=== PATIENT | male | born 1955 | race Caucasian/White ===

== ENCOUNTER 2016-05-16 22:47 | Inpatient (IN) | payer OTHER ==
[~2016-05-16] VITALS: Ht 185.4 cm; Wt 121.0 kg
[~2016-05-16 22:47] MED LIST: ACET1SUP84 PO; ALLO300T2 PO; ASPI-435 PO; B-COCAP2 PO; BISA10SU38 PR; CHOL20007 PO; CLC100X PO; CYAN100048 PO; DIVA500T5 PO; DIVA500T59 PO; DLN100 PO; FRS/40 PO; LEVO100T PO; MAGNSUS5 PO; METO2.5T PO; OXCA150T2 PO; POLY335019 PO; POTA1POW PO; PRLSR20 PO; RISP1TAB3 PO; RIVA1TAB4 PO; SODIENE PR; TAMS0.4C38 PO
[2016-05-16] MEDS ORDERED: ATOR-24 PO (23:19)
[2016-05-16] MEDS ORDERED: SENN-61 PO (23:27)
[2016-05-16] MEDS ORDERED: DLN100 PO (23:30)
[2016-05-16] MEDS ORDERED: CARB25TA12 PO (23:31)
[2016-05-16] MEDS ORDERED: VALP250S16 PO ×2 (23:34)
[2016-05-16] MEDS ORDERED: ACET-1311 PO (23:38)
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
[2016-05-17 00:41] LABS: BASO % 0.2 %; BASO ABS # 0.01 K/uL (0-0.2); COMPLETE YES; EOS % 1.2 %; HEMATOCRIT 35.6 % (42-52); IG% 0.2 %; LYMPH % 25.5 %; LYMPH ABS # 1.05 K/uL (1.2-3.4); MEAN CELL VOLUME 95.4 fL (80-100); MEAN CORPUSCULAR HEMOGLOBIN 32.2 pg (25-34); MEAN CORPUSCULAR HGB CONC 33.7 g/dl (32-36); MEAN PLATELET VOLUME 9.7 fL (7.4-10.4); MONO % 7.8 %; NEUT % 65.1 %; PLATELET COUNT 112 K/uL (130-400); RED BLOOD COUNT 3.73 M/uL (4.7-6.1); WHITE BLOOD COUNT 4.12 K/uL (4.8-10.8)
[2016-05-17 00:59] LABS: ALT/SGPT 12 U/L (12-78); AST/SGOT 25 U/L (15-37); BLOOD UREA NITROGEN 18 mg/dl (7-18); BUN/CREATININE RATIO 17.9 (10-20); CALCIUM 8.6 mg/dl (8.5-10.1); CARBON DIOXIDE 30 mmol/L (21-32); CHLORIDE 103 mmol/L (98-107); GLUCOSE 103 mg/dl (70-99); POTASSIUM 3.6 mmol/L (3.5-5.1); SODIUM 142 mmol/L (136-145)
[2016-05-17 01:10] LABS: ALKALINE PHOSPHATASE 100 U/L (45-117)
[2016-05-17 01:18] LABS: ACETAMINOPHEN < 2 ug/ml (10-30)
[2016-05-17 01:18] LABS: BENZODIAZEPINE, URINE NEG (NEG); COCAINE,URINE NEG (NEG); PHENCYCLIDINE, URINE NEG (NEG)
--- NOTE | 2016-05-17 07:28 | DIAGNOSTIC IMAGING REPORT ---
CHEST ONE VIEW PORTABLE CLINICAL HISTORY: mental health clearance CELLULITIS, EDEMA. COMPARISON STUDY: 10/04/2015 FINDINGS: The heart is mildly enlarged. There is slight elevation of the interstitium. This could indicate mild pulmonary vascular congestion, or represent chronic interstitial opacities. There are no pleural effusions. There is no lobar consolidation. IMPRESSION: Mild elevation of the interstitium. Please correlate clinically in regards to mild pulmonary vascular congestion Electronically signed by: Beltran Ohara M.D. 05/17/2016 7:26 AM
[2016-05-17] MEDS ORDERED: PHENYTOIN SODIUM ER 100 MG CAP PO STA (09:37)
[2016-05-17] MEDS ORDERED: FUROSEMIDE 40 MG TAB PO ONE (09:45)
[2016-05-17] MEDS ORDERED: VALPROIC ACID 500 MG/10 ML UDP PO ONE (09:45)
[2016-05-17] MEDS ORDERED: METOLAZONE 2.5 MG TAB PO ONE (09:45)
[2016-05-17] MEDS ORDERED: OXCARBAZEPINE 150 MG TAB PO ONE (09:45)
[2016-05-17] MEDS: LEVOTHYROXINE 100 MCG TAB PO SCH (10:24)
[2016-05-17] MEDS: CARBIDOPA/LEVODOPA 25/100MG TAB PO SCH ×2 (10:25→21:54)
[2016-05-17] MEDS: RIVAROXABAN 20 MG TAB PO SCH (10:26)
--- NOTE | 2016-05-17 17:32 | EMERGENCY ROOM VISIT NOTE ---
ED Visit Note Received patient in signout from Dr. Avila. History and physical verified by me. The patient has been in the emergency department for almost 19 hours at this point. His been unable to get a bed and can help is going to suspend there search for the evening. I did discuss the patient with Dr. Louis. As the patient is here under a 302 warrant he cannot be sent back to [facility] without a 24-48 hour period of observation. Can help will restart the bed search in the morning. At that time Psych also likely see the patient rounding in the morning.
[2016-05-17] MEDS ORDERED: ATORVASTATIN 40 MG TAB PO STA (17:35)
[2016-05-17] MEDS ORDERED: VALPROIC ACID 500 MG/10 ML UDP PO SCH (21:00)
[2016-05-17] MEDS ORDERED: CARBIDOPA/LEVODOPA 25/100MG TAB PO SCH (21:00)
[2016-05-17] MEDS ORDERED: VALPROIC ACID SYRUP 250 MG/5 ML PO STA (21:26)
[2016-05-17] MEDS: OXCARBAZEPINE 150 MG TAB PO SCH (21:53)
[2016-05-17] MEDS: POTASSIUM CHLORIDE PWD 20 MEQ PACK PO SCH (21:54)
[2016-05-17] MEDS: PHENYTOIN 50 MG CHEW PO SCH (21:56)
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
--- NOTE | 2016-05-18 05:07 | EMERGENCY ROOM VISIT NOTE ---
ED Visit Note First contact with patient: 23:19 This patient was signed out to me at change of shift awaiting psychiatric evaluation. I am familiar with this patient as I evaluated him yesterday on a 302 warrant. The patient is resting comfortably at this time. He received his daily meds earlier today. 0507: The patient is sleeping at this time. He will be evaluated by psychiatry this morning. They will determine disposition. The case was signed out to Dr. Avila at change of shift.
[2016-05-18] MEDS: LEVOTHYROXINE 100 MCG TAB PO SCH (08:42)
[2016-05-18] MEDS: PHENYTOIN 50 MG CHEW PO SCH (08:58)
[2016-05-18] MEDS: POTASSIUM CHLORIDE PWD 20 MEQ PACK PO SCH ×4 (08:59→20:36)
[2016-05-18] MEDS: OXCARBAZEPINE 150 MG TAB PO SCH ×3 (08:59→20:37)
[2016-05-18] MEDS ORDERED: METOLAZONE 2.5 MG TAB PO ONE (09:00)
[2016-05-18] MEDS ORDERED: RIVAROXABAN TAB 15 MG TAB PO SCH (09:00)
[2016-05-18] MEDS ORDERED: RIVAROXABAN 10 MG TAB PO ONE (09:00)
[2016-05-18] MEDS ORDERED: FUROSEMIDE 40 MG TAB PO ONE (09:00)
[2016-05-18] MEDS ORDERED: DIVALPROEX 500 MG EXTENDED RELEASE TAB PO ONE (09:00)
[2016-05-18] MEDS: CARBIDOPA/LEVODOPA 25/100MG TAB PO SCH ×3 (09:51→20:37)
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
--- NOTE | 2016-05-18 14:34 | EMERGENCY ROOM VISIT NOTE ---
ED Visit Note This patient has been signed out to me twice in the past 40 hours for continued evaluation of the patient. The patient has been prescribed his daily medications. He has not had any problems or easy stay. After 40 hours here and a mental health evaluation by the psychiatrist who feels the patient is able to go back to the [facility], the patient will be admitted to the medicine service for observation. The [facility] long-term refused to take the patient back because of lack of staffing. I spoke with Dr. Hugo who will see the patient for admission/observation.
[2016-05-18] MEDS ORDERED: ACETAMINOPHEN 325 MG TAB PO PRN (15:45)
[2016-05-18 16:59] VITALS: BP 117/75; PULSE 73; TEMP 36.3; Ht 185.4 cm; Wt 121.0 kg
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
[2016-05-18 20:00] VITALS: BP 118/71; PULSE 97; TEMP 36.9; O2SAT 95
[2016-05-18] MEDS: DOCUSATE SODIUM 100 MG CAP PO SCH (20:36)
[2016-05-18] MEDS: PHENYTOIN SODIUM ER 100 MG CAP PO SCH (20:36)
[2016-05-18] MEDS ORDERED: VALPROIC ACID SYRUP 250 MG/5 ML PO SCH (21:00)
[2016-05-18] MEDS ORDERED: VALPROIC ACID 250 MG/5 ML UDP PO SCH (21:00)
[2016-05-18] MEDS ORDERED: ATORVASTATIN 40 MG TAB PO SCH (21:00)
[2016-05-18 22:49] VITALS: BP 117/73; PULSE 65; TEMP 36.6; O2SAT 100
[2016-05-19] MEDS ORDERED: LEVOTHYROXINE 100 MCG TAB PO SCH (06:30)
[2016-05-19 07:21] VITALS: BP 116/71; PULSE 64; TEMP 36.4; O2SAT 99
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
[2016-05-19 08:00] VITALS: O2SAT 99
[2016-05-19] MEDS ORDERED: METOLAZONE 2.5 MG TAB PO SCH ×2 (08:30→09:00)
[2016-05-19] MEDS ORDERED: NEPHROCAPS PO SCH (09:00)
[2016-05-19] MEDS ORDERED: VALPROIC ACID 250 MG/5 ML UDP PO SCH (09:00)
[2016-05-19] MEDS ORDERED: FUROSEMIDE 40 MG TAB PO SCH (09:00)
[2016-05-19] MEDS ORDERED: RIVAROXABAN 10 MG TAB PO SCH (09:00)
[2016-05-19] MEDS ORDERED: SENNA 8.6 MG TAB PO SCH (09:00)
[2016-05-19] MEDS ORDERED: TAMSULOSIN HCL 0.4 MG CAP PO SCH (09:00)
[2016-05-19] MEDS ORDERED: PHENYTOIN SODIUM ER 100 MG CAP PO SCH (09:00)
[2016-05-19] MEDS ORDERED: ALLOPURINOL 300 MG TAB PO SCH (09:00)
[2016-05-19] MEDS ORDERED: ASPIRIN 81 MG ECTAB PO SCH (09:00)
[2016-05-19] MEDS ORDERED: VALPROIC ACID SYRUP 250 MG/5 ML PO SCH (09:00)
[2016-05-19] MEDS ORDERED: PANTOprazole SOD 40 MG TAB PO SCH (09:00)
[2016-05-19] MEDS: DOCUSATE SODIUM 100 MG CAP PO SCH (09:11)
[2016-05-19] MEDS: POTASSIUM CHLORIDE PWD 20 MEQ PACK PO SCH ×2 (09:12→13:47)
[2016-05-19] MEDS: OXCARBAZEPINE 150 MG TAB PO SCH ×2 (09:12→13:47)
[2016-05-19] MEDS: CARBIDOPA/LEVODOPA 25/100MG TAB PO SCH ×2 (09:12→13:47)
[2016-05-19] MEDS: PHENYTOIN SODIUM ER 100 MG CAP PO SCH (09:12)
[2016-05-19] MEDS: RIVAROXABAN 20 MG TAB PO SCH (10:04)
[2016-05-19 11:17] VITALS: BP 114/75; PULSE 64; TEMP 36.3; O2SAT 100
--- NOTE | 2016-05-19 12:29 | Hospitalist Progress Note ---
Hospitalist Progress Note Date of Service May 19, 2016. Subjective Pt evaluation today including: conversation w/ patient, physical exam, chart review, lab review, review of studies, review of inpatient medication list Patient is pleasant and cooperative. He has no new issues to bring to my attention today. I did discuss the disposition situation with our nurse navigator. Additional Comments: A 10 system review was performed and all were negative. Objective Vital Signs Date Time Temp Pulse Resp B/P Pulse Ox O2 Delivery O2 Flow Rate FiO2 05/19/16 11:17 36.3 64 16 114/75 100 Room Air 05/19/16 08:00 99 Room Air 05/19/16 07:21 36.4 64 16 116/71 99 Room Air 05/19/16 00:00 Room Air 05/18/16 22:49 36.6 65 16 117/73 100 Room Air 05/18/16 20:00 36.9 97 18 118/71 95 Nasal Cannula 4.0 05/18/16 16:59 36.3 73 18 117/75 Room Air 05/18/16 15:59 73 18 106/61 99 Room Air Physical Exam Notes: GEN: Awake, alert. Not in acute distress HEENT: Tm's intact, no inflammation, EOMI, PERRLA, MMM Neck: Soft, supple Lungs: CTA b/l, no r/r/w Heart: REG, nrl S1S2 without murmurs, rubs or gallops Abdomen: Soft, NT, ND, + BS EXT: No C/C. + lower extremity edema b/l with blisters and excoriated areas anteriorly. NEURO: CN's II-XII grossly intact, non-focal Skin: warm, dry, no rashes. PSYCH: pleasant, cooperative currently, Has one on one nursing with no reports of agitation. Assessment and Plan 1) Transient combative behavior - resolved has been calm and cooperative > 48 hours at this facility 2)Intermittent explosive disorder 3) Cognitive disability 4) Atrial Fibrillation - taking Xarelto 5) HTN - stable 6) Dementia 7) Depression 8) Lower extremity edema 9) Lower extremity venous insufficiency 10) Hypothyroidism - continue Synthroid. 11) Seizure disorder - stable on home meds. DVT prophylaxis covered by Xarelto, I purposely held the TEDs and SCDs due to the blisters on the lower legs b/l. Awaiting placement options.
--- NOTE | 2016-05-19 15:20 | Discharge Instructions ---
Discharge Instructions Admission Reason for Admission: Combative Behavior,Demetia W/ Behavioral [facility] Discharge Discharge Diagnosis / Problem: Combative behavior, Dementia with behavioral disturbance. Discharge Goals Goal(s): Improve disease control Activity Recommendations Activity Limitations: resume your previous activity . Instructions / Follow-Up Instructions / Follow-Up Patient has been calm and cooperative for > 48 hours. We did not need to make any changes in his medication. Current Hospital Diet Patient's current hospital diet: Regular Diet Discharge Diet Recommended Diet: Regular Diet Pending Studies Studies pending at discharge: no Laboratory Results Lipid Panel Test 03/04/16 04:35 Range/Units Triglycerides Level 137 0-150 mg/dl Cholesterol Level 110 0-200 mg/dl HDL Cholesterol 29 mg/dl Cholesterol/HDL Ratio 3.8 LDL Cholesterol, Calculated 54 mg/dl Medical Emergencies . Who to Call and When: Medical Emergencies: If at any time you feel your situation is an emergency, please call 911 immediately. . Non-Emergent Contact Non-Emergency issues call your: Primary Care Provider . . "Provider Documentation" section prepared by Edgar Matamoros. VTE Core Measure Inpt VTE Proph given/why not?: Other Anticoagulation, Contraindicated
[2016-05-19 15:30] VITALS: BP 107/71; PULSE 68; TEMP 36.4; O2SAT 100
[2016-05-19 15:31] VITALS: BP 114/75; PULSE 64; TEMP 36.3; O2SAT 100
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
[2016-05-19] MEDS ORDERED: NURSING VERBAL MED ORDER ONE (15:45)
[2016-05-19] MEDS ORDERED: EUCERIN CR 120 GM JAR EXT PRN (16:00)
[2016-05-19] MEDS ORDERED: EUCERIN CR 120 GM JAR EXT SCH (21:00)
[2017-02-06] MEDS ORDERED: DXY100 PO (19:31)
[2017-02-08] MEDS ORDERED: FURO40TA3 PO (18:20)
== END 2016-05-19 17:30 | DRG 884 ==
LOC: ENRESERVTM → ENRESERVDT → EDBD 22:47 → C.EDB 22:48 → C.MS2W 05-18 14:39
PROVIDERS: ADMIT Hospitalist; ATTEND Hospitalist
DX: F03.91 Unspecified dementia, unspecified severity, with behavioral disturbance (principal); I13.0 Hypertensive heart and chronic kidney disease with heart failure and stage 1 through stage 4 chronic kidney disease, or unspecified chronic kidney disease; R45.6 Violent behavior; R60.0 Localized edema; F63.81 Intermittent explosive disorder; F25.9 Schizoaffective disorder, unspecified; F32.9 Major depressive disorder, single episode, unspecified; F71 Moderate intellectual disabilities; F39 Unspecified mood [affective] disorder; G40.909 Epilepsy, unspecified, not intractable, without status epilepticus; I50.9 Heart failure, unspecified; I48.2 Chronic atrial fibrillation; N18.3 Chronic kidney disease, stage 3 (moderate); I87.2 Venous insufficiency (chronic) (peripheral); E78.5 Hyperlipidemia, unspecified; E03.9 Hypothyroidism, unspecified; M19.90 Unspecified osteoarthritis, unspecified site; E66.9 Obesity, unspecified; Z68.36 Body mass index [BMI] 36.0-36.9, adult; Z22.322 Carrier or suspected carrier of Methicillin resistant Staphylococcus aureus; Z86.718 Personal history of other venous thrombosis and embolism; Z79.82 Long term (current) use of aspirin; Z79.01 Long term (current) use of anticoagulants; Z79.899 Other long term (current) drug therapy

== ENCOUNTER → 2016-05-27 | Outpatient (CLI) | payer OTHER ==
[~2016-05-27] MED LIST changes: +ACET-1311 PO; -ACET1SUP84 PO; +AMOX500C3 PO; +ATOR-24 PO; -BISA10SU38 PR; +CARB25TA12 PO; -DIVA500T5 PO; -DIVA500T59 PO; +DXY100 PO; +FURO40TA3 PO; -MAGNSUS5 PO; -RISP1TAB3 PO; +SENN-61 PO; -SODIENE PR; +VALP250S16 PO
[2016-05-27 09:15] LABS: BLOOD UREA NITROGEN 20 mg/dl (7-18); CALCIUM 9.4 mg/dl (8.5-10.1); CARBON DIOXIDE 32 mmol/L (21-32); CHLORIDE 99 mmol/L (98-107); CREATININE 0.96 mg/dl (0.60-1.40); GLUCOSE 90 mg/dl (70-99); MAGNESIUM 1.8 mg/dl (1.8-2.4); POTASSIUM 3.3 mmol/L (3.5-5.1); SODIUM 143 mmol/L (136-145)
== END ==
LOC: C.LABUPHEI 08:50
PROVIDERS: ATTEND Family Medicine
DX: R60.9 Edema, unspecified (principal); M62.81 Muscle weakness (generalized)

== ENCOUNTER → 2016-08-04 | Outpatient (CLI) | payer OTHER ==
[2016-08-04 09:11] LABS: BLOOD UREA NITROGEN 25 mg/dl (7-18); BUN/CREATININE RATIO 25.1 (10-20); CALCIUM 9.3 mg/dl (8.5-10.1); CARBON DIOXIDE 34 mmol/L (21-32); CHLORIDE 99 mmol/L (98-107); GLUCOSE 93 mg/dl (70-99); POTASSIUM 3.5 mmol/L (3.5-5.1); SODIUM 142 mmol/L (136-145)
== END | disposition home or self-care (01) ==
LOC: C.LABUPHEI 08:06
PROVIDERS: ATTEND Family Medicine
DX: R60.9 Edema, unspecified (principal)

== ENCOUNTER → 2016-08-05 | Outpatient (CLI) | payer OTHER | LOC: C.LABUPHEI 09:12 | PROVIDERS: ATTEND Family Medicine | DX: M10.9 Gout, unspecified (principal) ==

== ENCOUNTER → 2016-09-12 | Outpatient (CLI) | payer OTHER ==
[2016-09-12 08:57] LABS: BLOOD UREA NITROGEN 20 mg/dl (7-18); BUN/CREATININE RATIO 20.1 (10-20); CARBON DIOXIDE 34 mmol/L (21-32); CHLORIDE 101 mmol/L (98-107); GLUCOSE 96 mg/dl (70-99); POTASSIUM 3.7 mmol/L (3.5-5.1); SODIUM 143 mmol/L (136-145)
[2016-09-12 09:01] LABS: CALCIUM 9.1 mg/dl (8.5-10.1)
== END ==
LOC: C.LABUPHEI 08:29
PROVIDERS: ATTEND Family Medicine
DX: G40.909 Epilepsy, unspecified, not intractable, without status epilepticus (principal); R60.9 Edema, unspecified

== ENCOUNTER → 2016-11-05 | Outpatient (CLI) | payer OTHER ==
[2016-11-05 09:21] LABS: BLOOD UREA NITROGEN 17 mg/dl (7-18); BUN/CREATININE RATIO 15.3 (10-20); CARBON DIOXIDE 33 mmol/L (21-32); CHLORIDE 101 mmol/L (98-107); GLUCOSE 89 mg/dl (70-99); MAGNESIUM 2.1 mg/dl (1.8-2.4); POTASSIUM 3.5 mmol/L (3.5-5.1); SODIUM 142 mmol/L (136-145)
== END ==
LOC: C.LABUPHEI 08:16
PROVIDERS: ATTEND Family Medicine
DX: E03.9 Hypothyroidism, unspecified (principal); N18.3 Chronic kidney disease, stage 3 (moderate); R00.9 Unspecified abnormalities of heart beat

== ENCOUNTER → 2016-11-10 | Outpatient (CLI) | payer OTHER ==
[2016-11-10 11:05] LABS: BLOOD UREA NITROGEN 22 mg/dl (7-18); BUN/CREATININE RATIO 18.7 (10-20); CARBON DIOXIDE 34 mmol/L (21-32); CHLORIDE 98 mmol/L (98-107); GLUCOSE 108 mg/dl (70-99); SODIUM 139 mmol/L (136-145)
== END | disposition home or self-care (01) ==
LOC: C.LABUPHEI 08:01
PROVIDERS: ATTEND Family Medicine
DX: R60.9 Edema, unspecified (principal)

== ENCOUNTER → 2016-11-11 | Outpatient (CLI) | payer OTHER | LOC: C.LABUPHEI 08:52 | PROVIDERS: ATTEND Family Medicine | DX: E87.6 Hypokalemia (principal) ==

== ENCOUNTER → 2016-11-12 | Outpatient (CLI) | payer OTHER ==
[2016-11-12 18:05] LABS: BASO % 0.2 %; BASO ABS # 0.01 K/uL (0-0.2); COMPLETE YES; HEMATOCRIT 40.5 % (42-52); IG% 0.2 %; LYMPH % 3.4 %; MEAN CELL VOLUME 96.4 fL (80-100); MEAN CORPUSCULAR HEMOGLOBIN 32.6 pg (25-34); MEAN CORPUSCULAR HGB CONC 33.8 g/dl (32-36); MONO % 4.4 %; NEUT % 91.8 %; PLATELET COUNT 146 K/uL (130-400); WHITE BLOOD COUNT 5.88 K/uL (4.8-10.8)
[2016-11-12 18:18] LABS: URINE APPEARANCE CLEAR (CLEAR); URINE COLOR DK YELLOW; URINE NITRITE NEG (NEG); URINE PH 7.5 (4.5-7.5); UROBILINOGEN NEG (NEG); ZZUR CULT IF INDIC CLEAN CATCH NO
[2016-11-12 18:21] LABS: URINE BILIRUBIN 1+ (NEG)
[2016-11-12 18:23] LABS: MANUAL MICROSCOPIC REQUIRED? NO; REVIEW REQ? NO
[2016-11-12 18:30] LABS: BLOOD UREA NITROGEN 23 mg/dl (7-18); BUN/CREATININE RATIO 15.6 (10-20); CARBON DIOXIDE 35 mmol/L (21-32); CHLORIDE 93 mmol/L (98-107); GLUCOSE 138 mg/dl (70-99); POTASSIUM 3.1 mmol/L (3.5-5.1); SODIUM 138 mmol/L (136-145)
[2016-11-12 18:44] LABS: ALB/GLOB RATIO 0.8 (0.9-2); ALKALINE PHOSPHATASE 297 U/L (45-117); ALT/SGPT 86 U/L (12-78); AST/SGOT 506 U/L (15-37)
--- NOTE | 2017-01-02 09:27 | CODING QUERY NO DIAGNOSIS ---
TREATMENT RENDERED WITHOUT A DIAGNOSIS To promote full compliance with coding requirements relating to patient care, physician participation is requested in all cases of decay control operator uncertainty. Please assist us with providing a diagnosis/symptom for the test(s) below: A diagnosis/symptom was not documented on your Order. A valid diagnosis/symptom is required to bill all insurances. Please remember that we are unable to code a diagnosis of rule out, probable, possible, questionable, or suspected. Tests that require a diagnosis: * CMP DIAGNOSIS: * CBC W/ AUTO DIFF DIAGNOSIS: * UA CLEAN CATCH CULT DIAGNOSIS: * BLOOD CULTURE DIAGNOSIS: Provider Signature: Date: Thank you Karol Buitrago [employer] Once completed, please kindly fax back to [phone] For questions please call [phone]
== END ==
LOC: C.LABUPHEI 17:47
PROVIDERS: ATTEND Nurse Practitioner Family
DX: Z01.89 Encounter for other specified special examinations (principal)

== ENCOUNTER → 2016-11-14 | Outpatient (CLI) | payer OTHER | LOC: C.LABUPHEI 08:42 | PROVIDERS: ATTEND Family Medicine | DX: R53.83 Other fatigue (principal) ==

== ENCOUNTER → 2016-11-21 | Outpatient (CLI) | payer OTHER ==
[2016-11-21 09:31] LABS: BLOOD UREA NITROGEN 22 mg/dl (7-18); BUN/CREATININE RATIO 16.9 (10-20); CALCIUM 9.6 mg/dl (8.5-10.1); CARBON DIOXIDE 34 mmol/L (21-32); CHLORIDE 97 mmol/L (98-107); GLUCOSE 115 mg/dl (70-99); POTASSIUM 3.3 mmol/L (3.5-5.1); SODIUM 138 mmol/L (136-145)
== END | disposition home or self-care (01) ==
LOC: C.LABUPHEI 09:06
PROVIDERS: ATTEND Nurse Practitioner Family
DX: R60.9 Edema, unspecified (principal)

== ENCOUNTER → 2016-11-25 | Outpatient (CLI) | payer OTHER ==
[2016-11-25 10:17] LABS: ALT/SGPT 36 U/L (12-78); AST/SGOT 29 U/L (15-37); BLOOD UREA NITROGEN 22 mg/dl (7-18); BUN/CREATININE RATIO 21.6 (10-20); CALCIUM 9.1 mg/dl (8.5-10.1); CARBON DIOXIDE 32 mmol/L (21-32); CHLORIDE 100 mmol/L (98-107); GLUCOSE 107 mg/dl (70-99); POTASSIUM 3.5 mmol/L (3.5-5.1); SODIUM 138 mmol/L (136-145)
[2016-11-25 10:19] LABS: ALKALINE PHOSPHATASE 172 U/L (45-117)
== END ==
LOC: C.LABUPHEI 09:11
PROVIDERS: ATTEND Nurse Practitioner Family
DX: R60.9 Edema, unspecified (principal); I10 Essential (primary) hypertension

== ENCOUNTER → 2016-11-28 | Outpatient (CLI) | payer OTHER ==
[2016-11-28 08:42] LABS: BLOOD UREA NITROGEN 20 mg/dl (7-18); BUN/CREATININE RATIO 18.4 (10-20); CALCIUM 9.2 mg/dl (8.5-10.1); CARBON DIOXIDE 33 mmol/L (21-32); CHLORIDE 102 mmol/L (98-107); GLUCOSE 102 mg/dl (70-99); POTASSIUM 3.7 mmol/L (3.5-5.1); SODIUM 141 mmol/L (136-145)
== END ==
LOC: C.LABUPBEA 07:54
PROVIDERS: ATTEND Nurse Practitioner Family
DX: R60.9 Edema, unspecified (principal)

== ENCOUNTER → 2016-12-05 | Outpatient (CLI) | payer OTHER ==
[2016-12-05 09:09] LABS: BLOOD UREA NITROGEN 18 mg/dl (7-18); BUN/CREATININE RATIO 16.2 (10-20); CALCIUM 9.5 mg/dl (8.5-10.1); CARBON DIOXIDE 31 mmol/L (21-32); CHLORIDE 104 mmol/L (98-107); GLUCOSE 86 mg/dl (70-99); POTASSIUM 3.9 mmol/L (3.5-5.1); SODIUM 142 mmol/L (136-145)
== END ==
LOC: C.LABUPHEI 08:52
PROVIDERS: ATTEND Family Medicine
DX: G40.909 Epilepsy, unspecified, not intractable, without status epilepticus (principal); R60.9 Edema, unspecified

== ENCOUNTER → 2016-12-11 | Outpatient (CLI) | payer OTHER ==
--- NOTE | 2016-12-11 11:12 | DIAGNOSTIC IMAGING REPORT ---
ABDOMEN NO IV/ORAL CONT (CT) CT DOSE: 550.93 mGy.cm HISTORY: Gallstones Gallstones, abnormal US. TECHNIQUE: Multiaxial CT images of the abdomen was performed without contrast. A dose lowering technique was utilized adhering to the principles of ALARA. COMPARISON STUDY: None. No images or report is submitted compromising the accuracy of the current study CT 10/05/2014 FINDINGS: Severe the limited exam diagnostically due to the absence of the stated outside imaging study as well as the lack of intravenous and oral contrast. Lung bases are clear. Liver spleen and pancreas appear uniform within the limitations of an unenhanced scan. Mild gallbladder distention. Possible small gallstones. The right kidney is negative for hydronephrosis. Left kidney is absent. Bowel pattern is nonobstructive. There is enlarged significant ventral hernia containing components of small bowel as well as colon. This has increased considerably in diameter compared to the prior exam. Maximum transaxial dimension currently is 9.6 cm. IMPRESSION: 1. Limited exam due to the absence of the patient's stated ultrasound, as well as lack of intravenous and oral contrast. 2. Interval development of or progression of a larger ventral hernia now containing loops of colon as well as small bowel. 3. No evidence for bowel obstructive change. 4. Absent left kidney. 5. Mild gallbladder distention with the possibility of several small gallstones. The above report was generated using voice recognition software. It may contain grammatical, syntax or spelling errors. Electronically signed by: Hudson Lock M.D. 12/11/2016 11:10 AM Dictated Date/Time: 12/11/2016 11:00 AM
== END ==
LOC: C.CTS 10:35
PROVIDERS: ATTEND Family Medicine
DX: K43.9 Ventral hernia without obstruction or gangrene (principal); K82.8 Other specified diseases of gallbladder

== ENCOUNTER → 2016-12-12 | Outpatient (CLI) | payer OTHER ==
[2016-12-12 10:14] LABS: BLOOD UREA NITROGEN 22 mg/dl (7-18); BUN/CREATININE RATIO 21.8 (10-20); CALCIUM 8.7 mg/dl (8.5-10.1); CARBON DIOXIDE 33 mmol/L (21-32); CHLORIDE 101 mmol/L (98-107); GLUCOSE 102 mg/dl (70-99); POTASSIUM 3.4 mmol/L (3.5-5.1); SODIUM 140 mmol/L (136-145)
== END | disposition home or self-care (01) ==
LOC: C.LABUPHEI 09:38
PROVIDERS: ATTEND Family Medicine
DX: R06.9 Unspecified abnormalities of breathing (principal)

== ENCOUNTER → 2016-12-15 | Outpatient (CLI) | payer OTHER ==
[2016-12-15 10:34] LABS: BLOOD UREA NITROGEN 21 mg/dl (7-18); BUN/CREATININE RATIO 20.7 (10-20); CARBON DIOXIDE 32 mmol/L (21-32); CHLORIDE 107 mmol/L (98-107); CREATININE 0.99 mg/dl (0.60-1.40); GLUCOSE 109 mg/dl (70-99); POTASSIUM 3.8 mmol/L (3.5-5.1); SODIUM 145 mmol/L (136-145)
== END ==
LOC: C.LABUPHEI 09:41
PROVIDERS: ATTEND Family Medicine
DX: R60.9 Edema, unspecified (principal)

== ENCOUNTER → 2016-12-22 | Outpatient (CLI) | payer OTHER ==
[2016-12-22 10:39] LABS: BLOOD UREA NITROGEN 18 mg/dl (7-18); BUN/CREATININE RATIO 15.3 (10-20); CALCIUM 9.4 mg/dl (8.5-10.1); CARBON DIOXIDE 33 mmol/L (21-32); CHLORIDE 100 mmol/L (98-107); GLUCOSE 101 mg/dl (70-99); POTASSIUM 3.5 mmol/L (3.5-5.1); SODIUM 141 mmol/L (136-145)
== END ==
LOC: C.LABUPHEI 09:44
PROVIDERS: ATTEND Nurse Practitioner Family
DX: R60.9 Edema, unspecified (principal)

== ENCOUNTER → 2016-12-29 | Outpatient (CLI) | payer OTHER ==
[2016-12-29 10:16] LABS: BLOOD UREA NITROGEN 19 mg/dl (7-18); BUN/CREATININE RATIO 17.2 (10-20); CARBON DIOXIDE 35 mmol/L (21-32); CHLORIDE 101 mmol/L (98-107); GLUCOSE 92 mg/dl (70-99); POTASSIUM 3.8 mmol/L (3.5-5.1); SODIUM 141 mmol/L (136-145)
== END | disposition home or self-care (01) ==
LOC: C.LABUPHEI 09:01
PROVIDERS: ATTEND Nurse Practitioner Family
DX: Q63.8 Other specified congenital malformations of kidney (principal)

== ENCOUNTER → 2017-01-05 | Outpatient (CLI) | payer OTHER ==
[2017-01-05 09:28] LABS: BLOOD UREA NITROGEN 20 mg/dl (7-18); BUN/CREATININE RATIO 18.5 (10-20); CALCIUM 9.1 mg/dl (8.5-10.1); CARBON DIOXIDE 35 mmol/L (21-32); CHLORIDE 102 mmol/L (98-107); GLUCOSE 102 mg/dl (70-99); POTASSIUM 3.7 mmol/L (3.5-5.1); SODIUM 144 mmol/L (136-145)
== END ==
LOC: C.LABUPHEI 09:04
PROVIDERS: ATTEND Nurse Practitioner Family
DX: R60.9 Edema, unspecified (principal)

== ENCOUNTER → 2017-01-08 | Outpatient (CLI) | payer OTHER ==
[2017-01-08 08:17] LABS: BLOOD UREA NITROGEN 17 mg/dl (7-18); BUN/CREATININE RATIO 15.6 (10-20); CALCIUM 9.5 mg/dl (8.5-10.1); CARBON DIOXIDE 36 mmol/L (21-32); CHLORIDE 99 mmol/L (98-107); GLUCOSE 107 mg/dl (70-99); POTASSIUM 3.5 mmol/L (3.5-5.1); SODIUM 141 mmol/L (136-145)
== END ==
LOC: C.LABUPHEI 07:48
PROVIDERS: ATTEND Nurse Practitioner Family
DX: R60.9 Edema, unspecified (principal)

== ENCOUNTER 2017-02-04 12:27 | Inpatient (IN) | payer OTHER ==
[~2017-02-04] VITALS: Ht 185.4 cm; Wt 124.5 kg
[~2017-02-04 12:27] MED LIST changes: -AMOX500C3 PO; -DXY100 PO; -FURO40TA3 PO
[2017-02-04 15:15] VITALS: BP 118/66; PULSE 59; TEMP 36.9; O2SAT 99
[2017-02-04 16:12] LABS: HEMATOCRIT 34.9 % (42-52); MEAN CELL VOLUME 97.5 fL (80-100); MEAN CORPUSCULAR HEMOGLOBIN 32.7 pg (25-34); MEAN CORPUSCULAR HGB CONC 33.5 g/dl (32-36); MEAN PLATELET VOLUME 10.1 fL (7.4-10.4); PLATELET COUNT 116 K/uL (130-400); RED BLOOD COUNT 3.58 M/uL (4.7-6.1); WHITE BLOOD COUNT 4.78 K/uL (4.8-10.8)
[2017-02-04] MEDS ORDERED: ONDANSETRON INJ 2 MG/ML 2 ML VIAL IV PRN (16:15)
[2017-02-04 16:21] LABS: INR 1.1 (0.9-1.1); PROTHROMBIN TIME (PATIENT) 12.3 SECONDS (9.0-12.0)
[2017-02-04] MEDS ORDERED: AMOX500C3 PO (16:40)
[2017-02-04 16:44] LABS: ALKALINE PHOSPHATASE 128 U/L (45-117); ALT/SGPT 16 U/L (12-78); BLOOD UREA NITROGEN 18 mg/dl (7-18); BUN/CREATININE RATIO 17.9 (10-20); CALCIUM 9.4 mg/dl (8.5-10.1); CARBON DIOXIDE 35 mmol/L (21-32); CHLORIDE 100 mmol/L (98-107); GLUCOSE 98 mg/dl (70-99); PHOSPHORUS 3.3 mg/dl (2.5-4.9); SODIUM 142 mmol/L (136-145)
[2017-02-04 16:49] VITALS: Ht 185.4 cm; Wt 124.5 kg
--- NOTE | 2017-02-04 17:01 | DIAGNOSTIC IMAGING REPORT ---
CHEST ONE VIEW PORTABLE CLINICAL HISTORY: Direct admit--baseline CXR. COMPARISON STUDY: Chest radiograph May 17, 2016. FINDINGS: Lung volumes are normal. No pneumothorax or pleural effusion is present. Pulmonary vascularity is normal. There is no consolidation to suggest pneumonia. Cardiomediastinal silhouette is unremarkable. IMPRESSION: No acute cardiopulmonary findings. Electronically signed by: Otf Qureshi M.D. 02/04/2017 4:59 PM Dictated Date/Time: 02/04/2017 4:58 PM
--- NOTE | 2017-02-04 17:21 | History and Physical ---
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 Patient was seeing Dr. Lemons today for a routine follow-up appt and was noted to have worsening LE edema bilaterally with associated warmth, erythema and superficial skin breakdown. History was limited due to patient's intellectual disabilities and dementia. States that his legs are swollen and sore but does not know when symptoms worsened. 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 Has a private room with alarms due to behavioral issues of violent threats. Has chronic LE edema but the nurse I spoke with noticed worsening edema with redness and skin breakdown a few days ago. Is on a salt restricted diet due to chronic renal failure but is not always compliant. Has been taking all medications regularly, including metolazone and Lasix. Has a history of seizures but per discussion with facility and chart review, has not had a seizure in over a year. Endorses dull pain around ankles and shins bilaterally 2/2 swelling as well as chronic tingling/numbness in both feet. Denies any fever, chills, CP, SOB, orthopnea, PND, nausea, vomiting, abd pain, LE weakness. Past Medical/Surgical History Medical Problems: (1) Benign hypertension Status: Chronic (2) Chronic congestive heart failure Permanent Comment: echo 2009 moderate LVH, normal LVEF diastolic dysfunction Status: Chronic (3) Chronic kidney disease stage 3 Status: Chronic (4) Combative behavior Status: Chronic (5) Dementia with behavioral disturbance Status: Chronic (6) Depression Status: Chronic (7) History of pancytopenia Status: Chronic (8) HLD (hyperlipidemia) Status: Chronic (9) Hyperlipidemia Status: Chronic (10) Hypertension Nos Status: Chronic (11) Hypothyroidism Status: Chronic (12) Lymphedema Status: Chronic (13) Parkinson disease Status: Chronic (14) Schizoaffective Disorder, Unspecified Status: Chronic (15) Seizure disorder Status: Chronic Family History FH: cancer Malignancy Social History Smoking Status: Never Smoker Drug Use: none Marital Status: single Housing status: penitent[facility] Occupational Status: unemployed Immunizations History of Influenza Vaccine: Yes History of Tetanus Vaccine?: UTD History of Pneumococcal: Yes Pneumococcal Date: Jun 01, 2010 History of Hepatitis B Vaccine: Unknown Allergies Coded Allergies: No Known Allergies (Verified , 05/16/16) Home Medications Scheduled Amoxicillin (Amoxil), 1 CAP PO BID Aspirin (Aspirin 81), 81 MG PO DAILY Atorvastatin (Lipitor), 40 MG PO HS Carbidopa/Levodopa (Sinemet 25MG/100MG), 1 TAB PO TID Cholecalciferol (Vitamin D3), 2,000 UNIT PO DAILY Cyanocobalamin (Vitamin B-12), 1,000 MCG PO DAILY Docusate Sodium (Colace), 200 MG PO BID Furosemide (Lasix), 40 MG PO DAILY Levothyroxine Sodium (Synthroid), 100 MCG PO DAILY Metolazone (Zaroxolyn), 2.5 MG PO DAILY Omeprazole (Prilosec), 20 MG PO DAILY Oxcarbazepine (Trileptal), 150 MG PO TID Phenytoin Sodium (Dilantin), 200 MG PO TID Polyethylene Glycol 3350 (Miralax), 17 GM PO DAILY Potassium Chloride Pwd (Klor-Con Pwd), 40 MEQ PO QID Rivaroxaban (Xarelto), 20 MG PO DAILY Senna (Senokot), 17.2 MG PO QAM Tamsulosin Hcl (Flomax), 0.4 MG PO DAILY Valproic Acid Syrup (Depakene), 1,500 MG PO QAM Valproic Acid Syrup (Depakene), 1,750 MG PO HS Vitamin B Cmplx/Vitc/Folic Ac (Nephrocaps), 1 CAP PO DAILY Scheduled PRN Acetaminophen (Tylenol), 650 MG PO Q6 PRN for Pain Review of Systems Ten systems reviewed and negative except as noted in the HPI. Physical Exam General Appearance: WD/WN, no apparent distress (Patient with involuntary movement of mouth and tongue. ) Head: normocephalic, atraumatic Eyes: normal inspection, sclerae normal ENT: hearing grossly normal, + pertinent finding (Poor dentition ) Neck: supple, no adenopathy, trachea midline Respiratory/Chest: chest non-tender, lungs clear, normal breath sounds, no respiratory distress, no accessory muscle use Cardiovascular: regular rate, rhythm, no murmur Abdomen/GI: normal bowel sounds (Presence of a large ventral hernia. Soft, reducible ), non tender, soft Back: normal inspection (Presence of a raised, cystic lesion on upper R back. ) Extremities/Musculoskelatal: no calf tenderness, + swelling (Significant 4+ bilateral edema to knees with overlying erythema and superficial skin breakdown) Neurologic/Psych: no motor/sensory deficits (Motor and cognitive impairments at baseline. ), alert, oriented x 3 Skin: normal color Diagnostics Laboratory Results Results Past 24 Hours Test 02/04/17 15:34 02/04/17 15:42 Range/Units Creatine Kinase MB Ratio 0-3.0 White Blood Count 4.78 4.8-10.8 K/uL Red Blood Count 3.58 4.7-6.1 M/uL Hemoglobin 11.7 14.0-18.0 g/dL Hematocrit 34.9 42-52 % Mean Corpuscular Volume 97.5 80-100 fL Mean Corpuscular Hemoglobin 32.7 25-34 pg Mean Corpuscular Hemoglobin Concent 33.5 32-36 g/dl RDW Standard Deviation 51.7 36.4-46.3 fL RDW Coefficient of Variation 14.7 11.5-14.5 % Platelet Count 116 130-400 K/uL Mean Platelet Volume 10.1 7.4-10.4 fL Prothrombin Time 12.3 9.0-12.0 SECONDS Prothromb Time International Ratio 1.1 0.9-1.1 Impression Assessment and Plan This is a 61yo man who resides at [facility] with a PMH of HTN, CKD III (L kidney absent), hereditary lymphedema, Parkinson's disease, 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 Bilateral LE cellulitis: -Erythema and warmth 2/2 worsening lymphedema -[facility], discoloration and warmth have been present for 3 days -CBC pending -Blood cultures ordered -See attending addendum for antibiotic Worsening bilateral LE edema: -In the setting of hereditary lymphedema, CKD -Per Dr. Lemons, -Started on 40mg IV Lasix BID with albumin -Continue home dose metolazone -Continue potassium chloride supplement -Monitor K closely -Na restricted diet Chronic diastolic heart failure: -Echo in 2008 showing normal EF, LVH -Compensated; denies CP, SOB, lungs are clear -CXR, EKG, repeat echo pending Chronic kidney disease Stage III: -Solitary kidney -Continue K supplement, renal vitamin -Baseline Cr of 1.1 -Awaiting CMP to assess current renal function H/o dental infections: -Poor dentition -On amoxicillin at [facility] for preventative tooth pain Ventral abdominal hernia: -Presence of large, reducible ventral hernia -Per recent general surgery note, recommended against surgical repair due to comorbidities Seizure disorder: stable -Followed by -Has not had a seizure in over a year -Continue home dose dilantin, trileptal, valproic acid Parkinson's Disease: stable -Followed by Dr. Flores -Continue Carbidopa-Levodopa Impulse disorder: -History of making violent threats when agitated -Continue Dilantin -Room alarms in place H/o DVTs: -Continue Xarelto Hypothyroidism: -Cont synthroid HLD: -Cont statin DVT Ppx: On Xarelto Code status: FULL PCP: Quang ([facility]) Dispo: SW consulted to help with discharge placement back to [facility] ADDENDUM: I have seen and examined the patient. He is not in respiratory distress and denies any issues with chest pain or trouble breathing. He ambulates at baseline with a walker and sometimes a wheelchair. He has chronic lymphedema with superficial breakdown of the skin with evidence of cellulitis. He has been on 10 days of amoxicillin for a tooth infection, so will start clindamycin empirically. As he is institutionalized, there is a MRSA risk, however, there is no purulent drainage and this appears to be more consistent with strep or MSSA infection. Although he is on Xarelto, will order LE ultrasounds with level of swelling and warmth that is present. Blood cultures pending although no signs of systemic toxicity at this time. Lungs clear on exam, appears to be mentating at baseline, heart sounds are normal, extremities well perfused, no JVD, 3+ pitting edema on LE to knees with significant circumferential lower leg erythema and warmth. Superficial wound on posterior R leg draining serous fluid. +Pedal edema. Cont with Lasix/Albumin per Nephro. Wound care consulted. Giving additional potassium supplementation now for K 3.2. Otherwise agree with assessment and plan as above. I called brother, Bubba, to update him and LM with my cell to call me back. DO Nolan Level of Care Telemetry Resuscitation Status FULL RESUSCITATION VTE Prophylaxis Given or contraindicated: Other Anticoagulation Social Service Consult Lives in [place]
[2017-02-04] MEDS ORDERED: ACETAMINOPHEN 325 MG TAB PO PRN (17:45)
[2017-02-04 17:52] LABS: MAGNESIUM 1.8 mg/dl (1.8-2.4); POTASSIUM 3.2 mmol/L (3.5-5.1)
[2017-02-04] MEDS ORDERED: INFLUENZA VIRUS QUAD VACCINE 0.5 ML SYR IM. ONE (19:00)
[2017-02-04] MEDS ORDERED: INFLUENZA ADMINISTRATION CHARGE ONE (19:00)
[2017-02-04] MEDS ORDERED: POTASSIUM CHLORIDE 20 MEQ TABCR PO SCH (19:15)
--- NOTE | 2017-02-04 19:44 | DIAGNOSTIC IMAGING REPORT ---
ULTRASOUND VENOUS DOPPLER LWR EXT BILA CLINICAL HISTORY: Leg swelling COMPARISON STUDY: 03/04/2013 FINDINGS: Real-time and color flow Doppler imaging were performed. Flow was seen within the femoral, popliteal and calf veins with no intraluminal thrombus demonstrated. The saphenous vein is patent. There are prominent fatty lymph nodes within the right groin, the largest of which measures 41 x 11 x 23 mm. IMPRESSION: No evidence of lower extremity DVT. Electronically signed by: Beltran Ohara M.D. 02/04/2017 7:43 PM Dictated Date/Time: 02/04/2017 7:42 PM
[2017-02-04] MEDS: CLINDAMYCIN IV 900 MG in DEXTROSE 5% 100ML 100 ML IV SCH (20:07)
[2017-02-04 20:26] VITALS: BP 132/70; PULSE 58; TEMP 37.1; O2SAT 96
[2017-02-04] MEDS ORDERED: AMOXICILLIN 500 MG CAP PO SCH (21:00)
[2017-02-04] MEDS: ALBUMIN 25% 50 ML with FUROSEMIDE INJ 40 MG IV SCH ×2 (21:52)
[2017-02-04] MEDS: VALPROIC ACID SYRUP 250 MG/5 ML PO SCH (21:53)
[2017-02-04] MEDS: CARBIDOPA/LEVODOPA 25/100MG TAB PO SCH (21:54)
[2017-02-04] MEDS: DOCUSATE SODIUM 100 MG CAP PO SCH (21:54)
[2017-02-04] MEDS: OXCARBAZEPINE 150 MG TAB PO SCH (21:55)
[2017-02-04] MEDS: POTASSIUM CHLORIDE PWD 20 MEQ PACK PO SCH (21:55)
[2017-02-04] MEDS: PHENYTOIN SODIUM ER 100 MG CAP PO SCH (21:55)
[2017-02-04] MEDS: ATORVASTATIN 40 MG TAB PO SCH (21:56)
[2017-02-04 22:15] VITALS: BP 110/67; PULSE 99; TEMP 37.1; O2SAT 99
[2017-02-04 23:26] VITALS: BP 116/78; PULSE 68; TEMP 37; O2SAT 98
[2017-02-05] VITALS (7 sets, daily range): BP systolic 101–116; BP diastolic 60–74; PULSE 63–118; TEMP 36.5–36.9; O2SAT 95–100
[2017-02-05] MEDS: CLINDAMYCIN IV 900 MG in DEXTROSE 5% 100ML 100 ML IV SCH ×3 (02:27→18:51)
[2017-02-05] MEDS: LEVOTHYROXINE 100 MCG TAB PO SCH (06:27)
--- NOTE | 2017-02-05 08:04 | NEPHROLOGY CONSULTATION ---
DATE OF CONSULTATION: 02/05/2017 ATTENDING OF RECORD: Dr. Francisco. REASON FOR CONSULTATION: Significant lymphedema with possible cellulitis. HISTORY OF PRESENT ILLNESS: This is a 61-year-old male who follows with me for chronic lower extremity edema secondary to dietary indiscretion with significant salt loads. The patient was seen in my office yesterday and had significantly worsening lower extremity edema with warmth, erythema and skin breakdown. The patient is noncompliant with his salt restriction and has been on chronic diuretics as well as potassium supplementation for years. The patient is comfortable, no complaints. Pt tentatively scheduled for outpt elective ventral hernia repair in february in [place]. PAST MEDICAL HISTORY: Hypertension, CHF, lower extremity edema, depression, hyperlipidemia, hypertension, Parkinson's, seizure disorder. PAST SURGICAL HISTORY: Previous hernia repairs FAMILY HISTORY: Significant for cancer. SOCIAL HISTORY: No smoking, no alcohol, no drugs. Lives [place] [facility] CURRENT MEDICATIONS: Aspirin 81 mg a day, Xarelto 20 mg daily, senna 17.2 mg daily, Flomax 0.4 mg daily, valproic acid 1500 mg daily, Nephrocaps daily, vitamin D 2000 units daily, vitamin B12 1000 mcg daily, Protonix 40 mg daily, MiraLax 17 grams daily, levothyroxine 100 mcg daily, albumin with Lasix 40 mg IV b.i.d., Lipitor 40 mg at night, Sinemet 1 tab p.o. t.i.d., Colace 200 mg p.o. b.i.d., Trileptal 150 mg p.o. t.i.d.,., potassium 40 mEq 4 times a day, valproic acid 1750 mg at night, clindamycin 900 mg IV q.8 REVIEW OF SYSTEMS: No fatigue. No weight loss. No headaches, no blurry vision, no dysphagia, no shortness of breath, no chest pain, no nausea or vomiting. Positive ventral hernia, does have a seizure history with last seizure about a year ago and complains of knee pain. All other review of systems otherwise negative. PHYSICAL EXAMINATION: VITAL SIGNS: Temperature 36.5, pulse 65, respirations 18, blood pressure 101/60, satting 96% on room air. GENERAL: Awake, alert, oriented x3. EYES: No scleral icterus. ENT: Moist mucous membranes. NECK: Supple. PULMONARY: Clear to auscultation. CARDIAC: Regular rate and rhythm. ABDOMEN: Bowel sounds positive, soft, nontender.+ventral hernia EXTREMITIES: +4 to 5 pitting edema with warmth, erythema and skin breakdown. NEUROLOGICALLY: Nonfocal. DERMATOLOGIC: We have some erythema and skin breakdown on the bilateral lower extremities. LABORATORIES: White count is 4.7, H&H 11 and 34, platelet count is 116. His sodium was 142, potassium 3.2, chloride is 100, bicarb is 35, BUN 18, creatinine is 1. Albumin is 3.5. INR is 1.1. Blood cultures are pending. Venous Doppler is negative for DVT. IMAGING DATA: Chest x-ray shows no acute findings. ASSESSMENT AND PLAN: 1. Significant lower extremity edema. Workup has been done in the past which was unrevealing. I did check a na to renin ratio yesterday in clinic given the propensity for potassium loss in the setting of diuretics. Creatinine in the past has worsened when we have required more diuretics and technically does not have chronic kidney disease, just diuretic needs to help control the lymphedema. The patient is scheduled for an abdominal ventral hernia repair February 27 and in order to optimize him prior to that surgery, would like to control his edema. Pt with a possible cellulitis. I had taken care of this patient for over 5 years and his edema has been quite impressive during this admission compared to previous times. I have spoken to the patient multiple times about avoidance of salts. The patient though lacks the capacity for understanding. For now, would recommend leg elevation, sodium restriction and IV Lasix. The patient though has propensity to become significantly hypokalemic with the IV diuretics, so would recommend checking the potassiums more frequently and repleting p.r.n. I appreciate consultation. VIJAYA
[2017-02-05] MEDS: ALBUMIN 25% 50 ML with FUROSEMIDE INJ 40 MG IV SCH ×4 (08:13→20:46)
[2017-02-05] MEDS: POLYETHYLENE (MIRALAX) 17 GM PACK PO SCH (08:14)
[2017-02-05] MEDS: VALPROIC ACID SYRUP 250 MG/5 ML PO SCH ×2 (08:14→20:47)
[2017-02-05] MEDS: POTASSIUM CHLORIDE PWD 20 MEQ PACK PO SCH ×4 (08:14→20:49)
[2017-02-05] MEDS: RIVAROXABAN 20 MG TAB PO SCH (08:15)
[2017-02-05] MEDS: CARBIDOPA/LEVODOPA 25/100MG TAB PO SCH ×3 (08:15→20:50)
[2017-02-05] MEDS: OXCARBAZEPINE 150 MG TAB PO SCH ×3 (08:15→20:50)
[2017-02-05] MEDS: PANTOprazole SOD 40 MG TAB PO SCH (08:16)
[2017-02-05] MEDS: NEPHROCAPS PO SCH (08:16)
[2017-02-05] MEDS: SENNA 8.6 MG TAB PO SCH (08:16)
[2017-02-05] MEDS: ASPIRIN 81 MG ECTAB PO SCH (08:16)
[2017-02-05] MEDS: TAMSULOSIN HCL 0.4 MG CAP PO SCH (08:17)
[2017-02-05] MEDS: DOCUSATE SODIUM 100 MG CAP PO SCH ×2 (08:17→20:47)
[2017-02-05] MEDS: PHENYTOIN SODIUM ER 100 MG CAP PO SCH ×3 (08:17→20:49)
[2017-02-05] MEDS ORDERED: METOLAZONE 2.5 MG TAB PO SCH (09:00)
[2017-02-05] MEDS ORDERED: CYANOCOBALAMIN 500 MCG TAB (VIT B-12) PO SCH (09:00)
[2017-02-05] MEDS ORDERED: CHOLECALCIFEROL 1000 INTER.UNIT TAB PO SCH (09:00)
[2017-02-05] MEDS ORDERED: POTASSIUM CHLORIDE 10 MEQ TABCR PO ONE (11:00)
--- NOTE | 2017-02-05 13:38 | Progress Note ---
Medicine Progress Note Date & Time of Visit: Feb 05, 2017 at 13:36. (Madison Butler, P.A.-C.) Subjective Patient seen and examined. Sitting up in wheelchair eating breakfast and reading the paper. Says that his legs are less painful than yesterday but still hurt. Had a normal bowel movement this morning. Denies any fever, chills, headache, CP, SOB, abd pain, dysuria, LE weakness. (Madison Butler, P.A.-C.) Objective Last 8 Hrs Date Time Temp Pulse Resp B/P (MAP) Pulse Ox O2 Delivery O2 Flow Rate FiO2 02/05/17 12:15 Room Air 02/05/17 08:30 Room Air 02/05/17 07:19 36.6 63 20 102/64 (77) 98 Physical Exam: General Appearance: WD/WN, no apparent distress (Patient with involuntary movement of mouth and tongue. ) Head: normocephalic, atraumatic Eyes: normal inspection, sclerae normal ENT: hearing grossly normal, poor dentition Neck: supple, no adenopathy, trachea midline Respiratory/Chest: chest non-tender, lungs clear, normal breath sounds, no respiratory distress, no accessory muscle use Cardiovascular: regular rate, rhythm, no murmur Abdomen/GI: normal bowel sounds (Presence of a large ventral hernia. Soft, reducible ), non tender, soft Extremities/Musculoskelatal: no calf tenderness, + swelling (Significant 4+ bilateral edema to knees with overlying erythema and superficial skin breakdown) Neurologic/Psych: no motor/sensory deficits (Motor and cognitive impairments at baseline. ), alert, oriented x 3 Skin: normal color Laboratory Results: Last 24 Hours Test 02/04/17 15:34 02/04/17 15:42 02/04/17 17:14 Creatine Kinase MB Ratio White Blood Count 4.78 K/uL Red Blood Count 3.58 M/uL Hemoglobin 11.7 g/dL Hematocrit 34.9 % Mean Corpuscular Volume 97.5 fL Mean Corpuscular Hemoglobin 32.7 pg Mean Corpuscular Hemoglobin Concent 33.5 g/dl RDW Standard Deviation 51.7 fL RDW Coefficient of Variation 14.7 % Platelet Count 116 K/uL Mean Platelet Volume 10.1 fL Prothrombin Time 12.3 SECONDS Prothromb Time International Ratio 1.1 Sodium Level 142 mmol/L Potassium Level mmol/L 3.2 mmol/L Chloride Level 100 mmol/L Carbon Dioxide Level 35 mmol/L Anion Gap 7.0 mmol/L Blood Urea Nitrogen 18 mg/dl Creatinine 1.00 mg/dl Estimated GFR () 92.4 Estimated GFR (Non- 79.7 BUN/Creatinine Ratio 17.9 Random Glucose 98 mg/dl Calcium Level 9.4 mg/dl Phosphorus Level 3.3 mg/dl Magnesium Level mg/dl 1.8 mg/dl Total Bilirubin 0.4 mg/dl Aspartate Amino Transf (AST/SGOT) U/L 25 U/L Alanine Aminotransferase (ALT/SGPT) 16 U/L Alkaline Phosphatase 128 U/L Total Creatine Kinase U/L 278 U/L Creatine Kinase MB 7.8 ng/ml Troponin I < 0.015 ng/ml Total Protein 7.1 gm/dl Albumin 3.5 gm/dl Globulin 3.6 gm/dl Albumin/Globulin Ratio 1.0 Date/Time Source Procedure Growth Status 02/04/17 20:03 Blood Blood Culture Pending Received 02/04/17 19:50 Blood Blood Culture Pending Received 02/04/17 17:45 Nasal MRSA DNA Surveillance Screen - Final Specimen Negative for MRSA by DNA Probe Complete (Madison Butler, P.A.-C.) Assessment & Plan This is a 61yo man who resides at [facility] with a PMH of HTN, hereditary lymphedema, Parkinson's disease, 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 Bilateral LE cellulitis: -Erythema and warmth 2/2 worsening lymphedema -Per care home, discoloration and warmth have been present for 3 days -No leukocytosis -Blood cultures pending -Day#2 of IV clindamycin Worsening bilateral LE edema: -In the setting of hereditary lymphedema, dietary indiscretion, resistance to diuretics -Per Dr. Lemons: -Started on 40mg IV Lasix BID with albumin -Cr stable at 1 -Continue potassium chloride supplement -Monitor K closely -Na restricted diet -Leg elevation Chronic diastolic heart failure: -Echo in 2008 showing normal EF, LVH -Compensated; denies CP, SOB, lungs are clear -CXR, EKG, repeat echo pending H/o hypokalemia: -Jori renin ratio ordered in clinic, results are pending -K of 3.2 this morning. Given 40mEq in addition to home dose -Recheck this afternoon, tomorrow AM Ventral abdominal hernia: -Presence of large, reducible ventral hernia -Scheduled for a surgical repair Feb 27 -Pending medical clearance Seizure disorder: stable -Followed by -Has not had a seizure in over a year -Continue home dose dilantin, trileptal, valproic acid Parkinson's Disease: stable -Followed by Dr. Flores -Continue Carbidopa-Levodopa Impulse disorder: -History of making violent threats when agitated -Continue Dilantin -Room alarms in place H/o DVTs: -Continue Xarelto Hypothyroidism: -Cont synthroid HLD: -Cont statin DVT Ppx: On Xarelto Code status: FULL PCP: Quang ([facility]) Dispo: SW consulted to help with discharge placement back to [facility] Current Inpatient Medications: Current Inpatient Medications Medications (Trade) Dose Ordered Sig/Aj Route Start Time Stop Time Status Last Admin Dose Admin Ondansetron HCl (Zofran Inj) 4 mg Q6H PRN IV 02/04/17 16:15 03/06/17 16:14 Furosemide 40 mg/ Albumin Human 54 ml @ 54 mls/hr BID IV 02/04/17 21:00 02/07/17 20:59 02/05/17 08:13 54 MLS/HR Acetaminophen (Tylenol Tab) 650 mg Q6 PRN PO 02/04/17 17:45 03/06/17 17:44 Aspirin (Ecotrin Tab) 81 mg DAILY PO 02/05/17 09:00 03/07/17 08:59 02/05/17 08:16 81 MG Atorvastatin Calcium (Lipitor Tab) 40 mg HS PO 02/04/17 21:00 03/06/17 20:59 02/04/17 21:56 40 MG Carbidopa/Levodopa (Sinemet 25/ 100MG Tab) 1 tab TID PO 02/04/17 21:00 03/06/17 20:59 02/05/17 08:15 1 TAB Docusate Sodium (coLACE CAP) 200 mg BID PO 02/04/17 21:00 03/06/17 20:59 02/05/17 08:17 200 MG Levothyroxine Sodium (Synthroid Tab) 100 mcg DAILYBB PO 02/05/17 06:30 03/07/17 06:29 02/05/17 06:27 100 MCG Oxcarbazepine (Trileptal Tab) 150 mg TID PO 02/04/17 21:00 03/06/17 20:59 02/05/17 08:15 150 MG Phenytoin Sodium (Dilantin Er Cap) 200 mg TID PO 02/04/17 21:00 03/06/17 20:59 02/05/17 08:17 200 MG Potassium Chloride (Klor-Con Pwd) 40 meq QID PO 02/04/17 21:00 03/06/17 20:59 02/05/17 08:14 40 MEQ Rivaroxaban (Xarelto Tab) 20 mg DAILY PO 02/05/17 09:00 03/07/17 08:59 02/05/17 08:15 20 MG Senna (Senokot Tab) 17.2 mg QAM PO 02/05/17 09:00 03/07/17 08:59 02/05/17 08:16 17.2 MG Tamsulosin HCl (Flomax Cap) 0.4 mg DAILY PO 02/05/17 09:00 03/07/17 08:59 02/05/17 08:17 0.4 MG Valproic Acid (Depakene Syrup) 1,500 mg QAM PO 02/05/17 09:00 03/07/17 08:59 02/05/17 08:14 1,500 MG Valproic Acid (Depakene Syrup) 1,750 mg HS PO 02/04/17 21:00 03/06/17 20:59 02/04/17 21:53 1,750 MG Vitamin B Complex/ Vit C/Folic Acid (Nephrocaps) 1 cap DAILY PO 02/05/17 09:00 03/07/17 08:59 02/05/17 08:16 1 CAP Pantoprazole Sodium (Protonix Tab) 40 mg DAILY PO 02/05/17 09:00 03/07/17 08:59 02/05/17 08:16 40 MG Polyethylene (Miralax Powder Packet) 17 gm QAM PO 02/05/17 09:00 03/07/17 08:59 02/05/17 08:14 17 GM Clindamycin Phosphate 900 mg/ Dextrose 106 ml @ 100 mls/hr Q8H IV 02/04/17 19:00 02/14/17 18:59 02/05/17 10:39 100 MLS/HR Cholecalciferol (Vitamin D Tab) 2,000 inter.unit DAILY PO 02/06/17 09:00 03/07/17 08:59 Cyanocobalamin (Vitamin B-12 Tab) 1,000 mcg DAILY PO 02/06/17 09:00 03/07/17 08:59 (Madison Butler, P.A.-C.) ATTENDING NOTE : in agreement with above , 61 yo M presented with worsening of bilateral lower ext swelling , cellulitis improving with aggressive diuresis on empiric abx monitor Renal function and lytes while getting diuresis nephrology following Daylin Kraft MD (Daylin Kraft M.D.)
--- NOTE | 2017-02-05 15:50 | ECHOCARDIOGRAM REPORT ---
*NOTICE TO RECEIVING [employer] This information is strictly Confidential and protected under [place] law. [place] law prohibits you from making any further disclosure of this information unless further disclosure is expressly permitted by the written consent of the person to whom it pertains or is authorized by law. A general authorization for the release of medical or other information is not sufficient for this purpose. Hospital accepts no responsibility if the information is made available to any other person, INCLUDING THE PATIENT. Interpretation Summary * Procedure Details Left Ventricle * Ejection Fraction = 60-65%. MMode 2D Measurements and Calculations IVSd 0.91 cm LVIDd 5.5 cm LVIDs 2.8 cm LVPWd 1.1 cm IVS/LVPW 0.79 FS 48.5 % EDV(Teich) 145.1 ml ESV(Teich) 29.9 ml EF(Teich) 79.4 % EDV(cubed) 163.0 ml ESV(cubed) 22.3 ml EF(cubed) 86.3 % LV mass(C)d 217.4 grams LV mass(C)dI 89.8 grams/m\S\2 SV(Teich) 115.2 ml SI(Teich) 47.6 ml/m\S\2 SV(cubed) 140.7 ml SI(cubed) 58.1 ml/m\S\2 LVAd ap4 29.2 cm\S\2 LVLd ap4 8.4 cm EDV(MOD-sp4) 83.7 ml EDV(sp4-el) 86.0 ml LVAs ap4 14.2 cm\S\2 LVLs ap4 6.7 cm ESV(MOD-sp4) 26.7 ml ESV(sp4-el) 25.6 ml EF(MOD-sp4) 68.1 % EF(sp4-el) 70.2 % LVAd ap2 27.8 cm\S\2 LVLd ap2 7.9 cm EDV(MOD-sp2) 83.2 ml EDV(sp2-el) 83.5 ml LVAs ap2 14.0 cm\S\2 LVLs ap2 6.1 cm ESV(MOD-sp2) 26.3 ml ESV(sp2-el) 27.3 ml EF(MOD-sp2) 68.4 % EF(sp2-el) 67.4 % LVLd %diff -6.68 % EDV(MOD-bp) 86.3 ml LVLs %diff -9.57 % ESV(MOD-bp) 27.2 ml EF(MOD-bp) 68.5 % SV(MOD-sp4) 57.0 ml SI(MOD-sp4) 23.5 ml/m\S\2 SV(MOD-sp2) 56.9 ml SI(MOD-sp2) 23.5 ml/m\S\2 SV(MOD-bp) 59.1 ml SI(MOD-bp) 24.4 ml/m\S\2 SV(sp4-el) 60.4 ml SI(sp4-el) 24.9 ml/m\S\2 SV(sp2-el) 56.3 ml SI(sp2-el) 23.2 ml/m\S\2 Doppler Measurements and Calculations MV E max patel 111.1 cm/sec MV A max patel 73.7 cm/sec MV E/A 1.5 MV dec time 0.19 sec Ao V2 max 119.4 cm/sec Ao max PG 5.7 mmHg Ao max PG (full) 3.6 mmHg LV V1 max PG 2.1 mmHg LV V1 max 73.3 cm/sec
[2017-02-05] MEDS: ATORVASTATIN 40 MG TAB PO SCH (20:51)
[2017-02-06] MEDS: CLINDAMYCIN IV 900 MG in DEXTROSE 5% 100ML 100 ML IV SCH ×3 (02:34→19:16)
[2017-02-06 03:33] VITALS: BP 101/63; PULSE 69; TEMP 36.5; O2SAT 94
[2017-02-06] MEDS: LEVOTHYROXINE 100 MCG TAB PO SCH (06:09)
[2017-02-06 06:46] LABS: BASO % 0.3 %; BASO ABS # 0.01 K/uL (0-0.2); COMPLETE YES; EOS % 1.8 %; HEMATOCRIT 33.6 % (42-52); LYMPH % 24.4 %; LYMPH ABS # 0.82 K/uL (1.2-3.4); MEAN CELL VOLUME 98.2 fL (80-100); MEAN CORPUSCULAR HEMOGLOBIN 32.7 pg (25-34); MEAN CORPUSCULAR HGB CONC 33.3 g/dl (32-36); MEAN PLATELET VOLUME 9.9 fL (7.4-10.4); NEUT % 67.5 %; PLATELET COUNT 109 K/uL (130-400); RED BLOOD COUNT 3.42 M/uL (4.7-6.1); WHITE BLOOD COUNT 3.36 K/uL (4.8-10.8)
--- NOTE | 2017-02-06 06:48 | Nephrology Progress Note ---
Nephrology Progress Note Date of Service: Feb 06, 2017. Subjective 61 yo male with significant lymphedema from dietary indiscretion whose legs are improving. pt also with cellulitis on appropriate antibiotics. pt comfortable. no complaints. Objective Date Time Temp Pulse Resp B/P (MAP) Pulse Ox O2 Delivery O2 Flow Rate FiO2 02/06/17 04:00 Room Air 02/06/17 03:33 36.5 69 16 101/63 (76) 94 Room Air 02/06/17 00:00 Room Air 02/05/17 22:33 36.9 118 18 116/74 (88) 95 Room Air 02/05/17 20:00 98 Room Air 02/05/17 19:54 36.8 67 18 102/66 (78) 98 Room Air 02/05/17 16:00 98 Room Air 02/05/17 15:46 36.5 64 18 112/72 (85) 100 Room Air 02/05/17 12:15 Room Air 02/05/17 08:30 Room Air 02/05/17 07:19 36.6 63 20 102/64 (77) 98 Physical Exam: General-aaox3, obese Eyes-no scleral icterus ENT-mmm Neck-supple Lungs-cta Heart-rrr Abdomen-bs+/+ventral hernia Extremities-+2 edema with erythema-skin with some signs of wrinkles Neuro-nonfocal Current Inpatient Medications Medications (Trade) Dose Ordered Sig/Aj Route Start Time Stop Time Status Last Admin Dose Admin Ondansetron HCl (Zofran Inj) 4 mg Q6H PRN IV 02/04/17 16:15 03/06/17 16:14 Furosemide 40 mg/ Albumin Human 54 ml @ 54 mls/hr BID IV 02/04/17 21:00 02/07/17 20:59 02/05/17 20:46 54 MLS/HR Acetaminophen (Tylenol Tab) 650 mg Q6 PRN PO 02/04/17 17:45 03/06/17 17:44 Aspirin (Ecotrin Tab) 81 mg DAILY PO 02/05/17 09:00 03/07/17 08:59 02/05/17 08:16 81 MG Atorvastatin Calcium (Lipitor Tab) 40 mg HS PO 02/04/17 21:00 03/06/17 20:59 02/05/17 20:51 40 MG Carbidopa/Levodopa (Sinemet 25/ 100MG Tab) 1 tab TID PO 02/04/17 21:00 03/06/17 20:59 02/05/17 20:50 1 TAB Docusate Sodium (coLACE CAP) 200 mg BID PO 02/04/17 21:00 03/06/17 20:59 02/05/17 20:47 200 MG Levothyroxine Sodium (Synthroid Tab) 100 mcg DAILYBB PO 02/05/17 06:30 03/07/17 06:29 02/06/17 06:09 100 MCG Oxcarbazepine (Trileptal Tab) 150 mg TID PO 02/04/17 21:00 03/06/17 20:59 02/05/17 20:50 150 MG Phenytoin Sodium (Dilantin Er Cap) 200 mg TID PO 02/04/17 21:00 03/06/17 20:59 02/05/17 20:49 200 MG Potassium Chloride (Klor-Con Pwd) 40 meq QID PO 02/04/17 21:00 03/06/17 20:59 02/05/17 20:49 40 MEQ Rivaroxaban (Xarelto Tab) 20 mg DAILY PO 02/05/17 09:00 03/07/17 08:59 02/05/17 08:15 20 MG Senna (Senokot Tab) 17.2 mg QAM PO 02/05/17 09:00 03/07/17 08:59 02/05/17 08:16 17.2 MG Tamsulosin HCl (Flomax Cap) 0.4 mg DAILY PO 02/05/17 09:00 03/07/17 08:59 02/05/17 08:17 0.4 MG Valproic Acid (Depakene Syrup) 1,500 mg QAM PO 02/05/17 09:00 03/07/17 08:59 02/05/17 08:14 1,500 MG Valproic Acid (Depakene Syrup) 1,750 mg HS PO 02/04/17 21:00 03/06/17 20:59 02/05/17 20:47 1,750 MG Vitamin B Complex/ Vit C/Folic Acid (Nephrocaps) 1 cap DAILY PO 02/05/17 09:00 03/07/17 08:59 9/21/17 08:16 1 CAP Pantoprazole Sodium (Protonix Tab) 40 mg DAILY PO 02/05/17 09:00 03/07/17 08:59 02/05/17 08:16 40 MG Polyethylene (Miralax Powder Packet) 17 gm QAM PO 02/05/17 09:00 03/07/17 08:59 02/05/17 08:14 17 GM Clindamycin Phosphate 900 mg/ Dextrose 106 ml @ 100 mls/hr Q8H IV 02/04/17 19:00 02/14/17 18:59 02/06/17 02:34 100 MLS/HR Cholecalciferol (Vitamin D Tab) 2,000 inter.unit DAILY PO 02/06/17 09:00 03/07/17 08:59 Cyanocobalamin (Vitamin B-12 Tab) 1,000 mcg DAILY PO 02/06/17 09:00 03/07/17 08:59 Last 24 Hours Test 02/05/17 17:15 02/06/17 05:54 Potassium Level 3.6 mmol/L Assessment & Plan lymphedema from dietary [id number] with salt intake-edema in legs is improving. there are signs of wrinkles from the legs getting smaller. pt though does drink a lot of water and will place on a fluid restriction as well to help improve the swelling. will continue to follow the potassium levels which may need repleted prn in the setting of more aggressive diuresis.
[2017-02-06 07:08] LABS: BUN/CREATININE RATIO 15.8 (10-20); CALCIUM 8.6 mg/dl (8.5-10.1); CREATININE 0.99 mg/dl (0.60-1.40); POTASSIUM 3.3 mmol/L (3.5-5.1)
[2017-02-06] MEDS ORDERED: POTASSIUM CHLORIDE 20 MEQ TABCR PO ONE (08:00)
[2017-02-06] MEDS: ALBUMIN 25% 50 ML with FUROSEMIDE INJ 40 MG IV SCH ×4 (08:35→20:36)
[2017-02-06] MEDS: POTASSIUM CHLORIDE PWD 20 MEQ PACK PO SCH ×4 (08:36→20:37)
[2017-02-06] MEDS: CHOLECALCIFEROL 1000 INTER.UNIT TAB PO SCH (08:36)
[2017-02-06] MEDS: RIVAROXABAN 20 MG TAB PO SCH (08:36)
[2017-02-06] MEDS: CYANOCOBALAMIN 500 MCG TAB (VIT B-12) PO SCH (08:36)
[2017-02-06] MEDS: POLYETHYLENE (MIRALAX) 17 GM PACK PO SCH (08:36)
[2017-02-06] MEDS: SENNA 8.6 MG TAB PO SCH (08:37)
[2017-02-06] MEDS: CARBIDOPA/LEVODOPA 25/100MG TAB PO SCH ×3 (08:37→20:39)
[2017-02-06] MEDS: ASPIRIN 81 MG ECTAB PO SCH (08:37)
[2017-02-06] MEDS: PANTOprazole SOD 40 MG TAB PO SCH (08:37)
[2017-02-06] MEDS: PHENYTOIN SODIUM ER 100 MG CAP PO SCH ×3 (08:37→20:40)
[2017-02-06] MEDS: TAMSULOSIN HCL 0.4 MG CAP PO SCH (08:37)
[2017-02-06] MEDS: NEPHROCAPS PO SCH (08:37)
[2017-02-06] MEDS: DOCUSATE SODIUM 100 MG CAP PO SCH ×2 (08:37→20:38)
[2017-02-06] MEDS: OXCARBAZEPINE 150 MG TAB PO SCH ×3 (08:37→20:38)
[2017-02-06] MEDS: VALPROIC ACID SYRUP 250 MG/5 ML PO SCH ×2 (08:38→20:41)
--- NOTE | 2017-02-06 11:09 | Progress Note ---
Medicine Progress Note Date & Time of Visit: Feb 06, 2017 at 11:04. (Madison Butler, P.A.-C.) Subjective Patient seen and examined. Sitting up in wheelchair eating breakfast and reading the paper. States that his main concern is that he doesn't have enough salt for his breakfast. Explained reasons for Na restriction and patient verbalized understanding. Endorses bilateral leg discomfort. Encouraged him to elevate legs and has tylenol PRN. Denies any fever, chills, headache, CP, SOB, abd pain, dysuria, LE weakness. (Madison Butler, P.A.-C.) Objective Last 8 Hrs Date Time Temp Pulse Resp B/P (MAP) Pulse Ox O2 Delivery O2 Flow Rate FiO2 02/06/17 08:30 Room Air 02/06/17 04:00 Room Air 02/06/17 03:33 36.5 69 16 101/63 (76) 94 Room Air Physical Exam: General Appearance: WD/WN, no apparent distress (Patient with involuntary movement of mouth and tongue. ) Head: normocephalic, atraumatic Eyes: normal inspection, sclerae normal ENT: hearing grossly normal, poor dentition Neck: supple, no adenopathy, trachea midline Respiratory/Chest: chest non-tender, lungs clear, normal breath sounds, no respiratory distress, no accessory muscle use Cardiovascular: regular rate, rhythm, no murmur Abdomen/GI: normal bowel sounds (Presence of a large ventral hernia. Soft, reducible ), non tender, soft Extremities/Musculoskelatal: no calf tenderness, + swelling (2+ bilateral edema to knees with overlying erythema and superficial skin breakdown) Neurologic/Psych: no motor/sensory deficits (Motor and cognitive impairments at baseline. ), alert, oriented x 3 Skin: normal color Laboratory Results: Last 24 Hours Test 02/05/17 17:15 02/06/17 05:54 Potassium Level 3.6 mmol/L 3.3 mmol/L White Blood Count 3.36 K/uL Red Blood Count 3.42 M/uL Hemoglobin 11.2 g/dL Hematocrit 33.6 % Mean Corpuscular Volume 98.2 fL Mean Corpuscular Hemoglobin 32.7 pg Mean Corpuscular Hemoglobin Concent 33.3 g/dl Platelet Count 109 K/uL Mean Platelet Volume 9.9 fL Neutrophils (%) (Auto) 67.5 % Lymphocytes (%) (Auto) 24.4 % Monocytes (%) (Auto) 6.0 % Eosinophils (%) (Auto) 1.8 % Basophils (%) (Auto) 0.3 % Neutrophils # (Auto) 2.27 K/uL Lymphocytes # (Auto) 0.82 K/uL Monocytes # (Auto) 0.20 K/uL Eosinophils # (Auto) 0.06 K/uL Basophils # (Auto) 0.01 K/uL RDW Standard Deviation 52.7 fL RDW Coefficient of Variation 14.8 % Immature Granulocyte % (Auto) 0.0 % Immature Granulocyte # (Auto) 0.00 K/uL Sodium Level 140 mmol/L Chloride Level 101 mmol/L Carbon Dioxide Level 33 mmol/L Anion Gap 6.0 mmol/L Blood Urea Nitrogen 16 mg/dl Creatinine 0.99 mg/dl Est Creatinine Clear Calc Drug Dose 106.2 ml/min Estimated GFR () 93.6 Estimated GFR (Non- 80.7 BUN/Creatinine Ratio 15.8 Random Glucose 102 mg/dl Calcium Level 8.6 mg/dl (Madison Butler ., P.A.-C.) Assessment & Plan This is a 61yo man who resides at [facility] with a PMH of HTN, hereditary lymphedema, Parkinson's disease, 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 Bilateral LE cellulitis: improving -Erythema and warmth 2/2 worsening lymphedema -Per fdc, discoloration and warmth have been present for 3 days -No leukocytosis -Blood cultures pending -Day#3 of IV clindamycin Worsening bilateral LE edema: -In the setting of hereditary lymphedema, dietary indiscretion with salt, resistance to diuretics -Per Oncu: -Continue 40mg IV Lasix BID with albumin -Continue potassium chloride supplement -Monitor K closely; replace when necessary -Na restricted diet, added fluid restrictions -Cr stable at 1 -Leg elevation Chronic diastolic heart failure: -Echo completed. Report pending. -Compensated; denies CP, SOB, lungs are clear -CXR, EKG normal H/o hypokalemia: -Jori renin ratio ordered in clinic, results are pending -K of 3.3 this morning. Given 40mEq in addition to home dose -Recheck this afternoon, tomorrow AM Ventral abdominal hernia: -Presence of large, reducible ventral hernia -Scheduled for a surgical repair Feb 27 -Pending medical clearance Seizure disorder: stable -Followed by -Has not had a seizure in over a year -Continue home dose dilantin, trileptal, valproic acid Parkinson's Disease: stable -Followed by Dr. Flores -Continue Carbidopa-Levodopa Impulse disorder: -History of making violent threats when agitated -Continue Dilantin -Room alarms in place H/o DVTs: -Continue Xarelto Hypothyroidism: -Cont synthroid HLD: -Cont statin DVT Ppx: On Xarelto Code status: FULL PCP: Quang ([facility]) Dispo: SW consulted to help with discharge placement back to [facility] Current Inpatient Medications: Current Inpatient Medications Medications (Trade) Dose Ordered Sig/Aj Route Start Time Stop Time Status Last Admin Dose Admin Ondansetron HCl (Zofran Inj) 4 mg Q6H PRN IV 02/04/17 16:15 03/06/17 16:14 Furosemide 40 mg/ Albumin Human 54 ml @ 54 mls/hr BID IV 02/04/17 21:00 02/07/17 20:59 02/06/17 08:35 54 MLS/HR Acetaminophen (Tylenol Tab) 650 mg Q6 PRN PO 02/04/17 17:45 03/06/17 17:44 Aspirin (Ecotrin Tab) 81 mg DAILY PO 02/05/17 09:00 03/07/17 08:59 02/06/17 08:37 81 MG Atorvastatin Calcium (Lipitor Tab) 40 mg HS PO 02/04/17 21:00 03/06/17 20:59 02/05/17 20:51 40 MG Carbidopa/Levodopa (Sinemet 25/ 100MG Tab) 1 tab TID PO 02/04/17 21:00 03/06/17 20:59 02/06/17 08:37 1 TAB Docusate Sodium (coLACE CAP) 200 mg BID PO 02/04/17 21:00 03/06/17 20:59 02/06/17 08:37 200 MG Levothyroxine Sodium (Synthroid Tab) 100 mcg DAILYBB PO 02/05/17 06:30 03/07/17 06:29 02/06/17 06:09 100 MCG Oxcarbazepine (Trileptal Tab) 150 mg TID PO 02/04/17 21:00 03/06/17 20:59 02/06/17 08:37 150 MG Phenytoin Sodium (Dilantin Er Cap) 200 mg TID PO 02/04/17 21:00 03/06/17 20:59 02/06/17 08:37 200 MG Potassium Chloride (Klor-Con Pwd) 40 meq QID PO 02/04/17 21:00 03/06/17 20:59 02/06/17 08:36 40 MEQ Rivaroxaban (Xarelto Tab) 20 mg DAILY PO 02/05/17 09:00 03/07/17 08:59 02/06/17 08:36 20 MG Senna (Senokot Tab) 17.2 mg QAM PO 02/05/17 09:00 03/07/17 08:59 02/06/17 08:37 17.2 MG Tamsulosin HCl (Flomax Cap) 0.4 mg DAILY PO 02/05/17 09:00 03/07/17 08:59 02/06/17 08:37 0.4 MG Valproic Acid (Depakene Syrup) 1,500 mg QAM PO 02/05/17 09:00 03/07/17 08:59 02/06/17 08:38 1,500 MG Valproic Acid (Depakene Syrup) 1,750 mg HS PO 02/04/17 21:00 03/06/17 20:59 02/05/17 20:47 1,750 MG Vitamin B Complex/ Vit C/Folic Acid (Nephrocaps) 1 cap DAILY PO 02/05/17 09:00 03/07/17 08:59 02/06/17 08:37 1 CAP Pantoprazole Sodium (Protonix Tab) 40 mg DAILY PO 02/05/17 09:00 03/07/17 08:59 02/06/17 08:37 40 MG Polyethylene (Miralax Powder Packet) 17 gm QAM PO 02/05/17 09:00 03/07/17 08:59 02/06/17 08:36 17 GM Clindamycin Phosphate 900 mg/ Dextrose 106 ml @ 100 mls/hr Q8H IV 02/04/17 19:00 02/14/17 18:59 02/06/17 10:32 100 MLS/HR Cholecalciferol (Vitamin D Tab) 2,000 inter.unit DAILY PO 02/06/17 09:00 03/07/17 08:59 02/06/17 08:36 2,000 INTER.UNIT Cyanocobalamin (Vitamin B-12 Tab) 1,000 mcg DAILY PO 02/06/17 09:00 03/07/17 08:59 02/06/17 08:36 1,000 MCG (Madison Butler, P.A.-C.) ATTENDING NOTE : In agreement with above : 61 yo male with bilateral lower extremity chronic significant lymphedema , presented with worsening of lower ext swelling and cellulitis edema improving with aggressive diuresis, renal function remains stable appreciate Nephrology input will change Abx to PO Doxycycline -will need total 5-7 days of tx plan to return to [facility] side when medically stable SONYA KRAFT MD (Sonya Kraft M.D.)
--- NOTE | 2017-02-06 13:55 | ECHOCARDIOGRAM REPORT ---
*NOTICE TO RECEIVING CONSTITUTION PARTY AGENCY This information is strictly Confidential and protected under [place] law. [place] law prohibits you from making any further disclosure of this information unless further disclosure is expressly permitted by the written consent of the person to whom it pertains or is authorized by law. A general authorization for the release of medical or other information is not sufficient for this purpose. Hospital accepts no responsibility if the information is made available to any other person, INCLUDING THE PATIENT. Interpretation Summary * Name: NATE VERMA Study Date: 02/06/2017 10:50 AM BP: 101/63 mmHg * Patient Location: [facility] HR: 73 * : 1955 (M/d/yyyy) Gender: Male Height: 71 in * Age: 61 yrs Ethnicity: [place] Weight: 277 lb * Ordering Physician: CHARLETTE JACOBO * Performed By: Jackie Davis RCS * * Reason For Study: HTN / CHF * BSA: 2.4 m2 * -- Conclusions -- * There is mild concentric left ventricular hypertrophy. * There are regional wall motion abnormalities as specified. * The LV Ejection Fraction = 60-65%. * The right ventricle is normal size. * The right ventricular systolic function is normal as assessed by tricuspid annular plane systolic excursion (TAPSE) (normal >1.5 cm). * There is trace mitral regurgitation. * Diastolic dysfunction, Grade II (pseudonormalization pattern). Procedure Details * A complete two-dimensional transthoracic echocardiogram was performed (2D, M-mode, Doppler and color flow Doppler). Left Ventricle * The left ventricle is normal in size. * There is mild concentric left ventricular hypertrophy. * Left ventricular systolic function is normal. * Ejection Fraction = 60-65%. * The left ventricular wall motion is normal. * There are regional wall motion abnormalities as specified. Right Ventricle * The right ventricle is normal size. * The right ventricular systolic function is normal as assessed by tricuspid annular plane systolic excursion (TAPSE) (normal >1.5 cm). Atria * The left atrial size is normal. * Right atrial size is normal. * There is no evidence of atrial septal defect, but resolution does not allow assessment for a patent foramen ovale. Mitral Valve * The mitral valve is normal. * There is no mitral valve stenosis. * There is trace mitral regurgitation. Tricuspid Valve * The tricuspid valve is normal. * There is no tricuspid stenosis. * Significant tricuspid regurgitation is absent. Aortic Valve * The aortic valve is trileaflet. * Aortic stenosis is absent. * There is no significant aortic regurgitation. Pulmonic Valve * The pulmonary valve is not well seen, but the Doppler examination is normal without significant regurgitation or stenosis. Great Vessels * The aortic root and proximal ascending aorta are normal sized. Pericardium/Pleural * There is no pericardial effusion. Great Vessels * Normal inferior vena cava diameter and respiratory variation suggests normal central venous pressure. * Normal inferior vena cava size and collapsability with sniff indicates a normal right atrial pressure of 3 mmHg Left Ventricular Diastolic Function * Diastolic dysfunction, Grade II (pseudonormalization pattern). MMode 2D Measurements and Calculations IVSd 1.3 cm IVSs 1.4 cm LVIDd 4.6 cm LVIDs 3.7 cm LVPWd 1.2 cm LVPWs 1.5 cm IVS/LVPW 1.1 FS 20.4 % EDV(Teich) 98.6 ml ESV(Teich) 57.5 ml EF(Teich) 41.7 % EDV(cubed) 98.9 ml ESV(cubed) 50.0 ml EF(cubed) 49.5 % % IVS thick 2.9 % % LVPW thick 21.9 % LV mass(C)d 224.4 grams LV mass(C)dI 92.6 grams/m\S\2 LV mass(C)s 190.8 grams LV mass(C)sI 78.8 grams/m\S\2 SV(Teich) 41.1 ml SI(Teich) 17.0 ml/m\S\2 SV(cubed) 48.9 ml SI(cubed) 20.2 ml/m\S\2 Ao root diam 3.6 cm Ao root area 10.4 cm\S\2 LA dimension 3.3 cm LA/Ao 0.92 LVOT diam 2.0 cm LVOT area 3.2 cm\S\2 Doppler Measurements and Calculations MV E max patel 112.7 cm/sec MV A max patel 77.1 cm/sec MV E/A 1.5 MV P1/2t max patel 110.2 cm/sec MV P1/2t 92.7 msec MVA(P1/2t) 2.4 cm\S\2 MV dec slope 348.4 cm/sec\S\2 MV dec time 0.22 sec Ao V2 max 134.8 cm/sec Ao max PG 7.3 mmHg Ao max PG (full) 2.2 mmHg QUYNH(V,A) 2.7 cm\S\2 QUYNH(V,D) 2.7 cm\S\2 LV V1 max PG 5.0 mmHg LV V1 max 112.2 cm/sec
[2017-02-06 14:50] VITALS: BP 101/62; PULSE 65; TEMP 36.4; O2SAT 96
[2017-02-06] MEDS ORDERED: DXY100 PO (19:31)
--- NOTE | 2017-02-06 19:33 | Discharge Instructions ---
Discharge Instructions Date of Service Feb 06, 2017. Admission Reason for Admission: Significant Lymphedema, Bilateral Leg Cellulitis Discharge Discharge Diagnosis / Problem: BILATERAL LOWER EXTREMITY LYMPHEDEMA / CELLULITIS OF LOWER EXT Discharge Goals Goal(s): Decrease discomfort, Improve disease control, Diagnostic testing, Therapeutic intervention Activity Recommendations Activity Level: Assistance Required Therapies: Physical Therapy, Occupational Therapy . Additional Information Patient informed of condition: Yes Advance Directives: No DNR: No Level of Care: Skilled Communicable Disease: No Prognosis: Stable Maldonado Catheter: No Instructions / Follow-Up Instructions / Follow-Up FOLLOW UP WITH PHYSICIAN AT [facility] WORK: BASIC METABOLIC PANEL NEXT WEEK FOLLOW UP WITH DR ENRIQUEZ PER SCHEDULE PLEASE LIMIT SALT INTAKE IN YOUR FOOD , LIMIT FLUID INTAKE 1.5 L /DAY KEEP LEGS ELEVATED WHEN SITTING TO PREVENT WORSENING OF LEG SWELLING Current Hospital Diet Patient's current hospital diet: Low Sodium Diet (2gm Na) Discharge Diet Recommended Diet: Low Sodium Diet (2gm Na) Fluid Restriction: 1500 ml (6 cups) Pending Studies Studies pending at discharge: no Physician Orders On Transfer Dressing Changes: PATIENT HAS A OPEN AREA RIGHT POSTERIOR CALF - SUPERFICIAL AVOID GAURAV WRAPS OR COMPRESSION STOCKINGS Laboratory Results Test 02/04/17 15:34 02/04/17 15:42 02/04/17 17:14 02/06/17 05:54 Creatine Kinase MB Ratio Prothrombin Time 12.3 Prothrombin Time INR 1.1 Phosphorus Level 3.3 Magnesium Level 1.8 Total Bilirubin 0.4 Aspartate Amino Transferase (AST) 25 Alanine Aminotransferase (ALT) 16 Alkaline Phosphatase 128 Total Creatine Kinase 278 Creatine Kinase MB 7.8 Troponin I < 0.015 Total Protein 7.1 Albumin 3.5 Globulin 3.6 Albumin/Globulin Ratio 1.0 White Blood Count 3.36 Red Blood Count 3.42 Hemoglobin 11.2 Hematocrit 33.6 Mean Corpuscular Volume 98.2 Mean Corpuscular Hemoglobin 32.7 Mean Corpuscular Hemoglobin Concent 33.3 Platelet Count 109 Mean Platelet Volume 9.9 Neutrophils (%) (Auto) 67.5 Lymphocytes (%) (Auto) 24.4 Monocytes (%) (Auto) 6.0 Eosinophils (%) (Auto) 1.8 Basophils (%) (Auto) 0.3 Neutrophils # (Auto) 2.27 Lymphocytes # (Auto) 0.82 Monocytes # (Auto) 0.20 Eosinophils # (Auto) 0.06 Basophils # (Auto) 0.01 RDW Standard Deviation 52.7 RDW Coefficient of Variation 14.8 Immature Granulocyte % (Auto) 0.0 Immature Granulocyte # (Auto) 0.00 Test 02/06/17 20:14 02/07/17 07:16 02/09/17 05:34 POC Glucose 102 White Blood Count 3.40 Red Blood Count 3.36 Hemoglobin 11.1 Hematocrit 33.0 Mean Corpuscular Volume 98.2 Mean Corpuscular Hemoglobin 33.0 Mean Corpuscular Hemoglobin Concent 33.6 RDW Standard Deviation 52.3 RDW Coefficient of Variation 14.7 Platelet Count 95 Mean Platelet Volume 9.4 Platelet Estimate DECREASED Sodium Level 143 142 Potassium Level 4.0 3.8 Chloride Level 105 107 Carbon Dioxide Level 28 27 Anion Gap 10.0 8.0 Blood Urea Nitrogen 17 23 Creatinine 1.10 1.10 Est Creatinine Clear Calc Drug Dose 95.0 95.0 Estimated GFR () 82.4 82.4 Estimated GFR (Non- 71.1 71.1 BUN/Creatinine Ratio 15.0 21.4 Random Glucose 93 94 Calcium Level 8.8 8.7 Medical Emergencies . Who to Call and When: Medical Emergencies: If at any time you feel your situation is an emergency, please call 911 immediately. . Non-Emergent Contact Non-Emergency issues call your: Primary Care Provider . . "Provider Documentation" section prepared by Daylin Kraft. . Core Measure Problem Core Measures: None
[2017-02-06 19:41] VITALS: BP 128/75; PULSE 67; TEMP 36.8; O2SAT 100
[2017-02-06] MEDS: ATORVASTATIN 40 MG TAB PO SCH (20:39)
[2017-02-06] MEDS: DOXYCYCLINE HYCLATE 100 MG CAP PO SCH (21:17)
[2017-02-07] VITALS (7 sets, daily range): BP systolic 96–117; BP diastolic 61–71; PULSE 65–70; TEMP 36.4–37; O2SAT 96–100
[2017-02-07] MEDS: LEVOTHYROXINE 100 MCG TAB PO SCH (05:13)
[2017-02-07 07:33] LABS: MEAN CELL VOLUME 98.2 fL (80-100); MEAN CORPUSCULAR HGB CONC 33.6 g/dl (32-36); RED BLOOD COUNT 3.36 M/uL (4.7-6.1)
[2017-02-07] MEDS: TAMSULOSIN HCL 0.4 MG CAP PO SCH (07:39)
[2017-02-07] MEDS: VALPROIC ACID SYRUP 250 MG/5 ML PO SCH ×2 (07:39→21:28)
[2017-02-07] MEDS: DOCUSATE SODIUM 100 MG CAP PO SCH ×2 (07:39→21:28)
[2017-02-07] MEDS: ASPIRIN 81 MG ECTAB PO SCH (07:39)
[2017-02-07] MEDS: PHENYTOIN SODIUM ER 100 MG CAP PO SCH ×3 (07:39→21:28)
[2017-02-07] MEDS: RIVAROXABAN 20 MG TAB PO SCH (07:40)
[2017-02-07] MEDS: NEPHROCAPS PO SCH (07:40)
[2017-02-07] MEDS: CYANOCOBALAMIN 500 MCG TAB (VIT B-12) PO SCH (07:40)
[2017-02-07] MEDS: SENNA 8.6 MG TAB PO SCH (07:40)
[2017-02-07] MEDS: DOXYCYCLINE HYCLATE 100 MG CAP PO SCH ×2 (07:40→21:27)
[2017-02-07] MEDS: PANTOprazole SOD 40 MG TAB PO SCH (07:40)
[2017-02-07] MEDS: POTASSIUM CHLORIDE PWD 20 MEQ PACK PO SCH ×4 (07:40→21:28)
[2017-02-07] MEDS: POLYETHYLENE (MIRALAX) 17 GM PACK PO SCH (07:40)
[2017-02-07] MEDS: CHOLECALCIFEROL 1000 INTER.UNIT TAB PO SCH (07:40)
[2017-02-07] MEDS: CARBIDOPA/LEVODOPA 25/100MG TAB PO SCH ×3 (07:40→21:27)
[2017-02-07] MEDS: OXCARBAZEPINE 150 MG TAB PO SCH ×3 (07:40→21:27)
[2017-02-07 08:01] LABS: CALCIUM 8.8 mg/dl (8.5-10.1); CREATININE 1.1 mg/dl (0.60-1.40)
[2017-02-07 08:31] LABS: MEAN PLATELET VOLUME 9.4 fL (7.4-10.4); PLATELET COUNT 95 K/uL (130-400); PLT ESTIMATE DECREASED
[2017-02-07] MEDS: ALBUMIN 25% 50 ML with FUROSEMIDE INJ 40 MG IV SCH ×2 (08:56)
--- NOTE | 2017-02-07 18:35 | Progress Note ---
Internal Med Progress Note Date of Service: Feb 07, 2017. Provider Documentation: SUBJECTIVE: offers no new complain , denies of any SOB or ROBERTSON persistent bilateral lower ext Lymphedema and erythema with chronic venous stasis changes no fever or chills OBJECTIVE: Vital Signs-as noted below Exam: General Appearance: no apparent distress Head: normocephalic, atraumatic Eyes: normal inspection, sclerae normal ENT: hearing grossly normal, poor dentition Neck: supple, no adenopathy, trachea midline Respiratory/Chest: chest non-tender, lungs clear, normal breath sounds, no respiratory distress, no accessory muscle use Cardiovascular: regular rate, rhythm, no murmur Abdomen/GI: normal bowel sounds (Presence of a large ventral hernia. Soft, reducible ), non tender, soft Extremities/Musculoskeletal: no calf tenderness, + swelling (2+ bilateral edema to knees with overlying erythema and superficial skin breakdown) Neurologic/Psych: no motor/sensory deficits (Motor and cognitive impairments at baseline. ), alert, oriented x 3 Lab data as noted below. 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 Bilateral LE cellulitis: improving -presented with Erythema and warmth in bilateral lower ext 2/2 worsening lymphedema -Blood cultures negative growth Abx changed to PO Doxycycline given the extent of cellulitis total 10 days tx needed Worsening bilateral LE edema: -In the setting of chronic lymphedema, dietary indiscretion with salt, resistance to diuretics -: appreciate Nephrology input -Continue 40mg IV Lasix BID with albumin -on potassium chloride supplement -Monitor K closely; replace when necessary -Na restricted diet, added fluid restrictions -Cr stable at 1 Chronic diastolic heart failure: -Echo : There is mild concentric left ventricular hypertrophy. There are regional wall motion abnormalities as specified. The LV Ejection Fraction = 60-65%. The right ventricle is normal size. The right ventricular systolic function is normal as assessed by tricuspid annular plane systolic excursion (TAPSE) (normal >1.5 cm). There is trace mitral regurgitation. Diastolic dysfunction, Grade II (pseudonormalization pattern). --bilateral lower ext swelling possibly due to above H/o hypokalemia: -Jori renin ratio ordered in clinic, results are pending -cont on K supplement Ventral abdominal hernia: -Presence of large, reducible ventral hernia -Scheduled for a surgical repair Feb 27 -Pending medical clearance Seizure disorder: stable -Followed by -Has not had a seizure in over a year -Continue home dose Dilantin, Trileptal, valproic acid Parkinson's Disease: stable -Followed by Dr. Flores -Continue Carbidopa-Levodopa H/o DVTs: -Continue Xarelto Hypothyroidism: -Cont Synthroid HLD: -Cont statin DVT Ppx: On Xarelto Code status: FULL PCP: Dr Del Rio ([facility]) Dispo: SW consulted to help with discharge placement back to [facility] Vital Signs: Date Time Temp Pulse Resp B/P (MAP) Pulse Ox O2 Delivery O2 Flow Rate FiO2 02/08/17 12:00 36.3 65 18 117/73 (88) 100 Room Air 02/08/17 12:00 Room Air 02/08/17 07:45 Room Air 02/08/17 07:38 36.5 65 18 121/76 (91) 100 Room Air 02/08/17 05:16 36.6 63 19 106/64 (78) 97 Room Air 02/08/17 04:00 Room Air 02/08/17 00:14 36.6 65 20 105/66 (79) 96 Room Air 02/08/17 00:00 Room Air 02/07/17 20:15 Room Air 02/07/17 19:36 36.8 65 20 113/65 (81) 98 Room Air 02/07/17 16:20 Room Air 02/07/17 15:36 36.6 65 18 111/70 (84) 97 Lab Results:
[2017-02-07] MEDS: ATORVASTATIN 40 MG TAB PO SCH (21:28)
[2017-02-08 00:14] VITALS: BP 105/66; PULSE 65; TEMP 36.6; O2SAT 96
[2017-02-08 05:16] VITALS: BP 106/64; PULSE 63; TEMP 36.6; O2SAT 97
[2017-02-08] MEDS: LEVOTHYROXINE 100 MCG TAB PO SCH (05:46)
[2017-02-08 07:38] VITALS: BP 121/76; PULSE 65; TEMP 36.5; O2SAT 100
[2017-02-08] MEDS: PANTOprazole SOD 40 MG TAB PO SCH (07:42)
[2017-02-08] MEDS: ASPIRIN 81 MG ECTAB PO SCH (07:42)
[2017-02-08] MEDS: PHENYTOIN SODIUM ER 100 MG CAP PO SCH ×3 (07:42→20:36)
[2017-02-08] MEDS: POTASSIUM CHLORIDE PWD 20 MEQ PACK PO SCH ×4 (07:42→20:36)
[2017-02-08] MEDS: TAMSULOSIN HCL 0.4 MG CAP PO SCH (07:42)
[2017-02-08] MEDS: NEPHROCAPS PO SCH (07:42)
[2017-02-08] MEDS: VALPROIC ACID SYRUP 250 MG/5 ML PO SCH ×2 (07:42→20:36)
[2017-02-08] MEDS: POLYETHYLENE (MIRALAX) 17 GM PACK PO SCH (07:42)
[2017-02-08] MEDS: DOCUSATE SODIUM 100 MG CAP PO SCH ×2 (07:42→20:36)
[2017-02-08] MEDS: OXCARBAZEPINE 150 MG TAB PO SCH ×3 (07:43→20:36)
[2017-02-08] MEDS: SENNA 8.6 MG TAB PO SCH (07:43)
[2017-02-08] MEDS: CHOLECALCIFEROL 1000 INTER.UNIT TAB PO SCH (07:43)
[2017-02-08] MEDS: DOXYCYCLINE HYCLATE 100 MG CAP PO SCH ×2 (07:43→20:36)
[2017-02-08] MEDS: CARBIDOPA/LEVODOPA 25/100MG TAB PO SCH ×3 (07:43→20:36)
[2017-02-08] MEDS: CYANOCOBALAMIN 500 MCG TAB (VIT B-12) PO SCH (07:43)
[2017-02-08] MEDS: RIVAROXABAN 20 MG TAB PO SCH (07:43)
[2017-02-08 12:00] VITALS: BP 117/73; PULSE 65; TEMP 36.3; O2SAT 100
[2017-02-08 15:48] VITALS: BP 126/73; PULSE 66; TEMP 36.5; O2SAT 98
--- NOTE | 2017-02-08 17:35 | Progress Note ---
Internal Med Progress Note Date of Service: Feb 08, 2017. Provider Documentation: SUBJECTIVE: no new complain has persisted bilateral lower ext Lymphedema no fever or chills OBJECTIVE: Vital Signs-as noted below Exam: General Appearance: no apparent distress Head: normocephalic, atraumatic Eyes: normal inspection, sclerae normal ENT: hearing grossly normal, poor dentition Neck: supple, no adenopathy, trachea midline Respiratory/Chest: chest non-tender, lungs clear, normal breath sounds, no respiratory distress, no accessory muscle use Cardiovascular: regular rate, rhythm, no murmur Abdomen/GI: normal bowel sounds (Presence of a large ventral hernia. Soft, reducible ), non tender, soft Extremities/Musculoskeletal: no calf tenderness, + swelling (2+ bilateral edema to knees with overlying erythema and superficial skin breakdown) Neurologic/Psych: no motor/sensory deficits (Motor and cognitive impairments at baseline. ), alert, oriented x 3 Lab data as noted below. 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 Bilateral LE cellulitis: improving -presented with Erythema and warmth in bilateral lower ext 2/2 worsening lymphedema -Blood cultures negative growth Abx changed to PO Doxycycline given the extent of cellulitis will need total 10 days tx Worsening bilateral LE edema: -In the setting of chronic lymphedema, dietary indiscretion with salt, resistance to diuretics -: appreciate Nephrology input -Continue 40mg IV Lasix BID with albumin ; fluid restriction 1500 ml /day -on potassium chloride supplement -Monitor K closely; replace when necessary -Na restricted diet, - Chronic diastolic heart failure: -Echo : There is mild concentric left ventricular hypertrophy. There are regional wall motion abnormalities as specified. The LV Ejection Fraction = 60-65%. The right ventricle is normal size. The right ventricular systolic function is normal as assessed by tricuspid annular plane systolic excursion (TAPSE) (normal >1.5 cm). There is trace mitral regurgitation. Diastolic dysfunction, Grade II (pseudonormalization pattern). --bilateral lower ext swelling possibly due to above H/o hypokalemia: -Jori renin ratio ordered in clinic, results are pending -cont on K supplement Ventral abdominal hernia: -Presence of large, reducible ventral hernia -Scheduled for a surgical repair Feb 27 -Pending medical clearance Seizure disorder: stable -Followed by -Has not had a seizure in over a year -Continue home dose Dilantin, Trileptal, valproic acid Parkinson's Disease: stable -Followed by Dr. Flores -Continue Carbidopa-Levodopa H/o DVTs: -Continue Xarelto Hypothyroidism: -Cont Synthroid HLD: -Cont statin DVT Ppx: On Xarelto Code status: FULL PCP: Dr Del Rio ([facility]) Dispo: SW consulted to help with discharge placement back to [facility] possible return back to [facility] in next 1-2 days depending on improvement of lower ext edema and cellulitis Vital Signs: Date Time Temp Pulse Resp B/P (MAP) Pulse Ox O2 Delivery O2 Flow Rate FiO2 02/08/17 16:15 Room Air 02/08/17 15:48 36.5 66 18 126/73 (90) 98 Room Air 02/08/17 12:00 36.3 65 18 117/73 (88) 100 Room Air 02/08/17 12:00 Room Air 02/08/17 07:45 Room Air 02/08/17 07:38 36.5 65 18 121/76 (91) 100 Room Air 02/08/17 05:16 36.6 63 19 106/64 (78) 97 Room Air 02/08/17 04:00 Room Air 02/08/17 00:14 36.6 65 20 105/66 (79) 96 Room Air 02/08/17 00:00 Room Air 02/07/17 20:15 Room Air 02/07/17 19:36 36.8 65 20 113/65 (81) 98 Room Air
[2017-02-08] MEDS ORDERED: FURO40TA3 PO (18:20)
[2017-02-08] MEDS: FUROSEMIDE 40 MG TAB PO SCH (19:38)
[2017-02-08 19:46] VITALS: BP 109/70; PULSE 63; TEMP 36.9; O2SAT 100
[2017-02-08] MEDS: ATORVASTATIN 40 MG TAB PO SCH (20:36)
[2017-02-09 00:16] VITALS: BP 97/67; PULSE 64; TEMP 36.3; O2SAT 98
[2017-02-09 03:17] VITALS: BP 112/71; PULSE 59; TEMP 36.3; O2SAT 96
[2017-02-09] MEDS: LEVOTHYROXINE 100 MCG TAB PO SCH (06:02)
--- NOTE | 2017-02-09 06:18 | Nephrology Progress Note ---
Nephrology Progress Note Date of Service: Feb 09, 2017. Subjective 61 yo male with significant lymphedema from dietary indiscretion whose legs are much improved with antibiotics, diuretics and fluid restriction. pt comfortable. legs are tender to touch Objective Date Time Temp Pulse Resp B/P (MAP) Pulse Ox O2 Delivery O2 Flow Rate FiO2 02/09/17 04:00 Room Air 02/09/17 03:17 36.3 59 20 112/71 (85) 96 Room Air 02/09/17 00:16 36.3 64 18 97/67 (77) 98 Room Air 02/09/17 00:00 Room Air 02/08/17 20:00 Room Air 02/08/17 19:46 36.9 63 16 109/70 (83) 100 Room Air 02/08/17 16:15 Room Air 02/08/17 15:48 36.5 66 18 126/73 (90) 98 Room Air 02/08/17 12:00 36.3 65 18 117/73 (88) 100 Room Air 02/08/17 12:00 Room Air 02/08/17 07:45 Room Air 02/08/17 07:38 36.5 65 18 121/76 (91) 100 Room Air Physical Exam: General-aaox3, obese Eyes-no scleral icterus ENT-mmm Neck-supple Lungs-clear Heart-regular Abdomen-bs+/+ventral hernia Extremities-no edema, +wrinkles in skin, tender to palpation Neuro-nonfocal Current Inpatient Medications Medications (Trade) Dose Ordered Sig/Ja Route Start Time Stop Time Status Last Admin Dose Admin Ondansetron HCl (Zofran Inj) 4 mg Q6H PRN IV 02/04/17 16:15 03/06/17 16:14 Acetaminophen (Tylenol Tab) 650 mg Q6 PRN PO 02/04/17 17:45 03/06/17 17:44 Aspirin (Ecotrin Tab) 81 mg DAILY PO 02/05/17 09:00 03/07/17 08:59 02/08/17 07:42 81 MG Atorvastatin Calcium (Lipitor Tab) 40 mg HS PO 02/04/17 21:00 03/06/17 20:59 02/08/17 20:36 40 MG Carbidopa/Levodopa (Sinemet 25/ 100MG Tab) 1 tab TID PO 02/04/17 21:00 03/06/17 20:59 9/24/17 20:36 1 TAB Docusate Sodium (coLACE CAP) 200 mg BID PO 02/04/17 21:00 03/06/17 20:59 02/08/17 20:36 200 MG Levothyroxine Sodium (Synthroid Tab) 100 mcg DAILYBB PO 02/05/17 06:30 03/07/17 06:29 02/09/17 06:02 100 MCG Oxcarbazepine (Trileptal Tab) 150 mg TID PO 02/04/17 21:00 03/06/17 20:59 02/08/17 20:36 150 MG Phenytoin Sodium (Dilantin Er Cap) 200 mg TID PO 02/04/17 21:00 03/06/17 20:59 02/08/17 20:36 200 MG Potassium Chloride (Klor-Con Pwd) 40 meq QID PO 02/04/17 21:00 03/06/17 20:59 02/08/17 20:36 40 MEQ Rivaroxaban (Xarelto Tab) 20 mg DAILY PO 02/05/17 09:00 03/07/17 08:59 02/08/17 07:43 20 MG Senna (Senokot Tab) 17.2 mg QAM PO 02/05/17 09:00 03/07/17 08:59 02/08/17 07:43 17.2 MG Tamsulosin HCl (Flomax Cap) 0.4 mg DAILY PO 02/05/17 09:00 03/07/17 08:59 02/08/17 07:42 0.4 MG Valproic Acid (Depakene Syrup) 1,500 mg QAM PO 02/05/17 09:00 03/07/17 08:59 02/08/17 07:42 1,500 MG Valproic Acid (Depakene Syrup) 1,750 mg HS PO 02/04/17 21:00 03/06/17 20:59 02/08/17 20:36 1,750 MG Vitamin B Complex/ Vit C/Folic Acid (Nephrocaps) 1 cap DAILY PO 02/05/17 09:00 03/07/17 08:59 02/08/17 07:42 1 CAP Pantoprazole Sodium (Protonix Tab) 40 mg DAILY PO 02/05/17 09:00 03/07/17 08:59 02/08/17 07:42 40 MG Polyethylene (Miralax Powder Packet) 17 gm QAM PO 02/05/17 09:00 03/07/17 08:59 02/08/17 07:42 17 GM Cholecalciferol (Vitamin D Tab) 2,000 inter.unit DAILY PO 02/06/17 09:00 03/07/17 08:59 02/08/17 07:43 2,000 INTER.UNIT Cyanocobalamin (Vitamin B-12 Tab) 1,000 mcg DAILY PO 02/06/17 09:00 03/07/17 08:59 02/08/17 07:43 1,000 MCG Doxycycline Hyclate (Vibramycin Cap) 100 mg BID PO 02/06/17 21:00 02/16/17 20:59 02/08/17 20:36 100 MG Furosemide (Lasix Tab) 40 mg BID17 PO 02/08/17 18:30 03/10/17 18:29 02/08/17 19:38 40 MG Last 24 Hours Test 02/09/17 05:34 Assessment & Plan lymphedema from dietary [id number] with salt intake-edema much, much improved. continue current oral diuretics. ok from renal perspective to go home today. hypokalemia-k levels have been good on current potassium supplementation.
[2017-02-09 06:19] LABS: BUN/CREATININE RATIO 21.4 (10-20); CALCIUM 8.7 mg/dl (8.5-10.1); CREATININE 1.1 mg/dl (0.60-1.40); POTASSIUM 3.8 mmol/L (3.5-5.1)
[2017-02-09 07:35] VITALS: BP 108/68; PULSE 60; TEMP 36.4; O2SAT 99
[2017-02-09] MEDS: DOCUSATE SODIUM 100 MG CAP PO SCH (07:43)
[2017-02-09] MEDS: VALPROIC ACID SYRUP 250 MG/5 ML PO SCH (07:43)
[2017-02-09] MEDS: NEPHROCAPS PO SCH (07:44)
[2017-02-09] MEDS: POLYETHYLENE (MIRALAX) 17 GM PACK PO SCH (07:44)
[2017-02-09] MEDS: SENNA 8.6 MG TAB PO SCH (07:44)
[2017-02-09] MEDS: CYANOCOBALAMIN 500 MCG TAB (VIT B-12) PO SCH (07:44)
[2017-02-09] MEDS: DOXYCYCLINE HYCLATE 100 MG CAP PO SCH (07:44)
[2017-02-09] MEDS: ASPIRIN 81 MG ECTAB PO SCH (07:44)
[2017-02-09] MEDS: FUROSEMIDE 40 MG TAB PO SCH (07:44)
[2017-02-09] MEDS: CARBIDOPA/LEVODOPA 25/100MG TAB PO SCH ×2 (07:44→12:59)
[2017-02-09] MEDS: PANTOprazole SOD 40 MG TAB PO SCH (07:44)
[2017-02-09] MEDS: POTASSIUM CHLORIDE PWD 20 MEQ PACK PO SCH ×2 (07:44→12:59)
[2017-02-09] MEDS: OXCARBAZEPINE 150 MG TAB PO SCH ×2 (07:44→12:59)
[2017-02-09] MEDS: RIVAROXABAN 20 MG TAB PO SCH (07:44)
[2017-02-09] MEDS: PHENYTOIN SODIUM ER 100 MG CAP PO SCH ×2 (07:44→12:59)
[2017-02-09] MEDS: TAMSULOSIN HCL 0.4 MG CAP PO SCH (07:44)
[2017-02-09] MEDS: CHOLECALCIFEROL 1000 INTER.UNIT TAB PO SCH (07:44)
[2017-02-09 11:46] VITALS: BP 104/67; PULSE 59; TEMP 36.3; O2SAT 98
[2017-02-09 13:30] VITALS: BP 104/67; PULSE 59; TEMP 36.3; O2SAT 98
--- NOTE | 2017-02-09 22:47 | Discharge Summary ---
Discharge Summary Date of Service Feb 09, 2017. Discharge Summary Admission Date: Feb 04, 2017 at 19:17 Discharge Date: Feb 08, 2017 Discharge Disposition: Rehab Principal Diagnosis: BILATERAL LOWER EXTREMITY LYMPHEDEMA /CELLULITIS OF LOWER EXT Procedures: ECHO : There is mild concentric left ventricular hypertrophy. There are regional wall motion abnormalities as specified. The LV Ejection Fraction = 60-65%. The right ventricle is normal size. The right ventricular systolic function is normal as assessed by tricuspid annular plane systolic excursion (TAPSE) (normal >1.5 cm). There is trace mitral regurgitation. Diastolic dysfunction, Grade II (pseudonormalization pattern). Consultations: NEPHROLOGY ONCHumaira Medication Reconciliation New Medications: Furosemide (Lasix) 40 Mg Tab 40 MG PO BID for 30 Days, #60 TAB Doxycycline Hyclate (Doxycycline Hyclate) 100 Mg Cap 100 MG PO BID for 5 Days, #10 CAP Continued Medications: Acetaminophen (Tylenol) 325 Mg Tab 650 MG PO Q6 PRN for Pain DO NOT EXCEED 3GM/24HR Aspirin (Aspirin 81) 81 Mg Tab 81 MG PO DAILY Atorvastatin (Lipitor) 40 Mg Tab 40 MG PO HS, TAB Carbidopa/Levodopa (Sinemet 25MG/100MG) Tab 1 TAB PO TID, TAB Cholecalciferol (Vitamin D3) 2,000 Unit Tab 2000 UNIT PO DAILY Cyanocobalamin (Vitamin B-12) 1,000 Mcg Sub 1000 MCG PO DAILY Docusate Sodium (Colace) 100 Mg Cap 200 MG PO BID Levothyroxine Sodium (Synthroid) 100 Mcg Tab 100 MCG PO DAILY, TAB Metolazone (Zaroxolyn) 2.5 Mg Tab 2.5 MG PO DAILY, TAB Omeprazole (Prilosec) 20 Mg Capcr 20 MG PO DAILY Oxcarbazepine (Trileptal) 150 Mg Tab 150 MG PO TID Phenytoin Sodium (Dilantin) 100 Mg Cap 200 MG PO TID Polyethylene Glycol 3350 (Miralax) 1 Pow Pow 17 GM PO DAILY Potassium Chloride Pwd (Klor-Con Pwd) 20 Meq Pack 40 MEQ PO QID Rivaroxaban (Xarelto) 20 Mg Tab 20 MG PO DAILY, TAB Senna (Senokot) 8.6 Mg Tab 17.2 MG PO QAM, TAB Tamsulosin Hcl (Flomax) 0.4 Mg Cap 0.4 MG PO DAILY, CAP Valproic Acid Syrup (Depakene) 250 Mg/5 Ml Syrp 1500 MG PO QAM Valproic Acid Syrup (Depakene) 250 Mg/5 Ml Syrp 1750 MG PO HS Vitamin B Cmplx/Vitc/Folic Ac (Nephrocaps) 1 Cap Cap 1 CAP PO DAILY Discontinued Medications: Amoxicillin (Amoxil) 500 Mg Cap 1 CAP PO BID for 10 Days, #20 CAP Furosemide (Lasix) 40 Mg Tab 40 MG PO DAILY, TAB Admission Information HPI (per Admitting provider): This is a 61yo man who resides at [facility] with a PMH of HTN, CKD III (L kidney absent), hereditary lymphedema, chronic diastolic CHF, Parkinson's disease, 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 Patient was seeing Dr. Enriquez today for a routine follow-up appt and was noted to have worsening LE edema bilaterally with associated warmth, erythema and superficial skin breakdown. History was limited due to patient's intellectual disabilities and dementia. States that his legs are swollen and sore but does not know when symptoms worsened. 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 Has a private room with alarms due to behavioral issues of violent threats. Has chronic LE edema but the nurse I spoke with noticed worsening edema with redness and skin breakdown a few days ago. Is on a salt restricted diet due to chronic renal failure but is not always compliant. Has been taking all medications regularly, including metolazone and Lasix. Has a history of seizures but per discussion with facility and chart review, has not had a seizure in over a year. Endorses dull pain around ankles and shins bilaterally 2/2 swelling as well as chronic tingling/numbness in both feet. Denies any fever, chills, CP, SOB, orthopnea, PND, nausea, vomiting, abd pain, LE weakness. Physical Exam (per Admitting): General Appearance: WD/WN, no apparent distress (Patient with involuntary movement of mouth and tongue. ) Head: normocephalic, atraumatic Eyes: normal inspection, sclerae normal ENT: hearing grossly normal, + pertinent finding (Poor dentition ) Neck: supple, no adenopathy, trachea midline Respiratory/Chest: chest non-tender, lungs clear, normal breath sounds, no respiratory distress, no accessory muscle use Cardiovascular: regular rate, rhythm, no murmur Abdomen/GI: normal bowel sounds (Presence of a large ventral hernia. Soft, reducible ), non tender, soft Back: normal inspection (Presence of a raised, cystic lesion on upper R back. ) Extremities/Musculoskelatal: no calf tenderness, + swelling (Significant 4+ bilateral edema to knees with overlying erythema and superficial skin breakdown) Neurologic/Psych: no motor/sensory deficits (Motor and cognitive impairments at baseline. ), alert, oriented x 3 Skin: normal color Hospital Course 61 yo male with bilateral lower extremity chronic significant lymphedema , presented with worsening of lower ext swelling and cellulitis edema improving with aggressive diuresis, renal function remains stable This is a 61yo man who resides at [facility] with a PMH of HTN, hereditary lymphedema, Parkinson's disease, 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 Bilateral LE cellulitis: improving -presented with Erythema and warmth in bilateral lower ext 2/2 worsening lymphedema -Blood cultures negative growth Abx changed to PO Doxycycline given the extent of cellulitis will need total 10 days tx Worsening bilateral LE edema: -In the setting of chronic lymphedema, dietary indiscretion with salt, resistance to diuretics -: appreciate Nephrology input lower ext swelling improved -given 40mg IV Lasix BID with albumin ; cont fluid restriction 1500 ml /day -Lasix changed to PO Lasix 40 mg dose increased to twice daily repeat Lab work in a week at [facility] -on potassium chloride supplement -Monitor K closely; replace when necessary -on Na restricted diet, - Chronic diastolic heart failure: -Echo : There is mild concentric left ventricular hypertrophy. There are regional wall motion abnormalities as specified. The LV Ejection Fraction = 60-65%. The right ventricle is normal size. The right ventricular systolic function is normal as assessed by tricuspid annular plane systolic excursion (TAPSE) (normal >1.5 cm). There is trace mitral regurgitation. Diastolic dysfunction, Grade II (pseudonormalization pattern). --bilateral lower ext swelling possibly due to above H/o hypokalemia: -Aldosterone renin ratio ordered in clinic, results are pending -cont on K supplement -Electrolytes are stable Ventral abdominal hernia: -Presence of large, reducible ventral hernia -Scheduled for a surgical repair Feb 27 Seizure disorder: stable -Followed by -Has not had a seizure in over a year -Continue home dose Dilantin, Trileptal, valproic acid Parkinson's Disease: stable -Followed by Dr. Flores -Continue Carbidopa-Levodopa H/o DVTs: -Continue Xarelto Hypothyroidism: -Cont Synthroid HLD: -Cont statin DVT Ppx: On Xarelto Code status: FULL PCP: Dr Del Rio ([facility]) Dispo: SW consulted to help with discharge placement back to [facility] medically stable to be transferred to [facility] Total time spent on discharge = 35 MINS This includes examination of the patient, discharge planning, medication reconciliation, and communication with other providers. Discharge Instructions Discharge Instructions Date of Service Feb 06, 2017. Admission Reason for Admission: Significant Lymphedema, Bilateral Leg Cellulitis Discharge Discharge Diagnosis / Problem: BILATERAL LOWER EXTREMITY LYMPHEDEMA / CELLULITIS OF LOWER EXT Discharge Goals Goal(s): Decrease discomfort, Improve disease control, Diagnostic testing, Therapeutic intervention Activity Recommendations Activity Level: Assistance Required Therapies: Physical Therapy, Occupational Therapy . Additional Information Patient informed of condition: Yes Advance Directives: No DNR: No Level of Care: Skilled Communicable Disease: No Prognosis: Stable Maldonado Catheter: No Instructions / Follow-Up Instructions / Follow-Up FOLLOW UP WITH PHYSICIAN AT [facility] LAB WORK: BASIC METABOLIC PANEL NEXT WEEK FOLLOW UP WITH DR ENRIQUEZ PER SCHEDULE PLEASE LIMIT SALT INTAKE IN YOUR FOOD , LIMIT FLUID INTAKE 1.5 L /DAY KEEP LEGS ELEVATED WHEN SITTING TO PREVENT WORSENING OF LEG SWELLING Current Hospital Diet Patient's current hospital diet: Low Sodium Diet (2gm Na) Discharge Diet Recommended Diet: Low Sodium Diet (2gm Na) Fluid Restriction: 1500 ml (6 cups) Pending Studies Studies pending at discharge: no Physician Orders On Transfer Dressing Changes: PATIENT HAS A OPEN AREA RIGHT POSTERIOR CALF - SUPERFICIAL AVOID GAURAV WRAPS OR COMPRESSION STOCKINGS Laboratory Results Test 02/04/17 15:34 02/04/17 15:42 02/04/17 17:14 02/06/17 05:54 Creatine Kinase MB Ratio Prothrombin Time 12.3 Prothrombin Time INR 1.1 Phosphorus Level 3.3 Magnesium Level 1.8 Total Bilirubin 0.4 Aspartate Amino Transferase (AST) 25 Alanine Aminotransferase (ALT) 16 Alkaline Phosphatase 128 Total Creatine Kinase 278 Creatine Kinase MB 7.8 Troponin I < 0.015 Total Protein 7.1 Albumin 3.5 Globulin 3.6 Albumin/Globulin Ratio 1.0 White Blood Count 3.36 Red Blood Count 3.42 Hemoglobin 11.2 Hematocrit 33.6 Mean Corpuscular Volume 98.2 Mean Corpuscular Hemoglobin 32.7 Mean Corpuscular Hemoglobin Concent 33.3 Platelet Count 109 Mean Platelet Volume 9.9 Neutrophils (%) (Auto) 67.5 Lymphocytes (%) (Auto) 24.4 Monocytes (%) (Auto) 6.0 Eosinophils (%) (Auto) 1.8 Basophils (%) (Auto) 0.3 Neutrophils # (Auto) 2.27 Lymphocytes # (Auto) 0.82 Monocytes # (Auto) 0.20 Eosinophils # (Auto) 0.06 Basophils # (Auto) 0.01 RDW Standard Deviation 52.7 RDW Coefficient of Variation 14.8 Immature Granulocyte % (Auto) 0.0 Immature Granulocyte # (Auto) 0.00 Test 02/06/17 20:14 02/07/17 07:16 02/09/17 05:34 POC Glucose 102 White Blood Count 3.40 Red Blood Count 3.36 Hemoglobin 11.1 Hematocrit 33.0 Mean Corpuscular Volume 98.2 Mean Corpuscular Hemoglobin 33.0 Mean Corpuscular Hemoglobin Concent 33.6 RDW Standard Deviation 52.3 RDW Coefficient of Variation 14.7 Platelet Count 95 Mean Platelet Volume 9.4 Platelet Estimate DECREASED Sodium Level 143 142 Potassium Level 4.0 3.8 Chloride Level 105 107 Carbon Dioxide Level 28 27 Anion Gap 10.0 8.0 Blood Urea Nitrogen 17 23 Creatinine 1.10 1.10 Est Creatinine Clear Calc Drug Dose 95.0 95.0 Estimated GFR () 82.4 82.4 Estimated GFR (Non- 71.1 71.1 BUN/Creatinine Ratio 15.0 21.4 Random Glucose 93 94 Calcium Level 8.8 8.7 Medical Emergencies . Who to Call and When: Medical Emergencies: If at any time you feel your situation is an emergency, please call 911 immediately. . Non-Emergent Contact Non-Emergency issues call your: Primary Care Provider . . "Provider Documentation" section prepared by Daylin Kraft. . Core Measure Problem Core Measures: None Additional Copies To Fermin Enriquez I., DO
== END 2017-02-09 14:26 | DRG 603 ==
LOC: UNDOADMOB 12:27 → C.MED 12:27 → OBSVTOIN 19:17
PROVIDERS: ADMIT Hospitalist; ATTEND Hospitalist
DX: L03.115 Cellulitis of right lower limb (principal); I50.32 Chronic diastolic (congestive) heart failure; I13.0 Hypertensive heart and chronic kidney disease with heart failure and stage 1 through stage 4 chronic kidney disease, or unspecified chronic kidney disease; F02.81 Dementia in other diseases classified elsewhere, unspecified severity, with behavioral disturbance; L03.116 Cellulitis of left lower limb; Q82.0 Hereditary lymphedema; G20 Parkinson's disease; N18.3 Chronic kidney disease, stage 3 (moderate); G40.909 Epilepsy, unspecified, not intractable, without status epilepticus; K43.9 Ventral hernia without obstruction or gangrene; E87.6 Hypokalemia; E78.5 Hyperlipidemia, unspecified; E03.9 Hypothyroidism, unspecified; F70 Mild intellectual disabilities; F03.90 Unspecified dementia, unspecified severity, without behavioral disturbance, psychotic disturbance, mood disturbance, and anxiety; F25.9 Schizoaffective disorder, unspecified; F63.9 Impulse disorder, unspecified; F32.9 Major depressive disorder, single episode, unspecified; E66.9 Obesity, unspecified; Z51.81 Encounter for therapeutic drug level monitoring; Z79.899 Other long term (current) drug therapy; Z79.01 Long term (current) use of anticoagulants; Z79.82 Long term (current) use of aspirin; Z86.718 Personal history of other venous thrombosis and embolism; Z90.5 Acquired absence of kidney; Z68.36 Body mass index [BMI] 36.0-36.9, adult

== ENCOUNTER → 2017-02-04 | Outpatient (CLI) | payer OTHER ==
[2017-02-04 10:30] LABS: BLOOD UREA NITROGEN 20 mg/dl (7-18); BUN/CREATININE RATIO 20.8 (10-20); CALCIUM 9.3 mg/dl (8.5-10.1); CARBON DIOXIDE 33 mmol/L (21-32); CHLORIDE 101 mmol/L (98-107); CREATININE 0.97 mg/dl (0.60-1.40); GLUCOSE 98 mg/dl (70-99); POTASSIUM 3.2 mmol/L (3.5-5.1); SODIUM 141 mmol/L (136-145); URIC ACID 6.9 mg/dl (2.6-7.2)
== END ==
LOC: C.LABUPHEI 09:18
PROVIDERS: ATTEND Nurse Practitioner Family
DX: R60.9 Edema, unspecified (principal); M10.9 Gout, unspecified

== ENCOUNTER → 2017-02-12 | Outpatient (CLI) | payer OTHER ==
[~2017-02-12] MED LIST changes: -ALLO300T2 PO; +DXY100 PO; -FRS/40 PO; +FURO40TA3 PO
[2017-02-12 08:54] LABS: ALT/SGPT 13 U/L (12-78); BLOOD UREA NITROGEN 24 mg/dl (7-18); BUN/CREATININE RATIO 19.6 (10-20); CALCIUM 9.1 mg/dl (8.5-10.1); CARBON DIOXIDE 30 mmol/L (21-32); CHLORIDE 101 mmol/L (98-107); GLUCOSE 88 mg/dl (70-99); POTASSIUM 3.2 mmol/L (3.5-5.1); SODIUM 140 mmol/L (136-145)
[2017-02-12 08:57] LABS: ALB/GLOB RATIO 1.1 (0.9-2); ALKALINE PHOSPHATASE 121 U/L (45-117); AST/SGOT 17 U/L (15-37)
== END | disposition home or self-care (01) ==
LOC: C.LABUPHEI 08:15
PROVIDERS: ATTEND Nurse Practitioner Family
DX: R60.9 Edema, unspecified (principal)

== ENCOUNTER → 2017-02-16 | Outpatient (CLI) | payer OTHER | LOC: C.LABUPHEI 08:57 | PROVIDERS: ATTEND Nurse Practitioner Family | DX: R60.9 Edema, unspecified (principal) ==

== ENCOUNTER → 2017-02-17 | Outpatient (CLI) | payer OTHER | END | disposition home or self-care (01) | LOC: C.LABUPHEI 09:56 | PROVIDERS: ATTEND Nurse Practitioner Family | DX: E87.6 Hypokalemia (principal) ==

== ENCOUNTER → 2017-02-19 | Outpatient (CLI) | payer OTHER | LOC: C.LABUPHEI 09:00 | PROVIDERS: ATTEND Nurse Practitioner Family | DX: E87.6 Hypokalemia (principal) ==

== ENCOUNTER → 2017-02-25 | Outpatient (CLI) | payer OTHER ==
[2017-02-25 10:18] LABS: BASO % 0.5 %; BASO ABS # 0.02 K/uL (0-0.2); COMPLETE YES; EOS % 1.6 %; HEMATOCRIT 39.5 % (42-52); IG% 0.3 %; LYMPH % 25.5 %; LYMPH ABS # 0.97 K/uL (1.2-3.4); MEAN CELL VOLUME 96.6 fL (80-100); MEAN CORPUSCULAR HEMOGLOBIN 32.3 pg (25-34); MEAN CORPUSCULAR HGB CONC 33.4 g/dl (32-36); MEAN PLATELET VOLUME 10.9 fL (7.4-10.4); MONO % 8.4 %; NEUT % 63.7 %; PLATELET COUNT 103 K/uL (130-400); RED BLOOD COUNT 4.09 M/uL (4.7-6.1)
[2017-02-25 10:45] LABS: ALKALINE PHOSPHATASE 112 U/L (45-117); ALT/SGPT 14 U/L (12-78); AST/SGOT 19 U/L (15-37); BLOOD UREA NITROGEN 24 mg/dl (7-18); BUN/CREATININE RATIO 18.5 (10-20); CALCIUM 9.3 mg/dl (8.5-10.1); CARBON DIOXIDE 33 mmol/L (21-32); CHLORIDE 97 mmol/L (98-107); GLUCOSE 103 mg/dl (70-99); POTASSIUM 2.6 mmol/L (3.5-5.1); SODIUM 140 mmol/L (136-145)
== END | disposition home or self-care (01) ==
LOC: C.LABUPHEI 09:53
PROVIDERS: ATTEND Nurse Practitioner Family
DX: R60.9 Edema, unspecified (principal); I10 Essential (primary) hypertension

== ENCOUNTER → 2017-02-27 | Outpatient (CLI) | payer OTHER | LOC: C.LABUPHEI 08:49 | PROVIDERS: ATTEND Nurse Practitioner Family | DX: E87.6 Hypokalemia (principal) ==

== ENCOUNTER → 2017-03-04 | Outpatient (CLI) | payer OTHER | END | disposition home or self-care (01) | LOC: C.LABUPHEI 08:29 | PROVIDERS: ATTEND Nurse Practitioner Family | DX: E87.6 Hypokalemia (principal) ==

== ENCOUNTER → 2017-04-20 | Outpatient (CLI) | payer OTHER ==
[~2017-04-20] MED LIST changes: -FURO40TA3 PO
[2017-04-20 08:55] LABS: BLOOD UREA NITROGEN 20 mg/dl (7-18); BUN/CREATININE RATIO 16.3 (10-20); CALCIUM 9.2 mg/dl (8.5-10.1); CARBON DIOXIDE 32 mmol/L (21-32); CHLORIDE 99 mmol/L (98-107); CREATININE 1.21 mg/dl (0.60-1.40); GLUCOSE 115 mg/dl (70-99); POTASSIUM 3.5 mmol/L (3.5-5.1); SODIUM 140 mmol/L (136-145)
== END ==
LOC: C.LABUPHEI 07:42
PROVIDERS: ATTEND Family Medicine
DX: L03.115 Cellulitis of right lower limb (principal)

== ENCOUNTER → 2017-05-19 | Outpatient (CLI) | payer OTHER ==
[~2017-05-19] MED LIST changes: +ALLO100T PO; +B-COCAP28 PO; +CLC6 PO; +CMD25 PO; +FRS/40 PO; +IPRA-64 INH; +KCLI20/100 PO; +LEVO1TAB33 PO; +MULT-513 PO; +NUTR-977 PO; +OXYC-609 PO; +PRED-301 PO; +[UNRECOGNIZED DRUG - CODE] PO
== END | disposition home or self-care (01) ==
LOC: C.LABUPHEI 07:42
PROVIDERS: ATTEND Nurse Practitioner Family
DX: I87.2 Venous insufficiency (chronic) (peripheral) (principal); N18.3 Chronic kidney disease, stage 3 (moderate)

== ENCOUNTER → 2017-05-20 | Outpatient (CLI) | payer OTHER ==
[2017-05-20 08:02] LABS: BASO % 0.2 %; BASO ABS # 0.01 K/uL (0-0.2); EOS % 1.2 %; EOS ABS # 0.05 K/uL (0-0.5); HEMATOCRIT 38.4 % (42-52); HEMOGLOBIN 12.8 g/dL (14.0-18.0); IG# 0.01 K/uL (0.00-0.02); LYMPH % 27.4 %; LYMPH ABS # 1.12 K/uL (1.2-3.4); MEAN CORPUSCULAR HEMOGLOBIN 33.3 pg (25-34); MEAN CORPUSCULAR HGB CONC 33.3 g/dl (32-36); MEAN PLATELET VOLUME 10.7 fL (7.4-10.4); MONO % 7.3 %; NEUT % 63.7 %; PLATELET COUNT 104 K/uL (130-400); RED CELL DISTRIBUTION WIDTH CV 14.4 % (11.5-14.5); RED CELL DISTRIBUTION WIDTH SD 52.1 fL (36.4-46.3); WHITE BLOOD COUNT 4.09 K/uL (4.8-10.8)
[2017-05-20 09:35] LABS: BLOOD UREA NITROGEN 17 mg/dl (7-18); CALCIUM 9.1 mg/dl (8.5-10.1); CARBON DIOXIDE 31 mmol/L (21-32); CREATININE 1.16 mg/dl (0.60-1.40); GLUCOSE 86 mg/dl (70-99); POTASSIUM 3.8 mmol/L (3.5-5.1); SODIUM 137 mmol/L (136-145)
== END | disposition home or self-care (01) ==
LOC: C.LABUPHEI 07:40
PROVIDERS: ATTEND Nurse Practitioner Family
DX: L03.115 Cellulitis of right lower limb (principal)

== ENCOUNTER → 2017-06-11 | Outpatient (CLI) | payer OTHER ==
[~2017-06-11] MED LIST changes: -ALLO100T PO; -B-COCAP28 PO; -CLC6 PO; -CMD25 PO; -FRS/40 PO; -IPRA-64 INH; -KCLI20/100 PO; -LEVO1TAB33 PO; -MULT-513 PO; -NUTR-977 PO; -OXYC-609 PO; -PRED-301 PO; -[UNRECOGNIZED DRUG - CODE] PO
[2017-06-11 08:53] LABS: BLOOD UREA NITROGEN 27 mg/dl (7-18); CALCIUM 9.3 mg/dl (8.5-10.1); CARBON DIOXIDE 35 mmol/L (21-32); CREATININE 1.28 mg/dl (0.60-1.40); GLUCOSE 89 mg/dl (70-99); POTASSIUM 3.7 mmol/L (3.5-5.1); SODIUM 141 mmol/L (136-145)
[2017-06-11 08:58] LABS: INR 1.1 (0.9-1.1)
== END ==
LOC: C.LABUPHEI 08:29
PROVIDERS: ATTEND Nurse Practitioner Family
DX: I82.729 Chronic embolism and thrombosis of deep veins of unspecified upper extremity (principal); I10 Essential (primary) hypertension

== ENCOUNTER → 2017-06-28 | Outpatient (CLI) | payer OTHER ==
[~2017-06-28] MED LIST changes: +ALLO100T PO; +B-COCAP28 PO; +CLC6 PO; +CMD25 PO; +FRS/40 PO; +IPRASOL4 INH; +KCLI20/100 PO; +LEVO1TAB33 PO; +MULT-513 PO; +NUTR-977 PO; +OXYC-609 PO; +PRED-301 PO; +[UNRECOGNIZED DRUG - CODE] PO
[2017-06-28 15:12] LABS: ALBUMIN 1.8 gm/dl (3.4-5.0); ALT/SGPT 12 U/L (12-78); BLOOD UREA NITROGEN 14 mg/dl (7-18); CALCIUM 9.1 mg/dl (8.5-10.1); CARBON DIOXIDE 30 mmol/L (21-32); CREATININE 0.91 mg/dl (0.60-1.40); GLUCOSE 140 mg/dl (70-99); POTASSIUM 4.5 mmol/L (3.5-5.1); SODIUM 140 mmol/L (136-145)
[2017-06-28 15:15] LABS: ALKALINE PHOSPHATASE 120 U/L (45-117); AST/SGOT 52 U/L (15-37); TOTAL PROTEIN 6.5 gm/dl (6.4-8.2)
[2017-06-28 15:40] LABS: HEMATOCRIT 29.5 % (42-52); HEMOGLOBIN 9.4 g/dL (14.0-18.0); MEAN CELL VOLUME 103.1 fL (80-100); MEAN CORPUSCULAR HEMOGLOBIN 32.9 pg (25-34); MEAN CORPUSCULAR HGB CONC 31.9 g/dl (32-36); MEAN PLATELET VOLUME 10.6 fL (7.4-10.4); NUCLEATED RED BLOOD CELL ABS 0.03 K/uL (0-0); PLATELET COUNT 141 K/uL (130-400); RED CELL DISTRIBUTION WIDTH CV 16.9 % (11.5-14.5); RED CELL DISTRIBUTION WIDTH SD 63.6 fL (36.4-46.3); WHITE BLOOD COUNT 8.25 K/uL (4.8-10.8)
== END ==
LOC: C.LABUPHEI 10:44
PROVIDERS: ATTEND Nurse Practitioner Family
DX: J84.111 Idiopathic interstitial pneumonia, not otherwise specified (principal)

== ENCOUNTER → 2017-06-29 | Outpatient (CLI) | payer OTHER ==
[~2017-06-29] MED LIST changes: -ALLO100T PO; -B-COCAP28 PO; -CLC6 PO; -CMD25 PO; -FRS/40 PO; -IPRASOL4 INH; -KCLI20/100 PO; -LEVO1TAB33 PO; -MULT-513 PO; -NUTR-977 PO; -OXYC-609 PO; -PRED-301 PO; -[UNRECOGNIZED DRUG - CODE] PO
[2017-06-29 08:23] LABS: BASO % 0.3 %; BASO ABS # 0.03 K/uL (0-0.2); EOS % 1.1 %; HEMATOCRIT 27.3 % (42-52); HEMOGLOBIN 8.7 g/dL (14.0-18.0); LYMPH % 9.7 %; LYMPH ABS # 0.85 K/uL (1.2-3.4); MEAN CELL VOLUME 101.9 fL (80-100); MEAN CORPUSCULAR HEMOGLOBIN 32.5 pg (25-34); MEAN CORPUSCULAR HGB CONC 31.9 g/dl (32-36); MEAN PLATELET VOLUME 10.4 fL (7.4-10.4); MONO % 10.1 %; MONO ABS # 0.88 K/uL (0.11-0.59); NEUT % 75.4 %; NEUT ABS # 6.56 K/uL (1.4-6.5); PLATELET COUNT 159 K/uL (130-400); RED CELL DISTRIBUTION WIDTH CV 16.9 % (11.5-14.5); RED CELL DISTRIBUTION WIDTH SD 62.8 fL (36.4-46.3); WHITE BLOOD COUNT 8.72 K/uL (4.8-10.8)
[2017-06-29 08:38] LABS: INFLUENZA B ANTIGEN Neg for Influ B (NEG)
== END ==
LOC: C.LABUPHEI 07:57
PROVIDERS: ATTEND Nurse Practitioner Family
DX: R50.9 Fever, unspecified (principal)

== ENCOUNTER → 2017-07-01 | Outpatient (CLI) | payer OTHER ==
[~2017-07-01] MED LIST changes: +ALLO100T PO; +B-COCAP28 PO; +CLC6 PO; +CMD25 PO; +FRS/40 PO; +IPRASOL4 INH; +KCLI20/100 PO; +LEVO1TAB33 PO; +MULT-513 PO; +NUTR-977 PO; +OXYC-609 PO; +PRED-301 PO; +[UNRECOGNIZED DRUG - CODE] PO
[2017-07-01 08:33] LABS: HEMATOCRIT 27.8 % (42-52); HEMOGLOBIN 8.6 g/dL (14.0-18.0)
== END ==
LOC: C.LABUPHEI 08:13
PROVIDERS: ATTEND Nurse Practitioner Family
DX: D51.9 Vitamin B12 deficiency anemia, unspecified (principal)

== ENCOUNTER → 2017-07-03 | Outpatient (CLI) | payer OTHER ==
[~2017-07-03] MED LIST changes: -CLC6 PO; -CMD25 PO; -NUTR-977 PO; -PRED-301 PO
[2017-07-03 08:44] LABS: HEMATOCRIT 28.2 % (42-52); HEMOGLOBIN 8.9 g/dL (14.0-18.0); MEAN CELL VOLUME 102.5 fL (80-100); MEAN CORPUSCULAR HEMOGLOBIN 32.4 pg (25-34); MEAN CORPUSCULAR HGB CONC 31.6 g/dl (32-36); MEAN PLATELET VOLUME 9.7 fL (7.4-10.4); PLATELET COUNT 332 K/uL (130-400); RED CELL DISTRIBUTION WIDTH CV 16.1 % (11.5-14.5); RED CELL DISTRIBUTION WIDTH SD 58.8 fL (36.4-46.3); WHITE BLOOD COUNT 8.39 K/uL (4.8-10.8)
[2017-07-03 08:56] LABS: BLOOD UREA NITROGEN 14 mg/dl (7-18); CALCIUM 9.2 mg/dl (8.5-10.1); CARBON DIOXIDE 25 mmol/L (21-32); GLUCOSE 159 mg/dl (70-99); POTASSIUM 4.3 mmol/L (3.5-5.1); SODIUM 137 mmol/L (136-145)
== END ==
LOC: C.LABUPHEI 08:31
PROVIDERS: ATTEND Nurse Practitioner Family
DX: I10 Essential (primary) hypertension (principal); R60.9 Edema, unspecified

== ENCOUNTER → 2017-07-06 | Outpatient (CLI) | payer OTHER ==
[2017-07-06 08:48] LABS: BLOOD UREA NITROGEN 29 mg/dl (7-18); CALCIUM 8.9 mg/dl (8.5-10.1); CARBON DIOXIDE 27 mmol/L (21-32); CREATININE 1.25 mg/dl (0.60-1.40); GLUCOSE 130 mg/dl (70-99); POTASSIUM 4.5 mmol/L (3.5-5.1); SODIUM 135 mmol/L (136-145)
== END ==
LOC: C.LABUPHEI 08:11
PROVIDERS: ATTEND Nurse Practitioner Family
DX: R60.9 Edema, unspecified (principal)

== ENCOUNTER → 2017-07-08 | Outpatient (CLI) | payer SELFPAY ==
[~2017-07-08] MED LIST changes: +CLC6 PO; +CMD25 PO; +NUTR-977 PO; +PRED-301 PO
== END ==
LOC: C.LABUPHEI 08:48
PROVIDERS: ATTEND Nurse Practitioner Family
DX: N18.3 Chronic kidney disease, stage 3 (moderate) (principal)

== ENCOUNTER 2017-07-10 11:06 | Inpatient (IN) | payer OTHER ==
[~2017-07-10] VITALS: Ht 185.4 cm; Wt 92.9 kg
[~2017-07-10 11:06] MED LIST changes: -ALLO100T PO; -B-COCAP28 PO; -FRS/40 PO; -IPRASOL4 INH; -KCLI20/100 PO; -LEVO1TAB33 PO; -MULT-513 PO; -OXYC-609 PO; -[UNRECOGNIZED DRUG - CODE] PO
[2017-07-10] MEDS ORDERED: SODIUM CHLORIDE 0.9% 1000ML 1,000 ML IV ONE (11:15)
--- NOTE | 2017-07-10 11:32 | EMERGENCY ROOM VISIT NOTE ---
History Report prepared by Edwar: Catherine Schneider Under the Supervision of: Dr. Jose Ivy D.O. First contact with patient: 11:09 Stated Complaint: EVALUATION History of Present Illness The patient is a 61 year old male who presents to the Emergency Room with complaints of a persistent altered mental status that has been going on for several days. The patient had gallbladder surgery recently. He was diagnosed with pneumonia one day ago and has been given Levaquin to treat his symptoms. According to the patient's [facility] staff, the patient has been refusing to eat, drink liquids, or take his medication which includes medication for his seizures. He has been experiencing some abdominal pain and coughing. The patient denies any recent head injuries. He is 100 percent on 2L of oxygen all the time. HPI limited due to patient having an altered mental status. Source of History: patient, [facility] notes History Limited By: AMS Onset: several days Position: other (mental) Quality: other (altered mental status) Timing: other (persistent) Associated Symptoms: + cough, + abdominal pain (some) Review of Systems See HPI for pertinent positives & negatives. A total of 10 systems reviewed and were otherwise negative. Past Medical & Surgical Medical Problems: (1) Benign hypertension (2) Chronic congestive heart failure (3) Combative behavior (4) Dementia with behavioral disturbance (5) History of pancytopenia (6) HLD (hyperlipidemia) (7) Hyperlipidemia (8) Hypertension Nos (9) Hypothyroidism (10) Lymphedema (11) Parkinson disease (12) Pericardial effusion (13) Pleural effusion (14) Schizoaffective Disorder, Unspecified (15) Seizure disorder Family History FH: cancer Malignancy Social History Smoking Status: Never Smoker Alcohol Use: none Drug Use: none Marital Status: single Housing Status: [facility] Occupation Status: unemployed Current/Historical Medications Scheduled Allopurinol (Zyloprim), 300 MG PO DAILY Aspirin (Aspirin 81), 81 MG PO DAILY Atorvastatin (Lipitor), 40 MG PO HS B-Complex W/ C & Folic Acid (Triphrocaps), 1 CAP PO DAILY Carbidopa/Levodopa (Sinemet 25MG/100MG), 1 TAB PO TID Cholecalciferol (Vitamin D3), 2,000 UNIT PO DAILY Cyanocobalamin (Vitamin B-12), 1,000 MCG PO DAILY Docusate Sodium (Colace), 100 MG PO BID Furosemide (Lasix), 40 MG PO BID Levofloxacin (Levaquin), 500 MG PO DAILY Levothyroxine Sodium (Synthroid), 100 MCG PO DAILY Metolazone (Zaroxolyn), 2.5 MG PO DAILY Multivitamins/Minerals (Mvi With Minerals), 1 TAB PO DAILY Nutritional Supplements (Promod), 1 DOSE PO BID Omeprazole (Prilosec), 20 MG PO DAILY Oxcarbazepine (Trileptal), 150 MG PO TID Oxycodone HCl (Oxycodone HCl), 5 MG PO TID Phenytoin Sodium (Dilantin), 200 MG PO TID Polyethylene Glycol 3350 (Miralax), 17 GM PO DAILY Potassium Chloride (Potassium Chloride), 50 MEQ PO 5XD Rivaroxaban (Xarelto), 20 MG PO DAILY Senna (Senokot), 8.6 MG PO BID Tamsulosin Hcl (Flomax), 0.4 MG PO DAILY Valproic Acid Syrup (Depakene), 1,500 MG PO QAM Valproic Acid Syrup (Depakene), 1,750 MG PO HS Scheduled PRN Acetaminophen (Tylenol), 650 MG PO Q6 PRN for Pain Ipratropium-Albuterol (Duoneb), 1 TREATMENT INH Q6 PRN for Wheezing Allergies Coded Allergies: No Known Allergies (Verified , 07/10/17) Physical Exam Vital Signs Date Time Temp Pulse Resp B/P (MAP) Pulse Ox O2 Delivery O2 Flow Rate FiO2 07/10/17 16:16 88 26 07/10/17 16:11 127/73 07/10/17 16:01 109/67 07/10/17 15:46 131 38 07/10/17 15:41 91 128/59 92 Room Air 07/10/17 15:40 156 36 73 Room Air 07/10/17 15:37 113/86 95 Room Air 07/10/17 15:31 110/64 89 Room Air 07/10/17 15:27 134/64 91 Room Air 07/10/17 15:25 86 26 69 07/10/17 15:24 91 07/10/17 15:10 84 30 07/10/17 15:01 115/68 07/10/17 14:54 120/70 07/10/17 14:40 88 93 07/10/17 14:35 79 22 125/70 07/10/17 13:31 115/72 07/10/17 13:29 113/64 07/10/17 13:26 88 27 07/10/17 13:21 90 23 95 Room Air 07/10/17 13:16 97 22 95 07/10/17 13:11 97 26 99 07/10/17 13:06 102 25 81 07/10/17 13:01 104 26 92 07/10/17 12:56 91 24 97 07/10/17 12:51 100 24 96 07/10/17 12:46 91 27 93 07/10/17 12:41 92 25 90 07/10/17 12:36 96 26 95 Room Air 07/10/17 12:06 93 26 91 Room Air 07/10/17 11:29 86 07/10/17 11:17 36.5 81 18 119/78 97 Room Air 07/10/17 11:17 97 Room Air 07/10/17 11:09 119/78 Physical Exam GENERAL: Patient is awake, alert, listless, and in no acute distress. He is answering questions slowly. Patient is resting comfortably and showing no signs of anxiety EYES: The conjunctivae are clear. The pupils are round and reactive. EARS, NOSE, MOUTH AND THROAT: Mucous membranes were dry. The nose is without any evidence of any deformity. NECK: The neck is nontender and supple. RESPIRATORY: Normal respiratory effort is noted there is no evidence of wheezing rhonchi or rales CARDIOVASCULAR: Regular rate and rhythm noted there no murmurs rubs or gallops normal S1 normal S2 GASTROINTESTINAL: Abdomen is mildly distended but soft. Surgical site noted in midline with no erythema, drainage, or dehiscence noted. Bowel sounds are present in all quadrants. Abdomen is nontender MUSCULOSKELETAL/EXTREMITIES: There is no evidence of gross deformity full range of motion is noted in the hips and shoulders SKIN: Pedal edema bilaterally. There is no obvious evidence of any rash. There are no petechiae, pallor or cyanosis noted. NEUROLOGIC: Oriented to place, person, and time. Strength was diminished but symmetric. Medical Decision & Procedures ER Provider Diagnostic Interpretation: Radiology results as stated below per my review and radiologist interpretation: CHEST ONE VIEW PORTABLE CLINICAL HISTORY: Sepsis COMPARISON STUDY: 02/04/2017 FINDINGS: Moderate increase in cardiac size. Bilateral pleural effusions. Prominent pulmonary vasculature. Potential superimposed infiltrative process left base. IMPRESSION: Congestive heart failure. Bilateral pleural effusions. Potential superimposed infiltrate left base. The above report was generated using voice recognition software. It may contain grammatical, syntax or spelling errors. Electronically signed by: Hudson Lock M.D. 07/10/2017 12:05 PM Dictated Date/Time: 07/10/2017 12:[address]AST CT DOSE: HISTORY: Altered mental status. TECHNIQUE: Multiaxial CT images of the head were performed without the use of intravenous contrast. Automated exposure control was utilized for this study. A dose lowering technique was utilized adhering to the principles of ALARA. Comparison: Head CT 04/26/2015. Findings: Opacified left inferior mastoid air cells. The right mastoid air cells and paranasal sinuses are clear. The calvarium and skull base are intact. There is no mass, hematoma, midline shift, acute infarct. White matter hypodensity is nonspecific but suggestive of microvascular ischemic change. The ventricles and sulci demonstrate mild age-related involutional changes. 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 Stable mild ventricular dilatation. Impression: No significant change compared to the prior study. No acute intracranial abnormality. Electronically signed by: Sergey Hodge M.D. 07/10/2017 2:33 PM Dictated Date/Time: 07/10/2017 2:[address] ANGIOGRAM OF THE CHEST CLINICAL HISTORY: Dyspnea. COMPARISON STUDY: Chest x-ray dated 07/10/2017. Chest CT dated 01/28/2011. TECHNIQUE: Following the IV administration of 80 cc of Optiray 320, CT angiogram of the chest was performed from the upper abdomen to the thoracic inlet utilizing the pulmonary embolus protocol. Images are reviewed in the axial, sagittal, and coronal planes. 3-D MIPS images are created and assessed. IV contrast was administered without complication. A dose lowering technique was utilized adhering to the principles of ALARA. The examination is significantly degraded by streak artifact from the patient's arms which could not be elevated above the chest as well as motion artifact. CT DOSE: 3872.95 mGy.cm FINDINGS: Thyroid: Imaged portions of the thyroid gland are normal in size and attenuation. Thoracic aorta: The thoracic aorta is normal in caliber and demonstrates standard 3-vessel arch anatomy. No dissection is seen. Pulmonary vasculature: The pulmonary trunk is normal in caliber. There are segmental pulmonary emboli identified within the lingula. Segmental emboli are also seen within the right middle lobe pulmonary artery. Heart: The heart is normal in size and there is a moderate to large pericardial effusion. There is associated pericardial thickening and enhancement. The coronary arteries are densely calcified. Lungs and pleural spaces: Evaluation of the lung parenchyma is degraded by motion artifact. There are moderate to large bilateral pleural effusions with associated atelectasis. Minimal secretions are noted in the trachea. Mediastinum: Mildly enlarged prevascular lymph nodes measure up to 1.0 cm in short axis. A subcarinal node measures 1.9 cm in short axis. [place]: Clear. Axillae: There is no axillary lymphadenopathy. Soft tissues: Gynecomastia is noted. Skeletal structures: The skeletal structures appear osteopenic. No lytic or blastic bony lesions are seen. Degenerative change and hyperkyphosis are noted in the thoracic spine. There is evidence of DISH. Arthritic change is seen in the shoulders. IMPRESSION: 1. Streak and motion degraded examination. 2. Segmental pulmonary emboli are seen within the right middle lobe and lingular branches. 3. There is a moderate to large volume of pericardial fluid. There is associated pericardial thickening and enhancement. This appears complex and may represent a complex pericardial effusion versus hemopericardium. Clinical correlation will be essential. 4. Moderate to large pleural effusions with associated atelectasis. Electronically signed by: Jd Mackay M.D. 07/10/2017 2:37 PM Dictated Date/Time: 07/10/2017 2:[address] OF THE ABDOMEN AND PELVIS WITH CONTRAST CLINICAL HISTORY: Recent surgery. COMPARISON STUDY: CT of the abdomen December 11, 2016. TECHNIQUE: Following IV administration of 80 mL of Optiray-320, axial images of the abdomen and pelvis were obtained from the lung bases to the proximal femurs. Images were reviewed in the axial, sagittal, and coronal planes. IV contrast was administered without complication. A dose lowering technique was utilized adhering to the principles of ALARA. FINDINGS: The chest will be reported separately. However, visualized portions of the lower chest demonstrate bilateral pleural effusions, right larger than left, as well as a moderate to large pericardial effusion with pericardial enhancement. The liver, adrenal glands, right kidney and pancreas are unremarkable. The left kidney is not visualized. Moderate splenomegaly is unchanged since CT of December 11, 2016. There is no evidence for a bowel obstruction. There are postsurgical findings involving the anterior abdominal wall suggestive of a hernia repair. There are findings suggestive of a recent cholecystectomy with a 4.3 x 2.7 cm gas and fluid containing cholecystectomy bed fluid collection. Small adjacent fluid-filled tract is noted which is several components and peripheral enhancement. The largest component measures 1.6 cm. There is no biliary ductal dilatation. There are no suspicious osseous lesions. There is no pelvic abscess. IMPRESSION: 1. Moderate to large pericardial effusion with pericardial enhancement. This is better depicted on the chest CT. Please see that report for further description. This favors an infectious or inflammatory process with pericarditis. 2. Bilateral pleural effusion with right larger than left. 3. Findings suggestive of recent cholecystectomy with a 4.3 x 2.7 cm gas and fluid containing cholecystectomy bed fluid collection and adjacent fluid-filled tract/rim-enhancing collections extending anteriorly from the cholecystectomy bed. These fluid collections are nonspecific in the early postoperative setting and may reflect normal postoperative change. However, superimposed infection or biloma cannot be excluded by CT. Correlation with timing of surgery would be of benefit. 4. Findings suggestive of recent anterior abdominal wall hernia repair. 4. Stable moderate splenomegaly. Electronically signed by: Otf Qureshi M.D. 07/10/2017 2:42 PM Dictated Date/Time: 07/10/2017 2:28 PM Laboratory Results 07/10/17 12:33 Red Blood Count 3.16, Mean Corpuscular Volume 99.1, Mean Corpuscular Hemoglobin 31.0, Mean Corpuscular Hemoglobin Concent 31.3, Mean Platelet Volume 9.5, Neutrophils (%) (Auto) 77.1, Lymphocytes (%) (Auto) 11.7, Monocytes (%) (Auto) 8.3, Eosinophils (%) (Auto) 1.5, Basophils (%) (Auto) 0.5, Neutrophils # (Auto) 5.08, Lymphocytes # (Auto) 0.77, Monocytes # (Auto) 0.55, Eosinophils # (Auto) 0.10, Basophils # (Auto) 0.03 07/10/17 12:33 Test 07/10/17 12:33 07/10/17 12:35 07/10/17 13:00 2/23/18 15:30 White Blood Count 6.59 K/uL (4.8-10.8) Red Blood Count 3.16 M/uL (4.7-6.1) Hemoglobin 9.8 g/dL (14.0-18.0) Hematocrit 31.3 % (42-52) Mean Corpuscular Volume 99.1 fL (80-100) Mean Corpuscular Hemoglobin 31.0 pg (25-34) Mean Corpuscular Hemoglobin Concent 31.3 g/dl (32-36) Platelet Count 139 K/uL (130-400) Mean Platelet Volume 9.5 fL (7.4-10.4) Neutrophils (%) (Auto) 77.1 % Lymphocytes (%) (Auto) 11.7 % Monocytes (%) (Auto) 8.3 % Eosinophils (%) (Auto) 1.5 % Basophils (%) (Auto) 0.5 % Neutrophils # (Auto) 5.08 K/uL (1.4-6.5) Lymphocytes # (Auto) 0.77 K/uL (1.2-3.4) Monocytes # (Auto) 0.55 K/uL (0.11-0.59) Eosinophils # (Auto) 0.10 K/uL (0-0.5) Basophils # (Auto) 0.03 K/uL (0-0.2) RDW Standard Deviation 58.1 fL (36.4-46.3) RDW Coefficient of Variation 16.2 % (11.5-14.5) Immature Granulocyte % (Auto) 0.9 % Immature Granulocyte # (Auto) 0.06 K/uL (0.00-0.02) Erythrocyte Sedimentation Rate 59 mm/hr (0-14) Prothrombin Time 12.4 SECONDS (9.0-12.0) Prothromb Time International Ratio 1.2 (0.9-1.1) Activated Partial Thromboplast Time 41.8 SECONDS (21.0-31.0) Partial Thromboplastin Ratio 1.6 Venous Blood pH 7.40 (7.36-7.41) Venous Blood Partial Pressure CO2 47 mmHg (38.0-50.0) Venous Blood Partial Pressure O2 26 mmHg Venous Blood HCO3 29 mmol/L Venous Blood Oxygen Saturation < 60.0 % Venous Blood Base Excess 3.4 mEq/L Anion Gap 5.0 mmol/L (3-11) Est Creatinine Clear Calc Drug Dose 95.5 ml/min Estimated GFR () 91.3 Estimated GFR (Non- 78.8 BUN/Creatinine Ratio 21.0 (10-20) Calcium Level 9.1 mg/dl (8.5-10.1) Phosphorus Level 3.3 mg/dl (2.5-4.9) Magnesium Level 2.6 mg/dl (1.8-2.4) Total Bilirubin 0.5 mg/dl (0.2-1) Aspartate Amino Transf (AST/SGOT) 79 U/L (15-37) Alanine Aminotransferase (ALT/SGPT) 71 U/L (12-78) Alkaline Phosphatase 159 U/L (45-117) Total Creatine Kinase 71 U/L (39-308) Creatine Kinase MB 5.5 ng/ml (0.5-3.6) Creatine Kinase MB Ratio 7.7 (0-3.0) Troponin I 0.321 ng/ml (0-0.045) C-Reactive Protein 12.40 mg/dl (0-0.29) Pro-B-Type Natriuretic Peptide 2288 pg/ml (0-900) Total Protein 7.3 gm/dl (6.4-8.2) Albumin 2.2 gm/dl (3.4-5.0) Globulin 5.1 gm/dl (2.5-4.0) Albumin/Globulin Ratio 0.4 (0.9-2) Lipase 396 U/L (73-393) Phenytoin (Dilantin) Level 3.4 mcg/mL (10-20) Valproic Acid (Depakene) Level 24 mcg/ml (50-100) Procalcitonin 0.30 ng/ml (0-0.5) Urine Color DK YELLOW Urine Appearance CLEAR (CLEAR) Urine pH 8.0 (4.5-7.5) Urine Specific [place] 1.024 (1.000-1.030) Urine Protein NEG (NEG) Urine Glucose (UA) NEG (NEG) Urine Ketones NEG (NEG) Urine Occult Blood NEG (NEG) Urine Nitrite NEG (NEG) Urine Bilirubin NEG (NEG) Urine Urobilinogen NEG (NEG) Urine Leukocyte Esterase TRACE (NEG) Urine WBC (Auto) 0 /hpf (0-5) Urine RBC (Auto) 0-4 /hpf (0-4) Urine Hyaline Casts (Auto) 1-5 /lpf (0-5) Urine Epithelial Cells (Auto) 5-10 /lpf (0-5) Urine Bacteria (Auto) NEG (NEG) Pleural Fluid pH 7.43 (7.3-7.4) Pleural Fluid Glucose 97 mg/dl Test 07/10/17 15:59 Laboratory results per my review. Medications Administered Medications (Trade) Dose Ordered Sig/Aj Route Start Time Stop Time Status Last Admin Dose Admin Phenytoin Sodium 500 mg/Sodium Chloride 110 ml @ 0 mls/hr TODAY@1415 ONCE IV 07/10/17 14:15 07/10/17 14:16 DC 07/10/17 14:31 110 MLS/HR Sodium Chloride 1,000 ml @ 999 mls/hr Q1H1M STAT IV 07/10/17 14:52 07/10/17 15:53 DC 07/10/17 15:46 100 MLS/HR Piperacillin Sod/ Tazobactam Sod (Zosyn Iv) 4.5 gm NOW STAT IV 07/10/17 14:54 07/10/17 14:55 DC 07/10/17 15:46 4.5 GM ECG Per My Interpretation Indication: altered mental status Rate (beats per minute): 89 Rhythm: other (Wandering atrial pace maker ) Findings: other (no PVC's, low voltage noted throughout) Comparison ECG Date: changes new compared to 02/04/17 ED Course 1110: The patient was evaluated in room C6. A complete history and physical examination were performed. 1115: Ordered Sodium Chloride 1000ml @ 999 mls/hr IV. 1345: Ordered Ioversol 100ml IV. 1415: Ordered Phenytoin Sodium 500mg/ Sodium Chloride 110 ml @ 0 mls/hr IV. 1452: Ordered Sodium Chloride 1000 ml @ 999 mls/hr Iv. 1453: I discussed the patient's case with MATT Gracia. The patient will be evaluated for further management. 1454: Ordered Zosyn Iv 4.5gm IV. 1503: I discussed the patient's case with Dr. Ammy GUTIERREZ, and Dr. Dominik Voss. They are currently evaluating the patient. Medical Decision Prior records/ancillary studies reviewed and summarized above. Nursing notes reviewed. Additional history obtained from family. Differential diagnosis: Etiologies such as metabolic, infection, hypo/hyperglycemia, electrolyte abnormalities, cardiac sources, intracerebral event, toxicologic, neurologic, as well as others were entertained. The patient is a 61-year-old male who presented to the emergency department for an evaluation of altered mental status. The patient recently had cholecystectomy. He presents to the emergency department today because he has been weak. The patient appeared to be very ill. His abdominal exam did not reveal a definite surgical abdomen. He had [facility] at the [facility]. Multiple laboratory and radiographic studies were obtained. The patient was treated with IV fluids IV Dilantin and IV antibiotics in the emergency department. He was reevaluated multiple times. He is currently taking oral anticoagulants. I discussed the patient's laboratory and radiographic studies with him. I also discussed this case with the on-call assistant professor of english as well as the on-call [facility] hospitalist. They have agreed to evaluate the patient in the emergency department for further management and disposition. Medication Reconcilliation Current Medication List: was personally reviewed by me Consults Time Called: 1453 Consulting Physician: MATT Gracia Returned Call: 1453 I discussed the patient's case with MATT Gracia. The patient will be evaluated for further management. Additional Consults: Time Called: 1503 Consulted Physician: MATT Gracia and Bipin Simon Returned Call: 1503 Additional Comments: I discussed the patient's case with Dr. Ammy GUTIERREZ, and Dr. Dominik Voss. They are currently evaluating the patient. Impression Primary Impression: Pulmonary embolism Additional Impressions: Hypoxia Pericardial effusion Pleural effusion Status post cholecystectomy Critical Care I have personally spent greater than 45 minutes of critical care time in the direct management of this patient. This includes bedside care, interpretation of diagnostic studies, and testing, discussion with consultants, patient, and family members, and other required patient management activities. This 45 minutes is in excess of all separately billable procedures. Scribe Attestation The scribe's documentation has been prepared under my direction and personally reviewed by me in its entirety. I confirm that the note above accurately reflects all work, treatment, procedures, and medical decision making performed by me. Departure Information Dispostion Being Evaluated By Hospitalist Osvaldo Hillman (PCP) Problem Qualifiers Primary Impression: Pulmonary embolism Pulmonary embolism type: other Chronicity: acute Acute cor pulmonale presence: with acute cor pulmonale Qualified Codes: I26.09 - Other pulmonary embolism with acute cor pulmonale
--- NOTE | 2017-07-10 12:07 | DIAGNOSTIC IMAGING REPORT ---
CHEST ONE VIEW PORTABLE CLINICAL HISTORY: Sepsis COMPARISON STUDY: 02/04/2017 FINDINGS: Moderate increase in cardiac size. Bilateral pleural effusions. Prominent pulmonary vasculature. Potential superimposed infiltrative process left base. IMPRESSION: Congestive heart failure. Bilateral pleural effusions. Potential superimposed infiltrate left base. The above report was generated using voice recognition software. It may contain grammatical, syntax or spelling errors. Electronically signed by: Hudson Lock M.D. 07/10/2017 12:05 PM Dictated Date/Time: 07/10/2017 12:04 PM
[2017-07-10] MEDS ORDERED: IPRASOL4 INH (12:10)
[2017-07-10] MEDS ORDERED: ALLO100T PO (12:10)
[2017-07-10] MEDS ORDERED: KCLI20/100 PO (12:10)
[2017-07-10] MEDS ORDERED: B-COCAP28 PO (12:10)
[2017-07-10] MEDS ORDERED: OXYC-609 PO (12:10)
[2017-07-10] MEDS ORDERED: FRS/40 PO (12:10)
[2017-07-10] MEDS ORDERED: MULT-513 PO (12:10)
[2017-07-10] MEDS ORDERED: [UNRECOGNIZED DRUG - CODE] PO (12:10)
[2017-07-10] MEDS ORDERED: LEVO1TAB33 PO (12:10)
[2017-07-10 13:11] LABS: INR 1.2 (0.9-1.1); PTT PATIENT 41.8 SECONDS (21.0-31.0)
[2017-07-10 13:16] LABS: BASO % 0.5 %; BASO ABS # 0.03 K/uL (0-0.2); EOS % 1.5 %; HEMATOCRIT 31.3 % (42-52); HEMOGLOBIN 9.8 g/dL (14.0-18.0); IG# 0.06 K/uL (0.00-0.02); LYMPH % 11.7 %; LYMPH ABS # 0.77 K/uL (1.2-3.4); MEAN CELL VOLUME 99.1 fL (80-100); MEAN CORPUSCULAR HGB CONC 31.3 g/dl (32-36); MEAN PLATELET VOLUME 9.5 fL (7.4-10.4); MONO % 8.3 %; MONO ABS # 0.55 K/uL (0.11-0.59); NEUT % 77.1 %; NEUT ABS # 5.08 K/uL (1.4-6.5); PLATELET COUNT 139 K/uL (130-400); RED CELL DISTRIBUTION WIDTH CV 16.2 % (11.5-14.5); RED CELL DISTRIBUTION WIDTH SD 58.1 fL (36.4-46.3); WHITE BLOOD COUNT 6.59 K/uL (4.8-10.8)
[2017-07-10 13:22] LABS: ALBUMIN 2.2 gm/dl (3.4-5.0); CALCIUM 9.1 mg/dl (8.5-10.1); CREATININE 1.01 mg/dl (0.60-1.40)
[2017-07-10 13:27] LABS: PHENYTOIN (DILANTIN) 3.4 mcg/mL (10-20)
[2017-07-10 13:29] LABS: CKMB 5.5 ng/ml (0.5-3.6); PHOSPHORUS 3.3 mg/dl (2.5-4.9); TOTAL PROTEIN 7.3 gm/dl (6.4-8.2)
[2017-07-10] MEDS ORDERED: OPTIRAY 320 IV PRN (13:45)
[2017-07-10] MEDS ORDERED: PHENYTOIN SOD INJ 50 MG/ML 2 ML SYR IV STA (13:47)
[2017-07-10] MEDS ORDERED: PHENYTOIN INFUSION IV ONE (14:15)
[2017-07-10] MEDS ORDERED: SODIUM CHLORIDE 0.9% IV ONE (14:15)
--- NOTE | 2017-07-10 14:35 | DIAGNOSTIC IMAGING REPORT ---
HEAD CT NONCONTRAST CT DOSE: HISTORY: Altered mental status. TECHNIQUE: Multiaxial CT images of the head were performed without the use of intravenous contrast. Automated exposure control was utilized for this study. A dose lowering technique was utilized adhering to the principles of ALARA. Comparison: Head CT 04/26/2015. Findings: Opacified left inferior mastoid air cells. The right mastoid air cells and paranasal sinuses are clear. The calvarium and skull base are intact. There is no mass, hematoma, midline shift, acute infarct. White matter hypodensity is nonspecific but suggestive of microvascular ischemic change. The ventricles and sulci demonstrate mild age-related involutional changes. 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 Stable mild ventricular dilatation. Impression: No significant change compared to the prior study. No acute intracranial abnormality. Electronically signed by: Sergey Hodge M.D. 07/10/2017 2:33 PM Dictated Date/Time: 07/10/2017 2:27 PM
--- NOTE | 2017-07-10 14:38 | DIAGNOSTIC IMAGING REPORT ---
CT ANGIOGRAM OF THE CHEST CLINICAL HISTORY: Dyspnea. COMPARISON STUDY: Chest x-ray dated 07/10/2017. Chest CT dated 01/28/2011. TECHNIQUE: Following the IV administration of 80 cc of Optiray 320, CT angiogram of the chest was performed from the upper abdomen to the thoracic inlet utilizing the pulmonary embolus protocol. Images are reviewed in the axial, sagittal, and coronal planes. 3-D MIPS images are created and assessed. IV contrast was administered without complication. A dose lowering technique was utilized adhering to the principles of ALARA. The examination is significantly degraded by streak artifact from the patient's arms which could not be elevated above the chest as well as motion artifact. CT DOSE: 3872.95 mGy.cm FINDINGS: Thyroid: Imaged portions of the thyroid gland are normal in size and attenuation. Thoracic aorta: The thoracic aorta is normal in caliber and demonstrates standard 3-vessel arch anatomy. No dissection is seen. Pulmonary vasculature: The pulmonary trunk is normal in caliber. There are segmental pulmonary emboli identified within the lingula. Segmental emboli are also seen within the right middle lobe pulmonary artery. Heart: The heart is normal in size and there is a moderate to large pericardial effusion. There is associated pericardial thickening and enhancement. The coronary arteries are densely calcified. Lungs and pleural spaces: Evaluation of the lung parenchyma is degraded by motion artifact. There are moderate to large bilateral pleural effusions with associated atelectasis. Minimal secretions are noted in the trachea. Mediastinum: Mildly enlarged prevascular lymph nodes measure up to 1.0 cm in short axis. A subcarinal node measures 1.9 cm in short axis. [place]: Clear. Axillae: There is no axillary lymphadenopathy. Soft tissues: Gynecomastia is noted. Skeletal structures: The skeletal structures appear osteopenic. No lytic or blastic bony lesions are seen. Degenerative change and hyperkyphosis are noted in the thoracic spine. There is evidence of DISH. Arthritic change is seen in the shoulders. IMPRESSION: 1. Streak and motion degraded examination. 2. Segmental pulmonary emboli are seen within the right middle lobe and lingular branches. 3. There is a moderate to large volume of pericardial fluid. There is associated pericardial thickening and enhancement. This appears complex and may represent a complex pericardial effusion versus hemopericardium. Clinical correlation will be essential. 4. Moderate to large pleural effusions with associated atelectasis. Electronically signed by: Jd Mackay M.D. 07/10/2017 2:37 PM Dictated Date/Time: 07/10/2017 2:28 PM
--- NOTE | 2017-07-10 14:44 | DIAGNOSTIC IMAGING REPORT ---
CT OF THE ABDOMEN AND PELVIS WITH CONTRAST CLINICAL HISTORY: Recent surgery. COMPARISON STUDY: CT of the abdomen December 11, 2016. TECHNIQUE: Following IV administration of 80 mL of Optiray-320, axial images of the abdomen and pelvis were obtained from the lung bases to the proximal femurs. Images were reviewed in the axial, sagittal, and coronal planes. IV contrast was administered without complication. A dose lowering technique was utilized adhering to the principles of ALARA. FINDINGS: The chest will be reported separately. However, visualized portions of the lower chest demonstrate bilateral pleural effusions, right larger than left, as well as a moderate to large pericardial effusion with pericardial enhancement. The liver, adrenal glands, right kidney and pancreas are unremarkable. The left kidney is not visualized. Moderate splenomegaly is unchanged since CT of December 11, 2016. There is no evidence for a bowel obstruction. There are postsurgical findings involving the anterior abdominal wall suggestive of a hernia repair. There are findings suggestive of a recent cholecystectomy with a 4.3 x 2.7 cm gas and fluid containing cholecystectomy bed fluid collection. Small adjacent fluid-filled tract is noted which is several components and peripheral enhancement. The largest component measures 1.6 cm. There is no biliary ductal dilatation. There are no suspicious osseous lesions. There is no pelvic abscess. IMPRESSION: 1. Moderate to large pericardial effusion with pericardial enhancement. This is better depicted on the chest CT. Please see that report for further description. This favors an infectious or inflammatory process with pericarditis. 2. Bilateral pleural effusion with right larger than left. 3. Findings suggestive of recent cholecystectomy with a 4.3 x 2.7 cm gas and fluid containing cholecystectomy bed fluid collection and adjacent fluid-filled tract/rim-enhancing collections extending anteriorly from the cholecystectomy bed. These fluid collections are nonspecific in the early postoperative setting and may reflect normal postoperative change. However, superimposed infection or biloma cannot be excluded by CT. Correlation with timing of surgery would be of benefit. 4. Findings suggestive of recent anterior abdominal wall hernia repair. 4. Stable moderate splenomegaly. Electronically signed by: Otf Qureshi M.D. 07/10/2017 2:42 PM Dictated Date/Time: 07/10/2017 2:28 PM
[2017-07-10] MEDS ORDERED: SODIUM CHLORIDE 0.9% 1000ML 1,000 ML IV STA (14:52)
[2017-07-10] MEDS ORDERED: PIPERACILLIN/TAZOBACTAM 4.5 GM/100ML D5W IV STA (14:54)
[2017-07-10] MEDS ORDERED: NITROGLYCERIN 0.4 MG SL PER TAB CHARGE SL PRN (15:30)
[2017-07-10] MEDS ORDERED: ZOLPIDEM TARTRATE 5 MG TAB PO PRN (15:30)
[2017-07-10] MEDS ORDERED: ALUMINUM/MAGNESIUM/SIMETH (MAALOX MAX) 30 ML UDC PO PRN (15:30)
[2017-07-10] MEDS ORDERED: MAGNESIUM HYDROXIDE SUSP 30 ML UDC PO PRN (15:30)
--- NOTE | 2017-07-10 16:03 | Critical Care Consultation ---
Critical Care Consultation Date of Consultation: Jul 10, 2017. Attending Physician: Reason for Consultation: Bilateral pleural effusion. History of Present Illness Dear Dr. Ivy: Thank you for your kind referral of Mr. Shepherd to critical care service. This is 61-year-old gentleman with history of seizure disorder, diastolic heart failure, Parkinson's, schizoaffective disorder, recently underwent abdominal hernia repair with cholecystectomy over 3 weeks ago, the patient was discharged to the correction where he was noted for the past 24 hours to have persistent cough. The patient underwent a chest x-ray which showed bilateral volume loss and started empirically on Levaquin and transferred to the ER. The patient on his presentation, he was poor historian, could not give actual symptoms, partially due to his history of Parkinson's and schizoaffective disorder, his vital signs remained stable with O2 saturation reported at 99%. This was done on 2 L. The patient denies any pain except at the surgical site. He did not have any shortness of breath but he has persistent cough with inability to produce sputum. Recently the patient was diagnosed with PE and was started on Xarelto in that regard. The patient did not have any history of venal thromboembolic events in the past. His review of system was limited however the patient denies any vomiting but he did have nausea. No headache, no syncope, denies any hemoptysis, melena, but he noted increased swelling in his lower extremities. The patient is poorly ambulatory, and mainly he is in bed. The rest of his review of system was unremarkable. His CAT scan of the chest and chest x-ray were reviewed which showed bilateral pleural effusion and pericardial effusion which appeared to be complex. Small PE in the right middle lobe and lingular branches of the pulmonary artery. Subsegmental atelectasis bilaterally as well. His labs also reviewed with no leukocytosis. And his renal function has been maintained. I have performed a thoracentesis at the bedside due to the enlarged pleural effusion on the right side with 1 L of blood-tinged fluid was removed. Dictated separately. The patient was started on IV fluid after an ultrasound was done at the bedside with collapsible IVC noted. No signs of tampon out despite the pericardial effusion. Former echocardiogram was ordered. His troponin was slightly elevated. Family History FH: cancer Malignancy Social History Smoking Status: Never Smoker Drug Use: none Marital Status: single Housing Status: correction Occupation Status: unemployed Allergies Coded Allergies: No Known Allergies (Verified , 07/10/17) Home Medications Scheduled Allopurinol (Zyloprim), 300 MG PO DAILY Aspirin (Aspirin 81), 81 MG PO DAILY Atorvastatin (Lipitor), 40 MG PO HS B-Complex W/ C & Folic Acid (Triphrocaps), 1 CAP PO DAILY Carbidopa/Levodopa (Sinemet 25MG/100MG), 1 TAB PO TID Cholecalciferol (Vitamin D3), 2,000 UNIT PO DAILY Cyanocobalamin (Vitamin B-12), 1,000 MCG PO DAILY Docusate Sodium (Colace), 100 MG PO BID Furosemide (Lasix), 40 MG PO BID Levofloxacin (Levaquin), 500 MG PO DAILY Levothyroxine Sodium (Synthroid), 100 MCG PO DAILY Metolazone (Zaroxolyn), 2.5 MG PO DAILY Multivitamins/Minerals (Mvi With Minerals), 1 TAB PO DAILY Nutritional Supplements (Promod), 1 DOSE PO BID Omeprazole (Prilosec), 20 MG PO DAILY Oxcarbazepine (Trileptal), 150 MG PO TID Oxycodone HCl (Oxycodone HCl), 5 MG PO TID Phenytoin Sodium (Dilantin), 200 MG PO TID Polyethylene Glycol 3350 (Miralax), 17 GM PO DAILY Potassium Chloride (Potassium Chloride), 50 MEQ PO 5XD Rivaroxaban (Xarelto), 20 MG PO DAILY Senna (Senokot), 8.6 MG PO BID Tamsulosin Hcl (Flomax), 0.4 MG PO DAILY Valproic Acid Syrup (Depakene), 1,500 MG PO QAM Valproic Acid Syrup (Depakene), 1,750 MG PO HS Scheduled PRN Acetaminophen (Tylenol), 650 MG PO Q6 PRN for Pain Ipratropium-Albuterol (Duoneb), 1 TREATMENT INH Q6 PRN for Wheezing Current Inpatient Medications Current Inpatient Medications Medications (Trade) Dose Ordered Sig/Aj Route Start Time Stop Time Status Last Admin Dose Admin Ioversol (Optiray 320) 100 ml UD PRN IV 07/10/17 13:45 07/14/17 13:44 Sodium Chloride 1,000 ml @ 999 mls/hr Q1H1M STAT IV 07/10/17 14:52 07/10/17 15:52 07/10/17 15:46 100 MLS/HR Acetaminophen (Tylenol Tab) 650 mg Q4H PRN PO 07/10/17 15:30 08/09/17 15:29 UNV Al Hydrox/Mg Hydrox/Simethicone (Maalox Max Susp) 15 ml Q4H PRN PO 07/10/17 15:30 08/09/17 15:29 UNV Magnesium Hydroxide (Milk Of Magnesia Susp) 30 ml Q12H PRN PO 07/10/17 15:30 08/09/17 15:29 UNV Zolpidem Tartrate (Ambien Tab) 5 mg HSZ PRN PO 07/10/17 15:30 08/09/17 15:29 UNV Nitroglycerin (Nitrostat Tab) 0.4 mg UD PRN SL 07/10/17 15:30 08/09/17 15:29 UNV Review of Systems Constitutional: No fever, No chills, No sweats, No weight loss, No weakness, No fatigue, No problem reported Respiratory: + cough, + sputum, + shortness of breath Abdomen: + pain, + nausea Musculoskeletal: + joint pain Genitourinary - Male: No hematuria, No dysuria, No urinary frequency, No urinary urgency, No urinary hesitancy, No urinary retention, No urinary incontinence, No penile discharge, No lesions, No impotence, No problem reported Neurologic: + problem reported (Parkinson's, weakness in the lower extremities , these are old findings.) Physical Exam Date Time Temp Pulse Resp B/P (MAP) Pulse Ox O2 Delivery O2 Flow Rate FiO2 07/10/17 15:24 91 07/10/17 14:35 79 22 125/70 07/10/17 13:31 115/72 07/10/17 13:29 113/64 07/10/17 13:26 88 27 07/10/17 13:21 90 23 95 Room Air 07/10/17 13:16 97 22 95 07/10/17 13:11 97 26 99 07/10/17 13:06 102 25 81 07/10/17 13:01 104 26 92 07/10/17 12:56 91 24 97 07/10/17 12:51 100 24 96 07/10/17 12:46 91 27 93 07/10/17 12:41 92 25 90 07/10/17 12:36 96 26 95 Room Air 07/10/17 12:06 93 26 91 Room Air 07/10/17 11:29 86 07/10/17 11:17 36.5 81 18 119/78 97 Room Air 07/10/17 11:17 97 Room Air 07/10/17 11:09 119/78 General Appearance: no apparent distress Eyes: PERRLA, EOMI ENT: normal throat exam Neck: normal range of motion, trachea midline Cardiovasular: regular rate/rhythm, normal S1S2, no M/G/R Abdomen: non tender, no masses Edema: Bilateral LE (3+) Neuro: memory abnormal, other (Parkinson's features) Laboratory Results Last 24 Hours Test 07/10/17 12:33 07/10/17 12:35 07/10/17 13:00 07/10/17 15:23 White Blood Count 6.59 K/uL Red Blood Count 3.16 M/uL Hemoglobin 9.8 g/dL Hematocrit 31.3 % Mean Corpuscular Volume 99.1 fL Mean Corpuscular Hemoglobin 31.0 pg Mean Corpuscular Hemoglobin Concent 31.3 g/dl Platelet Count 139 K/uL Mean Platelet Volume 9.5 fL Neutrophils (%) (Auto) 77.1 % Lymphocytes (%) (Auto) 11.7 % Monocytes (%) (Auto) 8.3 % Eosinophils (%) (Auto) 1.5 % Basophils (%) (Auto) 0.5 % Neutrophils # (Auto) 5.08 K/uL Lymphocytes # (Auto) 0.77 K/uL Monocytes # (Auto) 0.55 K/uL Eosinophils # (Auto) 0.10 K/uL Basophils # (Auto) 0.03 K/uL RDW Standard Deviation 58.1 fL RDW Coefficient of Variation 16.2 % Immature Granulocyte % (Auto) 0.9 % Immature Granulocyte # (Auto) 0.06 K/uL Erythrocyte Sedimentation Rate 59 mm/hr Prothrombin Time 12.4 SECONDS Prothromb Time International Ratio 1.2 Activated Partial Thromboplast Time 41.8 SECONDS Partial Thromboplastin Ratio 1.6 Venous Blood pH 7.40 Venous Blood Partial Pressure CO2 47 mmHg Venous Blood Partial Pressure O2 26 mmHg Venous Blood HCO3 29 mmol/L Venous Blood Oxygen Saturation < 60.0 % Venous Blood Base Excess 3.4 mEq/L Sodium Level 136 mmol/L Potassium Level 5.0 mmol/L Chloride Level 104 mmol/L Carbon Dioxide Level 27 mmol/L Anion Gap 5.0 mmol/L Blood Urea Nitrogen 21 mg/dl Creatinine 1.01 mg/dl Est Creatinine Clear Calc Drug Dose 95.5 ml/min Estimated GFR () 91.3 Estimated GFR (Non- 78.8 BUN/Creatinine Ratio 21.0 Random Glucose 90 mg/dl Calcium Level 9.1 mg/dl Phosphorus Level 3.3 mg/dl Magnesium Level 2.6 mg/dl Total Bilirubin 0.5 mg/dl Aspartate Amino Transf (AST/SGOT) 79 U/L Alanine Aminotransferase (ALT/SGPT) 71 U/L Alkaline Phosphatase 159 U/L Total Creatine Kinase 71 U/L Creatine Kinase MB 5.5 ng/ml Creatine Kinase MB Ratio 7.7 Troponin I 0.321 ng/ml C-Reactive Protein 12.40 mg/dl Pro-B-Type Natriuretic Peptide 2288 pg/ml Total Protein 7.3 gm/dl Albumin 2.2 gm/dl Globulin 5.1 gm/dl Albumin/Globulin Ratio 0.4 Lipase 396 U/L Phenytoin (Dilantin) Level 3.4 mcg/mL Valproic Acid (Depakene) Level 24 mcg/ml Urine Color DK YELLOW Urine Appearance CLEAR Urine pH 8.0 Urine Specific [place] 1.024 Urine Protein NEG Urine Glucose (UA) NEG Urine Ketones NEG Urine Occult Blood NEG Urine Nitrite NEG Urine Bilirubin NEG Urine Urobilinogen NEG Urine Leukocyte Esterase TRACE Urine WBC (Auto) 0 /hpf Urine RBC (Auto) 0-4 /hpf Urine Hyaline Casts (Auto) 1-5 /lpf Urine Epithelial Cells (Auto) 5-10 /lpf Urine Bacteria (Auto) NEG Test 07/10/17 15:30 Diagnostic Results Reviewed as above and the first paragraph. All labs and x-rays. Assessment & Plan #1 bilateral pleural effusion, blood-tinged fluid. Which could be secondary to recent surgery, parapneumonic effusion secondary to PE, less likely to be related to malignancy. Connective tissue disease cannot be excluded as the patient has elevated ESR. #2 complex pericardial effusion suspicion for hemopericardium cannot be excluded. #3 I could not find evidence of infectious process at this point. No fever and there is no leukocytosis. No left shift or bandemia. #4 history of Parkinson's and schizoaffective disorder. #5 history of diastolic heart failure. #6 PE, recent. On Xarelto. #7 history of seizure disorder. #8 Plan: #1 pleural fluid analysis. Including culture. #2 obtain echocardiogram. #3 thoracic consult to evaluate for hemopericardium. #4 start IV fluid at 100 mL an hour. #5 the patient started on broad-spectrum antibiotics, I could not find a source of infectious process at this point. They can be stopped in 24-48 hours. #6 continue Xarelto. #7 thoracentesis was done. Consent obtained from the patient and agreed to the procedure. #8 repeat chest x-ray post procedure. #9 case discussed with the staff at the bedside, CCT 45 minutes excluding procedure time. Thank you, will follow.
--- NOTE | 2017-07-10 16:05 | Procedure Note ---
Procedure Note Procedure Date Jul 10, 2017. Procedure Description Procedure Name: Thoracentesis. Procedure time out: side/site verified, patient ID confirmed, correct procedure Consent obtained: written Performed by: attending Indications: diagnostic, therapeutic Description: The patient was place and upright position, consent obtained from the patient, agreed to the procedure. I am aware the patient is already anticoagulated. This should not preclude the patient from having urgent procedure. Under ultrasound guidance, at the level of the seventh intercostal space, posteriorly , pleural fluid were identified, the skin was prepped with chlorhexidine under strict sterile field, using scalpel and Seldinger technique, a catheter was introduced into the right pleural cavity, and a total of 950 mL of blood-tinged fluid was removed. The patient due to his psych history did not want to complete the procedure and his upright position and he would like to lay down. The catheter was removed and pressure was applied at the insertion site for 2 minutes. The patient did not have any pain and no immediate complication. Chest x-ray still pending. Fluid was sent for analysis. Complications: none Patient tolerated procedure: well
--- NOTE | 2017-07-10 16:11 | DIAGNOSTIC IMAGING REPORT ---
CHEST ONE VIEW PORTABLE CLINICAL HISTORY: right thoracentesis COMPARISON STUDY: 07/10/2017 FINDINGS: The heart remains enlarged. There are moderate bilateral pleural effusions. There is interval decrease in the size the right pleural effusion. There is no pneumothorax status post thoracentesis. There are bibasilar opacities, likely atelectatic.[ IMPRESSION: No evidence of pneumothorax status post thoracentesis Electronically signed by: Beltran Ohara M.D. 07/10/2017 4:09 PM Dictated Date/Time: 07/10/2017 4:09 PM
[2017-07-10 16:21] LABS: PLEURAL FLUID GLUCOSE 97 mg/dl
[2017-07-10 16:41] LABS: PLEURAL FLUID TOTAL PROTEIN 3.9 g/dl
--- NOTE | 2017-07-10 16:54 | History and Physical ---
History & Physical Date & Time of Service: Jul 10, 2017 at 16:53 Chief Complaint: Evaluation Primary Care Physician: Osvaldo Larkin Family History FH: cancer Malignancy Social History Smoking Status: Never Smoker Drug Use: none Marital Status: single Housing status: half-way Occupational Status: unemployed Immunizations History of Influenza Vaccine: Yes History of Tetanus Vaccine?: UTD History of Pneumococcal: Yes Pneumococcal Date: Jun 01, 2010 History of Hepatitis B Vaccine: Unknown Allergies Coded Allergies: No Known Allergies (Verified , 07/10/17) Home Medications Scheduled Allopurinol (Zyloprim), 300 MG PO DAILY Aspirin (Aspirin 81), 81 MG PO DAILY Atorvastatin (Lipitor), 40 MG PO HS B-Complex W/ C & Folic Acid (Triphrocaps), 1 CAP PO DAILY Carbidopa/Levodopa (Sinemet 25MG/100MG), 1 TAB PO TID Cholecalciferol (Vitamin D3), 2,000 UNIT PO DAILY Cyanocobalamin (Vitamin B-12), 1,000 MCG PO DAILY Docusate Sodium (Colace), 100 MG PO BID Furosemide (Lasix), 40 MG PO BID Levofloxacin (Levaquin), 500 MG PO DAILY Levothyroxine Sodium (Synthroid), 100 MCG PO DAILY Metolazone (Zaroxolyn), 2.5 MG PO DAILY Multivitamins/Minerals (Mvi With Minerals), 1 TAB PO DAILY Nutritional Supplements (Promod), 1 DOSE PO BID Omeprazole (Prilosec), 20 MG PO DAILY Oxcarbazepine (Trileptal), 150 MG PO TID Oxycodone HCl (Oxycodone HCl), 5 MG PO TID Phenytoin Sodium (Dilantin), 200 MG PO TID Polyethylene Glycol 3350 (Miralax), 17 GM PO DAILY Potassium Chloride (Potassium Chloride), 50 MEQ PO 5XD Rivaroxaban (Xarelto), 20 MG PO DAILY Senna (Senokot), 8.6 MG PO BID Tamsulosin Hcl (Flomax), 0.4 MG PO DAILY Valproic Acid Syrup (Depakene), 1,500 MG PO QAM Valproic Acid Syrup (Depakene), 1,750 MG PO HS Scheduled PRN Acetaminophen (Tylenol), 650 MG PO Q6 PRN for Pain Ipratropium-Albuterol (Duoneb), 1 TREATMENT INH Q6 PRN for Wheezing Physical Exam Vital Signs Date Time Temp Pulse Resp B/P (MAP) Pulse Ox O2 Delivery O2 Flow Rate FiO2 07/10/17 16:41 87 128/79 95 Nasal Cannula 2.0 07/10/17 16:31 110/72 07/10/17 16:21 88 25 134/74 07/10/17 16:16 88 26 07/10/17 16:11 127/73 07/10/17 16:01 109/67 07/10/17 15:46 131 38 07/10/17 15:41 91 128/59 92 Room Air 07/10/17 15:40 156 36 73 Room Air 07/10/17 15:37 113/86 95 Room Air 07/10/17 15:31 110/64 89 Room Air 07/10/17 15:27 134/64 91 Room Air 07/10/17 15:25 86 26 69 07/10/17 15:24 91 07/10/17 15:10 84 30 07/10/17 15:01 115/68 07/10/17 14:54 120/70 07/10/17 14:40 88 93 07/10/17 14:35 79 22 125/70 07/10/17 13:31 115/72 07/10/17 13:29 113/64 07/10/17 13:26 88 27 07/10/17 13:21 90 23 95 Room Air 07/10/17 13:16 97 22 95 07/10/17 13:11 97 26 99 07/10/17 13:06 102 25 81 07/10/17 13:01 104 26 92 07/10/17 12:56 91 24 97 07/10/17 12:51 100 24 96 07/10/17 12:46 91 27 93 07/10/17 12:41 92 25 90 07/10/17 12:36 96 26 95 Room Air 07/10/17 12:06 93 26 91 Room Air 07/10/17 11:29 86 07/10/17 11:17 36.5 81 18 119/78 97 Room Air 07/10/17 11:17 97 Room Air 07/10/17 11:09 119/78 Diagnostics Laboratory Results Results Past 24 Hours Test 07/10/17 12:33 07/10/17 12:35 07/10/17 13:00 07/10/17 15:30 Range/Units White Blood Count 6.59 4.8-10.8 K/uL Red Blood Count 3.16 4.7-6.1 M/uL Hemoglobin 9.8 14.0-18.0 g/dL Hematocrit 31.3 42-52 % Mean Corpuscular Volume 99.1 80-100 fL Mean Corpuscular Hemoglobin 31.0 25-34 pg Mean Corpuscular Hemoglobin Concent 31.3 32-36 g/dl Platelet Count 139 130-400 K/uL Mean Platelet Volume 9.5 7.4-10.4 fL Neutrophils (%) (Auto) 77.1 % Lymphocytes (%) (Auto) 11.7 % Monocytes (%) (Auto) 8.3 % Eosinophils (%) (Auto) 1.5 % Basophils (%) (Auto) 0.5 % Neutrophils # (Auto) 5.08 1.4-6.5 K/uL Lymphocytes # (Auto) 0.77 1.2-3.4 K/uL Monocytes # (Auto) 0.55 0.11-0.59 K/uL Eosinophils # (Auto) 0.10 0-0.5 K/uL Basophils # (Auto) 0.03 0-0.2 K/uL RDW Standard Deviation 58.1 36.4-46.3 fL RDW Coefficient of Variation 16.2 11.5-14.5 % Immature Granulocyte % (Auto) 0.9 % Immature Granulocyte # (Auto) 0.06 0.00-0.02 K/uL Erythrocyte Sedimentation Rate 59 0-14 mm/hr Prothrombin Time 12.4 9.0-12.0 SECONDS Prothromb Time International Ratio 1.2 0.9-1.1 Activated Partial Thromboplast Time 41.8 21.0-31.0 SECONDS Partial Thromboplastin Ratio 1.6 Venous Blood pH 7.40 7.36-7.41 Venous Blood Partial Pressure CO2 47 38.0-50.0 mmHg Venous Blood Partial Pressure O2 26 mmHg Venous Blood HCO3 29 mmol/L Venous Blood Oxygen Saturation < 60.0 % Venous Blood Base Excess 3.4 mEq/L Sodium Level 136 136-145 mmol/L Potassium Level 5.0 3.5-5.1 mmol/L Chloride Level 104 98-107 mmol/L Carbon Dioxide Level 27 21-32 mmol/L Anion Gap 5.0 3-11 mmol/L Blood Urea Nitrogen 21 7-18 mg/dl Creatinine 1.01 0.60-1.40 mg/dl Est Creatinine Clear Calc Drug Dose 95.5 ml/min Estimated GFR () 91.3 Estimated GFR (Non- 78.8 BUN/Creatinine Ratio 21.0 10-20 Random Glucose 90 70-99 mg/dl Calcium Level 9.1 8.5-10.1 mg/dl Phosphorus Level 3.3 2.5-4.9 mg/dl Magnesium Level 2.6 1.8-2.4 mg/dl Total Bilirubin 0.5 0.2-1 mg/dl Aspartate Amino Transf (AST/SGOT) 79 15-37 U/L Alanine Aminotransferase (ALT/SGPT) 71 12-78 U/L Alkaline Phosphatase 159 45-117 U/L Total Creatine Kinase 71 39-308 U/L Creatine Kinase MB 5.5 0.5-3.6 ng/ml Creatine Kinase MB Ratio 7.7 0-3.0 Troponin I 0.321 0-0.045 ng/ml C-Reactive Protein 12.40 0-0.29 mg/dl Pro-B-Type Natriuretic Peptide 2288 0-900 pg/ml Total Protein 7.3 6.4-8.2 gm/dl Albumin 2.2 3.4-5.0 gm/dl Globulin 5.1 2.5-4.0 gm/dl Albumin/Globulin Ratio 0.4 0.9-2 Lipase 396 73-393 U/L Phenytoin (Dilantin) Level 3.4 10-20 mcg/mL Valproic Acid (Depakene) Level 24 50-100 mcg/ml Procalcitonin 0.30 0-0.5 ng/ml Urine Color DK YELLOW Urine Appearance CLEAR CLEAR Urine pH 8.0 4.5-7.5 Urine Specific [place] 1.024 1.000-1.030 Urine Protein NEG NEG Urine Glucose (UA) NEG NEG Urine Ketones NEG NEG Urine Occult Blood NEG NEG Urine Nitrite NEG NEG Urine Bilirubin NEG NEG Urine Urobilinogen NEG NEG Urine Leukocyte Esterase TRACE NEG Urine WBC (Auto) 0 0-5 /hpf Urine RBC (Auto) 0-4 0-4 /hpf Urine Hyaline Casts (Auto) 1-5 0-5 /lpf Urine Epithelial Cells (Auto) 5-10 0-5 /lpf Urine Bacteria (Auto) NEG NEG Pleural Fluid pH 7.43 7.3-7.4 Pleural Fluid Total Protein 3.9 g/dl Pleural Fluid LDH 210 IU Pleural Fluid Glucose 97 mg/dl Pleural Fluid Amylase 27 U/L Test 07/10/17 15:59 Range/Units Lactic Acid Level 1.0 0.4-2.0 mmol/L Microbiology Results 07/10/17 Blood Culture, Received Pending 07/10/17 Blood Culture, Received Pending 07/10/17 Gram Stain, Received Pending 07/10/17 Bacterial Culture, Received Pending Impression VTE Prophylaxis VTE Risk Assessment Done? Y/N: Yes Risk Level: Moderate
--- NOTE | 2017-07-10 17:14 | History and Physical ---
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 Patient underwent ventral hernia repair and cholecystectomy at [facility] over 3 weeks ago and returned to [facility] on 07/06. Patient is a poor historian due and does not know why he is in the hospital today. Is unable to describe his current symptoms. Per discussion with RN at [facility], patient has not been at his baseline since return from surgery. He has been refusing to wear his oxygen and refusing some of his medications. Has had a decreased appetite as well. After noting a persistent cough and worsening confusion, patient was brought to ED for further evaluation. ROS is limited but patient does endorse non-productive cough, generalized pain, nausea and fatigue. BLE swelling is chronic but slightly worse than baseline. Denies chest pain or vomiting. Does not have pain at surgical site. In the ED, patient was found to by hypoxic on room air in the 70s. CT chest/ thorax and CXR showed bilateral pleural effusion and pericardial effusion as well as small segmental pulmonary emboli are seen within the right middle lobe and lingular branches. Dr. Lacey was consulted and a thoracentesis was performed at bedside on the R side with 1 L of fluid removal. Past Medical/Surgical History Medical Problems: (1) Benign hypertension Status: Resolved (2) Chronic congestive heart failure Permanent Comment: echo 2009 moderate LVH, normal LVEF diastolic dysfunction Status: Chronic (3) Combative behavior Status: Chronic (4) Dementia with behavioral disturbance Status: Chronic (5) History of pancytopenia Status: Chronic (6) HLD (hyperlipidemia) Status: Chronic (7) Hyperlipidemia Status: Chronic (8) Hypertension Nos Status: Chronic (9) Hypothyroidism Status: Chronic (10) Lymphedema Status: Chronic (11) Parkinson disease Status: Chronic (12) Schizoaffective Disorder, Unspecified Status: Chronic (13) Seizure disorder Status: Chronic Family History FH: cancer Malignancy Social History Smoking Status: Never Smoker Drug Use: none Marital Status: single Housing status: correction Occupational Status: unemployed Immunizations History of Influenza Vaccine: Yes History of Tetanus Vaccine?: UTD History of Pneumococcal: Yes Pneumococcal Date: Jun 01, 2010 History of Hepatitis B Vaccine: Unknown Allergies Coded Allergies: No Known Allergies (Verified , 07/10/17) Home Medications Scheduled Aspirin (Aspirin 81), 81 MG PO DAILY Atorvastatin (Lipitor), 40 MG PO HS B-Complex W/ C & Folic Acid (Triphrocaps), 1 CAP PO DAILY Carbidopa/Levodopa (Sinemet 25MG/100MG), 1 TAB PO TID Cholecalciferol (Vitamin D3), 2,000 UNIT PO DAILY Cyanocobalamin (Vitamin B-12), 1,000 MCG PO DAILY Docusate Sodium (Colace), 100 MG PO BID Furosemide (Lasix), 40 MG PO BID Levofloxacin (Levaquin), 500 MG PO DAILY Levothyroxine Sodium (Synthroid), 100 MCG PO DAILY Metolazone (Zaroxolyn), 2.5 MG PO DAILY Multivitamins/Minerals (Mvi With Minerals), 1 TAB PO DAILY Nutritional Supplements (Promod), 1 DOSE PO BID Omeprazole (Prilosec), 20 MG PO DAILY Oxcarbazepine (Trileptal), 150 MG PO TID Oxycodone HCl (Oxycodone HCl), 5 MG PO TID Phenytoin Sodium (Dilantin), 200 MG PO TID Polyethylene Glycol 3350 (Miralax), 17 GM PO DAILY Potassium Chloride (Potassium Chloride), 50 MEQ PO 5XD Rivaroxaban (Xarelto), 20 MG PO DAILY Senna (Senokot), 8.6 MG PO BID Tamsulosin Hcl (Flomax), 0.4 MG PO DAILY Valproic Acid Syrup (Depakene), 1,500 MG PO QAM Valproic Acid Syrup (Depakene), 1,750 MG PO HS Scheduled PRN Acetaminophen (Tylenol), 650 MG PO Q6 PRN for Pain Ipratropium-Albuterol (Duoneb), 1 TREATMENT INH Q6 PRN for Wheezing Review of Systems ROS limited 2/2 patient's mentation. Constitutional: + chills, + sweats, + weakness, + fatigue Physical Exam Vital Signs Date Time Temp Pulse Resp B/P (MAP) Pulse Ox O2 Delivery O2 Flow Rate FiO2 07/10/17 16:41 87 128/79 95 Nasal Cannula 2.0 07/10/17 16:31 110/72 07/10/17 16:21 88 25 134/74 07/10/17 16:16 88 26 07/10/17 16:11 127/73 07/10/17 16:01 109/67 07/10/17 15:46 131 38 07/10/17 15:41 91 128/59 92 Room Air 07/10/17 15:40 156 36 73 Room Air 07/10/17 15:37 113/86 95 Room Air 07/10/17 15:31 110/64 89 Room Air 07/10/17 15:27 134/64 91 Room Air 07/10/17 15:25 86 26 69 07/10/17 15:24 91 07/10/17 15:10 84 30 07/10/17 15:01 115/68 07/10/17 14:54 120/70 07/10/17 14:40 88 93 07/10/17 14:35 79 22 125/70 07/10/17 13:31 115/72 07/10/17 13:29 113/64 07/10/17 13:26 88 27 07/10/17 13:21 90 23 95 Room Air 07/10/17 13:16 97 22 95 07/10/17 13:11 97 26 99 07/10/17 13:06 102 25 81 07/10/17 13:01 104 26 92 07/10/17 12:56 91 24 97 07/10/17 12:51 100 24 96 07/10/17 12:46 91 27 93 07/10/17 12:41 92 25 90 07/10/17 12:36 96 26 95 Room Air 07/10/17 12:06 93 26 91 Room Air 07/10/17 11:29 86 07/10/17 11:17 36.5 81 18 119/78 97 Room Air 07/10/17 11:17 97 Room Air 07/10/17 11:09 119/78 General Appearance: WD/WN, no apparent distress, + pertinent finding (Patient resting in bed, breathing comfortably on NC O2 ) Head: normocephalic, atraumatic Eyes: normal inspection, PERRL, sclerae normal ENT: normal ENT inspection, hearing grossly normal, pharynx normal Neck: supple, thyroid normal, no JVD, trachea midline Respiratory/Chest: chest non-tender, lungs clear, normal breath sounds, no respiratory distress, no accessory muscle use Cardiovascular: regular rate, rhythm, no murmur, normal peripheral pulses Abdomen/GI: non tender, soft, + pertinent finding (Vertical incision at midline with healing incision. No surrounding erythema or drainage ) Back: normal inspection Extremities/Musculoskelatal: no calf tenderness, + pertinent finding (3+ BLE edema. Prolonged cap refill in fingers, toes. ) Neurologic/Psych: no motor/sensory deficits, alert, oriented x 3, + pertinent finding (Flattened affect, impaired memory. ) Skin: normal color, warm/dry Diagnostics Laboratory Results Results Past 24 Hours Test 07/10/17 12:33 07/10/17 12:35 07/10/17 13:00 07/10/17 15:30 Range/Units White Blood Count 6.59 4.8-10.8 K/uL Red Blood Count 3.16 4.7-6.1 M/uL Hemoglobin 9.8 14.0-18.0 g/dL Hematocrit 31.3 42-52 % Mean Corpuscular Volume 99.1 80-100 fL Mean Corpuscular Hemoglobin 31.0 25-34 pg Mean Corpuscular Hemoglobin Concent 31.3 32-36 g/dl Platelet Count 139 130-400 K/uL Mean Platelet Volume 9.5 7.4-10.4 fL Neutrophils (%) (Auto) 77.1 % Lymphocytes (%) (Auto) 11.7 % Monocytes (%) (Auto) 8.3 % Eosinophils (%) (Auto) 1.5 % Basophils (%) (Auto) 0.5 % Neutrophils # (Auto) 5.08 1.4-6.5 K/uL Lymphocytes # (Auto) 0.77 1.2-3.4 K/uL Monocytes # (Auto) 0.55 0.11-0.59 K/uL Eosinophils # (Auto) 0.10 0-0.5 K/uL Basophils # (Auto) 0.03 0-0.2 K/uL RDW Standard Deviation 58.1 36.4-46.3 fL RDW Coefficient of Variation 16.2 11.5-14.5 % Immature Granulocyte % (Auto) 0.9 % Immature Granulocyte # (Auto) 0.06 0.00-0.02 K/uL Erythrocyte Sedimentation Rate 59 0-14 mm/hr Prothrombin Time 12.4 9.0-12.0 SECONDS Prothromb Time International Ratio 1.2 0.9-1.1 Activated Partial Thromboplast Time 41.8 21.0-31.0 SECONDS Partial Thromboplastin Ratio 1.6 Venous Blood pH 7.40 7.36-7.41 Venous Blood Partial Pressure CO2 47 38.0-50.0 mmHg Venous Blood Partial Pressure O2 26 mmHg Venous Blood HCO3 29 mmol/L Venous Blood Oxygen Saturation < 60.0 % Venous Blood Base Excess 3.4 mEq/L Sodium Level 136 136-145 mmol/L Potassium Level 5.0 3.5-5.1 mmol/L Chloride Level 104 98-107 mmol/L Carbon Dioxide Level 27 21-32 mmol/L Anion Gap 5.0 3-11 mmol/L Blood Urea Nitrogen 21 7-18 mg/dl Creatinine 1.01 0.60-1.40 mg/dl Est Creatinine Clear Calc Drug Dose 95.5 ml/min Estimated GFR () 91.3 Estimated GFR (Non- 78.8 BUN/Creatinine Ratio 21.0 10-20 Random Glucose 90 70-99 mg/dl Calcium Level 9.1 8.5-10.1 mg/dl Phosphorus Level 3.3 2.5-4.9 mg/dl Magnesium Level 2.6 1.8-2.4 mg/dl Total Bilirubin 0.5 0.2-1 mg/dl Aspartate Amino Transf (AST/SGOT) 79 15-37 U/L Alanine Aminotransferase (ALT/SGPT) 71 12-78 U/L Alkaline Phosphatase 159 45-117 U/L Total Creatine Kinase 71 39-308 U/L Creatine Kinase MB 5.5 0.5-3.6 ng/ml Creatine Kinase MB Ratio 7.7 0-3.0 Troponin I 0.321 0-0.045 ng/ml C-Reactive Protein 12.40 0-0.29 mg/dl Pro-B-Type Natriuretic Peptide 2288 0-900 pg/ml Total Protein 7.3 6.4-8.2 gm/dl Albumin 2.2 3.4-5.0 gm/dl Globulin 5.1 2.5-4.0 gm/dl Albumin/Globulin Ratio 0.4 0.9-2 Lipase 396 73-393 U/L Phenytoin (Dilantin) Level 3.4 10-20 mcg/mL Valproic Acid (Depakene) Level 24 50-100 mcg/ml Procalcitonin 0.30 0-0.5 ng/ml Urine Color DK YELLOW Urine Appearance CLEAR CLEAR Urine pH 8.0 4.5-7.5 Urine Specific [place] 1.024 1.000-1.030 Urine Protein NEG NEG Urine Glucose (UA) NEG NEG Urine Ketones NEG NEG Urine Occult Blood NEG NEG Urine Nitrite NEG NEG Urine Bilirubin NEG NEG Urine Urobilinogen NEG NEG Urine Leukocyte Esterase TRACE NEG Urine WBC (Auto) 0 0-5 /hpf Urine RBC (Auto) 0-4 0-4 /hpf Urine Hyaline Casts (Auto) 1-5 0-5 /lpf Urine Epithelial Cells (Auto) 5-10 0-5 /lpf Urine Bacteria (Auto) NEG NEG Pleural Fluid pH 7.43 7.3-7.4 Pleural Fluid Total Protein 3.9 g/dl Pleural Fluid LDH 210 IU Pleural Fluid Glucose 97 mg/dl Pleural Fluid Amylase 27 U/L Test 07/10/17 15:59 Range/Units Lactic Acid Level 1.0 0.4-2.0 mmol/L Microbiology Results 07/10/17 Blood Culture, Received Pending 07/10/17 Blood Culture, Received Pending 07/10/17 Gram Stain, Received Pending 07/10/17 Bacterial Culture, Received Pending Diagnostic Radiology CXR: IMPRESSION: Congestive heart failure. Bilateral pleural effusions. Potential superimposed infiltrate left base. CT head: Impression: No significant change compared to the prior study. No acute intracranial abnormality. Chest/thorax CTA: IMPRESSION: 1. Streak and motion degraded examination. 2. Segmental pulmonary emboli are seen within the right middle lobe and lingular branches. 3. There is a moderate to large volume of pericardial fluid. There is associated pericardial thickening and enhancement. This appears complex and may represent a complex pericardial effusion versus hemopericardium. Clinical correlation will be essential. 4. Moderate to large pleural effusions with associated atelectasis. CT abd/pelvis: 1. Moderate to large pericardial effusion with pericardial enhancement. This is better depicted on the chest CT. Please see that report for further description. This favors an infectious or inflammatory process with pericarditis. 2. Bilateral pleural effusion with right larger than left. 3. Findings suggestive of recent cholecystectomy with a 4.3 x 2.7 cm gas and fluid containing cholecystectomy bed fluid collection and adjacent fluid-filled tract/rim-enhancing collections extending anteriorly from the cholecystectomy bed. These fluid collections are nonspecific in the early postoperative setting and may reflect normal postoperative change. However, superimposed infection or biloma cannot be excluded by CT. Correlation with timing of surgery would be of benefit. 4. Findings suggestive of recent anterior abdominal wall hernia repair. 5. Stable moderate splenomegaly. EKG Accelerated Junctional rhythm with Premature supraventricular complexes in a pattern of bigeminy Low voltage QRS Incomplete right bundle branch block Nonspecific T wave abnormality Impression Assessment and Plan Patient seen in collaboration with Dr. Kraft. Please see attending addendum for assessment and plan. ATTENDING ADDENDUM : pt seen and examined , care co ordinated with Madison Butler PA-C 61 yo M with complex past medical hx of Parkinson' disease , HTN , CKD stage 3 with solitary kidney /hx of DVT on Xarelto, chronic diastolic HF , chronic lower ext lymphedema, Sz disorder , mild MR sent form [facility] for confusion, lethargy and respiratory failure P/E: As per Madison Butler PA-C ACUTE HYPOXEMIC RESPIRATORY FAILURE /LARGE PERICARDIAL EFFUSION /BILATERAL PLEURAL EFFUSION ; due to larger bilateral pleural effusion and circumferential pericardial effusion s/p thoracentesis done with removal of approx [address] Lacey post procedure Cxray shows no pneumothorax ECHO ordered pt will be continued to be monitor in tele CONFUSION /METABOLIC ENCEPHALOPATHY due to combination of hypoxia /respiratory distress due to larger pleural effusion generalized deconditioning has baseline intellectual disability no focal neurological deficit cont supportive care neuro check fall prevention PT/OT eval when clinically appropriate HX OF DVT : Ct chest: Segmental pulmonary emboli are seen within the right middle lobe and lingular branches here is a moderate to large volume of pericardial fluid. There is associated pericardial thickening and enhancement. This appears complex and may represent a complex pericardial effusion versus hemopericardium. Xarelto on hold HX OF CHRONIC DIASTOLIC CHF : hard to asses vol status due to chronic bilateral lymphedema cont out meds monitor vol status CKD STAGE 3 follow BMP RECENT ABDOMINAL SURGERY ventral hernia repair done approx 3 wks back in [facility] no abdominal wound dehiscence noted pt denies of abdominal pain , nausea vomiting report of normal bowel movement FULL CODE DVT PROPHYLAXIS: hold Xarelto for possible hemopericardium DISPOSITION : return to [facility] when medically stable Level of Care Telemetry Resuscitation Status FULL RESUSCITATION VTE Prophylaxis VTE Risk Assessment Done? Y/N: Yes Risk Level: Moderate Given or contraindicated: T.E.D. Stockings, SCD's
[2017-07-10 17:29] VITALS: BP 124/82; PULSE 87; TEMP 36.6; O2SAT 96; Ht 185.4 cm; Wt 92.9 kg
[2017-07-10 19:38] VITALS: BP 121/66; PULSE 88; TEMP 36.4; O2SAT 99
[2017-07-10 20:00] VITALS: O2SAT 100
[2017-07-10] MEDS ORDERED: ALBUMIN HUMAN 25% 12.5 GM/50 ML VIAL IV ONE (20:15)
--- NOTE | 2017-07-10 20:22 | Cardiology Consultation ---
Cardiology Consultation Date of Consultation: Jul 10, 2017 History of Present Illness Balbir Shepherd is a 61 year old male seen in cardiology consultation per the request of Dr. Kraft for the evaluation and management of a large pericardial effusion initially diagnosed on CT scan of the chest earlier today. The patient does not follow routinely with cardiology. He has a history of solitary kidney, stage III chronic kidney disease, chronic edema (perhaps hereditary etiology not clear from records), seizures, Parkinson's-like syndrome and decreased cognition at baseline. He is on chronic anticoagulation with Xarelto for history of recurrent DVT he resides at the [facility]. He follows with Dr. Lemons of [facility] nephrology and at time of most recent clinic note from January 2017 he was on furosemide 40 mg by mouth daily metolazone 2.5 mg daily for his edema at that time. The patient had recently been hospitalized from 06/16/17 until 06/26/17 at [facility] having initially been admitted on 06/16/17 for an elective ventral incisional hernia repair. At the time of surgery he was also found to have cholelithiasis and therefore underwent cholecystectomy along with this ventral hernia repair with a midline abdominal incision. Per review of the [facility] records nephrology was consulted postoperatively for acute kidney injury with creatinine that went up to 1.3 shortly after his surgery. Nephrology note describes that he was receiving IV fluid and was already 6 L positive. His urine output and creatinine subsequently improved. It is been recommended by nephrology that the patient's IV fluids were discontinued however per review of the general surgery progress notes over the next few days of the hospital stay it appears that the patient was having poor oral intake and remained on normal saline 100 mL/h. Later in his hospital stay he was transitioned to IV furosemide 20 mg daily. He was followed with serial chest x-rays during admission for enlarging bilateral pleural effusions. An echocardiogram is actually performed at [facility] [place] 06/18/17. The report describes a technically limited study but grossly normal biventricular systolic function was noted. The report specifically notes that there was no pericardial effusion. Also of note, the patient is on Xarelto 20 mg daily for it appears to be the diagnosis of chronic DVT. Xarelto was held for the surgery. Per review of records it appears he was maintained on DVT prophylaxis dose of Lovenox during his postoperative interval and transition back to Xarelto at discharge. The patient has been recovering and was transferred to the emergency room from the [facility] today for complaints of persistently altered mental status decreased oral intake. On arrival to the emergency room today CT scan revealed no acute changes. CT scan of the chest revealed segmental pulmonary emboli in the right middle and lingular branches. A moderate to large pericardial effusion was described in the CT scan report. Per my impression of review of the images it is a large pericardial effusion. Moderate large bilateral pleural effusions were noted. The patient was admitted to the hospitalist service. He had been seen by Dr. Lacey of critical care medicine earlier this afternoon and underwent bedside thoracentesis yielding 950 mL of transudate of fluid from the right lung. The CT scan was resulted at 2:37 PM, I received a page notify me for routine cardiology consult this evening, with page having been received at 5:24 PM. After review of the patient's CT scan remotely from home, I requested that the echocardiogram which had been ordered as a routine study earlier today was changed to a stat, and I requested that the building energy retrofit technician coming from home to perform the study. At the bedside, the patient is sitting comfortably. He is sitting upright. He denies any subjective shortness of breath. History however is limited due to his cognitive issues. Since this is the first time I am meeting him I am not certain how much different his mentation is compared to his baseline. History Past Medical History: 1. Hypertension 2. Seizure disorder 3. Parkinson's-like syndrome 4. Cognitive impairment 5. Chronic lymphedema 6. Solitary kidney 7. Stage III chronic kidney disease Past Surgical History: Status post ventral hernia repair, cholecystectomy 06/16/17 Social History: Non-smoker, fpc patient Family History: Unobtainable due to the patient's mental status Review Of Systems Comprehensive review of systems is unobtainable due to the patient's mental status Allergies Coded Allergies: No Known Allergies (Verified , 07/10/17) Medications Reported Home Medications Medications Dose Route/Sig Max Daily Dose Days Date Category Dose Instructions Duoneb (Ipratropium-Albuterol) 3 Ml Nebu 1 Treatment INH Q6 PRN 07/10/17 Reported Potassium Chloride 20 Meq Soln 50 Meq PO 5XD 07/10/17 Reported Oxycodone HCl 5 Mg Tab 5 Mg PO TID 07/10/17 Reported Promod (Nutritional Supplements) 1 Pow Pow 1 Dose PO BID 07/10/17 Reported Lasix (Furosemide) 40 Mg Tab 40 Mg PO BID 07/10/17 Reported Zyloprim (Allopurinol) 100 Mg Tab 300 Mg PO DAILY 07/10/17 Reported Triphrocaps (B-Complex W/ C & Folic Acid) 1 Cap Cap 1 Cap PO DAILY 07/10/17 Reported Mvi With Minerals (Multivitamins/Minerals) Tab 1 Tab PO DAILY 07/10/17 Reported Levaquin (Levofloxacin) 500 Mg Tab 500 Mg PO DAILY 7 07/10/17 Reported Tylenol (Acetaminophen) 325 Mg Tab 650 Mg PO Q6 PRN 05/16/16 Reported DO NOT EXCEED 3GM/24HR Depakene (Valproic Acid) 250 Mg/5 Ml Syrp 1,750 Mg PO HS 05/16/16 Reported Depakene (Valproic Acid) 250 Mg/5 Ml Syrp 1,500 Mg PO QAM 05/16/16 Reported Sinemet 25MG/100MG (Carbidopa/Levodopa) Tab 1 Tab PO TID 05/16/16 Reported Senokot (Senna) 8.6 Mg Tab 8.6 Mg PO BID 05/16/16 Reported Lipitor (Atorvastatin Calcium) 40 Mg Tab 40 Mg PO HS 05/16/16 Reported Trileptal (Oxcarbazepine) 150 Mg Tab 150 Mg PO TID 10/04/15 Reported Dilantin (Phenytoin Sodium) 100 Mg Cap 200 Mg PO TID 10/04/15 Reported Miralax (Polyethylene Glycol 3350) 1 Pow Pow 17 Gm PO DAILY 10/04/15 Reported Xarelto (Rivaroxaban) 20 Mg Tab 20 Mg PO DAILY 04/04/15 Reported Zaroxolyn (Metolazone) 2.5 Mg Tab 2.5 Mg PO DAILY 09/14/14 Reported Flomax (Tamsulosin Hcl) 0.4 Mg Cap 0.4 Mg PO DAILY 09/14/14 Reported Synthroid (Levothyroxine Sodium) 100 Mcg Tab 100 Mcg PO DAILY 09/14/14 Reported Colace (Docusate Sodium) 100 Mg Cap 100 Mg PO BID 09/14/14 Reported Aspirin 81 (Aspirin) 81 Mg Tab 81 Mg PO DAILY 08/03/14 Reported Vitamin B-12 (Cyanocobalamin) 1,000 Mcg Sub 1,000 Mcg PO DAILY 07/09/14 Reported Vitamin D3 (Cholecalciferol) 2,000 Unit Tab 2,000 Unit PO DAILY 10/28/13 Reported Prilosec (Omeprazole) 20 Mg Capcr 20 Mg PO DAILY 10/26/12 Reported Physical Exam Vital Signs (Last 8hrs): Last 8 Hrs Date Time Temp Pulse Resp B/P (MAP) Pulse Ox O2 Delivery O2 Flow Rate FiO2 07/10/17 19:38 36.4 88 18 121/66 (84) 99 Nasal Cannula 3.0 07/10/17 17:29 36.6 87 22 124/82 96 Nasal Cannula 2.0 07/10/17 17:03 36.5 87 25 128/79 95 07/10/17 16:41 87 128/79 95 Nasal Cannula 2.0 07/10/17 16:31 110/72 07/10/17 16:21 88 25 134/74 07/10/17 16:16 88 26 07/10/17 16:11 127/73 07/10/17 16:01 109/67 07/10/17 15:46 131 38 07/10/17 15:41 91 128/59 92 Room Air 07/10/17 15:40 156 36 73 Room Air 07/10/17 15:37 113/86 95 Room Air 07/10/17 15:31 110/64 89 Room Air 07/10/17 15:27 134/64 91 Room Air 07/10/17 15:25 86 26 69 07/10/17 15:24 91 07/10/17 15:10 84 30 07/10/17 15:01 115/68 07/10/17 14:54 120/70 07/10/17 14:40 88 93 07/10/17 14:35 79 22 125/70 07/10/17 13:31 115/72 07/10/17 13:29 113/64 07/10/17 13:26 88 27 07/10/17 13:21 90 23 95 Room Air 07/10/17 13:16 97 22 95 07/10/17 13:11 97 26 99 07/10/17 13:06 102 25 81 07/10/17 13:01 104 26 92 07/10/17 12:56 91 24 97 07/10/17 12:51 100 24 96 07/10/17 12:46 91 27 93 07/10/17 12:41 92 25 90 07/10/17 12:36 96 26 95 Room Air 07/10/17 12:06 93 26 91 Room Air General Appearance: Chronically ill in appearance, lethargic Head: Normocephalic Atraumatic. Eyes: PERRLA, EOMI, conjunctiva and sclera clear Neck: Supple. No carotid bruits noted. No JVD. No HJD. Respiratory: Decreased breath sounds bilaterally at the bases Cardiovascular: Reg rate and rhythm. S1 and S2 noted. No murmurs, rubs, gallops. PMI non displace. Abdomen: Well-healing midline longitudinal abdominal incision, with Steri-Strips , no erythema, no drainage. Extremities: 1+ bilateral lower extremity Neuro: No focal deficits. Psychiatric: Normal affect. Data Last Resulted 07/10/17 12:33 Red Blood Count 3.16, Mean Corpuscular Volume 99.1, Mean Corpuscular Hemoglobin 31.0, Mean Corpuscular Hemoglobin Concent 31.3, Mean Platelet Volume 9.5, Neutrophils (%) (Auto) 77.1, Lymphocytes (%) (Auto) 11.7, Monocytes (%) (Auto) 8.3, Eosinophils (%) (Auto) 1.5, Basophils (%) (Auto) 0.5, Neutrophils # (Auto) 5.08, Lymphocytes # (Auto) 0.77, Monocytes # (Auto) 0.55, Eosinophils # (Auto) 0.10, Basophils # (Auto) 0.03 Last Resulted 07/10/17 12:33 Past 24 Hours Test 07/10/17 12:33 Range/Units Creatine Kinase MB 5.5 H 0.5-3.6 ng/ml Creatine Kinase MB Ratio 7.7 H 0-3.0 Prothromb Time International Ratio 1.2 H 0.9-1.1 Prothrombin Time 12.4 H 9.0-12.0 SECONDS Total Creatine Kinase 71 39-308 U/L Troponin I 0.321 *H 0-0.045 ng/ml TSH is 2.09 micro international units per liter Erythrocyte sedimentation rate 59 mm/h Chest CT images reviewed independently EKG performed earlier today 07/10/17 1308: Sinus rhythm 89 bpm, with frequent PACs, incomplete right bundle branch block, diffuse nonspecific T-wave flattening. When compared to the prior tracing dated 02/04/17, the incomplete right bundle branch block and diffuse T-wave flattening are chronic, premature atrial contractions are now present. Assessment & Plan Impression: 61-year-old male 1. Large circumferential pericardial effusion, majority of the fluid is adjacent to the right atrium at the base of the heart, adjacent to the right ventricular free wall, and adjacent to the inferior wall on the 2 chamber view. There is mild diastolic collapse of the right ventricle, but otherwise no echocardiographic evidence of tamponade with no interventricular dependence suggested by the mitral inflow pattern, and the inferior vena cava diameter is small and collapses spontaneously with inspiration. On some views, the right ventricle size looks notably small as if impaired filling of the right ventricle is taking place. The left ventricular systolic function is normal. The left ventricular wall motion is grossly normal on technically limited evaluation. 2. Bilateral pleural effusions 3. History of chronic lymphedema 4. Cognitive impairment, difficult to assess what is due to an acute encephalopathy versus his chronic mental status 5. History of chronic anticoagulation with Xarelto for chronic DVT. He had recently been off of anticoagulation for several days during the perioperative state earlier this month. Discussion/recommendations: Of interest, 22 days ago the patient had an echocardiogram performed at [facility] with no evidence of pericardial effusion noted at that time per the report. He has developed a large interval pericardial effusion with no simone tamponade, but there is 2D evidence suggestive of impaired right ventricular filling. Although the patient has pleural effusions and some mild lower extremity edema, there is concern that he is perhaps intravascularly volume depleted. It is noted that his albumin is low. Regarding the cause of the pericardial effusion. He does have moderate elevation his erythrocyte sedimentation rate, but this is difficult to interpret in the setting of his relatively recent surgery. He notes no symptoms of chest pain on deep inspiration but once again his interview is limited. The nature of the pericardial effusion is complex. There is organization and stranding and echodensity adjacent to the RV myocardial wall suggestive of some degree of thrombus formation. It does not appear to be amenable to thoracentesis because of the stranding pattern noted. At present, I recommend that we hold the Xarelto for now although it does appear he will need chronic anticoagulation as I am concerned there could be a hemorrhagic component of this. Test. The patient received significant amount of IV fluid during his recent hospital stay with progressive pleural effusions noted. Terms of treatment for the pericardial effusion. The role for medication is somewhat limited at the present time. He is to build to tolerate oral medications. Even if he could take oral medications he is not a candidate for taking ibuprofen, and I would be hesitant to place the patient on high-dose aspirin due to concerns of hemorrhagic component and his recent significant intra-abdominal surgery in a patient who has a baseline anemia. Colchicine is an option for him once he is taking oral medication. I do not think that treatment with corticosteroids would be ideal because would probably contribute to additional edema. I am going to give him a dose of albumin now. Although this is not evident space, physiologically with hope to increase his intravascular volume, mobilize his third spacing and maybe perhaps even help reduce the size of the pericardial effusion. Although the pericardial effusion is large, patient is asymptomatic at the present time. His blood pressure is stable. There is no tachycardia. I do not think any emergent invasive intervention is necessary. Surgical evacuation however may be necessary in the future to avoid chronic thrombus formation and a picture of chronic effusive constrictive pericarditis which could be an ultimate consequence of this if it does not improve.
--- NOTE | 2017-07-10 20:46 | ECHOCARDIOGRAM REPORT ---
*NOTICE TO RECEIVING LIBERTARIAN AGENCY This information is strictly Confidential and protected under [place] law. [place] law prohibits you from making any further disclosure of this information unless further disclosure is expressly permitted by the written consent of the person to whom it pertains or is authorized by law. A general authorization for the release of medical or other information is not sufficient for this purpose. Hospital accepts no responsibility if the information is made available to any other person, INCLUDING THE PATIENT. Interpretation Summary * Name: NATE VERMA Study Date: 07/10/2017 07:05 PM BP: 121/66 mmHg * Patient Location: 09 HR: 88 * : 1955 (M/d/yyyy) Gender: Male Height: 71 in * Age: 61 yrs Ethnicity: CA Weight: 233 lb * Ordering Physician: SONYA EVANS MD * Performed By: Jackie Davis RCS * * Reason For Study: PERICARDIAL EFFUSION * BSA: 2.3 m2 * -- Conclusions -- * There is a large circumferential pericardial effusion. * The most significant amount of fluid collection is adjacent to the right atrium with maximum dimension of 3.8 cm. * Tamponade physiology is absent, however there is some degree of diastolic collapse of the right atrium, and on 2D appearance there is evidence of early impairment of right ventricular filling which can be early signs of developing tamponade. * The appearance of the pericardial effusion is organized with stranding, and echogenic solid components noted adjacent to the apical portions of the heart in the right ventricular free wall. * Due to the organized appearance, the effusion does not appear to be amenable to pericardiocentesis. * Compared to the report of the prior study performed at [facility] on 06/18/17, the pericardial effusion is new Has no pericardial effusion was reported at the time of that study. Compared to the prior study performed at [facility] 02/07/17, no pericardial effusion was noted at that time. MAGED, 07/11/17, 955am.: Echocardiogram images performed last evening were reassessed personally and reviewed in person with Dr Proctor of interventional cardiology. The pericardial effusion is not amenable to percutaneous pericardiocentesis from the apical approach, but does appear to be amenable to pericardiocentesis from the subxiphoid approach, with a significant collection of pericardial fluid there. Also , large bilateral pleural effusions are visualized . Procedure Details * A complete two-dimensional transthoracic echocardiogram was performed (2D, M-mode, Doppler and color flow Doppler). * There were technical limitations due to patient's poor positioning Left Ventricle * The left ventricle is normal in size. * There is mild concentric left ventricular hypertrophy. * Left ventricular systolic function is normal. * Ejection Fraction = 60-65%. * The left ventricular wall motion is normal. * No regional wall motion abnormalities noted. Right Ventricle * The right ventricular chamber size is small, in some views, it appears as if right ventricular filling is impaired by the adjacent pericardial effusion. * The right ventricular systolic function is normal as assessed by tricuspid annular plane systolic excursion (TAPSE) (normal >1.5 cm). Atria * The left atrial size is normal. * Right atrial size is normal. * There is no evidence of atrial septal defect, but resolution does not allow assessment for a patent foramen ovale. Mitral Valve * The mitral valve is normal. * There is no mitral valve stenosis. * There is mild mitral regurgitation. Tricuspid Valve * The tricuspid valve is normal. * There is no tricuspid stenosis. * Significant tricuspid regurgitation is absent. Aortic Valve * The aortic valve is trileaflet. * Aortic valve sclerosis mild, without significant aortic valvular stenosis. * Aortic stenosis is absent. * There is no significant aortic regurgitation. Pulmonic Valve * The pulmonary valve is not well seen, but the Doppler examination is normal without significant regurgitation or stenosis. Great Vessels * The aortic root and proximal ascending aorta are normal sized. Pericardium/Pleural * There is a large circumferential pericardial effusion. The most significant amount of fluid collection is adjacent to the right atrium with maximum dimension of 3.8 cm. Tamponade physiology is absent, however there is some degree of diastolic collapse of the right atrium, and on 2D appearance there is evidence of early impairment of right ventricular filling which can be early signs of developing tamponade. The appearance of the pericardial effusion is organized with stranding, and echogenic solid components noted adjacent to the apical portions of the heart and right ventricular free wall. Due to the organized appearance, the effusion does not appear to be amenable to pericardiocentesis. Great Vessels * Normal inferior vena cava diameter and respiratory variation suggests normal central venous pressure. MMode 2D Measurements and Calculations IVSd 1.9 cm IVSs 2.0 cm LVIDd 4.2 cm LVIDs 2.9 cm LVPWd 1.6 cm LVPWs 2.0 cm IVS/LVPW 1.2 FS 31.7 % EDV(Teich) 79.9 ml ESV(Teich) 31.9 ml EF(Teich) 60.0 % EDV(cubed) 75.7 ml ESV(cubed) 24.1 ml EF(cubed) 68.1 % % IVS thick 7.1 % % LVPW thick 29.9 % LV mass(C)d 312.6 grams LV mass(C)dI 138.9 grams/m\S\2 LV mass(C)s 257.0 grams LV mass(C)sI 114.2 grams/m\S\2 SV(Teich) 48.0 ml SI(Teich) 21.3 ml/m\S\2 SV(cubed) 51.6 ml SI(cubed) 22.9 ml/m\S\2 Ao root diam 3.0 cm Ao root area 6.9 cm\S\2 ACS 2.2 cm LA dimension 4.2 cm LA/Ao 1.4 LVOT diam 2.0 cm LVOT area 3.3 cm\S\2 LVAd ap4 30.5 cm\S\2 LVLd ap4 7.6 cm EDV(MOD-sp4) 99.0 ml EDV(sp4-el) 104.2 ml LVAs ap4 18.2 cm\S\2 LVLs ap4 6.6 cm ESV(MOD-sp4) 41.7 ml ESV(sp4-el) 42.3 ml EF(MOD-sp4) 57.9 % EF(sp4-el) 59.4 % LVAd ap2 28.7 cm\S\2 LVLd ap2 7.8 cm EDV(MOD-sp2) 86.5 ml EDV(sp2-el) 90.0 ml LVAs ap2 17.9 cm\S\2 LVLs ap2 6.5 cm ESV(MOD-sp2) 40.2 ml ESV(sp2-el) 41.7 ml EF(MOD-sp2) 53.6 % EF(sp2-el) 53.6 % LVLd %diff 2.4 % EDV(MOD-bp) 94.7 ml LVLs %diff -1.95 % ESV(MOD-bp) 40.4 ml EF(MOD-bp) 57.3 % SV(MOD-sp4) 57.3 ml SI(MOD-sp4) 25.5 ml/m\S\2 SV(MOD-sp2) 46.4 ml SI(MOD-sp2) 20.6 ml/m\S\2 SV(MOD-bp) 54.3 ml SI(MOD-bp) 24.1 ml/m\S\2 SV(sp4-el) 61.9 ml SI(sp4-el) 27.5 ml/m\S\2 SV(sp2-el) 48.3 ml SI(sp2-el) 21.4 ml/m\S\2 Doppler Measurements and Calculations MV E max patel 81.4 cm/sec MV A max patel 65.8 cm/sec MV E/A 1.2 MV P1/2t max patel 87.1 cm/sec MV P1/2t 80.2 msec MVA(P1/2t) 2.7 cm\S\2 MV dec slope 318.1 cm/sec\S\2 MV dec time 0.22 sec MR max patel 496.7 cm/sec MR max PG 98.7 mmHg PA V2 max 97.5 cm/sec PA max PG 3.8 mmHg PI max patel 180.3 cm/sec PI max PG 13.0 mmHg PI dec slope 122.2 cm/sec\S\2 PI P1/2t 432.4 msec
[2017-07-10 20:50] VITALS: BP 115/71; PULSE 86; TEMP 36.7; O2SAT 99
[2017-07-10 21:07] VITALS: BP 131/53; PULSE 87; TEMP 36.7; O2SAT 100
[2017-07-10 23:48] VITALS: BP 122/64; PULSE 81; TEMP 36.4; O2SAT 98
[2017-07-11] VITALS (11 sets, daily range): BP systolic 107–118; BP diastolic 58–71; PULSE 75–81; TEMP 36.4–36.8; O2SAT 93–100
[2017-07-11 03:32] LABS: HEMATOCRIT 26.9 % (42-52); HEMOGLOBIN 8.3 g/dL (14.0-18.0); MEAN CELL VOLUME 98.9 fL (80-100); MEAN CORPUSCULAR HEMOGLOBIN 30.5 pg (25-34); MEAN CORPUSCULAR HGB CONC 30.9 g/dl (32-36); MEAN PLATELET VOLUME 8.7 fL (7.4-10.4); PLATELET COUNT 109 K/uL (130-400); RED CELL DISTRIBUTION WIDTH CV 16.4 % (11.5-14.5); WHITE BLOOD COUNT 4.93 K/uL (4.8-10.8)
[2017-07-11 03:52] LABS: ALBUMIN 2.1 gm/dl (3.4-5.0); CALCIUM 8.4 mg/dl (8.5-10.1); CREATININE 0.94 mg/dl (0.60-1.40); POTASSIUM 4.3 mmol/L (3.5-5.1)
[2017-07-11 04:01] LABS: TOTAL PROTEIN 6.7 gm/dl (6.4-8.2)
--- NOTE | 2017-07-11 07:29 | DIAGNOSTIC IMAGING REPORT ---
CHEST ONE VIEW PORTABLE CLINICAL HISTORY: PLEURAL EFFUSION COMPARISON STUDY: Chest CT and chest radiograph July 10, 2017. FINDINGS: There is no pneumothorax. Interstitial thickening suggests pulmonary edema. Bibasilar opacities persist. Cardiomediastinal silhouette is stable. Small right pleural effusion is noted. A small to moderate left pleural effusion is noted. IMPRESSION: 1. No pneumothorax. 2. No change in a small right pleural effusion and a small to moderate left pleural effusion. Persistent associated bibasilar opacities. 3. Suspected pulmonary edema. Electronically signed by: Otf Qureshi M.D. 07/11/2017 7:27 AM Dictated Date/Time: 07/11/2017 7:25 AM
--- NOTE | 2017-07-11 07:56 | Progress Note ---
Progress Note Date of Service Jul 11, 2017. Progress Note Subjective: Patient seen at bedside on telemetry myles. Breathing on nasal cannula and denies chest pain. Patient appears to have limited understanding of his medical health currently but understands that he has had fluid taken out from his lung yesterday. Patient apparently did not know that there is also fluid around the heart. This was explained to him. Patient reports that his brother Bubba is aware that he is in the hospital Physical Exam Vitals around 7:50 Am: HR 76, BP 117/58, RR 16 General Appearance: on nasal cannula, no distress, verbal, awake and alert Head: normocephalic, atraumatic Eyes: normal inspection, sclerae normal ENT: hearing grossly normal, pharynx normal Neck: supple, no JVD, trachea midline Respiratory/Chest: chest non-tender, lungs clear, normal breath sounds, no respiratory distress, no accessory muscle use Cardiovascular: regular rate, rhythm, no murmur, normal peripheral pulses Abdomen/GI: non tender, soft, Vertical incision at midline with healing incision. No surrounding erythema or drainage Back: normal inspection Extremities/Musculoskelatal: no calf tenderness, lower extremity edema with discoloration of bruising Neurologic/Psych: no motor/sensory deficits, alert, oriented x 3, Flattened affect Assessment and Plan 61-year-old M with history of seizure disorder, Parkinson's, schizoaffective disorder, HTN, CKD III (L kidney absent), hereditary lymphedema, diastolic heart failure, recently was diagnosed with PE and was started on Xarelto, recently underwent abdominal hernia repair with cholecystectomy over 3 weeks ago , the patient was discharged to the long-term where he was noted for the past 24 hours to have persistent cough, with chest x-ray which showed bilateral volume loss and started empirically on Levaquin and transferred to the ER, was given Zosyn empirically, CAT scan of the chest and chest x-ray were reviewed which showed bilateral pleural effusion and pericardial effusion, s/p right sided thoracentesis Pericardial Effusion Echocardiogram 07/10/17 -"There is a large circumferential pericardial effusion. The most significant amount of fluid collection is adjacent to the right atrium with maximum dimension of 3.8 cm. Tamponade physiology is absent, however there is some degree of diastolic collapse of the right atrium, and on 2D appearance there is evidence of early impairment of right ventricular filling which can be early signs of developing tamponade. The appearance of the pericardial effusion is organized with stranding, and echogenic solid components noted adjacent to the apical portions of the heart and right ventricular free wall. Due to the organized appearance, the effusion does not appear to be amenable to pericardiocentesis." - Xarelto has been held for now as cardiology service recommended this to avoid hemorrhagic component complications - patient has received albumin infusion at night time 07/10/17 from cardiology service to try reduce the size of pericardial effusion - will hold home cardiovascular diuretic medications/antiplatelet/ anticoagulation medications for now and await further cardiology recommendations on appropriateness on restarting these medications - follow up with cardiology service whether patient will need invasive intervention Elevated troponins - likely due to pericardial effusion, troponin downtrending, no chest pain Right sided pleural effusion -Thoracentesis on 07/10/17: due to the enlarged pleural effusion on the right side with 1 L of blood-tinged fluid was removed -pleural fluid with elevated RBC 54,000 and WBC of 1682, pleural fluid LDH 210, pleural protein 3.9; total serum protein prior to thoracentesis 7.3. no comparison serum LDH, will send serum LDH -will discuss with pulmonary service whether this effusion is exudative vs transudative and whether antibiotics necessary -continue Zosyn for now -blood cultures/thoracentesis cultures pending -recent follow up CXR 07/11/17 AM: no pneumothorax. Interstitial thickening suggests pulmonary edema. Bibasilar opacities persist. Cardiomediastinal silhouette is stable. Small right pleural effusion is noted. A small to moderate left pleural effusion is noted. seizure disorder, Parkinson's, schizoaffective disorder -restart home medications Valproic acid, Trilepta, Phenytoin Thyroid -restart Synthroid DVT ppx: SCDs
[2017-07-11] MEDS ORDERED: PIPERACILL/TAZOBAC CONSULT ACTIVE PRN (08:30)
[2017-07-11] MEDS ORDERED: PIPERACILL/TAZOBAC IV 4.5 GM in DEXTROSE 5% 100ML 100 ML IV SCH (08:30)
[2017-07-11] MEDS ORDERED: PIPERACILL/TAZOBAC IV 3.375 GM in DEXTROSE 5% 100ML IV ONE (08:45)
[2017-07-11] MEDS: SENNA 8.6 MG TAB PO SCH ×2 (08:51→19:31)
[2017-07-11] MEDS: LEVOTHYROXINE 100 MCG TAB PO SCH (08:51)
[2017-07-11] MEDS: VALPROIC ACID SYRUP 250 MG/5 ML PO SCH ×2 (08:51→19:31)
[2017-07-11] MEDS: PHENYTOIN SODIUM ER 100 MG CAP PO SCH ×3 (08:51→19:31)
[2017-07-11] MEDS: OXCARBAZEPINE 150 MG TAB PO SCH ×3 (08:52→19:31)
[2017-07-11] MEDS ORDERED: TAMSULOSIN HCL 0.4 MG CAP PO SCH (09:00)
[2017-07-11] MEDS ORDERED: METHYLPREDNISOLONE IV 40 MG in SYRINGE 0 ML IV ONE (10:15)
[2017-07-11] MEDS ORDERED: COLCHICINE 0.6 MG TAB PO ONE (10:15)
[2017-07-11] MEDS: PANTOprazole INJ 40 MG in SYRINGE 0 ML IV SCH (10:22)
--- NOTE | 2017-07-11 10:23 | Cardiology Follow-Up ---
Subjective General Date of Service: Jul 11, 2017. Chief Complaint: follow up pericardial effusion Pt evaluation today including: conversation w/ patient, conversation w/ family , physical exam, conversation w/ data consultant History of Present Illness The patient is a 61 year old male seen in cardiology follow up. Since I had first assessed the patient last evening, he has remained stable. His blood pressure remains adequate with systolic readings all above 100 mmHg. He is sitting at approximately 30 this morning as compared to 90 last evening , and his mentation has improved. He is conversant. He describes no sensation of chest pain or shortness of breath at present. He demonstrates a mild cough during my interview with him. Allergies Coded Allergies: No Known Allergies (Verified , 07/10/17) Social History Smoking Status: Never Smoker Hx Tobacco Use In Past Year?: No Hx Alcohol Use - Type And Amou: No Hx Substance Use - Type And Am: No Problem List Medical Problems: (1) Aggressive behavior Status: Acute (2) Altered mental status Status: Acute (3) Fever Status: Acute (4) Hypoxia Status: Acute (5) Mood disorder Status: Acute (6) Pulmonary embolism Status: Acute (7) Right lower lobe pneumonia Status: Acute (8) Status epilepticus Status: Acute Social History Problems: (1) Status post cholecystectomy Status: Acute Physical Exam Vital Signs Last Vital Signs Documentation Date Time Temp Pulse Resp B/P (MAP) Pulse Ox O2 Delivery O2 Flow Rate FiO2 07/11/17 08:00 100 Nasal Cannula 2.0 07/11/17 07:39 36.4 80 16 117/58 (77) Physical Exam Constitutional: Level of Distress: acutely ill, chronically ill Head: normocephalic Neck: supple, pertinent finding (Neck veins are flat with head of bed at 30) Lungs: Auscultation: pertinent finding (Decreased breath sounds bilaterally at the bases) Cardiovascular: Heart Auscultation: pertinent finding (Regular rhythm, no murmurs, no rubs) Extremities: pertinent finding (1+ bilateral lower extremity edema) Neurologic: Gait & Station: pertinent finding (Follows commands this a.m., and is more conversant, 07/11/17) Assessment and Plan Assessment and Plan Impression: 61-year-old male 1. Large circumferential pericardial effusion, majority of the fluid is adjacent to the right atrium at the base of the heart, adjacent to the right ventricular free wall, and adjacent to the inferior wall on the 2 chamber view. There is mild diastolic collapse of the right ventricle, but otherwise no echocardiographic evidence of tamponade with no interventricular dependence suggested by the mitral inflow pattern, and the inferior vena cava diameter is small and collapses spontaneously with inspiration. On some views, the right ventricle size looks notably small as if impaired filling of the right ventricle is taking place. The left ventricular systolic function is normal. The left ventricular wall motion is grossly normal on technically limited evaluation. 2. Bilateral large pleural effusions 3. History of chronic lymphedema 4. Cognitive impairment, -mental status improved, 07/11/79 5. Segmental pulmonary emboli seen within the right middle lobe and lingular branches on CT scan 07/10/17. History of chronic anticoagulation with Xarelto for chronic DVT. He had recently been off of anticoagulation for several days during the perioperative state earlier this month. Recommendations: I reviewed his CT scan images again today with the assistance of radiology. Based on the images, and comparison of the Hounsfield units of the pleural fluid in the pericardial fluid, hemopericardium cannot be excluded. The patient's blood pressure is stable. He is asymptomatic at present. I do not think his pericardial effusion is causing hemodynamic emergency at the present time. Based on the appearance of the mild diastolic collapse of the right atrium, and the appearance of the right ventricle on the echocardiogram, I think the patient does have physiology tending toward predisposition toward tamponade physiology that would be provoked with reduction of preload to the right heart and therefore I recommend against diuretic therapy at present. I have also placed to hold on his Flomax. I recommend that we hold all medications to reduce blood pressure at present. The etiology of the pericardial effusion appears to be perhaps postinflammatory , and superimposed hemorrhagic component cannot be excluded since he is on anticoagulation for his history of chronic lower extremity DVT, with PE noted on CT scan yesterday. In terms of reducing inflammation, he is not a candidate for ibuprofen given his underlying history of solitary kidney and chronic kidney disease. I am hesitant to proceed with high-dose aspirin given the need for potential invasive procedure, his baseline anemia, and his recent significant intra- abdominal surgery. He is now taking oral medications as of this morning, and I have therefore started colchicine 0.6 twice daily. We will cautiously also start corticosteroids, with initial dose of Solu-Medrol 40 mg IV daily, for now. We will also start Protonix 40 mg IV every 24 hours for GI prophylaxis. I am administering this IV to help minimize his oral medications as his appetite is still poor, and I would like to only give him those medications that are critical from an oral standpoint such as his seizure medications and the colchicine. I recommend he remains off of Xarelto at present pending potential need for invasive procedure to avoid further potential hemorrhage into the pericardium. Recommend proceeding with lower extremity venous duplex to assess for potential significant DVT. I have placed him on DVT prophylaxis dose Lovenox 40 mg daily. This is not ideal, but I am very concerned about the potential complications of putting him on full dose anticoagulation, however he is certainly at risk for life- threatening venous thromboembolic event and I feel that some form of pharmacologic DVT prophylaxis is warranted things do not get worse. I discussed the case with Dr. Lacey and Dr Florez. I believe we have enough to explain regarding the patient's shortness of breath regarding large pleural effusions and pericardial effusion, and I am not convinced that he definitely needs antibiotics. I recommend that we either discontinue and observe him off of antibiotics or try to alter his antibiotics to minimize IV fluid intake because it will likely contribute to his worsening third spacing. Continue IV albumin for now. As noted yesterday, this is not evidence based, however, given his low albumin , will utilize this with hopes of helping to mobilize the fluid. I reviewed the echocardiogram images performed last evening again today personally, and also reviewed them with Dr. Proctor of interventional cardiology. It does appear that the pericardial effusion would potentially be amenable to percutaneous pericardiocentesis from the subxiphoid approach, and this is a potential consideration if improvement is not made with conservative treatment. I attempted to update, patient's medical POA, his brother Bubba. I spoke to him for a few minutes by telephone. As I attempted to explain the physiology of the pericardial effusion, or call was disconnected. I have since try to call him back on 2 separate occasions and it has got voicemail. Hopefully will be able to connect with Bubba by telephone or in person later today to update him. 45 minutes have been spent in direct patient care thus far today reviewing studies, and speaking to the other providers as well as the patient's brother. Laboratory Results Last 24 Hours Test 07/10/17 12:33 07/10/17 12:35 07/10/17 13:00 07/10/17 15:30 White Blood Count 6.59 K/uL Red Blood Count 3.16 M/uL Hemoglobin 9.8 g/dL Hematocrit 31.3 % Mean Corpuscular Volume 99.1 fL Mean Corpuscular Hemoglobin 31.0 pg Mean Corpuscular Hemoglobin Concent 31.3 g/dl Platelet Count 139 K/uL Mean Platelet Volume 9.5 fL Neutrophils (%) (Auto) 77.1 % Lymphocytes (%) (Auto) 11.7 % Monocytes (%) (Auto) 8.3 % Eosinophils (%) (Auto) 1.5 % Basophils (%) (Auto) 0.5 % Neutrophils # (Auto) 5.08 K/uL Lymphocytes # (Auto) 0.77 K/uL Monocytes # (Auto) 0.55 K/uL Eosinophils # (Auto) 0.10 K/uL Basophils # (Auto) 0.03 K/uL RDW Standard Deviation 58.1 fL RDW Coefficient of Variation 16.2 % Immature Granulocyte % (Auto) 0.9 % Immature Granulocyte # (Auto) 0.06 K/uL Erythrocyte Sedimentation Rate 59 mm/hr Prothrombin Time 12.4 SECONDS Prothromb Time International Ratio 1.2 Activated Partial Thromboplast Time 41.8 SECONDS Partial Thromboplastin Ratio 1.6 Venous Blood pH 7.40 Venous Blood Partial Pressure CO2 47 mmHg Venous Blood Partial Pressure O2 26 mmHg Venous Blood HCO3 29 mmol/L Venous Blood Oxygen Saturation < 60.0 % Venous Blood Base Excess 3.4 mEq/L Sodium Level 136 mmol/L Potassium Level 5.0 mmol/L Chloride Level 104 mmol/L Carbon Dioxide Level 27 mmol/L Anion Gap 5.0 mmol/L Blood Urea Nitrogen 21 mg/dl Creatinine 1.01 mg/dl Est Creatinine Clear Calc Drug Dose 95.5 ml/min Estimated GFR () 91.3 Estimated GFR (Non- 78.8 BUN/Creatinine Ratio 21.0 Random Glucose 90 mg/dl Calcium Level 9.1 mg/dl Phosphorus Level 3.3 mg/dl Magnesium Level 2.6 mg/dl Total Bilirubin 0.5 mg/dl Aspartate Amino Transf (AST/SGOT) 79 U/L Alanine Aminotransferase (ALT/SGPT) 71 U/L Alkaline Phosphatase 159 U/L Total Creatine Kinase 71 U/L Creatine Kinase MB 5.5 ng/ml Creatine Kinase MB Ratio 7.7 Troponin I 0.321 ng/ml C-Reactive Protein 12.40 mg/dl Pro-B-Type Natriuretic Peptide 2288 pg/ml Total Protein 7.3 gm/dl Albumin 2.2 gm/dl Globulin 5.1 gm/dl Albumin/Globulin Ratio 0.4 Lipase 396 U/L Thyroid Stimulating Hormone (TSH) 2.090 uIu/ml Phenytoin (Dilantin) Level 3.4 mcg/mL Valproic Acid (Depakene) Level 24 mcg/ml Procalcitonin 0.30 ng/ml Urine Color DK YELLOW Urine Appearance CLEAR Urine pH 8.0 Urine Specific [place] 1.024 Urine Protein NEG Urine Glucose (UA) NEG Urine Ketones NEG Urine Occult Blood NEG Urine Nitrite NEG Urine Bilirubin NEG Urine Urobilinogen NEG Urine Leukocyte Esterase TRACE Urine WBC (Auto) 0 /hpf Urine RBC (Auto) 0-4 /hpf Urine Hyaline Casts (Auto) 1-5 /lpf Urine Epithelial Cells (Auto) 5-10 /lpf Urine Bacteria (Auto) NEG Pleural Fluid Source OTHER-PLEUAL Pleural Fluid Color RED Pleural Fluid Appearance BLOODY Pleural Fluid WBC 1682 /uL Pleural Fluid RBC 45606 /uL Pleural Fluid pH 7.43 Pleural Fluid Polynuclear WBCs % 31.3 % Pleural Fluid Mononuclear WBCs % 68.7 % Pleural Fluid Total Protein 3.9 g/dl Pleural Fluid LDH 210 IU Pleural Fluid Glucose 97 mg/dl Pleural Fluid Amylase 27 U/L Test 07/10/17 15:59 07/10/17 21:45 07/11/17 03:22 07/11/17 04:05 Lactic Acid Level 1.0 mmol/L Troponin I 0.324 ng/ml 0.285 ng/ml White Blood Count 4.93 K/uL Red Blood Count 2.72 M/uL Hemoglobin 8.3 g/dL Hematocrit 26.9 % Mean Corpuscular Volume 98.9 fL Mean Corpuscular Hemoglobin 30.5 pg Mean Corpuscular Hemoglobin Concent 30.9 g/dl RDW Standard Deviation 59.0 fL RDW Coefficient of Variation 16.4 % Platelet Count 109 K/uL Mean Platelet Volume 8.7 fL Sodium Level 138 mmol/L Potassium Level 4.3 mmol/L Chloride Level 106 mmol/L Carbon Dioxide Level 26 mmol/L Anion Gap 6.0 mmol/L Blood Urea Nitrogen 18 mg/dl Creatinine 0.94 mg/dl Est Creatinine Clear Calc Drug Dose 99.8 ml/min Estimated GFR () 99.6 Estimated GFR (Non- 85.9 BUN/Creatinine Ratio 19.3 Random Glucose 93 mg/dl Calcium Level 8.4 mg/dl Magnesium Level 2.2 mg/dl Total Bilirubin 0.5 mg/dl Direct Bilirubin 0.2 mg/dl Aspartate Amino Transf (AST/SGOT) 50 U/L Alanine Aminotransferase (ALT/SGPT) 57 U/L Alkaline Phosphatase 145 U/L Total Protein 6.7 gm/dl Albumin 2.1 gm/dl Globulin 4.6 gm/dl Albumin/Globulin Ratio 0.5 Triglycerides Level 183 mg/dl Cholesterol Level 89 mg/dl HDL Cholesterol 20 mg/dl LDL Cholesterol, Calculated 32 mg/dl VLDL Cholesterol, Calculated 37 mg/dl Cholesterol/HDL Ratio 4.5 Amylase Level 50 U/L Lipase 392 U/L Urine Color DK YELLOW Urine Appearance CLEAR Urine pH 5.5 Urine Specific [place] > 1.045 Urine Protein TRACE Urine Glucose (UA) NEG Urine Ketones NEG Urine Occult Blood NEG Urine Nitrite NEG Urine Bilirubin NEG Urine Urobilinogen NEG Urine Leukocyte Esterase NEG Urine WBC (Auto) 1-5 /hpf Urine RBC (Auto) 0-4 /hpf Urine Hyaline Casts (Auto) 1-5 /lpf Urine Epithelial Cells (Auto) 10-20 /lpf Urine Bacteria (Auto) NEG Test 07/11/17 10:02
[2017-07-11] MEDS: ALBUMIN HUMAN 25% 12.5 GM/50 ML VIAL IV SCH ×2 (10:24→19:30)
[2017-07-11] MEDS ORDERED: ENOXAPARIN 40 MG/0.4 ML SYR SQ ONE (10:30)
--- NOTE | 2017-07-11 11:33 | DIAGNOSTIC IMAGING REPORT ---
BILATERAL LOWER EXTREMITY VENOUS DOPPLER CLINICAL HISTORY: history of thromboembolism, check for DVT areas COMPARISON STUDY: Bilateral lower extremity venous Doppler February 04, 2017. TECHNIQUE: Sonography of the deep venous system of the bilateral lower extremities was performed. Compression and augmentation were evaluated. FINDINGS: There is deep venous thrombus within the left posterior tibial vein. There is no evidence for acute deep venous thrombus within the right lower extremity. IMPRESSION: Deep venous thrombus within the left posterior tibial vein. Electronically signed by: Otf Qureshi M.D. 07/11/2017 11:32 AM Dictated Date/Time: 07/11/2017 11:30 AM
[2017-07-11] MEDS ORDERED: PIPERACILL/TAZOBAC IV 3.375 GM in DEXTROSE 5% 100ML IV SCH (14:00)
--- NOTE | 2017-07-11 15:45 | Cardiology Progress Note ---
Cardiology Progress Note Date of Service Jul 11, 2017. Cardiology Progress Note Repeat bedside echocardiogram performed. The pericardial effusion is unchanged. No evidence of tamponade. Inferior vena cava diameter is small with spontaneous inspiratory collapse. No significant amount of fluid appears to be adjacent to the right atrium, although this looks perhaps a subtle degree better compared to last evening, and otherwise no significant fluid collection is adjacent to the posterior/inferior left ventricular hughes. A large left- sided pleural effusion is once again appreciated. Lower extremity venous duplex reveals deep venous thrombus within the left posterior tibial vein. He of course has noted right-sided pulmonary embolism. This becomes a difficult management situation because reinitiating anticoagulation places him at risk for possible hemorrhagic transformation of his pericardial effusion, but if he stabilizes from his DVT to his lungs, it could be catastrophic. Vascular surgery has been consulted for consideration toward inferior vena cava filter. I discussed findings with Dr Lacey of critical care, who is going to reassess the size of his pleural effusion and debate chest tube placement. If no chest tube necessary now, would cautiously resume anticoagulation. Would use UF heparin, low dose protocol, without bolus to minimize bleeding and has benefit that it can be stopped acutely if a bleeding problem develops, unlike lovenox or the patient's prior Xarelto.
[2017-07-11] MEDS ORDERED: LIDOCAINE HCL 1% 20 ML VIAL ONE (16:04)
[2017-07-11] MEDS ORDERED: NURSING VERBAL MED ORDER ONE (17:00)
--- NOTE | 2017-07-11 17:06 | DIAGNOSTIC IMAGING REPORT ---
CHEST ONE VIEW PORTABLE CLINICAL HISTORY: chest tube insertion COMPARISON STUDY: July 11, 2017 FINDINGS: The heart remains enlarged. There is been interval insertion of a left pleural pigtail catheter. There is a tiny 3 mm left apical pneumothorax. There is interval decrease in the size of the left pleural effusion with improved aeration left lower lobe. There is a persistent right pleural effusion with right basilar atelectasis/consolidation. There is mild pulmonary vascular congestion.[ IMPRESSION: Interval insertion of a left-sided pigtail pleural catheter. Interval decrease in the size of the left pleural effusion with improved aeration of the left lower lobe. Tiny left-sided pneumothorax Electronically signed by: Beltran Ohara M.D. 07/11/2017 5:04 PM Dictated Date/Time: 07/11/2017 5:03 PM
--- NOTE | 2017-07-11 18:47 | ECHOCARDIOGRAM REPORT ---
*NOTICE TO RECEIVING REPUBLICAN AGENCY This information is strictly Confidential and protected under [place] law. [place] law prohibits you from making any further disclosure of this information unless further disclosure is expressly permitted by the written consent of the person to whom it pertains or is authorized by law. A general authorization for the release of medical or other information is not sufficient for this purpose. Hospital accepts no responsibility if the information is made available to any other person, INCLUDING THE PATIENT. Interpretation Summary * Name: NATE VERMA Study Date: 07/11/2017 03:28 PM BP: 117/66 mmHg * Patient Location: 09 HR: 81 * : 1955 (M/d/yyyy) Gender: Male Height: 71 in * Age: 61 yrs Ethnicity: [place] Weight: 233 lb * Ordering Physician: Steve Mata DO, [facility] * Performed By: Jackie Davis RCS * * Reason For Study: F/U PERICARDIAL EFFUSION * BSA: 2.3 m2 * -- Conclusions -- * A focused study was performed to reassess the pericardial effusion. Procedure Details * Limited views were obtained. Pericardium/Pleural * There is a large circumferential pericardial effusion. Tamponade is absent. Compared to the prior study dated 07/10/17, there has been a subtle improvement in the amount of pericardial fluid adjacent to the right atrium , with no apparent right atrial diastolic collapse. The most significant amount of fluid is adjacent to the inferior and posterior LV hughes. * Large left pleural effusion. Great Vessels * Normal inferior vena cava size and collapsability with sniff indicates a normal right atrial pressure of 3 mmHg
[2017-07-11] MEDS: COLCHICINE 0.6 MG TAB PO SCH (19:31)
[2017-07-11] MEDS: ACETAMINOPHEN 325 MG TAB PO PRN (19:31)
--- NOTE | 2017-07-11 20:12 | Pulmonology Progress Note ---
Pulmonary Progress Note Date of Service Jul 11, 2017. Attending Dr. Lacey Subjective The patient continued to be apathic about his illness, however he did not have any shortness of breath to report to me, he does have occasional cough with no sputum production, no events overnight occurred, his O2 saturation has been maintained on nasal cannula only. Objective Physical exam on 07/11/2017, the patient had no fever, vital signs are stable, lungs with distant breath sounds bilaterally, anasarca. Chest x-ray revealed bilateral pleural effusion. Repeat echocardiogram revealed same size complex pericardial effusion without compromise of the left ventricle. And no collapsibility of the right ventricle. Assessment & Plan #1 bilateral pleural effusion, exudative, etiology appeared to be inflammatory rather than infectious. #2 pericardial effusion, with hemorrhagic features, unclear etiology. #3 I am suspicious about serositis and connective tissue disease in this patient. I will obtain workup in that regard. #4 anasarca related to diastolic heart failure. #5 PE with DVT has been maintained on Xarelto. #6 Parkinson's with dementia. Plan: #1 due to the enlarged pleural effusion on the left, I have placed chest tube catheter on the left side and draining 1200 mL of blood-tinged fluid. #2 fluid were not sent for analysis at this time as it is known to be exudative from previous. #[address] Mata input from cardiology. Echocardiogram was done today and showed similar features of complex pericardial effusion. Planned for pericardiocentesis on Thursday. #4 start heparin drip without bolus. #5 keep the chest tube to suction. #6 discussed with the staff on rounds. Discussed with Dr. Mata. Thank you, will follow. Data Medications: Current Inpatient Medications Medications (Trade) Dose Ordered Sig/Aj Route Start Time Stop Time Status Last Admin Dose Admin Ioversol (Optiray 320) 100 ml UD PRN IV 07/10/17 13:45 07/14/17 13:44 Acetaminophen (Tylenol Tab) 650 mg Q4H PRN PO 07/10/17 15:30 08/09/17 15:29 07/11/17 19:31 650 MG Al Hydrox/Mg Hydrox/Simethicone (Maalox Max Susp) 15 ml Q4H PRN PO 07/10/17 15:30 08/09/17 15:29 Magnesium Hydroxide (Milk Of Magnesia Susp) 30 ml Q12H PRN PO 07/10/17 15:30 08/09/17 15:29 Nitroglycerin (Nitrostat Tab) 0.4 mg UD PRN SL 07/10/17 15:30 08/09/17 15:29 Levothyroxine Sodium (Synthroid Tab) 100 mcg DAILYBB PO 07/11/17 09:00 08/10/17 08:59 07/11/17 08:51 100 MCG Oxcarbazepine (Trileptal Tab) 150 mg TID PO 07/11/17 09:00 08/10/17 08:59 07/11/17 19:31 150 MG Phenytoin Sodium (Dilantin Er Cap) 200 mg TID PO 07/11/17 09:00 08/10/17 08:59 07/11/17 19:31 200 MG Senna (Senokot Tab) 8.6 mg BID PO 07/11/17 09:00 08/10/17 08:59 07/11/17 19:31 8.6 MG Tamsulosin HCl (Flomax Cap) 0.4 mg DAILY PO 07/11/17 09:00 08/10/17 08:59 Future Hold 07/11/17 08:52 0.4 MG Valproic Acid (Depakene Syrup) 1,500 mg QAM PO 07/11/17 09:00 08/10/17 08:59 07/11/17 08:51 1,500 MG Valproic Acid (Depakene Syrup) 1,750 mg HS PO 07/11/17 21:00 08/10/17 20:59 07/11/17 19:31 1,750 MG Albumin Human (Albumin 25%) 12.5 gm BID IV 07/11/17 09:00 07/12/17 21:01 07/11/17 19:30 12.5 GM Colchicine (Colchicine Tab) 0.6 mg BID PO 07/11/17 21:00 08/10/17 20:59 07/11/17 19:31 0.6 MG Methylprednisolone Sodium Succinate 40 mg/Syringe 0.64 ml @ 1.5 mls/min DAILY IV 07/12/17 09:00 08/11/17 08:59 Pantoprazole Sodium 40 mg/ Syringe 10 ml @ 5 mls/min DAILY@11 IV 07/11/17 11:00 08/10/17 10:59 07/11/17 10:22 5 MLS/MIN Enoxaparin Sodium (Lovenox Inj) 40 mg QAM SQ 07/12/17 09:00 08/11/17 08:59 Enteral Nutritional Formula (Boost Plus Vanilla) 1 can DAILY PO 07/12/17 09:00 08/11/17 08:59 I & O: 24-Hour Column 07/12/17 07:59 Intake Total 240 ml Output Total 75 ml Balance 165 ml Vital Signs: Date Time Temp Pulse Resp B/P (MAP) Pulse Ox O2 Delivery O2 Flow Rate FiO2 07/11/17 19:03 36.5 81 26 118/58 (78) 93 Nasal Cannula 3.0 07/11/17 16:52 36.8 80 18 115/64 (81) 98 Nasal Cannula 3.0 07/11/17 16:00 100 Nasal Cannula 3.0 07/11/17 12:40 36.5 76 18 117/66 (83) 07/11/17 12:00 100 Nasal Cannula 2.0 07/11/17 10:28 81 18 114/71 (85) 96 Nasal Cannula 3.0 07/11/17 08:00 100 Nasal Cannula 2.0 07/11/17 07:39 36.4 80 16 117/58 (77) 07/11/17 04:00 Nasal Cannula 2.0 07/11/17 03:48 36.4 75 16 107/62 (77) 100 Nasal Cannula 3.0 07/11/17 00:01 Nasal Cannula 2.0 07/10/17 23:48 36.4 81 23 122/64 (83) 98 Nasal Cannula 3.0 07/10/17 21:07 36.7 87 20 131/53 (79) 100 Nasal Cannula 2.0 07/10/17 20:50 36.7 86 18 115/71 (86) 99 Nasal Cannula 2.0 Laboratory Results: Last 24 Hours Test 07/10/17 21:45 07/11/17 03:22 07/11/17 04:05 07/11/17 10:02 Troponin I 0.324 ng/ml 0.285 ng/ml 0.199 ng/ml White Blood Count 4.93 K/uL Red Blood Count 2.72 M/uL Hemoglobin 8.3 g/dL Hematocrit 26.9 % Mean Corpuscular Volume 98.9 fL Mean Corpuscular Hemoglobin 30.5 pg Mean Corpuscular Hemoglobin Concent 30.9 g/dl RDW Standard Deviation 59.0 fL RDW Coefficient of Variation 16.4 % Platelet Count 109 K/uL Mean Platelet Volume 8.7 fL Sodium Level 138 mmol/L Potassium Level 4.3 mmol/L Chloride Level 106 mmol/L Carbon Dioxide Level 26 mmol/L Anion Gap 6.0 mmol/L Blood Urea Nitrogen 18 mg/dl Creatinine 0.94 mg/dl Est Creatinine Clear Calc Drug Dose 99.8 ml/min Estimated GFR () 99.6 Estimated GFR (Non- 85.9 BUN/Creatinine Ratio 19.3 Random Glucose 93 mg/dl Calcium Level 8.4 mg/dl Magnesium Level 2.2 mg/dl Total Bilirubin 0.5 mg/dl Direct Bilirubin 0.2 mg/dl Aspartate Amino Transf (AST/SGOT) 50 U/L Alanine Aminotransferase (ALT/SGPT) 57 U/L Alkaline Phosphatase 145 U/L Total Protein 6.7 gm/dl Albumin 2.1 gm/dl Globulin 4.6 gm/dl Albumin/Globulin Ratio 0.5 Triglycerides Level 183 mg/dl Cholesterol Level 89 mg/dl HDL Cholesterol 20 mg/dl LDL Cholesterol, Calculated 32 mg/dl VLDL Cholesterol, Calculated 37 mg/dl Cholesterol/HDL Ratio 4.5 Amylase Level 50 U/L Lipase 392 U/L Urine Color DK YELLOW Urine Appearance CLEAR Urine pH 5.5 Urine Specific Zamora > 1.045 Urine Protein TRACE Urine Glucose (UA) NEG Urine Ketones NEG Urine Occult Blood NEG Urine Nitrite NEG Urine Bilirubin NEG Urine Urobilinogen NEG Urine Leukocyte Esterase NEG Urine WBC (Auto) 1-5 /hpf Urine RBC (Auto) 0-4 /hpf Urine Hyaline Casts (Auto) 1-5 /lpf Urine Epithelial Cells (Auto) 10-20 /lpf Urine Bacteria (Auto) NEG Lactate Dehydrogenase 246 U/L
[2017-07-11] MEDS ORDERED: HEPARIN 25,000 UNIT/500ML D5W 500 ML IV SCH (20:15)
--- NOTE | 2017-07-11 20:28 | Procedure Note ---
Procedure Note Procedure Date Jul 11, 2017. Procedure Description Procedure Name: Chest tube placement. Procedure time out: side/site verified, patient ID confirmed, correct procedure Consent obtained: verbal Performed by: attending Indications: diagnostic, therapeutic Contraindications: none Description: The patient was place in the left lateral position. Ultrasound was done at the bedside. Noted large pleural effusion on the left side. Under strict sterile field, the skin was prepped with chlorhexidine, using strict sterile field, the skin was injected with a total of 10 mL 4% lidocaine and the soft tissue and the pleural injected with 10 mL of 1% lidocaine as well. Scalpel was not used and a dilator inserted into the left pleural cavity. Using Seldinger technique , the pigtail catheter 8 Slov[place] was inserted into the left pleural cavity, secured with 1 suture, and connected to a Pleur-evac. 1200 mL of total fluid has been drained so far. Tolerated the procedure very well no immediate complication. Chest x-ray was reviewed personally and showed the pigtail in the left pleural cavity with reduced pleural fluid. No immediate complication. Tolerated well.. Complications: none Patient tolerated procedure: well
[2017-07-11] MEDS: HEPARIN 25,000 UNIT/500ML D5W 500 ML IV PRN (21:10)
[2017-07-12] VITALS (14 sets, daily range): BP systolic 105–150; BP diastolic 62–76; PULSE 18–83; TEMP 36.3–36.8; O2SAT 93–100
[2017-07-12 03:50] LABS: HEMATOCRIT 28.3 % (42-52); MEAN CELL VOLUME 97.6 fL (80-100); MEAN CORPUSCULAR HGB CONC 31.8 g/dl (32-36); MEAN PLATELET VOLUME 9.1 fL (7.4-10.4); PLATELET COUNT 139 K/uL (130-400); RED CELL DISTRIBUTION WIDTH SD 56.9 fL (36.4-46.3); WHITE BLOOD COUNT 5.48 K/uL (4.8-10.8)
[2017-07-12 04:11] LABS: ALBUMIN 2.3 gm/dl (3.4-5.0); CALCIUM 8.4 mg/dl (8.5-10.1); CREATININE 0.84 mg/dl (0.60-1.40); POTASSIUM 4.2 mmol/L (3.5-5.1)
[2017-07-12 04:28] LABS: TOTAL PROTEIN 6.9 gm/dl (6.4-8.2)
[2017-07-12 04:39] LABS: PTT PATIENT 103.2 SECONDS (21.0-31.0)
[2017-07-12] MEDS: HEPARIN 25,000 UNIT/500ML D5W 500 ML IV PRN ×2 (05:22→16:15)
[2017-07-12] MEDS: LEVOTHYROXINE 100 MCG TAB PO SCH (05:36)
[2017-07-12] MEDS: SENNA 8.6 MG TAB PO SCH ×2 (07:35→19:23)
[2017-07-12] MEDS: ALBUMIN HUMAN 25% 12.5 GM/50 ML VIAL IV SCH ×2 (07:35→20:58)
[2017-07-12] MEDS: OXCARBAZEPINE 150 MG TAB PO SCH ×4 (07:35→19:23)
[2017-07-12] MEDS: VALPROIC ACID SYRUP 250 MG/5 ML PO SCH ×2 (07:36→19:23)
[2017-07-12] MEDS: PHENYTOIN SODIUM ER 100 MG CAP PO SCH ×4 (07:36→19:23)
[2017-07-12] MEDS: COLCHICINE 0.6 MG TAB PO SCH ×2 (07:36→19:23)
[2017-07-12] MEDS: BOOST PLUS VANILLA PO SCH (08:40)
[2017-07-12] MEDS: METHYLPREDNISOLONE IV 40 MG in SYRINGE 0 ML IV SCH (08:40)
[2017-07-12] MEDS ORDERED: ENOXAPARIN 40 MG/0.4 ML SYR SQ SCH (09:00)
--- NOTE | 2017-07-12 10:25 | Cardiology Follow-Up ---
Subjective General Date of Service: Jul 12, 2017. Chief Complaint: follow up pericardial effusion Pt evaluation today including: conversation w/ patient, physical exam History of Present Illness The patient is a 61 year old male seen in follow up. Patient describes vague chest discomfort, but as previously noted, he is somewhat of a poor historian. He is certainly in no acute distress. Left-sided Chest tube was placed afternoon of 07/11/17, with noted blood-tinged fluid output of just over 1.2 L thus far. Chest x-ray performed post chest tube placement on 07/11/17 revealed improvement and near resolution of the left- sided pleural effusion. An echocardiogram performed just prior to chest tube placement revealed stable heart circumferential pericardial effusion without temp not. EKG this morning 07/12/17 revealed normal sinus rhythm at 80 bpm, with incomplete right bundle branch block which is a chronic finding for the patient. Diffuse nonspecific T wave flattening is present. No findings to suggest pericarditis by electro-cardiographic criteria. Compared to prior tracing, the proceeded premature atrial contractions have resolved. Allergies Coded Allergies: No Known Allergies (Verified , 07/10/17) Social History Smoking Status: Never Smoker Hx Tobacco Use In Past Year?: No Hx Alcohol Use - Type And Amou: No Hx Substance Use - Type And Am: No Problem List Medical Problems: (1) Aggressive behavior Status: Acute (2) Altered mental status Status: Acute (3) Fever Status: Acute (4) Hypoxia Status: Acute (5) Mood disorder Status: Acute (6) Pulmonary embolism Status: Acute (7) Right lower lobe pneumonia Status: Acute (8) Status epilepticus Status: Acute Social History Problems: (1) Status post cholecystectomy Status: Acute Physical Exam Vital Signs Last Vital Signs Documentation Date Time Temp Pulse Resp B/P (MAP) Pulse Ox O2 Delivery O2 Flow Rate FiO2 07/12/17 08:00 98 Room Air 07/12/17 07:34 36.8 80 21 117/68 (84) 3.0 Physical Exam Constitutional: Level of Distress: acutely ill, chronically ill Head: normocephalic Neck: supple, pertinent finding (Neck veins are flat with head of bed at 30) Lungs: Auscultation: pertinent finding (Decreased breath sounds bilaterally at the bases) Cardiovascular: Heart Auscultation: pertinent finding (Regular rhythm, no murmurs, no rubs) Extremities: pertinent finding (chronic venous stasis changes, lower extremity edema is resolved/minimum of present) Neurologic: Gait & Station: pertinent finding (Follows commands this a.m., and is more conversant, 07/11/17) Assessment and Plan Assessment and Plan Impression: 61-year-old male 1. Large circumferential pericardial effusion, majority of the fluid is adjacent to the right atrium at the base of the heart, adjacent to the right ventricular free wall, and adjacent to the inferior wall on the 2 chamber view. -No evidence of simone Not physiology on echo and the patient's blood pressure has remained stable. There is evidence of potential pre-tamponade on type physiology with impaired right-sided chamber filling. 2. Bilateral large pleural effusions, status post right thoracentesis 07/10/17, status post left chest tube 07/11/17 3. History of chronic lymphedema 4. Cognitive impairment, -mental status improved, 07/11/79 5. Segmental pulmonary emboli seen within the right middle lobe and lingular branches on CT scan 07/10/17. Left posterior tibial vein DVT lower extremity venous duplex this admission 07/11 History of chronic anticoagulation with Xarelto for chronic DVT. He had recently been off of anticoagulation for several days during the perioperative state earlier this month. Recommendations: Patient does have elevated ESR and CRP. Question if pleural effusions which are exudative and the pericardial effusion is due to a serositis. Patient is not a candidate for nonsteroidal anti-inflammatory therapy, and as noted, I think he has a high-risk of bleeding with treatment utilizing high-dose aspirin. He is therefore on IV methylprednisolone at present and colchicine. He is to receive a fifth dose of albumin today and then the order will . His anticoagulation is a very challenging clinical issue. On one hand, anticoagulation may provoke hemorrhagic transformation of his pericardial effusion, on the other hand, he already has a pulmonary embolism noted on CT, and he has a DVT. Inferior vena cava of course is one potential way to address this, but long-term, it does appear that he would be best served by ongoing anticoagulation as he is sedentary, and inferior vena caval would not help treat the pre-existing pulmonary embolism. At this time he is on unfractionated heparin infusion with clinical caution. The chest tube is in place. He is being monitored closely. I recommend holding his heparin infusion tomorrow 07/13/17, and repeating transthoracic echocardiogram. Based on clinical progress and echocardiogram results, further consideration will be made toward pericardiocentesis and pericardial window. Given the patient's overall frailty, recommend minimizing his invasive procedures as much as possible, the pericardial effusion does not improve with conservative therapy invasive measures may be necessary. Dr Peralta will assume rounding on 07/13. I called and updated patient's brother and POA, Bubba, be telephone on the evening of 07/11/17. Previous conversation with him had been disconnected, however was able to have a long discussion with him by telephone after repeated attempts last evening. Laboratory Results Last 24 Hours Test 07/12/17 03:30 White Blood Count 5.48 K/uL Red Blood Count 2.90 M/uL Hemoglobin 9.0 g/dL Hematocrit 28.3 % Mean Corpuscular Volume 97.6 fL Mean Corpuscular Hemoglobin 31.0 pg Mean Corpuscular Hemoglobin Concent 31.8 g/dl RDW Standard Deviation 56.9 fL RDW Coefficient of Variation 16.0 % Platelet Count 139 K/uL Mean Platelet Volume 9.1 fL Activated Partial Thromboplast Time 103.2 SECONDS Partial Thromboplastin Ratio 4.0 Sodium Level 138 mmol/L Potassium Level 4.2 mmol/L Chloride Level 104 mmol/L Carbon Dioxide Level 27 mmol/L Anion Gap 7.0 mmol/L Blood Urea Nitrogen 15 mg/dl Creatinine 0.84 mg/dl Est Creatinine Clear Calc Drug Dose 111.7 ml/min Estimated GFR () 108.0 Estimated GFR (Non- 93.2 BUN/Creatinine Ratio 17.7 Random Glucose 108 mg/dl Calcium Level 8.4 mg/dl Magnesium Level 2.3 mg/dl Total Bilirubin 0.5 mg/dl Direct Bilirubin 0.2 mg/dl Aspartate Amino Transf (AST/SGOT) 56 U/L Alanine Aminotransferase (ALT/SGPT) 55 U/L Alkaline Phosphatase 145 U/L Troponin I 0.151 ng/ml Total Protein 6.9 gm/dl Albumin 2.3 gm/dl Globulin 4.6 gm/dl Albumin/Globulin Ratio 0.5 Amylase Level 55 U/L Lipase 404 U/L
[2017-07-12] MEDS: PANTOprazole INJ 40 MG in SYRINGE 0 ML IV SCH (11:08)
[2017-07-12 12:03] LABS: PTT PATIENT 91.4 SECONDS (21.0-31.0)
--- NOTE | 2017-07-12 12:32 | Pulmonology Progress Note ---
Pulmonary Progress Note Date of Service Jul 12, 2017. Attending Dr. Lacey Subjective The patient denies any shortness of breath, no chest pain, the patient had bilateral pleural effusion with right-sided been tapped and appeared to be exudative, and left sided with chest tube pigtail catheter. The patient still have significant pericardial effusion without tamponade physiology. Repeated ago did not show any progression. Objective Physical exam on 07/11/2017, the patient had no fever, vital signs are stable, lungs with distant breath sounds bilaterally, anasarca. Chest x-ray revealed bilateral pleural effusion. Repeat echocardiogram revealed same size complex pericardial effusion without compromise of the left ventricle. And no collapsibility of the right ventricle. Physical exam on 07/12/2017 showed no fever and stable vital signs, S1-S2 regular rate and rhythm and no pericardial rub, distant breath sounds bilaterally, abdomen is benign, anasarca in the lower torso. Assessment & Plan #1 bilateral pleural effusion, exudative, etiology appeared to be inflammatory rather than infectious. #2 pericardial effusion, with hemorrhagic features, unclear etiology. #3 I am suspicious about serositis and connective tissue disease in this patient. I will obtain workup in that regard. #4 anasarca related to diastolic heart failure. #5 PE with DVT has been maintained on Xarelto. #6 Parkinson's with dementia. Plan: #1 chest catheter drained approximately 250 mL since the morning. We will keep it in place. I will change it to off and on suction. #2 fluid were not sent for analysis at this time as it is known to be exudative from previous. #[address] Mata input from cardiology. Echocardiogram was done yesterday and showed similar features of complex pericardial effusion. Planned for pericardiocentesis on Thursday. #4 start heparin drip without bolus. Done. #5 obtain serology for connective tissue disease.. #6 discussed with the staff on rounds. Discussed with Dr. Mata. Thank you, will follow. Data Medications: Current Inpatient Medications Medications (Trade) Dose Ordered Sig/Aj Route Start Time Stop Time Status Last Admin Dose Admin Ioversol (Optiray 320) 100 ml UD PRN IV 07/10/17 13:45 07/14/17 13:44 Acetaminophen (Tylenol Tab) 650 mg Q4H PRN PO 07/10/17 15:30 08/09/17 15:29 07/11/17 19:31 650 MG Al Hydrox/Mg Hydrox/Simethicone (Maalox Max Susp) 15 ml Q4H PRN PO 07/10/17 15:30 08/09/17 15:29 Magnesium Hydroxide (Milk Of Magnesia Susp) 30 ml Q12H PRN PO 07/10/17 15:30 08/09/17 15:29 Nitroglycerin (Nitrostat Tab) 0.4 mg UD PRN SL 07/10/17 15:30 08/09/17 15:29 Levothyroxine Sodium (Synthroid Tab) 100 mcg DAILYBB PO 07/11/17 09:00 08/10/17 08:59 07/12/17 05:36 100 MCG Oxcarbazepine (Trileptal Tab) 150 mg TID PO 07/11/17 09:00 08/10/17 08:59 07/12/17 07:35 150 MG Phenytoin Sodium (Dilantin Er Cap) 200 mg TID PO 07/11/17 09:00 08/10/17 08:59 07/12/17 07:36 200 MG Senna (Senokot Tab) 8.6 mg BID PO 07/11/17 09:00 08/10/17 08:59 07/12/17 07:35 8.6 MG Tamsulosin HCl (Flomax Cap) 0.4 mg DAILY PO 07/11/17 09:00 08/10/17 08:59 Future Hold 07/11/17 08:52 0.4 MG Valproic Acid (Depakene Syrup) 1,500 mg QAM PO 07/11/17 09:00 08/10/17 08:59 07/12/17 07:36 1,500 MG Valproic Acid (Depakene Syrup) 1,750 mg HS PO 07/11/17 21:00 08/10/17 20:59 07/11/17 19:31 1,750 MG Albumin Human (Albumin 25%) 12.5 gm BID IV 07/11/17 09:00 07/12/17 21:01 07/12/17 07:35 12.5 GM Colchicine (Colchicine Tab) 0.6 mg BID PO 07/11/17 21:00 08/10/17 20:59 07/12/17 07:36 0.6 MG Methylprednisolone Sodium Succinate 40 mg/Syringe 0.64 ml @ 1.5 mls/min DAILY IV 07/12/17 09:00 08/11/17 08:59 07/12/17 08:40 1.5 MLS/MIN Pantoprazole Sodium 40 mg/ Syringe 10 ml @ 5 mls/min DAILY@11 IV 07/11/17 11:00 08/10/17 10:59 07/12/17 11:08 5 MLS/MIN Enteral Nutritional Formula (Boost Plus Vanilla) 1 can DAILY PO 07/12/17 09:00 08/11/17 08:59 07/12/17 08:40 1 CAN Heparin Sodium/ Dextrose 500 ml @ 24 mls/hr [id number] PRN IV 07/11/17 21:00 08/10/17 20:59 07/12/17 05:22 28 MLS/HR Vital Signs: Date Time Temp Pulse Resp B/P (MAP) Pulse Ox O2 Delivery O2 Flow Rate FiO2 07/12/17 12:00 98 Room Air 07/12/17 11:31 36.3 82 18 117/65 (82) 98 Room Air 07/12/17 08:00 98 Room Air 07/12/17 07:34 36.8 80 21 117/68 (84) 100 3.0 07/12/17 04:25 36.4 82 20 122/65 (84) 98 Nasal Cannula 3.0 07/12/17 04:00 98 Nasal Cannula 3.0 07/12/17 00:00 98 Nasal Cannula 3.0 07/11/17 23:45 36.8 77 20 112/63 (79) 98 Nasal Cannula 3.0 07/11/17 20:00 94 Nasal Cannula 3.0 07/11/17 19:03 36.5 81 26 118/58 (78) 93 Nasal Cannula 3.0 07/11/17 16:52 36.8 80 18 115/64 (81) 98 Nasal Cannula 3.0 07/11/17 16:00 100 Nasal Cannula 3.0 07/11/17 12:40 36.5 76 18 117/66 (83) Laboratory Results: Last 24 Hours Test 07/12/17 03:30 07/12/17 11:24 White Blood Count 5.48 K/uL Red Blood Count 2.90 M/uL Hemoglobin 9.0 g/dL Hematocrit 28.3 % Mean Corpuscular Volume 97.6 fL Mean Corpuscular Hemoglobin 31.0 pg Mean Corpuscular Hemoglobin Concent 31.8 g/dl RDW Standard Deviation 56.9 fL RDW Coefficient of Variation 16.0 % Platelet Count 139 K/uL Mean Platelet Volume 9.1 fL Activated Partial Thromboplast Time 103.2 SECONDS 91.4 SECONDS Partial Thromboplastin Ratio 4.0 3.5 Sodium Level 138 mmol/L Potassium Level 4.2 mmol/L Chloride Level 104 mmol/L Carbon Dioxide Level 27 mmol/L Anion Gap 7.0 mmol/L Blood Urea Nitrogen 15 mg/dl Creatinine 0.84 mg/dl Est Creatinine Clear Calc Drug Dose 111.7 ml/min Estimated GFR () 108.0 Estimated GFR (Non- 93.2 BUN/Creatinine Ratio 17.7 Random Glucose 108 mg/dl Calcium Level 8.4 mg/dl Magnesium Level 2.3 mg/dl Total Bilirubin 0.5 mg/dl Direct Bilirubin 0.2 mg/dl Aspartate Amino Transf (AST/SGOT) 56 U/L Alanine Aminotransferase (ALT/SGPT) 55 U/L Alkaline Phosphatase 145 U/L Troponin I 0.151 ng/ml Total Protein 6.9 gm/dl Albumin 2.3 gm/dl Globulin 4.6 gm/dl Albumin/Globulin Ratio 0.5 Amylase Level 55 U/L Lipase 404 U/L
--- NOTE | 2017-07-12 17:55 | Progress Note ---
Internal Med Progress Note Date of Service: Jul 12, 2017. Provider Documentation: SUBJECTIVE: Denies pain or shortness of breath. left chest tube placed yesterday night. on heparin IV drip OBJECTIVE: General Appearance: on nasal cannula, no distress, verbal, awake and alert Head: normocephalic, atraumatic Eyes: normal inspection, sclerae normal ENT: hearing grossly normal, pharynx normal Neck: supple, no JVD, trachea midline Respiratory/Chest: chest non-tender, lungs clear, normal breath sounds, no respiratory distress, no accessory muscle use Cardiovascular: regular rate, rhythm, no murmur, normal peripheral pulses Abdomen/GI: non tender, soft, + bowel sounds Back: left posterior back with chest tube Extremities/Musculoskelatal: no calf tenderness, lower extremity edema with discoloration of bruising Neurologic/Psych: no motor/sensory deficits, alert, oriented x 3, Flattened affect ASSESSMENT & PLAN: HPI 61-year-old M with history of seizure disorder, Parkinson's, schizoaffective disorder, HTN, CKD III (L kidney absent), hereditary lymphedema, diastolic heart failure, recently was diagnosed with PE and was started on Xarelto, recently underwent abdominal hernia repair with cholecystectomy over 3 weeks ago , the patient was discharged to the custodial where he was noted for the past 24 hours to have persistent cough, with chest x-ray which showed bilateral volume loss and started empirically on Levaquin and transferred to the ER, was given Zosyn empirically, CAT scan of the chest and chest x-ray were reviewed which showed bilateral pleural effusion and pericardial effusion and pulmonary embolism Imaging / Plan CTA 07/10/17: Segmental pulmonary emboli are seen within the right middle lobe and lingular branches / moderate to large volume of pericardial fluid / Moderate to large pleural effusions Ultrasound study 07/11/17: There is deep venous thrombus within the left posterior tibial vein. There is no evidence for acute deep venous thrombus within the right lower extremity. Pericardial Effusion -Echocardiogram 07/10/17 There is a large circumferential pericardial effusion. The most significant amount of fluid collection is adjacent to the right atrium with maximum dimension of 3.8 cm. Tamponade physiology is absent, however there is some degree of diastolic collapse of the right atrium, and on 2D appearance there is evidence of early impairment of right ventricular filling which can be early signs of developing tamponade. The appearance of the pericardial effusion is organized with stranding, and echogenic solid components noted adjacent to the apical portions of the heart and right ventricular free wall. Due to the organized appearance, the effusion does not appear to be amenable to pericardiocentesis.- -patient has received albumin infusion at night time 07/10/17 from cardiology service to try reduce the size of pericardial effusion Echocardiogram 07/11/17 -There is a large circumferential pericardial effusion. Tamponade is absent. Compared to the prior study dated 07/10/17, there has been a subtle improvement in the amount of pericardial fluid adjacent to the right atrium , with no apparent right atrial diastolic collapse. The most significant amount of fluid is adjacent to the inferior and posterior LV hughes - Xarelto has been held for now as cardiology service recommended this to avoid hemorrhagic component complications - heparin IV drip started by cardiology instead for anticoagulation - upon further evaluation, cardiology service planning for possible pericardiocentesis on 07/13/17 Elevated troponins - likely due to pericardial effusion, troponin downtrending, no chest pain Right sided pleural effusion -Thoracentesis on 07/10/17: due to the enlarged pleural effusion on the right side with 1 L of blood-tinged fluid was removed -pleural fluid with elevated RBC 54,000 and WBC of 1682, pleural fluid LDH 210, pleural protein 3.9; total serum protein prior to thoracentesis 7.3; serum LDH 246 -Have discussed with Pulmonary/ICU service Dr. Lacey that pleural effusion is exudative but not likely from infectious causes -blood cultures/thoracentesis cultures no growth to date -hold antibiotics Left Pleural effusion -CXR 07/11/17 AM: no pneumothorax. Interstitial thickening suggests pulmonary edema. Bibasilar opacities persist. Cardiomediastinal silhouette is stable. Small right pleural effusion is noted. A small to moderate left pleural effusion is noted. -left chest tube placed on 07/11/17 seizure disorder, Parkinson's, schizoaffective disorder -continue home medications Valproic acid, Trilepta, Phenytoin Thyroid -continue Synthroid DVT ppx: IV heparin Vital Signs: Date Time Temp Pulse Resp B/P (MAP) Pulse Ox O2 Delivery O2 Flow Rate FiO2 07/12/17 16:00 100 Room Air 07/12/17 15:18 36.7 83 18 105/68 (80) 95 Room Air 07/12/17 12:00 98 Room Air 07/12/17 11:31 36.3 82 18 117/65 (82) 98 Room Air 07/12/17 08:00 98 Room Air 07/12/17 07:34 36.8 80 21 117/68 (84) 100 3.0 07/12/17 04:25 36.4 82 20 122/65 (84) 98 Nasal Cannula 3.0 07/12/17 04:00 98 Nasal Cannula 3.0 07/12/17 00:00 98 Nasal Cannula 3.0 07/11/17 23:45 36.8 77 20 112/63 (79) 98 Nasal Cannula 3.0 07/11/17 20:00 94 Nasal Cannula 3.0 07/11/17 19:03 36.5 81 26 118/58 (78) 93 Nasal Cannula 3.0 Lab Results: Results Past 24 Hours Test 07/12/17 03:30 07/12/17 11:24 07/12/17 17:55 Range/Units White Blood Count 5.48 4.8-10.8 K/uL Red Blood Count 2.90 4.7-6.1 M/uL Hemoglobin 9.0 14.0-18.0 g/dL Hematocrit 28.3 42-52 % Mean Corpuscular Volume 97.6 80-100 fL Mean Corpuscular Hemoglobin 31.0 25-34 pg Mean Corpuscular Hemoglobin Concent 31.8 32-36 g/dl RDW Standard Deviation 56.9 36.4-46.3 fL RDW Coefficient of Variation 16.0 11.5-14.5 % Platelet Count 139 130-400 K/uL Mean Platelet Volume 9.1 7.4-10.4 fL Activated Partial Thromboplast Time 103.2 91.4 68.2 21.0-31.0 SECONDS Partial Thromboplastin Ratio 4.0 3.5 2.6 Sodium Level 138 136-145 mmol/L Potassium Level 4.2 3.5-5.1 mmol/L Chloride Level 104 98-107 mmol/L Carbon Dioxide Level 27 21-32 mmol/L Anion Gap 7.0 3-11 mmol/L Blood Urea Nitrogen 15 7-18 mg/dl Creatinine 0.84 0.60-1.40 mg/dl Est Creatinine Clear Calc Drug Dose 111.7 ml/min Estimated GFR () 108.0 Estimated GFR (Non- 93.2 BUN/Creatinine Ratio 17.7 10-20 Random Glucose 108 70-99 mg/dl Calcium Level 8.4 8.5-10.1 mg/dl Magnesium Level 2.3 1.8-2.4 mg/dl Total Bilirubin 0.5 0.2-1 mg/dl Direct Bilirubin 0.2 0-0.2 mg/dl Aspartate Amino Transf (AST/SGOT) 56 15-37 U/L Alanine Aminotransferase (ALT/SGPT) 55 12-78 U/L Alkaline Phosphatase 145 45-117 U/L Troponin I 0.151 0-0.045 ng/ml Total Protein 6.9 6.4-8.2 gm/dl Albumin 2.3 3.4-5.0 gm/dl Globulin 4.6 2.5-4.0 gm/dl Albumin/Globulin Ratio 0.5 0.9-2 Amylase Level 55 25-115 U/L Lipase 404 73-393 U/L
[2017-07-12 18:25] LABS: PTT PATIENT 68.2 SECONDS (21.0-31.0)
[2017-07-13] VITALS (9 sets, daily range): BP systolic 104–119; BP diastolic 59–69; PULSE 75–79; TEMP 36.4–36.8; O2SAT 95–98
[2017-07-13] MEDS: LEVOTHYROXINE 100 MCG TAB PO SCH (06:00)
[2017-07-13 07:08] LABS: HEMATOCRIT 26.6 % (42-52); HEMOGLOBIN 8.4 g/dL (14.0-18.0); MEAN CELL VOLUME 96.7 fL (80-100); MEAN CORPUSCULAR HEMOGLOBIN 30.5 pg (25-34); MEAN CORPUSCULAR HGB CONC 31.6 g/dl (32-36); MEAN PLATELET VOLUME 8.7 fL (7.4-10.4); PLATELET COUNT 109 K/uL (130-400); RED CELL DISTRIBUTION WIDTH SD 55.9 fL (36.4-46.3); WHITE BLOOD COUNT 3.91 K/uL (4.8-10.8)
[2017-07-13 07:26] LABS: PTT PATIENT 49.2 SECONDS (21.0-31.0)
[2017-07-13 07:47] LABS: ALBUMIN 2.1 gm/dl (3.4-5.0); CALCIUM 8.2 mg/dl (8.5-10.1); CREATININE 0.73 mg/dl (0.60-1.40); POTASSIUM 3.7 mmol/L (3.5-5.1)
[2017-07-13 07:50] LABS: TOTAL PROTEIN 6.1 gm/dl (6.4-8.2)
[2017-07-13] MEDS: BOOST PLUS VANILLA PO SCH (09:00)
[2017-07-13] MEDS: METHYLPREDNISOLONE IV 40 MG in SYRINGE 0 ML IV SCH (09:14)
[2017-07-13] MEDS: PHENYTOIN SODIUM ER 100 MG CAP PO SCH ×3 (09:15→20:16)
[2017-07-13] MEDS: COLCHICINE 0.6 MG TAB PO SCH ×2 (09:15→20:17)
[2017-07-13] MEDS: SENNA 8.6 MG TAB PO SCH ×2 (09:19→20:12)
[2017-07-13] MEDS: VALPROIC ACID SYRUP 250 MG/5 ML PO SCH ×2 (09:19→20:23)
[2017-07-13] MEDS: OXCARBAZEPINE 150 MG TAB PO SCH ×3 (09:20→20:19)
--- NOTE | 2017-07-13 10:19 | Surgery Consultation ---
Consultation Date of Service Jul 13, 2017. (Karina Brannon, LUDA) Chief Complaint PE/DVT, possible need IVC filter (Karina Brannon PA-C) History of Present Illness The patient is a 61 year old male with multiple medical problems, including CKD , diastolic heart failure, seizure disorder, intellectual disability, etc, seen in consultation today for possible IVC filter insertion. Pt recently underwent hernia repair [place] [facility] [place]. Pt currently living at [facility]. According to staff there, pt was coughing and has had increased dementia. Pt poor historian, unable to provide meaningful hx presently. Denies any complaints. Imaging on arrival demonstrated PE, and pericardical effusion. Underwent thoracentesis. There was concern for possible hemopericardium. Pt currently on heparin drip. (Karina Brannon, LUDA) Vitals Vital Signs Past 12 Hours Date Time Temp Pulse Resp B/P (MAP) Pulse Ox O2 Delivery O2 Flow Rate FiO2 07/13/17 07:59 36.4 75 24 107/59 (75) 95 Room Air 07/13/17 04:00 96 Room Air 07/13/17 03:40 36.5 79 23 110/64 (79) 95 Room Air 07/13/17 00:00 96 Room Air 07/12/17 23:48 36.6 83 19 111/62 (78) 93 Room Air (Karina Brannon, LUDA) Allergies Coded Allergies: No Known Allergies (Verified , 07/10/17) Home Medications Scheduled Aspirin (Aspirin 81), 81 MG PO DAILY Atorvastatin (Lipitor), 40 MG PO HS B-Complex W/ C & Folic Acid (Triphrocaps), 1 CAP PO DAILY Carbidopa/Levodopa (Sinemet 25MG/100MG), 1 TAB PO TID Cholecalciferol (Vitamin D3), 2,000 UNIT PO DAILY Cyanocobalamin (Vitamin B-12), 1,000 MCG PO DAILY Docusate Sodium (Colace), 100 MG PO BID Furosemide (Lasix), 40 MG PO BID Levofloxacin (Levaquin), 500 MG PO DAILY Levothyroxine Sodium (Synthroid), 100 MCG PO DAILY Metolazone (Zaroxolyn), 2.5 MG PO DAILY Multivitamins/Minerals (Mvi With Minerals), 1 TAB PO DAILY Nutritional Supplements (Promod), 1 DOSE PO BID Omeprazole (Prilosec), 20 MG PO DAILY Oxcarbazepine (Trileptal), 150 MG PO TID Oxycodone HCl (Oxycodone HCl), 5 MG PO TID Phenytoin Sodium (Dilantin), 200 MG PO TID Polyethylene Glycol 3350 (Miralax), 17 GM PO DAILY Potassium Chloride (Potassium Chloride), 50 MEQ PO 5XD Rivaroxaban (Xarelto), 20 MG PO DAILY Senna (Senokot), 8.6 MG PO BID Tamsulosin Hcl (Flomax), 0.4 MG PO DAILY Valproic Acid Syrup (Depakene), 1,500 MG PO QAM Valproic Acid Syrup (Depakene), 1,750 MG PO HS Scheduled PRN Acetaminophen (Tylenol), 650 MG PO Q6 PRN for Pain Ipratropium-Albuterol (Duoneb), 1 TREATMENT INH Q6 PRN for Wheezing Problem List Medical Problems: (1) Benign hypertension (2) Chronic congestive heart failure (3) Combative behavior (4) Dementia with behavioral disturbance (5) History of pancytopenia (6) HLD (hyperlipidemia) (7) Hyperlipidemia (8) Hypertension Nos (9) Hypothyroidism (10) Lymphedema (11) Parkinson disease (12) Pericardial effusion (13) Pleural effusion (14) Schizoaffective Disorder, Unspecified (15) Seizure disorder (Karina Brannon PA-C) Surgical / Medical History Hx Cardiac Surgery: No Hx Abdominal Surgery: Yes (HERNIA AND GALLBLADDER) Hx Cancer Surgery: No Hx Thoracic Surgery: No Hx Orthopedic: No Hx Urinary Tract Surgery: No HX Other Surgery: No Past Medical/Surgical History: CHF, Heart Disease, Kidney Disease, Seizure Disorder (Karina Brannon PA-C) Family History FH: cancer Malignancy (Karina Brannon PA-C) FH: cancer Malignancy (Patel Solorzano M.D.) Social History Smoking Status: Never Smoker Hx Tobacco Use In Past Year?: No Hx Alcohol Use - Type & Amnt: No Hx Substance Use -Type & Amnt: No (Minarchick,Karina D., PA-C) Review of Systems Constitutional: No chills Skin: No change in color Respiratory: No cough, No ROBERTSON, No hemoptysis, No short of breath Cardiovascular: + edema, No chest pain, No intermittent claudication Gastrointestinal: No abdominal pain, No nausea, No vomiting Additional Comments: further ROS unobtainable, pt refused to answer (Karina Brannon, PAHarryC) Physical Exam Constitutional: General Apperance: well-nourished, well-developed Level of Distress: acutely ill, chronically ill Psychiatric: Mental Status: active & alert, lethargic, confused Orientation: oriented except where noted, to place, to person, not oriented to time Memory: recent memory abnormal, remote memory abnormal Head: normocephalic, atraumatic Eyes: EOM: EOMI ENMT: normal ENT inspection, hearing grossly normal Neck: supple, trachea midline Lungs: Respiratory effort: no dyspnea Auscultation: no wheezing, decreased breath sounds, pertinent finding ( Decreased breath sounds bilaterally at the bases) Cardiovascular: Apical Impulse: not displaced Heart Auscultation: RRR, no rubs, no gallops Peripheral Pulses: Pulses: full and equal, in all extremities except if noted Bruits: none appreciated Carotid Pulse: normal on the left, normal on the right Brachial Pulses: normal on the left, normal on the right Radial Pulse: normal on the left, normal on the right Femoral Pulse: normal on the left, normal on the right Posterior Tibialis Pulse: decreased on the left, decreased on the right Dorsalis Pedis Pulse: decreased on the left, decreased on the right Abdomen: Bowel Sounds: normal Inspection & Palpation: soft, distended Extremities: Upper Right: no cyanosis, no varicosities, edema Upper Left: no cyanosis, edema Lower Right: no cyanosis, no varicosities, edema Lower Left: no cyanosis, no varicosities, edema Neurologic: Cranial Nerves: grossly intact (Karina Brannon, PA-C) Assessment and Plan ASSESSMENT and PLAN: DVT/PE Pt with multiple medical problems, currently also with LE DVT and PE. Pt also seen by Dr Solorzano today. If felt to be unsafe to take AC by medicine/ cardiology, or if AC would need to be held temporarily, temporary IVC filter would be recommended. Please call if needed. (Karina Brannon, PA-C) Patient was seen, examined, and chart reviewed. Agree with exam and treatment plan of the Vascular PA. Thank you very much for letting me participate in the care of this patient. (Patel Solorzano M.D.)
[2017-07-13] MEDS: PANTOprazole INJ 40 MG in SYRINGE 0 ML IV SCH (11:09)
--- NOTE | 2017-07-13 12:07 | Pulmonology Progress Note ---
Pulmonary Progress Note Date of Service Jul 13, 2017. Attending Dr. Otto Subjective Denies pain or dyspnea. 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 He had previously been admitted early June to [facility] for [place] hernia repair and cholecystectomy complicated by AUDREY/CKD. Work-up notable for bilateral pleural effusion, pericardial effusion without tamponade, and subsegmental PE of the RML and lingula as well as left posterior tibial DVT - Thoracentesis 07/10/17 : 950mL exudative fluid (LDH pf210/s246, Pro pf 3.9/s7.3 , WBC: 1682, pH: 7.43), pathology pending - Left pig-tail catheter 07/11/17: 1200mL Today: - Seen by vascular surgery in consideration for IVC filter - NPO surgical management of pericardial effusion - 95-96% RA - CT +/- suction Q4-hour, water seal 2100-000 last night - drained 10mL over night Physical Exam: Constitutional: WD male lying quietly in hospital bed. NAD Head: + facial symmetry, EOMi, no conjunctival injection Chest: pigtail well dressed on the left posterior chest, no active drainage Respiratory: non-labored respirations - no cough on exam. Fine crackles left base. No wheeze, rales or rhonchi on the right. Cardiovascular. Regular rate and rhythm. Slightly diminished. Warm and perfused peripherally Abdomen: soft, active bowel sounds MSK/Extremities: Non-pitting bilateral LE edema with venous stasis changes and erythema anterior LEs. Neurologic: Flat affect. Cooperative to verbal commands. Assessment & Plan 1. bilateral pleural effusions - exudative/ inflammatory : pathology pending - left chest tube with low output overnight +/- suction, continue to monitor - repeat CXR this afternoon 2. pericardial effusion - potential plan for intervention today 3. PE with DVT on heparin gtt in preparation of procedure Data Medications: Current Inpatient Medications Medications (Trade) Dose Ordered Sig/Aj Route Start Time Stop Time Status Last Admin Dose Admin Ioversol (Optiray 320) 100 ml UD PRN IV 07/10/17 13:45 07/14/17 13:44 Acetaminophen (Tylenol Tab) 650 mg Q4H PRN PO 2/23/18 15:30 08/09/17 15:29 07/11/17 19:31 650 MG Al Hydrox/Mg Hydrox/Simethicone (Maalox Max Susp) 15 ml Q4H PRN PO 07/10/17 15:30 08/09/17 15:29 Magnesium Hydroxide (Milk Of Magnesia Susp) 30 ml Q12H PRN PO 07/10/17 15:30 08/09/17 15:29 Nitroglycerin (Nitrostat Tab) 0.4 mg UD PRN SL 07/10/17 15:30 08/09/17 15:29 Levothyroxine Sodium (Synthroid Tab) 100 mcg DAILYBB PO 07/11/17 09:00 08/10/17 08:59 07/12/17 05:36 100 MCG Oxcarbazepine (Trileptal Tab) 150 mg TID PO 07/11/17 09:00 08/10/17 08:59 07/13/17 09:20 150 MG Phenytoin Sodium (Dilantin Er Cap) 200 mg TID PO 07/11/17 09:00 08/10/17 08:59 07/13/17 09:15 200 MG Senna (Senokot Tab) 8.6 mg BID PO 07/11/17 09:00 08/10/17 08:59 07/13/17 09:19 8.6 MG Tamsulosin HCl (Flomax Cap) 0.4 mg DAILY PO 07/11/17 09:00 08/10/17 08:59 Future Hold 07/11/17 08:52 0.4 MG Valproic Acid (Depakene Syrup) 1,500 mg QAM PO 07/11/17 09:00 08/10/17 08:59 07/13/17 09:19 1,500 MG Valproic Acid (Depakene Syrup) 1,750 mg HS PO 07/11/17 21:00 08/10/17 20:59 07/11/17 19:31 1,750 MG Colchicine (Colchicine Tab) 0.6 mg BID PO 07/11/17 21:00 08/10/17 20:59 07/13/17 09:15 0.6 MG Methylprednisolone Sodium Succinate 40 mg/Syringe 0.64 ml @ 1.5 mls/min DAILY IV 07/12/17 09:00 08/11/17 08:59 07/13/17 09:14 1.5 MLS/MIN Pantoprazole Sodium 40 mg/ Syringe 10 ml @ 5 mls/min DAILY@11 IV 07/11/17 11:00 08/10/17 10:59 07/12/17 11:08 5 MLS/MIN Enteral Nutritional Formula (Boost Plus Vanilla) 1 can DAILY PO 07/12/17 09:00 08/11/17 08:59 07/12/17 08:40 1 CAN Heparin Sodium/ Dextrose 500 ml @ 24 mls/hr [id number] PRN IV 07/11/17 21:00 08/10/17 20:59 07/12/17 16:15 24 MLS/HR Vital Signs: Date Time Temp Pulse Resp B/P (MAP) Pulse Ox O2 Delivery O2 Flow Rate FiO2 07/13/17 08:00 96 Room Air 07/13/17 07:59 36.4 75 24 107/59 (75) 95 Room Air 07/13/17 04:00 96 Room Air 07/13/17 03:40 36.5 79 23 110/64 (79) 95 Room Air 07/13/17 00:00 96 Room Air 07/12/17 23:48 36.6 83 19 111/62 (78) 93 Room Air 07/12/17 21:06 36.5 78 18 150/73 (98) 94 Room Air 07/12/17 21:03 36.6 80 18 150/76 (100) 93 Room Air 07/12/17 20:00 96 Room Air 07/12/17 19:29 36.5 80 28 112/62 (79) 97 Room Air 07/12/17 16:00 100 Room Air 07/12/17 15:18 36.7 83 18 105/68 (80) 95 Room Air 07/12/17 12:00 98 Room Air 07/12/17 11:31 36.3 82 18 117/65 (82) 98 Room Air Laboratory Results: Last 24 Hours Test 07/12/17 11:24 07/12/17 17:55 07/13/17 07:01 Activated Partial Thromboplast Time 91.4 SECONDS 68.2 SECONDS 49.2 SECONDS Partial Thromboplastin Ratio 3.5 2.6 1.9 White Blood Count 3.91 K/uL Red Blood Count 2.75 M/uL Hemoglobin 8.4 g/dL Hematocrit 26.6 % Mean Corpuscular Volume 96.7 fL Mean Corpuscular Hemoglobin 30.5 pg Mean Corpuscular Hemoglobin Concent 31.6 g/dl RDW Standard Deviation 55.9 fL RDW Coefficient of Variation 16.0 % Platelet Count 109 K/uL Mean Platelet Volume 8.7 fL Sodium Level 138 mmol/L Potassium Level 3.7 mmol/L Chloride Level 103 mmol/L Carbon Dioxide Level 29 mmol/L Anion Gap 6.0 mmol/L Blood Urea Nitrogen 13 mg/dl Creatinine 0.73 mg/dl Est Creatinine Clear Calc Drug Dose 129.5 ml/min Estimated GFR () 114.4 Estimated GFR (Non- 98.7 BUN/Creatinine Ratio 17.8 Random Glucose 94 mg/dl Calcium Level 8.2 mg/dl Magnesium Level 2.4 mg/dl Total Bilirubin 0.4 mg/dl Direct Bilirubin 0.2 mg/dl Aspartate Amino Transf (AST/SGOT) 35 U/L Alanine Aminotransferase (ALT/SGPT) 39 U/L Alkaline Phosphatase 123 U/L Total Protein 6.1 gm/dl Albumin 2.1 gm/dl Globulin 4.0 gm/dl Albumin/Globulin Ratio 0.5 Amylase Level 47 U/L Lipase 330 U/L
--- NOTE | 2017-07-13 13:40 | Cardiology Follow-Up ---
Subjective Subjective Date of Service: Jul 13, 2017. Pt evaluation today including: conversation w/ patient, conversation w/ family , physical exam, chart review, lab review, review of studies, review of inpatient medication list Additional Details: Pt seen and examined, with brother, Bubba, at bedside. States that he's feeling ok, some pain at chest tube site. Limited verbal responses given by patient, which appears to be his baseline from medical records. Specifically denies cp, sob, palpitations, lightheadedness or dizziness. Tele reviewed: sinus rhythm without arrhythmia or significant ectopy. Problem List Medical Problems: (1) Aggressive behavior Status: Acute (2) Altered mental status Status: Acute (3) Fever Status: Acute (4) Hypoxia Status: Acute (5) Mood disorder Status: Acute (6) Pulmonary embolism Status: Acute (7) Right lower lobe pneumonia Status: Acute (8) Status epilepticus Status: Acute Social History Problems: (1) Status post cholecystectomy Status: Acute Review of Systems ENT: + nasal symptoms Respiratory: + cough Musculoskeletal: + problem reported Neurologic: + see HPI Objective Vital Signs Last Vital Signs Documentation Date Time Temp Pulse Resp B/P (MAP) Pulse Ox O2 Delivery O2 Flow Rate FiO2 07/13/17 12:07 36.4 76 32 104/69 (81) 95 Room Air 07/12/17 07:34 3.0 Physical Exam: General Appearance: WD/WN, no apparent distress Eyes: bilateral eyes normal inspection, bilateral eyes PERRL, bilateral eyes EOMI ENT: normal ENT inspection, hearing grossly normal, pharynx normal Neck: supple, no adenopathy, thyroid normal, no JVD, no carotid bruits, trachea midline Respiratory/Chest: chest non-tender, lungs clear, normal breath sounds, no respiratory distress, no accessory muscle use Cardiovascular: regular rate, rhythm (distant) Abdomen: normal bowel sounds, non tender, + distended, + hernia Extremities: normal range of motion, non-tender, normal inspection, no pedal edema, no calf tenderness, normal capillary refill Neurologic/Psychiatric: alert, normal mood/affect, + pertinent finding Skin: normal color, warm/dry, no rash Lymphatic: no adenopathy Assessment and Plan 1. pericardial effusion no signs of tamponade improved by echo this AM, 07/13 will continue with medical therapy in light of lack of symptoms and hemodynamic compromise along with improvement cont colchicine and steroids 2. Pulmonary embolism tolerating heparin gtt hgb stable and again, pericardial effusion is smaller was previously on Xarelto but would recommend against restarting given it's lack of a commercially available reversal agent instead, would start coumadin and cont with heparin bridge
[2017-07-13] MEDS: HEPARIN 25,000 UNIT/500ML D5W 500 ML IV PRN ×2 (13:59→23:30)
--- NOTE | 2017-07-13 14:25 | ECHOCARDIOGRAM REPORT ---
*NOTICE TO RECEIVING [employer] This information is strictly Confidential and protected under [place] law. [place] law prohibits you from making any further disclosure of this information unless further disclosure is expressly permitted by the written consent of the person to whom it pertains or is authorized by law. A general authorization for the release of medical or other information is not sufficient for this purpose. Hospital accepts no responsibility if the information is made available to any other person, INCLUDING THE PATIENT. Interpretation Summary * Name: NATE VERMA Study Date: 07/13/2017 07:11 AM BP: 110/64 mmHg * Patient Location: C.2E\S\E209\S\1 HR: 77 * : 1955 (M/d/yyyy) Gender: Male Height: 73 in * Age: 61 yrs Ethnicity: CA Weight: 220 lb * Ordering Physician: Steve Mata * Referring Physician: Osvaldo Larkin * Performed By: Mady Banks RDCS * * Reason For Study: Follow up Pericardial Effusion * BSA: 2.2 m2 * -- Conclusions -- * Small to moderate circumferential pericardial effusion with the majority of fluid remaining adjacent to the posterior wall. No tamponade. Procedure Details * Limited views were obtained. * Limited study follow up for Pericardial Effusion MMode 2D Measurements and Calculations IVSd 1.1 cm IVSs 1.7 cm LVIDd 3.6 cm LVIDs 2.4 cm LVPWd 1.4 cm LVPWs 2.1 cm IVS/LVPW 0.76 FS 34.0 % EDV(Teich) 54.8 ml ESV(Teich) 19.8 ml EF(Teich) 63.8 % EDV(cubed) 47.0 ml ESV(cubed) 13.5 ml EF(cubed) 71.2 % % IVS thick 50.9 % % LVPW thick 46.3 % LV mass(C)d 155.8 grams LV mass(C)dI 69.5 grams/m\S\2 LV mass(C)s 184.1 grams LV mass(C)sI 82.1 grams/m\S\2 SV(Teich) 35.0 ml SI(Teich) 15.6 ml/m\S\2 SV(cubed) 33.5 ml SI(cubed) 14.9 ml/m\S\2 LVAd ap4 29.8 cm\S\2 LVLd ap4 8.4 cm EDV(MOD-sp4) 88.2 ml EDV(sp4-el) 89.7 ml LVAs ap4 15.4 cm\S\2 LVLs ap4 6.9 cm ESV(MOD-sp4) 30.2 ml ESV(sp4-el) 29.2 ml EF(MOD-sp4) 65.8 % EF(sp4-el) 67.4 % SV(MOD-sp4) 58.0 ml SI(MOD-sp4) 25.9 ml/m\S\2 SV(sp4-el) 60.5 ml SI(sp4-el) 27.0 ml/m\S\2
[2017-07-13] MEDS: WARFARIN SOD 5 MG TAB PO SCH (16:30)
--- NOTE | 2017-07-13 16:32 | DIAGNOSTIC IMAGING REPORT ---
CHEST ONE VIEW PORTABLE CLINICAL HISTORY: pleural effusion and chest tube COMPARISON STUDY: 07/11/2017 FINDINGS: The left pleural pigtail catheter remains unchanged in position. No pneumothorax is visualized. The heart remains enlarged. There is a stable right pleural effusion with associated right basilar atelectasis/consolidation. There are persistent airspace opacities the left lung base.[ IMPRESSION: 1. Persistent cardiomegaly 2. No change in the size the right pleural effusion with associated right basilar atelectasis/consolidation 3. Left-sided pigtail pleural catheter. Persistent left lower lung zone airspace opacities 4. No pneumothorax identified Electronically signed by: Beltran Ohara M.D. 07/13/2017 4:30 PM Dictated Date/Time: 07/13/2017 4:29 PM
--- NOTE | 2017-07-13 19:03 | Progress Note ---
Internal Med Progress Note Date of Service: Jul 13, 2017. Provider Documentation: SUBJECTIVE: Denies pain or shortness of breath. Denies chest pain OBJECTIVE: General Appearance: on nasal cannula, no distress, verbal, awake and alert Head: normocephalic, atraumatic Eyes: normal inspection, sclerae normal ENT: hearing grossly normal, pharynx normal Neck: supple, no JVD, trachea midline Respiratory/Chest: chest non-tender, lungs clear, normal breath sounds, no respiratory distress, no accessory muscle use Cardiovascular: regular rate, rhythm Abdomen/GI: non tender, soft, + bowel sounds, midline surgical scar without openings, hernia Back: left posterior back with chest tube Extremities/Musculoskelatal: no calf tenderness, lower extremity edema with discoloration of bruising Neurologic/Psych: no motor/sensory deficits, alert, oriented x 3, Flattened affect ASSESSMENT & PLAN: HPI 61-year-old M with history of seizure disorder, Parkinson's, schizoaffective disorder, HTN, CKD III (L kidney absent), hereditary lymphedema, diastolic heart failure, recently was diagnosed with PE and was started on Xarelto, recently underwent abdominal hernia repair with cholecystectomy over 3 weeks ago , the patient was discharged to the half-way where he was noted for the past 24 hours to have persistent cough, with chest x-ray which showed bilateral volume loss and started empirically on Levaquin and transferred to the ER, was given Zosyn empirically, CAT scan of the chest and chest x-ray were reviewed which showed bilateral pleural effusion and pericardial effusion and pulmonary embolism Imaging / Plan CTA 07/10/17: Segmental pulmonary emboli are seen within the right middle lobe and lingular branches / moderate to large volume of pericardial fluid / Moderate to large pleural effusions Ultrasound study 07/11/17: There is deep venous thrombus within the left posterior tibial vein. There is no evidence for acute deep venous thrombus within the right lower extremity. Pericardial Effusion -Echocardiogram 07/10/17 There is a large circumferential pericardial effusion. The most significant amount of fluid collection is adjacent to the right atrium with maximum dimension of 3.8 cm. Tamponade physiology is absent, however there is some degree of diastolic collapse of the right atrium, and on 2D appearance there is evidence of early impairment of right ventricular filling which can be early signs of developing tamponade. The appearance of the pericardial effusion is organized with stranding, and echogenic solid components noted adjacent to the apical portions of the heart and right ventricular free wall. Due to the organized appearance, the effusion does not appear to be amenable to pericardiocentesis -patient has received albumin infusion at night time 07/10/17 from cardiology service to try reduce the size of pericardial effusion Echocardiogram 07/11/17 -There is a large circumferential pericardial effusion. Tamponade is absent. Compared to the prior study dated 07/10/17, there has been a subtle improvement in the amount of pericardial fluid adjacent to the right atrium , with no apparent right atrial diastolic collapse. The most significant amount of fluid is adjacent to the inferior and posterior LV hughes - Xarelto has been held for now as cardiology service recommended this to avoid hemorrhagic component complications - heparin IV drip started by cardiology instead for anticoagulation - upon further evaluation, cardiology service considered possible pericardiocentesis on 07/13/17 but this did not take place as patient as been asymptomatic and hemodynamically stable and as per cardiology service will resume heparin drip with plans to bridge to oral coumadin since oral coumadin has readily available reversal agent if patient has bleeding -continue steroids and colchicine for pain control if pericarditis Elevated troponins - likely due to pericardial effusion, troponin downtrending, no chest pain Right sided pleural effusion -Thoracentesis on 07/10/17: due to the enlarged pleural effusion on the right side with 1 L of blood-tinged fluid was removed -pleural fluid with elevated RBC 54,000 and WBC of 1682, pleural fluid LDH 210, pleural protein 3.9; total serum protein prior to thoracentesis 7.3; serum LDH 246 -Have discussed with Pulmonary/ICU service Dr. Lacey that pleural effusion is exudative but not likely from infectious causes -blood cultures/thoracentesis cultures no growth to date -hold antibiotics Left Pleural effusion -CXR 07/11/17 AM: no pneumothorax. Interstitial thickening suggests pulmonary edema. Bibasilar opacities persist. Cardiomediastinal silhouette is stable. Small right pleural effusion is noted. A small to moderate left pleural effusion is noted. -left chest tube placed on 07/11/17 seizure disorder, Parkinson's, schizoaffective disorder -continue home medications Valproic acid, Trilepta, Phenytoin Thyroid -continue Synthroid DVT ppx: IV heparin / coumadin Disposition: left chest tube followed by pulmonary service, pericardial effusion without procedural intervention at this time, heparin drip to therapeutic INR with Coumadin, remains inpatient Vital Signs: Date Time Temp Pulse Resp B/P (MAP) Pulse Ox O2 Delivery O2 Flow Rate FiO2 07/13/17 16:00 Room Air 07/13/17 15:14 36.8 75 26 104/61 (75) 95 Room Air 07/13/17 12:07 36.4 76 32 104/69 (81) 95 Room Air 07/13/17 12:00 Room Air 07/13/17 08:00 96 Room Air 07/13/17 07:59 36.4 75 24 107/59 (75) 95 Room Air 07/13/17 04:00 96 Room Air 07/13/17 03:40 36.5 79 23 110/64 (79) 95 Room Air 07/13/17 00:00 96 Room Air 07/12/17 23:48 36.6 83 19 111/62 (78) 93 Room Air 07/12/17 21:06 36.5 78 18 150/73 (98) 94 Room Air 07/12/17 21:03 36.6 80 18 150/76 (100) 93 Room Air 07/12/17 20:00 96 Room Air Lab Results: Results Past 24 Hours Test 07/13/17 07:01 Range/Units White Blood Count 3.91 4.8-10.8 K/uL Red Blood Count 2.75 4.7-6.1 M/uL Hemoglobin 8.4 14.0-18.0 g/dL Hematocrit 26.6 42-52 % Mean Corpuscular Volume 96.7 80-100 fL Mean Corpuscular Hemoglobin 30.5 25-34 pg Mean Corpuscular Hemoglobin Concent 31.6 32-36 g/dl RDW Standard Deviation 55.9 36.4-46.3 fL RDW Coefficient of Variation 16.0 11.5-14.5 % Platelet Count 109 130-400 K/uL Mean Platelet Volume 8.7 7.4-10.4 fL Activated Partial Thromboplast Time 49.2 21.0-31.0 SECONDS Partial Thromboplastin Ratio 1.9 Sodium Level 138 136-145 mmol/L Potassium Level 3.7 3.5-5.1 mmol/L Chloride Level 103 98-107 mmol/L Carbon Dioxide Level 29 21-32 mmol/L Anion Gap 6.0 3-11 mmol/L Blood Urea Nitrogen 13 7-18 mg/dl Creatinine 0.73 0.60-1.40 mg/dl Est Creatinine Clear Calc Drug Dose 129.5 ml/min Estimated GFR () 114.4 Estimated GFR (Non- 98.7 BUN/Creatinine Ratio 17.8 10-20 Random Glucose 94 70-99 mg/dl Calcium Level 8.2 8.5-10.1 mg/dl Magnesium Level 2.4 1.8-2.4 mg/dl Total Bilirubin 0.4 0.2-1 mg/dl Direct Bilirubin 0.2 0-0.2 mg/dl Aspartate Amino Transf (AST/SGOT) 35 15-37 U/L Alanine Aminotransferase (ALT/SGPT) 39 12-78 U/L Alkaline Phosphatase 123 45-117 U/L Total Protein 6.1 6.4-8.2 gm/dl Albumin 2.1 3.4-5.0 gm/dl Globulin 4.0 2.5-4.0 gm/dl Albumin/Globulin Ratio 0.5 0.9-2 Amylase Level 47 25-115 U/L Lipase 330 73-393 U/L
[2017-07-13] MEDS ORDERED: NURSING VERBAL MED ORDER ONE (20:45)
[2017-07-13 20:59] LABS: PTT PATIENT 68.1 SECONDS (21.0-31.0)
[2017-07-14] VITALS (10 sets, daily range): BP systolic 103–130; BP diastolic 57–70; PULSE 70–78; TEMP 36.4–36.9; O2SAT 95–100
[2017-07-14] MEDS: ACETAMINOPHEN 325 MG TAB PO PRN (00:37)
[2017-07-14] MEDS: LEVOTHYROXINE 100 MCG TAB PO SCH (05:04)
[2017-07-14 08:04] LABS: HEMATOCRIT 30.3 % (42-52); HEMOGLOBIN 9.8 g/dL (14.0-18.0); MEAN CELL VOLUME 96.8 fL (80-100); MEAN CORPUSCULAR HEMOGLOBIN 31.3 pg (25-34); MEAN CORPUSCULAR HGB CONC 32.3 g/dl (32-36); MEAN PLATELET VOLUME 8.9 fL (7.4-10.4); PLATELET COUNT 115 K/uL (130-400); RED CELL DISTRIBUTION WIDTH CV 15.9 % (11.5-14.5); RED CELL DISTRIBUTION WIDTH SD 55.9 fL (36.4-46.3); WHITE BLOOD COUNT 4.21 K/uL (4.8-10.8)
[2017-07-14 08:28] LABS: INR 1.2 (0.9-1.1)
[2017-07-14 08:39] LABS: CALCIUM 8.6 mg/dl (8.5-10.1); CREATININE 0.77 mg/dl (0.60-1.40); POTASSIUM 3.9 mmol/L (3.5-5.1)
[2017-07-14] MEDS: SENNA 8.6 MG TAB PO SCH ×2 (08:41→21:00)
[2017-07-14] MEDS: OXCARBAZEPINE 150 MG TAB PO SCH ×3 (08:42→21:32)
[2017-07-14] MEDS: COLCHICINE 0.6 MG TAB PO SCH ×2 (08:42→21:29)
[2017-07-14] MEDS: BOOST PLUS VANILLA PO SCH (08:42)
[2017-07-14] MEDS: METHYLPREDNISOLONE IV 40 MG in SYRINGE 0 ML IV SCH (08:42)
[2017-07-14] MEDS: PHENYTOIN SODIUM ER 100 MG CAP PO SCH ×3 (08:42→21:32)
[2017-07-14 09:09] LABS: PTT PATIENT 85.7 SECONDS (21.0-31.0)
--- NOTE | 2017-07-14 10:49 | Cardiology Follow-Up ---
Subjective Subjective Date of Service: Jul 14, 2017. Pt evaluation today including: conversation w/ patient, physical exam, chart review, lab review, review of studies, review of inpatient medication list Additional Details: Pt seen and examined, states that he's feeling 'ok'. Still with pain at chest tube insertion site. Denies other cp, sob, palpitations, lightheadedness or dizziness. Tele reviewed: sinus rhythm without arrhythmia or significant ectopy. Problem List Medical Problems: (1) Aggressive behavior Status: Acute (2) Altered mental status Status: Acute (3) Fever Status: Acute (4) Hypoxia Status: Acute (5) Mood disorder Status: Acute (6) Pulmonary embolism Status: Acute (7) Right lower lobe pneumonia Status: Acute (8) Status epilepticus Status: Acute Social History Problems: (1) Status post cholecystectomy Status: Acute Review of Systems ENT: + nasal symptoms Respiratory: + cough Musculoskeletal: + problem reported Neurologic: + see HPI Objective Vital Signs Last Vital Signs Documentation Date Time Temp Pulse Resp B/P (MAP) Pulse Ox O2 Delivery O2 Flow Rate FiO2 07/14/17 08:04 36.4 70 25 104/57 (73) 100 Room Air 07/12/17 07:34 3.0 Physical Exam: General Appearance: WD/WN, no apparent distress Eyes: bilateral eyes normal inspection, bilateral eyes PERRL, bilateral eyes EOMI ENT: normal ENT inspection, hearing grossly normal, pharynx normal Neck: supple, no adenopathy, thyroid normal, no JVD, no carotid bruits, trachea midline Respiratory/Chest: chest non-tender, lungs clear, normal breath sounds, no respiratory distress, no accessory muscle use Cardiovascular: regular rate, rhythm (distant) Abdomen: normal bowel sounds, non tender, + distended, + hernia Extremities: normal range of motion, non-tender, normal inspection, no pedal edema, no calf tenderness, normal capillary refill Neurologic/Psychiatric: alert, normal mood/affect, + pertinent finding Skin: normal color, warm/dry, no rash Lymphatic: no adenopathy Assessment and Plan 1. pericardial effusion no signs of tamponade improved by echo 07/13 will continue with medical therapy in light of lack of symptoms and hemodynamic compromise along with improvement cont colchicine and steroids will transition to po steroids in AM 2. Pulmonary embolism tolerating heparin gtt hgb increasing cont coumadin with heparin bridge
[2017-07-14] MEDS: DIVALPROEX 500 MG EXTENDED RELEASE TAB PO SCH ×2 (11:31→21:31)
[2017-07-14] MEDS: PANTOprazole SOD 40 MG TAB PO SCH (11:31)
--- NOTE | 2017-07-14 11:55 | PULMONARY PROGRESS NOTE ---
DATE: 07/14/2017 PROBLEM LIST: Includes: 1. Bilateral effusion. 2. Pericardial effusion. 3. PE with DVT, on heparin drip. SUBJECTIVE: The patient is a 61-year-old male, speaks very slowly with pauses, denies any chest discomfort aside from if he takes a real deep breath and he gets chest discomfort at the site of the chest tube, states that he will cough occasionally, does not really expand on that. He has not really had any mucus with the cough. Denies any chest pain in general. Denies any shortness of breath and states that he has not felt nauseated or sick. He states that his legs are a little bit puffy compared to what they normally are and they are a little bit sore, but he attributes this to an injury couple months ago when he had a seizure and his legs were caught between the chair and foot rest of his recliner. The rest of review of systems is difficult to get secondary to his mental status. The patient reported that he was a nonsmoker. When asked if he was exposed to any chemicals or inhaled products, the patient did not really given an answer. OBJECTIVE: GENERAL: The patient is a 61-year-old male lying in bed. He is somewhat interactive and cooperative, although he does not answer all questions, answers he gives do seem to be appropriate. There is a pause from the time the question is asked to when the patient answer. VITAL SIGNS: Temp 36.4, pulse 70, respirations 25, blood pressure is 104/57, and pulse ox is 100% on room air. HEENT: Normocephalic, atraumatic. Pupils equal, round and reactive to light and accommodation. Extraocular movements are intact. No lid lag noted. [place] moist gingival and buccal mucosa. CHEST: No appreciated wheeze, rale or rhonchi on the right, questionable faint fine rales on the left chest wall. The patient does have a pigtail catheter in place. CARDIOVASCULAR: Regular rate and rhythm. No murmurs, gallops or rubs appreciated, although cardiac sounds are diminished. ABDOMEN: The patient does have a midline incision. Bowel sounds are present, soft, nontender. EXTREMITIES: The patient has +1 edema bilaterally as well as chronic venous stasis changes on the lower extremities bilaterally. NEUROLOGIC: Cranial nerves II through XII grossly intact. LABORATORY DATA: Shows a white count of 4.21, H&H 9.8 and 30.3, and platelet count of 115,000. INR 1.2, PTT 85.7. IMAGING DATA: Chest x-ray done yesterday shows a persistent cardiomegaly, right pleural effusion, which appears stable compared to chest x-ray of July 11 and pigtail catheter in place. Echocardiogram showing a small circumferential pericardial effusion with majority of fluid adjacent to the posterior wall. No evidence tamponade, per cardiology note this is improved compared to previous. IMPRESSION: 1. Pulmonary embolism. The patient is on heparin with transition to Coumadin per cardiology, due to reversibility. 2. Pleural effusion bilaterally, right greater than left. The patient had an increased output overnight, was suctioned. The patient had approximately 100 mL drained overnight. In reviewing pleural fluid does appear to be exudative with an LDH of 210 and a protein of 3.9 and a pleural fluid compared to 7.3 and the serum pH of 7.43. His pleural fluid cytology was reviewed and per pathologist, pleural fluid showing reactive mesothelial cells, blood, no malignant cells. 3. Pericardial effusion. Cardiology is following. His echocardiogram is showing improvement; therefore, going to treat with medication at this time. PLAN: Continue chest tube since patient is having increased fluid output. We will continue to monitor and will discuss the case with Dr. Otto and Dr. Cordon. [facility]OSPITALRaya
[2017-07-14] MEDS: WARFARIN SOD 5 MG TAB PO SCH (16:45)
[2017-07-14 16:50] LABS: PTT PATIENT 61.6 SECONDS (21.0-31.0)
--- NOTE | 2017-07-14 18:48 | Progress Note ---
Internal Med Progress Note Date of Service: Jul 14, 2017. Provider Documentation: SUBJECTIVE: resting comfortably eating breakfast and request to have more salt denies sob says has some pain in lower chest region afebrile no nausea OBJECTIVE: Vital Signs-as noted below Exam: General-alert and Oriented. Not in distress. ENT-normal hearing Neck-no neck masses Lungs-cta b/l no wheezing or crackles s/p left chest tube Heart-s1 and s2 heard regular no murmurs Abdomen-soft bowel sounds present non tender no distension Extremities-no erythema Neuro-alert and awake moves extremities Lab data as noted below. ASSESSMENT & PLAN: Per H and P:61-year-old M with history of seizure disorder, Parkinson's, schizoaffective disorder, HTN, CKD III (L kidney absent), hereditary lymphedema , diastolic heart failure, recently was diagnosed with PE and was started on Xarelto, recently underwent abdominal hernia repair with cholecystectomy over 3 weeks ago, the patient was discharged to the assisted where he was noted for the past 24 hours to have persistent cough, with chest x-ray which showed bilateral volume loss and started empirically on Levaquin and transferred to the ER, was given Zosyn empirically, CAT scan of the chest and chest x-ray were reviewed which showed bilateral pleural effusion and pericardial effusion and pulmonary embolism" Pericardial effusion presented with large pericardial effusion without tamponade repeat echo shows moderate pericardial effusion Xarelto has been held for now as cardiology service recommended this to avoid hemorrhagic component complications heparin IV drip started by cardiology instead for anticoagulation As per :, cardiology service considered possible pericardiocentesis on but this did not take place as patient as been asymptomatic and hemodynamically stable and as per cardiology service will resume heparin drip with plans to bridge to oral coumadin since oral coumadin has readily available reversal agent if patient has bleeding" To continue steroids and colchicine for pain control if pericarditis Right sided pleural effusion Thoracentesis on 07/10/17: due to the enlarged pleural effusion on the right side with 1 L of blood-tinged fluid was removed As per pulmonary/critical care fluid is exudative but not likely infectious. blood cultures/thoracentesis cultures no growth to date not on antibiotics Left Pleural effusion CXR 07/11/17 AM: no pneumothorax. Interstitial thickening suggests pulmonary edema. Bibasilar opacities persist. Cardiomediastinal silhouette is stable. Small right pleural effusion is noted. A small to moderate left pleural effusion is noted. -left chest tube placed on 07/11/17 seizure disorder, Parkinson's, schizoaffective disorder To continue home medications Valproic acid, Trilepta, Phenytoin Thyroid On Synthroid DVT ppx: IV heparin / Coumadin Disposition: To be determined monitor in tele Vital Signs: Date Time Temp Pulse Resp B/P (MAP) Pulse Ox O2 Delivery O2 Flow Rate FiO2 07/14/17 16:00 98 Room Air 07/14/17 15:21 36.5 73 33 130/70 (90) 98 Room Air 07/14/17 12:29 97 Room Air 07/14/17 11:55 36.4 77 34 123/69 (87) 98 Room Air 07/14/17 08:04 36.4 70 25 104/57 (73) 100 Room Air 07/14/17 08:01 97 Room Air 07/14/17 04:00 Room Air 07/14/17 04:00 36.5 72 22 110/63 (79) 97 Room Air 07/13/17 23:59 Room Air 07/13/17 23:48 36.5 76 20 118/67 (84) 95 Room Air 07/13/17 20:00 Room Air 07/13/17 19:46 36.6 75 24 119/60 (79) 98 Room Air Lab Results: Results Past 24 Hours Test 07/13/17 20:10 07/14/17 07:47 07/14/17 16:17 Range/Units Activated Partial Thromboplast Time 68.1 85.7 61.6 21.0-31.0 SECONDS Partial Thromboplastin Ratio 2.6 3.3 2.4 White Blood Count 4.21 4.8-10.8 K/uL Red Blood Count 3.13 4.7-6.1 M/uL Hemoglobin 9.8 14.0-18.0 g/dL Hematocrit 30.3 42-52 % Mean Corpuscular Volume 96.8 80-100 fL Mean Corpuscular Hemoglobin 31.3 25-34 pg Mean Corpuscular Hemoglobin Concent 32.3 32-36 g/dl RDW Standard Deviation 55.9 36.4-46.3 fL RDW Coefficient of Variation 15.9 11.5-14.5 % Platelet Count 115 130-400 K/uL Mean Platelet Volume 8.9 7.4-10.4 fL Prothrombin Time 13.0 9.0-12.0 SECONDS Prothromb Time International Ratio 1.2 0.9-1.1 Sodium Level 138 136-145 mmol/L Potassium Level 3.9 3.5-5.1 mmol/L Chloride Level 102 98-107 mmol/L Carbon Dioxide Level 28 21-32 mmol/L Anion Gap 7.0 3-11 mmol/L Blood Urea Nitrogen 13 7-18 mg/dl Creatinine 0.77 0.60-1.40 mg/dl Est Creatinine Clear Calc Drug Dose 122.4 ml/min Estimated GFR () 111.9 Estimated GFR (Non- 96.6 BUN/Creatinine Ratio 16.9 10-20 Random Glucose 93 70-99 mg/dl Calcium Level 8.6 8.5-10.1 mg/dl Magnesium Level 2.3 1.8-2.4 mg/dl
[2017-07-14] MEDS: VALPROIC ACID SYRUP 250 MG/5 ML PO SCH ×2 (21:00→21:30)
[2017-07-14] MEDS: DIVALPROEX 250 MG EXTENDED REL TAB PO SCH (21:31)
[2017-07-15 03:45] VITALS: BP 116/64; PULSE 77; TEMP 36.6; O2SAT 97
[2017-07-15] MEDS ORDERED: POTASSIUM CHLORIDE 10 MEQ TABCR PO STA (05:39)
[2017-07-15] MEDS: LEVOTHYROXINE 100 MCG TAB PO SCH (06:27)
[2017-07-15] MEDS: DIVALPROEX 500 MG EXTENDED RELEASE TAB PO SCH ×2 (06:27→20:59)
[2017-07-15 07:13] LABS: BASO % 0.4 %; BASO ABS # 0.02 K/uL (0-0.2); EOS % 1.9 %; EOS ABS # 0.09 K/uL (0-0.5); HEMATOCRIT 33.2 % (42-52); HEMOGLOBIN 10.3 g/dL (14.0-18.0); IG# 0.03 K/uL (0.00-0.02); LYMPH % 22.7 %; LYMPH ABS # 1.07 K/uL (1.2-3.4); MEAN CELL VOLUME 97.1 fL (80-100); MEAN CORPUSCULAR HEMOGLOBIN 30.1 pg (25-34); MEAN PLATELET VOLUME 9.6 fL (7.4-10.4); MONO % 10.2 %; MONO ABS # 0.48 K/uL (0.11-0.59); NEUT % 64.2 %; NEUT ABS # 3.02 K/uL (1.4-6.5); PLATELET COUNT 110 K/uL (130-400); RED CELL DISTRIBUTION WIDTH CV 15.9 % (11.5-14.5); RED CELL DISTRIBUTION WIDTH SD 55.7 fL (36.4-46.3); WHITE BLOOD COUNT 4.71 K/uL (4.8-10.8)
[2017-07-15 07:58] VITALS: BP 113/64; PULSE 85; TEMP 36.5; O2SAT 96
[2017-07-15] MEDS: METHYLPREDNISOLONE IV 40 MG in SYRINGE 0 ML IV SCH (08:23)
[2017-07-15] MEDS: COLCHICINE 0.6 MG TAB PO SCH ×2 (08:23→20:59)
[2017-07-15] MEDS: PHENYTOIN SODIUM ER 100 MG CAP PO SCH ×3 (08:25→21:02)
[2017-07-15] MEDS: SENNA 8.6 MG TAB PO SCH ×2 (08:26→20:24)
[2017-07-15] MEDS: PANTOprazole SOD 40 MG TAB PO SCH (08:26)
[2017-07-15] MEDS: OXCARBAZEPINE 150 MG TAB PO SCH ×3 (08:28→20:59)
[2017-07-15] MEDS: BOOST PLUS VANILLA PO SCH (08:28)
[2017-07-15 10:03] LABS: CALCIUM 8.5 mg/dl (8.5-10.1); CREATININE 0.82 mg/dl (0.60-1.40)
[2017-07-15 10:04] LABS: PTT PATIENT 72.5 SECONDS (21.0-31.0)
[2017-07-15] MEDS: HEPARIN 25,000 UNIT/500ML D5W 500 ML IV PRN ×3 (10:07→19:16)
--- NOTE | 2017-07-15 10:47 | PROGRESS NOTE ---
DATE: 07/15/2017 PROBLEM LIST: Includes: 1. Bilateral pleural effusion. 2. Pericardial effusion. 3. Pulmonary embolism with DVT. HISTORY OF PRESENT ILLNESS: The patient is a 61-year-old male with diagnoses of parkinsonism and dementia. Essentially what I found is that the patient just speaks very slowly, pauses before he responds, but answers that I have gotten from him to this point have all seemed appropriate. The patient was actually seen with Dr. Cordon today. The patient reports that he is not really having any difficulty with his breathing, occasional cough, no mucus production, was having some soreness at the chest tube site. No other difficulties. No nausea, no vomiting. The patient reports that his bowels have moved 3 times this morning. No difficulty voiding. Legs are still a little bit swollen but not bad. OBJECTIVE: GENERAL: The patient is a 61-year-old male lying in bed. He is interactive and cooperative, does appear alert, oriented to person and place, answers questions appropriately, did not become dyspneic with answering questions. VITAL SIGNS: Temp 36.5, pulse 85, respirations 22, blood pressure is 113/64, pulse ox 96% on room air. NECK: Short, thick, no mass, no adenopathy. CHEST: Diminished breath sounds bilaterally. Does have what almost sounds like a friction rub following removal of the pigtail catheter on the left. No significant wheezing appreciated. CARDIOVASCULAR: Distant heart sounds but quiet. Regular rate and rhythm. No appreciated murmurs, gallops or rubs, but again, heart sounds are distant, difficult to auscultate. ABDOMEN: The patient has a midline scar. No tenderness. EXTREMITIES: The patient has chronic venous stasis changes, +1 edema, no tenderness. LABORATORY DATA: White count 4.7, H&H 10.3 and 33.2, platelet count 110,000. INR done yesterday was 1.2. Calculated protein ratio from pleural fluid from 07/10/2017 was 3.4. Culture from pleural fluid was negative. No new imaging data. IMPRESSION: 1. This is a 61-year-old male who presented with bilateral pleural effusion as well as pericarditis, deep vein thrombosis and pulmonary embolism. In regard to the pleural effusion, the patient did have a pigtail catheter placed on 07/11/[address] Waddington was brought in today and it was felt that we could safely remove this pigtail catheter. 8.5 pigtail catheter was removed without difficulty. The patient tolerated the procedure well. Op-Site was placed. At this point, fluid does appear to be transudative in nature, although we still do not know the exact etiology of this. 2. Pericardial effusion. This is improving by echo. Cardiology is following, recommending medical management and monitoring. 3. Pulmonary embolism/deep venous thrombosis. The patient will be started on Coumadin for transition to oral anticoagulation as the patient has had failure with Xarelto x2 in the past. Plan is for the patient to have a chest x-ray in the morning. At this point, he is oxygenating well, and from a pulmonary standpoint, not much else to recommend. We will reevaluate the patient in the morning, due to have a chest x-ray done, but aside from that, the patient should be able to be transferred back to living facility once medically stable.
[2017-07-15 11:48] VITALS: BP 116/64; PULSE 79; TEMP 36.3; O2SAT 93
--- NOTE | 2017-07-15 11:56 | Cardiology Follow-Up ---
Subjective Subjective Date of Service: Jul 15, 2017. Pt evaluation today including: conversation w/ patient, physical exam, chart review, lab review, review of studies, review of inpatient medication list Additional Details: Pt seen and examined, with brother at bedside. Chest tube removed this AM. Pt states that he's feeling 'ok'. Denies cp, sob at rest, palpitations, lightheadedness or dizziness. Tele reviewed: sinus rhythm with a short run of SVT at approx 0400, no other arrhythmias. Problem List Medical Problems: (1) Aggressive behavior Status: Acute (2) Altered mental status Status: Acute (3) Fever Status: Acute (4) Hypoxia Status: Acute (5) Mood disorder Status: Acute (6) Pulmonary embolism Status: Acute (7) Right lower lobe pneumonia Status: Acute (8) Status epilepticus Status: Acute Social History Problems: (1) Status post cholecystectomy Status: Acute Review of Systems ENT: + nasal symptoms Respiratory: + cough Musculoskeletal: + problem reported Neurologic: + see HPI Objective Vital Signs Last Vital Signs Documentation Date Time Temp Pulse Resp B/P (MAP) Pulse Ox O2 Delivery O2 Flow Rate FiO2 07/15/17 11:48 36.3 79 18 116/64 (81) 93 Room Air 07/12/17 07:34 3.0 Physical Exam: General Appearance: WD/WN, no apparent distress Eyes: bilateral eyes normal inspection, bilateral eyes PERRL, bilateral eyes EOMI ENT: normal ENT inspection, hearing grossly normal, pharynx normal Neck: supple, no adenopathy, thyroid normal, no JVD, no carotid bruits, trachea midline Respiratory/Chest: chest non-tender, normal breath sounds, no respiratory distress, no accessory muscle use, + rhonchi Cardiovascular: regular rate, rhythm (distant) Abdomen: normal bowel sounds, non tender, + distended, + hernia Extremities: normal range of motion, non-tender, normal inspection, no pedal edema, no calf tenderness, normal capillary refill Neurologic/Psychiatric: alert, normal mood/affect, + pertinent finding Skin: normal color, warm/dry, no rash Lymphatic: no adenopathy Assessment and Plan 1. pericardial effusion no signs of tamponade improved by echo 07/13 will continue with medical therapy in light of lack of symptoms and hemodynamic compromise along with improvement cont colchicine and steroids steroids to be converted to po will require colchicine for 3 months will also require, long slow taper of steroids given risk of rebound 2. Pulmonary embolism tolerating heparin gtt hgb increasing cont coumadin with heparin bridge 3. PSVT symptomatic not surprising given clinical context will hold off on any changes at this time
[2017-07-15 15:56] VITALS: BP 108/62; PULSE 78; TEMP 36.8; O2SAT 99
[2017-07-15] MEDS ORDERED: WARFARIN SOD 5 MG TAB PO SCH (16:00)
[2017-07-15] MEDS: WARFARIN SOD 5 MG TAB PO SCH (16:22)
[2017-07-15 16:45] LABS: PTT PATIENT 77.4 SECONDS (21.0-31.0)
--- NOTE | 2017-07-15 18:53 | Progress Note ---
Internal Med Progress Note Date of Service: Jul 15, 2017. Provider Documentation: SUBJECTIVE: resting comfortably somewhat hard to hear and slow to answer denies any chest pain or sob no nausea afebrile ate breakfast s/p chest tube removal today OBJECTIVE: Vital Signs-as noted below Exam: General-alert and Oriented. Not in distress. ENT-normal hearing Neck-no neck masses Lungs-cta b/l no wheezing or crackles Heart-s1 and s2 heard regular no murmurs Abdomen-soft bowel sounds present non tender no distension Extremities-no erythema Neuro-alert and awake moves extremities Lab data as noted below. ASSESSMENT & PLAN: Per H and P:61-year-old M with history of seizure disorder, Parkinson's, schizoaffective disorder, HTN, CKD III (L kidney absent), hereditary lymphedema , diastolic heart failure, recently was diagnosed with PE and was started on Xarelto, recently underwent abdominal hernia repair with cholecystectomy over 3 weeks ago, the patient was discharged to the senior living where he was noted for the past 24 hours to have persistent cough, with chest x-ray which showed bilateral volume loss and started empirically on Levaquin and transferred to the ER, was given Zosyn empirically, CAT scan of the chest and chest x-ray were reviewed which showed bilateral pleural effusion and pericardial effusion and pulmonary embolism" Pericardial effusion presented with large pericardial effusion without tamponade repeat echo shows moderate pericardial effusion Xarelto has been held for now as cardiology service recommended this to avoid hemorrhagic component complications heparin IV drip started by cardiology instead for anticoagulation As per :, cardiology service considered possible pericardiocentesis on but this did not take place as patient as been asymptomatic and hemodynamically stable and as per cardiology service will resume heparin drip with plans to bridge to oral Coumadin since oral Coumadin has readily available reversal agent if patient has bleeding" To start on po prednisone with long taper colchicine for 3months as per cardiology Acute PE Left lower extremity DVT on iv heparin started on Coumadin 'f/u inr Right sided pleural effusion Thoracentesis on 07/10/17: due to the enlarged pleural effusion on the right side with 1 L of blood-tinged fluid was removed As per pulmonary/critical care fluid is exudative but not likely infectious. blood cultures/thoracentesis cultures no growth to date not on antibiotics Left Pleural effusion CXR 07/11/17 AM: no pneumothorax. Interstitial thickening suggests pulmonary edema. Bibasilar opacities persist. Cardiomediastinal silhouette is stable. Small right pleural effusion is noted. A small to moderate left pleural effusion is noted. -left chest tube placed on 07/11/17- s/p removal of chest tube today seizure disorder, Parkinson's, schizoaffective disorder To continue home medications Valproic acid, Trilepta, Phenytoin Thyroid On Synthroid DVT ppx: IV heparin / Coumadin Disposition: To be determined monitor in tele Vital Signs: Date Time Temp Pulse Resp B/P (MAP) Pulse Ox O2 Delivery O2 Flow Rate FiO2 07/15/17 16:00 Room Air 07/15/17 15:56 36.8 78 18 108/62 (77) 99 Room Air 07/15/17 12:00 Room Air 07/15/17 11:48 36.3 79 18 116/64 (81) 93 Room Air 07/15/17 09:30 Room Air 07/15/17 08:00 Room Air 07/15/17 07:58 36.5 85 22 113/64 (80) 96 Room Air 07/15/17 04:00 Room Air 07/15/17 03:45 36.6 77 23 116/64 (81) 97 Room Air 07/15/17 00:00 Room Air 07/14/17 23:45 36.7 77 18 117/68 (84) 98 Room Air 07/14/17 20:00 95 Room Air 07/14/17 19:47 36.9 78 28 103/59 (74) 95 Room Air Lab Results: Results Past 24 Hours Test 07/15/17 06:43 07/15/17 09:12 07/15/17 16:00 Range/Units White Blood Count 4.71 4.8-10.8 K/uL Red Blood Count 3.42 4.7-6.1 M/uL Hemoglobin 10.3 14.0-18.0 g/dL Hematocrit 33.2 42-52 % Mean Corpuscular Volume 97.1 80-100 fL Mean Corpuscular Hemoglobin 30.1 25-34 pg Mean Corpuscular Hemoglobin Concent 31.0 32-36 g/dl Platelet Count 110 130-400 K/uL Mean Platelet Volume 9.6 7.4-10.4 fL Neutrophils (%) (Auto) 64.2 % Lymphocytes (%) (Auto) 22.7 % Monocytes (%) (Auto) 10.2 % Eosinophils (%) (Auto) 1.9 % Basophils (%) (Auto) 0.4 % Neutrophils # (Auto) 3.02 1.4-6.5 K/uL Lymphocytes # (Auto) 1.07 1.2-3.4 K/uL Monocytes # (Auto) 0.48 0.11-0.59 K/uL Eosinophils # (Auto) 0.09 0-0.5 K/uL Basophils # (Auto) 0.02 0-0.2 K/uL RDW Standard Deviation 55.7 36.4-46.3 fL RDW Coefficient of Variation 15.9 11.5-14.5 % Immature Granulocyte % (Auto) 0.6 % Immature Granulocyte # (Auto) 0.03 0.00-0.02 K/uL Activated Partial Thromboplast Time 72.5 77.4 21.0-31.0 SECONDS Partial Thromboplastin Ratio 2.8 3.0 Sodium Level 137 136-145 mmol/L Potassium Level 4.0 3.5-5.1 mmol/L Chloride Level 102 98-107 mmol/L Carbon Dioxide Level 28 21-32 mmol/L Anion Gap 7.0 3-11 mmol/L Blood Urea Nitrogen 13 7-18 mg/dl Creatinine 0.82 0.60-1.40 mg/dl Est Creatinine Clear Calc Drug Dose 114.7 ml/min Estimated GFR () 109.1 Estimated GFR (Non- 94.1 BUN/Creatinine Ratio 15.9 10-20 Random Glucose 136 70-99 mg/dl Calcium Level 8.5 8.5-10.1 mg/dl Magnesium Level 2.3 1.8-2.4 mg/dl
[2017-07-15 19:29] VITALS: BP 95/61; PULSE 84; TEMP 36.4; O2SAT 95
[2017-07-15] MEDS: DIVALPROEX 250 MG EXTENDED REL TAB PO SCH (20:59)
[2017-07-15] MEDS: VALPROIC ACID SYRUP 250 MG/5 ML PO SCH (21:00)
[2017-07-15 23:30] VITALS: BP 117/67; PULSE 75; TEMP 36.8; O2SAT 95
[2017-07-15 23:57] LABS: PTT PATIENT 63.2 SECONDS (21.0-31.0)
[2017-07-16] VITALS (7 sets, daily range): BP systolic 110–123; BP diastolic 61–76; PULSE 74–101; TEMP 36.4–36.7; O2SAT 93–96
[2017-07-16] MEDS: HEPARIN 25,000 UNIT/500ML D5W 500 ML IV PRN (02:36)
[2017-07-16] MEDS: DIVALPROEX 500 MG EXTENDED RELEASE TAB PO SCH ×2 (05:29→20:55)
[2017-07-16] MEDS: LEVOTHYROXINE 100 MCG TAB PO SCH (05:29)
--- NOTE | 2017-07-16 07:08 | DIAGNOSTIC IMAGING REPORT ---
CHEST ONE VIEW PORTABLE CLINICAL HISTORY: bilateral pleural effusion s/p pigtail catheter removal COMPARISON STUDY: 07/13/2017 FINDINGS: Interval removal of the left-sided pigtail catheter. Residual bilateral pleural effusions is essentially unchanged. Mild stable cardia megaly. Upper lungs are clear. No evidence for pneumothorax. IMPRESSION: Interval removal of the left-sided pigtail drainage catheter. Stable bilateral pleural effusions. The above report was generated using voice recognition software. It may contain grammatical, syntax or spelling errors. Electronically signed by: Hudson Lock M.D. 07/16/2017 7:07 AM Dictated Date/Time: 07/16/2017 7:05 AM
[2017-07-16 07:14] LABS: INR 2.7 (0.9-1.1)
[2017-07-16] MEDS: SENNA 8.6 MG TAB PO SCH ×2 (08:08→20:40)
[2017-07-16] MEDS: PANTOprazole SOD 40 MG TAB PO SCH (08:08)
[2017-07-16] MEDS: BOOST PLUS VANILLA PO SCH ×2 (08:08→19:00)
[2017-07-16] MEDS: OXCARBAZEPINE 150 MG TAB PO SCH ×3 (08:09→20:55)
[2017-07-16] MEDS: COLCHICINE 0.6 MG TAB PO SCH ×2 (08:09→20:58)
[2017-07-16] MEDS: PHENYTOIN SODIUM ER 100 MG CAP PO SCH ×3 (08:10→20:57)
--- NOTE | 2017-07-16 10:07 | Progress Note ---
Internal Med Progress Note Date of Service: Jul 16, 2017. Provider Documentation: SUBJECTIVE: eating breakfast denies sob or cough has some chest pain which he is complaining daily no nausea afebrile no headache has some diarrhea as per nursing staff OBJECTIVE: Vital Signs-as noted below Exam: General-alert and Oriented. Not in distress.Slow to answer ENT-somewhat hard to hear Neck-no neck masses Lungs-cta b/l no wheezing or crackles Heart-s1 and s2 heard regular no murmurs Abdomen-soft bowel sounds present non tender no distension Extremities-no erythema Neuro-alert and awake moves extremities Lab data as noted below. ASSESSMENT & PLAN: Per H and P:61-year-old M with history of seizure disorder, Parkinson's, schizoaffective disorder, HTN, CKD III (L kidney absent), hereditary lymphedema , diastolic heart failure, recently was diagnosed with PE and was started on Xarelto, recently underwent abdominal hernia repair with cholecystectomy over 3 weeks ago, the patient was discharged to the half-way where he was noted for the past 24 hours to have persistent cough, with chest x-ray which showed bilateral volume loss and started empirically on Levaquin and transferred to the ER, was given Zosyn empirically, CAT scan of the chest and chest x-ray were reviewed which showed bilateral pleural effusion and pericardial effusion and pulmonary embolism" Pericardial effusion presented with large pericardial effusion without tamponade repeat echo shows moderate pericardial effusion Xarelto has been held for now as cardiology service recommended this to avoid hemorrhagic component complications There was consideration for possible pericardiocentesis on 07/13/17 but this did not take place as patient as been asymptomatic and hemodynamically stable. Cardiology recommends oral Coumadin because of readily available reversal agent if patient has bleeding Started on po prednisone with plan for long taper colchicine for 3months as per cardiology still has some chest pain Acute PE Left lower extremity DVT on iv heparin started on Coumadin inr 2.7 today cut back on Coumadin to 0.5mg daily and f/u inr Right sided pleural effusion Thoracentesis on 07/10/17: due to the enlarged pleural effusion on the right side with 1 L of blood-tinged fluid was removed As per pulmonary/critical care fluid is exudative but not likely infectious. blood cultures/thoracentesis cultures no growth to date not on antibiotics-stable Left Pleural effusion CXR 07/11/17 AM: no pneumothorax. Interstitial thickening suggests pulmonary edema. Bibasilar opacities persist. Cardiomediastinal silhouette is stable. Small right pleural effusion is noted. A small to moderate left pleural effusion is noted. -left chest tube placed on 07/11/17- s/p removal of chest tube on 07/15/17 will monitor seizure disorder, Parkinson's, schizoaffective disorder To continue home medications Valproic acid, Trilepta, Phenytoin Thyroid On Synthroid Diarrhea will check for c diff DVT ppx: IV heparin / Coumadin Disposition: To be determined monitor in tele pt/ot possible d/c in 1-2 days Vital Signs: Date Time Temp Pulse Resp B/P (MAP) Pulse Ox O2 Delivery O2 Flow Rate FiO2 07/16/17 08:00 Room Air 07/16/17 07:54 36.6 74 16 123/76 (92) 96 07/16/17 04:00 Room Air 07/16/17 03:48 36.4 79 25 112/61 (78) 93 Room Air 07/16/17 00:00 Room Air 07/15/17 23:30 36.8 75 23 117/67 (84) 95 Room Air 07/15/17 19:29 36.4 84 20 95/61 (72) 95 Room Air 07/15/17 19:20 Room Air 07/15/17 16:00 Room Air 07/15/17 15:56 36.8 78 18 108/62 (77) 99 Room Air 07/15/17 12:00 Room Air 07/15/17 11:48 36.3 79 18 116/64 (81) 93 Room Air Lab Results: Results Past 24 Hours Test 07/15/17 16:00 07/15/17 23:11 07/16/17 06:13 Range/Units Activated Partial Thromboplast Time 77.4 63.2 65.0 21.0-31.0 SECONDS Partial Thromboplastin Ratio 3.0 2.4 2.5 Prothrombin Time 27.4 9.0-12.0 SECONDS Prothromb Time International Ratio 2.7 0.9-1.1 Microbiology Results 07/16/17 C.difficile Toxin B Gene (PCR) - Final, Complete No C. difficile toxin B gene detected
[2017-07-16] MEDS ORDERED: FUROSEMIDE INJ 40 MG in SYRINGE 0 ML IV ONE (11:04)
[2017-07-16] MEDS ORDERED: POTASSIUM CHLORIDE 20 MEQ TABCR PO ONE (11:04)
--- NOTE | 2017-07-16 11:09 | Cardiology Follow-Up ---
Subjective Subjective Date of Service: Jul 16, 2017. Pt evaluation today including: conversation w/ patient, physical exam, chart review, lab review, review of studies, review of inpatient medication list Additional Details: Pt seen and examined, no clinical change. NSG reports not active at all, even refusing to use urinal. Denies cp, sob, palpitations, lightheadedness or dizziness. Tele reviewed: Problem List Medical Problems: (1) Aggressive behavior Status: Acute (2) Altered mental status Status: Acute (3) Fever Status: Acute (4) Hypoxia Status: Acute (5) Mood disorder Status: Acute (6) Pulmonary embolism Status: Acute (7) Right lower lobe pneumonia Status: Acute (8) Status epilepticus Status: Acute Social History Problems: (1) Status post cholecystectomy Status: Acute Review of Systems ENT: + nasal symptoms Respiratory: + cough Musculoskeletal: + problem reported Neurologic: + see HPI Objective Vital Signs Last Vital Signs Documentation Date Time Temp Pulse Resp B/P (MAP) Pulse Ox O2 Delivery O2 Flow Rate FiO2 07/16/17 08:00 Room Air 07/16/17 07:54 36.6 74 16 123/76 (92) 96 07/12/17 07:34 3.0 Physical Exam: General Appearance: WD/WN, no apparent distress Eyes: bilateral eyes normal inspection, bilateral eyes PERRL, bilateral eyes EOMI ENT: normal ENT inspection, hearing grossly normal, pharynx normal Neck: supple, no adenopathy, thyroid normal, no JVD, no carotid bruits, trachea midline Respiratory/Chest: chest non-tender, normal breath sounds, no respiratory distress, no accessory muscle use, + rhonchi Cardiovascular: regular rate, rhythm (distant) Abdomen: normal bowel sounds, non tender, + distended, + hernia Extremities: normal range of motion, non-tender, normal inspection, no pedal edema, no calf tenderness, normal capillary refill Neurologic/Psychiatric: alert, normal mood/affect, + pertinent finding Skin: normal color, warm/dry, no rash Lymphatic: no adenopathy Assessment and Plan 1. pericardial effusion no signs of tamponade improved by echo 07/13 will continue with medical therapy in light of lack of symptoms and hemodynamic compromise along with improvement cont colchicine and steroids will require colchicine for 3 months will also require, long slow taper of steroids given risk of rebound 2. Pulmonary embolism INR 2.7 today will d/c heparin 3. PSVT symptomatic not surprising given clinical context will hold off on any changes at this time 4. pleural effusions catheter removed no change on xray will restart diuretics with IV lasix bid (on 40mg po bid as outpatient) and po zaroxolyn along wit KCl 20meq daily ok to d/c tele from cardiac standpoint.
[2017-07-16] MEDS ORDERED: METOLAZONE 2.5 MG TAB PO ONE (11:15)
[2017-07-16] MEDS ORDERED: NURSING VERBAL MED ORDER ONE (14:15)
[2017-07-16] MEDS ORDERED: WARFARIN SOD 0.5 MG TAB PO SCH (16:00)
[2017-07-16] MEDS: FUROSEMIDE INJ 40 MG in SYRINGE 0 ML IV SCH (20:54)
[2017-07-16] MEDS: DIVALPROEX 250 MG EXTENDED REL TAB PO SCH (20:57)
[2017-07-16] MEDS: VALPROIC ACID SYRUP 250 MG/5 ML PO SCH (20:57)
[2017-07-17 03:48] VITALS: BP 116/68; PULSE 82; TEMP 36.5; O2SAT 96
[2017-07-17] MEDS: LEVOTHYROXINE 100 MCG TAB PO SCH (05:42)
[2017-07-17] MEDS: DIVALPROEX 500 MG EXTENDED RELEASE TAB PO SCH ×2 (05:42→20:47)
[2017-07-17 07:40] LABS: INR 1.9 (0.9-1.1)
[2017-07-17 07:41] LABS: PTT PATIENT 53.8 SECONDS (21.0-31.0)
[2017-07-17] MEDS: PHENYTOIN SODIUM ER 100 MG CAP PO SCH ×3 (07:49→20:47)
[2017-07-17] MEDS: FUROSEMIDE INJ 40 MG in SYRINGE 0 ML IV SCH ×2 (07:49→16:50)
[2017-07-17] MEDS: COLCHICINE 0.6 MG TAB PO SCH ×2 (07:50→20:47)
[2017-07-17] MEDS: SENNA 8.6 MG TAB PO SCH ×2 (07:51→20:57)
[2017-07-17] MEDS: OXCARBAZEPINE 150 MG TAB PO SCH ×3 (07:51→20:48)
[2017-07-17] MEDS: METOLAZONE 2.5 MG TAB PO SCH (07:51)
[2017-07-17] MEDS: PANTOprazole SOD 40 MG TAB PO SCH (07:51)
[2017-07-17 08:07] VITALS: BP 106/64; PULSE 78; TEMP 36.7; O2SAT 95
[2017-07-17 08:23] LABS: CALCIUM 8.9 mg/dl (8.5-10.1); CREATININE 0.83 mg/dl (0.60-1.40); POTASSIUM 3.5 mmol/L (3.5-5.1)
[2017-07-17] MEDS ORDERED: ENOXAPARIN 120 MG/0.8 ML SYR SQ ONE (08:30)
[2017-07-17] MEDS ORDERED: POTASSIUM CHLORIDE 20 MEQ TABCR PO SCH (09:00)
[2017-07-17] MEDS: BOOST PLUS VANILLA PO SCH ×2 (10:31→19:00)
[2017-07-17] MEDS ORDERED: HEPARIN IV LOW DOSE NO BOLUS SCH (10:40)
[2017-07-17 11:17] LABS: BASO % 0.2 %; BASO ABS # 0.01 K/uL (0-0.2); EOS % 0.7 %; EOS ABS # 0.04 K/uL (0-0.5); HEMATOCRIT 33.8 % (42-52); HEMOGLOBIN 10.7 g/dL (14.0-18.0); IG# 0.05 K/uL (0.00-0.02); LYMPH % 8.7 %; LYMPH ABS # 0.53 K/uL (1.2-3.4); MEAN CELL VOLUME 96.3 fL (80-100); MEAN CORPUSCULAR HEMOGLOBIN 30.5 pg (25-34); MEAN PLATELET VOLUME 8.8 fL (7.4-10.4); MONO % 4.9 %; NEUT % 84.7 %; NEUT ABS # 5.18 K/uL (1.4-6.5); PLATELET COUNT 148 K/uL (130-400); RED CELL DISTRIBUTION WIDTH CV 16.1 % (11.5-14.5); WHITE BLOOD COUNT 6.11 K/uL (4.8-10.8)
[2017-07-17 11:24] LABS: MEAN CORPUSCULAR HGB CONC 31.7 g/dl (32-36)
--- NOTE | 2017-07-17 11:24 | PULMONARY PROGRESS NOTE ---
DATE: 07/17/2017 PROBLEM LIST: Includes: 1. Bilateral pleural effusion. 2. Pericardial effusion. 3. Pulmonary embolism with DVT. SUBJECTIVE: The patient is a 61-year-old male who has additional diagnoses to ones listed above, Parkinsonism and dementia. The patient had his pigtail catheter removed from the left side yesterday. This was done by Dr. Cordon. The patient reports that today he still has little bit of soreness on that side, but he also relates to having a boil on that side, although none has been discovered. The patient states that from a breathing perspective, he is doing well, he is not really having any difficulty. He states he will have occasional cough and congestion, no wheezing, no chest heaviness or tightness. He did have a chest x-ray this morning. Denies any other concerns. No nausea. He is eating well. No difficulty with his bowels. He does have a catheter in place. He does have a little bit of swelling per him in his legs, which he reported yesterday as well. OBJECTIVE: GENERAL: The patient is a 61-year-old male, sitting in bed in no acute distress. He is interactive, cooperative, and alert to person. VITAL SIGNS: Temp 36.4, pulse 85, respirations 20, blood pressure is 116/66, and pulse ox 95% on room air. NECK: Short, thick, no mass, no adenopathy, no bruit. CHEST: The patient with good breath sounds bilaterally. Lungs appear clear. There is no wheeze, rale or rhonchi noted. CARDIOVASCULAR: Regular rate and rhythm. No murmurs, gallops or rubs. ABDOMEN: Bowel sounds are present. Abdomen soft, nontender. No guarding, rigidity or organomegaly. EXTREMITIES: No erythema or edema. LABORATORY DATA: No new lab data. IMAGING DATA: Chest x-ray shows just very small amount of pleural effusion bilaterally. IMPRESSION AND PLAN: A 61-year-old male with bilateral pleural effusion as well as pericardial effusion and pulmonary embolism/deep venous thrombosis. The patient did have pleural effusion drained with an indwelling pigtail catheter which was removed on July [address] Cordon. The patient has done well, at this point his respiratory sounds are stable. He is not having any new problems currently. He denies any chest or breathing concerns for now. Recommend to continue pulmonary toilet as it is. He has no supplemental oxygen requirements at this time. Pericardial effusion being followed by cardiology. DVT, PE - patient is on anticoagulation through IV with conversion to oral Coumadin being done.
--- NOTE | 2017-07-17 11:32 | PULMONARY PROGRESS NOTE ---
DATE: 07/17/2017 PROBLEM LIST: Includes: 1. Pleural effusion. 2. Pericardial effusion. 3. DVT/PE. HISTORY OF PRESENT ILLNESS: The patient is a 61-year-old male who carries additional diagnosis of Parkinson's and dementia who was admitted because of DVT, PE and subsequent pleural effusion and pericardial effusion. At this point, the patient had a pigtail catheter, which was inserted July 11 for left-sided pleural effusion, removed on July 15. The patient is doing well from a pulmonary standpoint, has no additional concerns. No cough more than what he normally has, no wheezing, no increased shortness of breath. He remains on room air and is not requiring any supplemental oxygen. Denies any chest pain. Denies any abdominal pain. Still has little bit of swelling in his legs. OBJECTIVE: GENERAL: The patient is a 61-year-old male sitting in bed in no acute distress. He is interactive and cooperative. VITAL SIGNS: Temp 36.7, pulse 85, respirations 24, blood pressure is 114/62, and pulse ox 94% on room air. HEENT: Normocephalic. Pupils equal, round and reactive to light and accommodation, nonicteric. Marceline moist gingival and buccal mucosa. NECK: Supple. No mass, no adenopathy or bruit. CHEST: Diminished breath sounds. I do not really appreciate any wheeze, rale or rhonchi at this time. CARDIOVASCULAR: Regular rate and rhythm. No murmurs, gallops or rubs. ABDOMEN: Bowel sounds are present. Abdomen soft, nontender. EXTREMITIES: No edema, no erythema. LABORATORY DATA: Renal profile is unremarkable. INR is 1.9. The patient's C. diff checked yesterday was negative. IMAGING DATA: No new imaging. IMPRESSION: A 61-year-old male who came in with PE/deep venous thrombosis, pleural effusion and pericardial effusion. At this point, he is doing well, did have a thoracentesis done with a pigtail catheter placed on July 11 and this was removed on July 15 due to minimal drainage and the patient has done well since. At this point, he is saturating well on room air. He has no additional supplemental oxygen requirements. He continues on prednisone, which I think can be tapered by 5 mg every 2 days until he is off unless other recommendations by either cardiology or hospitalist staff. He is being anticoagulated for the PE. At this point, pulmonary will sign off on the patient as there is nothing further to offer and the patient is stable. If there is a need for us to evaluate the patient, please contact and let us know.
[2017-07-17] MEDS: POTASSIUM CHLORIDE 20 MEQ TABCR PO SCH ×2 (11:43→20:47)
[2017-07-17 11:55] VITALS: BP 113/67; PULSE 77; TEMP 36.7; O2SAT 93
[2017-07-17] MEDS: HEPARIN 25,000 UNIT/500ML D5W 500 ML IV PRN (12:20)
--- NOTE | 2017-07-17 13:21 | Cardiology Follow-Up ---
Subjective Subjective Date of Service: Jul 17, 2017. Pt evaluation today including: conversation w/ patient, physical exam, chart review, lab review, review of studies, conversation w/ service delivery consultant, review of inpatient medication list Additional Details: Pt seen and examined, states that he feels ok. Denies cp, sob, palpitations, lightheadedness or dizziness. Problem List Medical Problems: (1) Aggressive behavior Status: Acute (2) Altered mental status Status: Acute (3) Fever Status: Acute (4) Hypoxia Status: Acute (5) Mood disorder Status: Acute (6) Pulmonary embolism Status: Acute (7) Right lower lobe pneumonia Status: Acute (8) Status epilepticus Status: Acute Social History Problems: (1) Status post cholecystectomy Status: Acute Review of Systems ENT: + nasal symptoms Respiratory: + cough, No see HPI, No sputum, No wheezing, No shortness of breath, No dyspnea on exertion, No dyspnea at rest, No hemoptysis, No problem reported Cardiac: No see HPI, No chest pain, No orthopnea, No PND, No edema, No claudication, No palpitations, No problem reported Musculoskeletal: + problem reported Neurologic: + see HPI Objective Vital Signs Last Vital Signs Documentation Date Time Temp Pulse Resp B/P (MAP) Pulse Ox O2 Delivery O2 Flow Rate FiO2 07/17/17 12:00 Room Air 07/17/17 11:55 36.7 77 20 113/67 (82) 93 07/12/17 07:34 3.0 Physical Exam: General Appearance: WD/WN, no apparent distress Eyes: bilateral eyes normal inspection, bilateral eyes PERRL, bilateral eyes EOMI ENT: normal ENT inspection, hearing grossly normal, pharynx normal Neck: supple, no adenopathy, thyroid normal, no JVD, no carotid bruits, trachea midline Respiratory/Chest: chest non-tender, normal breath sounds, no respiratory distress, no accessory muscle use, + rhonchi Cardiovascular: regular rate, rhythm (distant) Abdomen: normal bowel sounds, non tender, + distended, + hernia Extremities: normal range of motion, non-tender, normal inspection, no pedal edema, no calf tenderness, normal capillary refill Neurologic/Psychiatric: alert, normal mood/affect, + pertinent finding Skin: normal color, warm/dry, no rash Lymphatic: no adenopathy Assessment and Plan 1. pericardial effusion no signs of tamponade improved by echo 07/13 will continue with medical therapy in light of lack of symptoms and hemodynamic compromise along with improvement cont colchicine and steroids will require colchicine for 3 months agree with pulmonary's taper recommendations can repeat echo in 1-2 weeks as outpatient 2. Pulmonary embolism INR 1.9 today 3. PSVT asymptomatic not surprising given clinical context will hold off on any changes at this time 4. pleural effusions catheter removed diuresed 3L with restarting diuretics ok to change to po ok to d/c tele from cardiac standpoint. will sign off, please call with questions or concerns
[2017-07-17 15:47] VITALS: BP 126/67; PULSE 73; TEMP 36.5; O2SAT 96
[2017-07-17] MEDS ORDERED: WARFARIN SOD 1 MG TAB PO SCH (16:00)
--- NOTE | 2017-07-17 17:40 | Progress Note ---
Internal Med Progress Note Date of Service: Jul 17, 2017. Provider Documentation: SUBJECTIVE: resting comfortably ate breakfast denies chest pain or sob some abdominal discomfort afebrile no nausea OBJECTIVE: Vital Signs-as noted below Exam: General-alert and Oriented. Not in distress.Slow to answer ENT-somewhat hard to hear Neck-no neck masses Lungs-cta b/l no wheezing or crackles Heart-s1 and s2 heard regular no murmurs Abdomen-soft bowel sounds present non tender no distension Extremities-no erythema Neuro-alert and awake moves extremities Lab data as noted below. ASSESSMENT & PLAN: Per H and P:61-year-old M with history of seizure disorder, Parkinson's, schizoaffective disorder, HTN, CKD III (L kidney absent), hereditary lymphedema , diastolic heart failure, recently was diagnosed with PE and was started on Xarelto, recently underwent abdominal hernia repair with cholecystectomy over 3 weeks ago, the patient was discharged to the long-term where he was noted for the past 24 hours to have persistent cough, with chest x-ray which showed bilateral volume loss and started empirically on Levaquin and transferred to the ER, was given Zosyn empirically, CAT scan of the chest and chest x-ray were reviewed which showed bilateral pleural effusion and pericardial effusion and pulmonary embolism" Pericardial effusion presented with large pericardial effusion without tamponade repeat echo shows moderate pericardial effusion Xarelto has been held for now as cardiology service recommended this to avoid hemorrhagic component complications There was consideration for possible pericardiocentesis on 07/13/17 but this did not take place as patient as been asymptomatic and hemodynamically stable. Cardiology recommends oral Coumadin because of readily available reversal agent if patient has bleeding Started on po prednisone with plan for long taper with reduce 5mg every 2 days colchicine for 3months as per cardiology still has some chest pain Acute PE Left lower extremity DVT on iv heparin started on Coumadin inr 1.9today. low dose iv heparin bridge placed on Coumadin to 1 mg daily and f/u inr Right sided pleural effusion Thoracentesis on 07/10/17: due to the enlarged pleural effusion on the right side with 1 L of blood-tinged fluid was removed As per pulmonary/critical care fluid is exudative but not likely infectious. blood cultures/thoracentesis cultures no growth to date not on antibiotics-stable Left Pleural effusion CXR 07/11/17 AM: no pneumothorax. Interstitial thickening suggests pulmonary edema. Bibasilar opacities persist. Cardiomediastinal silhouette is stable. Small right pleural effusion is noted. A small to moderate left pleural effusion is noted. -left chest tube placed on 07/11/17- s/p removal of chest tube on 07/15/17. pulmonary signed off will monitor seizure disorder, Parkinson's, schizoaffective disorder To continue home medications Valproic acid, Trilepta, Phenytoin Thyroid On Synthroid Diarrhea will check for c diff-negative DVT ppx: IV heparin / Coumadin Disposition: To be determined monitor in tele pt/ot possible d/c in am Vital Signs: Date Time Temp Pulse Resp B/P (MAP) Pulse Ox O2 Delivery O2 Flow Rate FiO2 07/17/17 16:00 Room Air 07/17/17 15:47 36.5 73 20 126/67 (86) 96 Room Air 07/17/17 12:00 Room Air 07/17/17 11:55 36.7 77 20 113/67 (82) 93 07/17/17 08:07 36.7 78 26 106/64 (78) 95 07/17/17 08:00 Room Air 07/17/17 04:00 Room Air 07/17/17 03:48 36.5 82 23 116/68 (84) 96 Room Air 07/16/17 23:59 Room Air 07/16/17 23:45 36.4 77 20 110/63 (79) 95 Room Air 07/16/17 20:03 36.7 85 24 114/62 (79) 94 Room Air 07/16/17 20:00 Room Air Lab Results: Results Past 24 Hours Test 07/17/17 06:54 07/17/17 11:05 Range/Units Prothrombin Time 20.1 9.0-12.0 SECONDS Prothromb Time International Ratio 1.9 0.9-1.1 Activated Partial Thromboplast Time 53.8 21.0-31.0 SECONDS Partial Thromboplastin Ratio 2.1 Sodium Level 137 136-145 mmol/L Potassium Level 3.5 3.5-5.1 mmol/L Chloride Level 99 98-107 mmol/L Carbon Dioxide Level 28 21-32 mmol/L Anion Gap 10.0 3-11 mmol/L Blood Urea Nitrogen 15 7-18 mg/dl Creatinine 0.83 0.60-1.40 mg/dl Est Creatinine Clear Calc Drug Dose 112.1 ml/min Estimated GFR () 108.5 Estimated GFR (Non- 93.6 BUN/Creatinine Ratio 18.0 10-20 Random Glucose 99 70-99 mg/dl Calcium Level 8.9 8.5-10.1 mg/dl Magnesium Level 2.0 1.8-2.4 mg/dl C-Reactive Protein 3.00 0-0.29 mg/dl Prealbumin 27.7 20-40 mg/dl White Blood Count 6.11 4.8-10.8 K/uL Red Blood Count 3.51 4.7-6.1 M/uL Hemoglobin 10.7 14.0-18.0 g/dL Hematocrit 33.8 42-52 % Mean Corpuscular Volume 96.3 80-100 fL Mean Corpuscular Hemoglobin 30.5 25-34 pg Mean Corpuscular Hemoglobin Concent 31.7 32-36 g/dl Platelet Count 148 130-400 K/uL Mean Platelet Volume 8.8 7.4-10.4 fL Neutrophils (%) (Auto) 84.7 % Lymphocytes (%) (Auto) 8.7 % Monocytes (%) (Auto) 4.9 % Eosinophils (%) (Auto) 0.7 % Basophils (%) (Auto) 0.2 % Neutrophils # (Auto) 5.18 1.4-6.5 K/uL Lymphocytes # (Auto) 0.53 1.2-3.4 K/uL Monocytes # (Auto) 0.30 0.11-0.59 K/uL Eosinophils # (Auto) 0.04 0-0.5 K/uL Basophils # (Auto) 0.01 0-0.2 K/uL RDW Standard Deviation 56.0 36.4-46.3 fL RDW Coefficient of Variation 16.1 11.5-14.5 % Immature Granulocyte % (Auto) 0.8 % Immature Granulocyte # (Auto) 0.05 0.00-0.02 K/uL
[2017-07-17 19:21] VITALS: BP 109/67; PULSE 72; TEMP 36.7; O2SAT 93
[2017-07-17 19:32] LABS: PTT PATIENT 91.9 SECONDS (21.0-31.0)
[2017-07-17] MEDS: DIVALPROEX 250 MG EXTENDED REL TAB PO SCH (20:47)
[2017-07-17] MEDS: VALPROIC ACID SYRUP 250 MG/5 ML PO SCH (20:58)
[2017-07-18] VITALS (7 sets, daily range): BP systolic 105–128; BP diastolic 62–74; PULSE 75–105; TEMP 36.3–37.4; O2SAT 94–98
[2017-07-18 03:32] LABS: PTT PATIENT 52.7 SECONDS (21.0-31.0)
[2017-07-18] MEDS: DIVALPROEX 500 MG EXTENDED RELEASE TAB PO SCH ×2 (06:19→19:46)
[2017-07-18] MEDS: LEVOTHYROXINE 100 MCG TAB PO SCH (06:19)
[2017-07-18 07:18] LABS: INR 1.5 (0.9-1.1); PTT PATIENT 40.5 SECONDS (21.0-31.0)
[2017-07-18] MEDS ORDERED: HEPARIN IV BOLUS 4,500 UNIT in SYRINGE 0 ML IV STA (07:38)
[2017-07-18] MEDS: SENNA 8.6 MG TAB PO SCH ×2 (08:11→19:46)
[2017-07-18] MEDS: METOLAZONE 2.5 MG TAB PO SCH (08:13)
[2017-07-18] MEDS: PHENYTOIN SODIUM ER 100 MG CAP PO SCH ×3 (08:13→19:47)
[2017-07-18] MEDS: POTASSIUM CHLORIDE 20 MEQ TABCR PO SCH ×2 (08:14→19:48)
[2017-07-18] MEDS: OXCARBAZEPINE 150 MG TAB PO SCH ×3 (08:14→19:46)
[2017-07-18] MEDS: COLCHICINE 0.6 MG TAB PO SCH ×2 (08:14→19:48)
[2017-07-18] MEDS: FUROSEMIDE INJ 40 MG in SYRINGE 0 ML IV SCH ×3 (08:29→17:00)
[2017-07-18] MEDS: BOOST PLUS VANILLA PO SCH ×2 (10:00→19:00)
[2017-07-18 13:57] LABS: PTT PATIENT 74.8 SECONDS (21.0-31.0)
[2017-07-18] MEDS: HEPARIN 25,000 UNIT/500ML D5W 500 ML IV PRN (14:19)
[2017-07-18] MEDS ORDERED: WARFARIN SOD 2.5 MG TAB PO SCH (16:00)
--- NOTE | 2017-07-18 17:21 | Progress Note ---
Internal Med Progress Note Date of Service: Jul 18, 2017. Provider Documentation: SUBJECTIVE: resting comfortably has some chest pain which he has for sometime now no sob no nausea no fevers hemodynamics stable OBJECTIVE: Vital Signs-as noted below Exam: General-alert and Oriented. Not in distress.Slow to answer ENT-somewhat hard to hear Neck-no neck masses Lungs-cta b/l no wheezing or crackles Heart-s1 and s2 heard regular no murmurs Abdomen-soft bowel sounds present non tender no distension Extremities-no erythema Neuro-alert and awake moves extremities Lab data as noted below. ASSESSMENT & PLAN: Per H and P:61-year-old M with history of seizure disorder, Parkinson's, schizoaffective disorder, HTN, CKD III (L kidney absent), hereditary lymphedema , diastolic heart failure, recently was diagnosed with PE and was started on Xarelto, recently underwent abdominal hernia repair with cholecystectomy over 3 weeks ago, the patient was discharged to the long-term where he was noted for the past 24 hours to have persistent cough, with chest x-ray which showed bilateral volume loss and started empirically on Levaquin and transferred to the ER, was given Zosyn empirically, CAT scan of the chest and chest x-ray were reviewed which showed bilateral pleural effusion and pericardial effusion and pulmonary embolism" Pericardial effusion presented with large pericardial effusion without tamponade repeat echo shows moderate pericardial effusion Xarelto has been held for now as cardiology service recommended this to avoid hemorrhagic component complications There was consideration for possible pericardiocentesis on 07/13/17 but this did not take place as patient as been asymptomatic and hemodynamically stable. Cardiology recommends oral Coumadin because of readily available reversal agent if patient has bleeding Started on po prednisone with plan for long taper with reduce 5mg every 2 days colchicine for 3months as per cardiology still has some chest pain f/u with cardiology Acute PE Left lower extremity DVT on iv heparin started on Coumadin inr 1.5today. low dose iv heparin bridge increased Coumadin to 2.5 mg daily and f/u inr Right sided pleural effusion Thoracentesis on 07/10/17: due to the enlarged pleural effusion on the right side with 1 L of blood-tinged fluid was removed As per pulmonary/critical care fluid is exudative but not likely infectious. blood cultures/thoracentesis cultures no growth to date not on antibiotics-stable Left Pleural effusion CXR 07/11/17 AM: no pneumothorax. Interstitial thickening suggests pulmonary edema. Bibasilar opacities persist. Cardiomediastinal silhouette is stable. Small right pleural effusion is noted. A small to moderate left pleural effusion is noted. -left chest tube placed on 07/11/17- s/p removal of chest tube on 07/15/17. pulmonary signed off will monitor seizure disorder, Parkinson's, schizoaffective disorder To continue home medications Valproic acid, Trilepta, Phenytoin Thyroid On Synthroid Diarrhea will check for c diff-negative DVT ppx: IV heparin / Coumadin Disposition: To be determined monitor in tele pt/ot possible d/c in am if inr therapeutic Vital Signs: Date Time Temp Pulse Resp B/P (MAP) Pulse Ox O2 Delivery O2 Flow Rate FiO2 07/18/17 15:34 36.6 93 16 121/71 (88) 96 Room Air 07/18/17 15:30 Room Air 07/18/17 12:24 36.8 87 16 128/69 (88) 98 07/18/17 12:00 Room Air 07/18/17 08:38 36.4 77 16 105/66 (79) 98 Room Air 07/18/17 07:30 Room Air 07/18/17 04:00 Room Air 07/18/17 03:04 36.3 76 20 118/62 (80) 97 Room Air 07/18/17 00:09 36.4 75 18 111/66 (81) 94 Room Air 07/18/17 00:00 Room Air 07/17/17 20:00 Room Air 07/17/17 19:21 36.7 72 20 109/67 (81) 93 Room Air Lab Results: Results Past 24 Hours Test 07/17/17 18:48 07/18/17 02:37 07/18/17 06:14 07/18/17 13:19 Range/Units Activated Partial Thromboplast Time 91.9 52.7 40.5 74.8 21.0-31.0 SECONDS Partial Thromboplastin Ratio 3.5 2.0 1.6 2.9 Prothrombin Time 15.4 9.0-12.0 SECONDS Prothromb Time International Ratio 1.5 0.9-1.1
[2017-07-18] MEDS: DIVALPROEX 250 MG EXTENDED REL TAB PO SCH (19:46)
[2017-07-18] MEDS: VALPROIC ACID SYRUP 250 MG/5 ML PO SCH (19:50)
[2017-07-18 20:59] LABS: PTT PATIENT 77.3 SECONDS (21.0-31.0)
[2017-07-19 03:51] LABS: INR 1.7 (0.9-1.1); PTT PATIENT 44.7 SECONDS (21.0-31.0)
[2017-07-19] MEDS ORDERED: WARFARIN SOD 5 MG TAB PO ONE (05:00)
[2017-07-19] MEDS: DIVALPROEX 500 MG EXTENDED RELEASE TAB PO SCH ×2 (05:28→21:22)
[2017-07-19] MEDS: LEVOTHYROXINE 100 MCG TAB PO SCH (05:30)
[2017-07-19] MEDS ORDERED: HEPARIN IV BOLUS 3,000 UNIT in SYRINGE 0 ML IV ONE (05:30)
[2017-07-19] MEDS: HEPARIN 25,000 UNIT/500ML D5W 500 ML IV PRN ×2 (05:30→13:43)
[2017-07-19 08:20] VITALS: BP 130/71; PULSE 87; TEMP 36.6; O2SAT 96
[2017-07-19] MEDS: PHENYTOIN SODIUM ER 100 MG CAP PO SCH ×3 (09:10→21:23)
[2017-07-19] MEDS: COLCHICINE 0.6 MG TAB PO SCH ×2 (09:10→21:23)
[2017-07-19] MEDS: FUROSEMIDE INJ 40 MG in SYRINGE 0 ML IV SCH (09:10)
[2017-07-19] MEDS: OXCARBAZEPINE 150 MG TAB PO SCH ×3 (09:11→21:22)
[2017-07-19] MEDS: POTASSIUM CHLORIDE 20 MEQ TABCR PO SCH ×2 (09:11→21:22)
[2017-07-19] MEDS: SENNA 8.6 MG TAB PO SCH ×2 (09:11→21:24)
[2017-07-19] MEDS: METOLAZONE 2.5 MG TAB PO SCH (09:12)
[2017-07-19] MEDS: BOOST PLUS VANILLA PO SCH ×2 (09:56→19:00)
--- NOTE | 2017-07-19 10:59 | Progress Note ---
Internal Med Progress Note Date of Service: Jul 19, 2017. Provider Documentation: SUBJECTIVE: resting comfortably still has some chest pain denies sob afebrile appetite not great moved bladder not moved bowels yet OBJECTIVE: Vital Signs-as noted below Exam: General-alert and Oriented. Not in distress.Slow to answer ENT-somewhat hard to hear Neck-no neck masses Lungs-cta b/l no wheezing or crackles Heart-s1 and s2 heard regular no murmurs Abdomen-soft bowel sounds present non tender no distension Extremities-no erythema Neuro-alert and awake moves extremities Lab data as noted below. ASSESSMENT & PLAN: Per H and P:61-year-old M with history of seizure disorder, Parkinson's, schizoaffective disorder, HTN, CKD III (L kidney absent), hereditary lymphedema , diastolic heart failure, recently was diagnosed with PE and was started on Xarelto, recently underwent abdominal hernia repair with cholecystectomy over 3 weeks ago, [facility] was noted for the past 24 hours to have persistent cough, with chest x-ray which showed bilateral volume loss and started empirically on Levaquin and transferred to the ER, was given Zosyn empirically, CAT scan of the chest and chest x-ray were reviewed which showed bilateral pleural effusion and pericardial effusion and pulmonary embolism" Pericardial effusion presented with large pericardial effusion without tamponade repeat echo shows moderate pericardial effusion Xarelto has been held for now as cardiology service recommended this to avoid hemorrhagic component complications There was consideration for possible pericardiocentesis on 07/13/17 but this did not take place as patient as been asymptomatic and hemodynamically stable. Cardiology recommends oral Coumadin because of readily available reversal agent if patient has bleeding Started on po prednisone with plan for long taper with reduce 5mg every 2 days colchicine for 3months as per cardiology still has some chest pain f/u with cardiology will reduce prednisone to 35mg daily Acute PE Left lower extremity DVT on iv heparin started on Coumadin inr 1.7today. low dose iv heparin bridge on Coumadin to 2.5 mg daily and f/u inr Right sided pleural effusion Thoracentesis on 07/10/17: due to the enlarged pleural effusion on the right side with 1 L of blood-tinged fluid was removed As per pulmonary/critical care fluid is exudative but not likely infectious. blood cultures/thoracentesis cultures no growth to date not on antibiotics-stable f/u with pcp Left Pleural effusion CXR 07/11/17 AM: no pneumothorax. Interstitial thickening suggests pulmonary edema. Bibasilar opacities persist. Cardiomediastinal silhouette is stable. Small right pleural effusion is noted. A small to moderate left pleural effusion is noted. -left chest tube placed on 07/11/17- s/p removal of chest tube on 07/15/17. pulmonary signed off will monitor stable f/u with pcp seizure disorder, Parkinson's, schizoaffective disorder To continue home medications Valproic acid, Trilepta, Phenytoin Thyroid On Synthroid Diarrhea will check for c diff-negative DVT ppx: IV heparin / Coumadin Disposition: To be determined monitor in tele pt/ot possible d/c in am if inr therapeutic Vital Signs: Date Time Temp Pulse Resp B/P (MAP) Pulse Ox O2 Delivery O2 Flow Rate FiO2 07/19/17 08:20 36.6 87 26 130/71 (90) 96 Room Air 07/19/17 08:00 Room Air 07/19/17 04:00 Room Air 07/19/17 00:00 Room Air 07/18/17 23:45 36.7 100 18 118/74 (89) 97 Room Air 07/18/17 20:00 Room Air 07/18/17 19:53 37.4 105 22 120/74 (89) 98 Room Air 07/18/17 15:34 36.6 93 16 121/71 (88) 96 Room Air 07/18/17 15:30 Room Air 07/18/17 12:24 36.8 87 16 128/69 (88) 98 07/18/17 12:00 Room Air Lab Results: Results Past 24 Hours Test 07/18/17 13:19 07/18/17 20:05 07/19/17 03:13 Range/Units Activated Partial Thromboplast Time 74.8 77.3 44.7 21.0-31.0 SECONDS Partial Thromboplastin Ratio 2.9 3.0 1.7 Prothrombin Time 17.2 9.0-12.0 SECONDS Prothromb Time International Ratio 1.7 0.9-1.1
[2017-07-19 12:18] VITALS: BP 117/71; PULSE 98; TEMP 36.8; O2SAT 99
[2017-07-19 12:25] LABS: PTT PATIENT 94.5 SECONDS (21.0-31.0)
[2017-07-19 16:15] VITALS: BP 130/73; PULSE 88; TEMP 36.8; O2SAT 97
[2017-07-19] MEDS: FUROSEMIDE 40 MG TAB PO SCH (16:36)
[2017-07-19] MEDS: CARBIDOPA/LEVODOPA 25/100MG TAB PO SCH ×2 (16:36→21:22)
[2017-07-19 19:41] VITALS: BP 123/65; PULSE 89; TEMP 36.5; O2SAT 94
[2017-07-19] MEDS: VALPROIC ACID SYRUP 250 MG/5 ML PO SCH (21:00)
[2017-07-19] MEDS: DIVALPROEX 250 MG EXTENDED REL TAB PO SCH (21:22)
[2017-07-19 23:59] VITALS: BP 105/68; PULSE 84; TEMP 36.4; O2SAT 95
[2017-07-20 03:28] VITALS: BP 112/62; PULSE 81; TEMP 36.9; O2SAT 97
[2017-07-20] MEDS: LEVOTHYROXINE 100 MCG TAB PO SCH (06:29)
[2017-07-20] MEDS: DIVALPROEX 500 MG EXTENDED RELEASE TAB PO SCH (06:29)
[2017-07-20 07:38] LABS: INR 2.2 (0.9-1.1)
[2017-07-20] MEDS: POTASSIUM CHLORIDE 20 MEQ TABCR PO SCH (07:38)
[2017-07-20] MEDS: OXCARBAZEPINE 150 MG TAB PO SCH ×2 (07:38→14:02)
[2017-07-20] MEDS: FUROSEMIDE 40 MG TAB PO SCH (07:38)
[2017-07-20] MEDS: CARBIDOPA/LEVODOPA 25/100MG TAB PO SCH ×2 (07:38→14:02)
[2017-07-20] MEDS: METOLAZONE 2.5 MG TAB PO SCH (07:39)
[2017-07-20] MEDS: PHENYTOIN SODIUM ER 100 MG CAP PO SCH ×2 (07:39→14:02)
[2017-07-20] MEDS: SENNA 8.6 MG TAB PO SCH (07:39)
[2017-07-20] MEDS: COLCHICINE 0.6 MG TAB PO SCH (07:39)
[2017-07-20 07:55] VITALS: BP 117/70; PULSE 87; TEMP 36.8; O2SAT 95
[2017-07-20 08:00] VITALS: O2SAT 98
[2017-07-20] MEDS: BOOST PLUS VANILLA PO SCH (09:55)
--- NOTE | 2017-07-20 10:33 | Progress Note ---
Internal Med Progress Note Date of Service: Jul 20, 2017. Provider Documentation: SUBJECTIVE: resting comfortably still complains of some chest pain denies sob no nausea eating ok moved bowels today afebrile ok for discharge today OBJECTIVE: Vital Signs-as noted below Exam: General-alert and Oriented. Not in distress.Slow to answer ENT-somewhat hard to hear Neck-no neck masses Lungs-cta b/l no wheezing or crackles Heart-s1 and s2 heard regular no murmurs Abdomen-soft bowel sounds present non tender no distension Extremities-no erythema Neuro-alert and awake moves extremities Lab data as noted below. ASSESSMENT & PLAN: Per H and P:61-year-old M with history of seizure disorder, Parkinson's, schizoaffective disorder, HTN, CKD III (L kidney absent), hereditary lymphedema , diastolic heart failure, recently was diagnosed with PE and was started on Xarelto, recently underwent abdominal hernia repair with cholecystectomy over 3 weeks ago, the patient was discharged to the [facility] where he was noted for the past 24 hours to have persistent cough, with chest x-ray which showed bilateral volume loss and started empirically on Levaquin and transferred to the ER, was given Zosyn empirically, CAT scan of the chest and chest x-ray were reviewed which showed bilateral pleural effusion and pericardial effusion and pulmonary embolism" Pericardial effusion presented with large pericardial effusion without tamponade repeat echo shows moderate pericardial effusion Xarelto has been held for now as cardiology service recommended this to avoid hemorrhagic component complications There was consideration for possible pericardiocentesis on 07/13/17 but this did not take place as patient as been asymptomatic and hemodynamically stable. Cardiology recommends oral Coumadin because of readily available reversal agent if patient has bleeding Started on po prednisone with plan for long taper with reduce 5mg every 2 days colchicine for 3months as per cardiology still has some chest pain f/u with cardiology will reduce prednisone to 35mg daily at discharge and slow taper as above Acute PE Left lower extremity DVT on iv heparin started on Coumadin inr 1.7today. low dose iv heparin bridge on Coumadin to 2.5 mg daily and f/u inr inr 2.2 at discharge followup with Coumadin clinic Right sided pleural effusion Thoracentesis on 07/10/17: due to the enlarged pleural effusion on the right side with 1 L of blood-tinged fluid was removed As per pulmonary/critical care fluid is exudative but not likely infectious. blood cultures/thoracentesis cultures no growth to date not on antibiotics-stable f/u with pcp Left Pleural effusion CXR 07/11/17 AM: no pneumothorax. Interstitial thickening suggests pulmonary edema. Bibasilar opacities persist. Cardiomediastinal silhouette is stable. Small right pleural effusion is noted. A small to moderate left pleural effusion is noted. -left chest tube placed on 07/11/17- s/p removal of chest tube on 07/15/17. pulmonary signed off will monitor stable f/u with pcp seizure disorder, Parkinson's, schizoaffective disorder To continue home medications Valproic acid, Trilepta, Phenytoin Thyroid On Synthroid Diarrhea will check for c diff-negative DVT ppx: Coumadin Disposition: plan for [facility] today Vital Signs: Date Time Temp Pulse Resp B/P (MAP) Pulse Ox O2 Delivery O2 Flow Rate FiO2 07/20/17 08:00 98 Room Air 07/20/17 07:55 36.8 87 24 117/70 (86) 95 Room Air 07/20/17 04:00 Room Air 07/20/17 03:28 36.9 81 18 112/62 (79) 97 Room Air 07/20/17 00:00 Room Air 07/19/17 23:59 36.4 84 16 105/68 (80) 95 Room Air 07/19/17 20:00 Room Air 07/19/17 19:41 36.5 89 20 123/65 (84) 94 Room Air 07/19/17 16:15 36.8 88 18 130/73 (92) 97 Room Air 07/19/17 16:00 Room Air 07/19/17 12:18 36.8 98 30 117/71 (86) 99 Room Air 07/19/17 12:00 Room Air Lab Results: Results Past 24 Hours Test 07/19/17 10:55 07/20/17 07:06 Range/Units Prothrombin Time 20.5 22.7 9.0-12.0 SECONDS Prothromb Time International Ratio 2.0 2.2 0.9-1.1 Activated Partial Thromboplast Time 94.5 21.0-31.0 SECONDS Partial Thromboplastin Ratio 3.6
[2017-07-20] MEDS ORDERED: CLC6 PO (11:26)
[2017-07-20] MEDS ORDERED: NUTR-977 PO (11:26)
[2017-07-20] MEDS ORDERED: PRED-301 PO (11:26)
[2017-07-20] MEDS ORDERED: CMD25 PO (11:26)
--- NOTE | 2017-07-20 11:31 | Discharge Instructions ---
Discharge Instructions Date of Service Jul 20, 2017. Admission Reason for Admission: Pericardial Effusion, Pleural Effusion Discharge Discharge Diagnosis / Problem: ACUTE PE, DVT, PERICARDIAL EFFUSION, B/L PLEURAL EFFUSION Discharge Goals Goal(s): Decrease discomfort, Improve function Activity Recommendations Activity Level: Assistance Required Therapies: Physical Therapy, Occupational Therapy, Speech Therapy . Additional Information Patient informed of condition: Yes Advance Directives: Yes DNR: No Level of Care: Skilled Communicable Disease: No Prognosis: Stable Maldonado Catheter: No Instructions / Follow-Up Instructions / Follow-Up FOLLOWUP WITH FAMILY DOCTOR IN ONE WEEK FOLLOWUP WITH CARDIOLOGY IN 2-3 WEEKS FOLLOWUP WITH PULMONARY IN 2-3 WEEKS. LAB: BMP IN ONE WEEK AND FOLLOW RESULTS WITH FAMILY DOCTOR LAB: DAILY PT/INR AND ADJUST COUMADIN DOSING. NEW MEDICATIONS: COLCHICINE 0.6MG PO BID X 3MONTHS SLOW PREDNISONE TAPER STOPPED XARELTO AND STARTED ON COUMADIN PER CARDIOLOGY RECOMMENDATIONS. FOLLOW PT/INR AND ADJUST COUMADIN DOSE Current Hospital Diet Patient's current hospital diet: Regular Diet Discharge Diet Recommended Diet: AHA Diet (Heart Healthy) Pending Studies Studies pending at discharge: no Physician Orders On Transfer Special Precautions: FALL AND ASPIRATION PRECAUTIONS Vital Signs: EVERY 8HRS Additional Orders: Call your Primary Care doctor if any of the following symptoms or problems start or get worse: * Shortness of breath or difficulty breathing * Wake up at night short of breath * Chest pain * Cough * Swelling of your hands, feet, or legs * More fatigued or tired with your normal activity * Palpitations - sudden fast heart beats WEIGHT * Weigh yourself every morning after using the bathroom. * Use the same scale. * Wear the same amount of clothing. * Write your weight down on a chart. * Call your Primary Care doctor if you gain more than 2-3 pounds in 1-2 days. MEDICATIONS * Use this discharge instruction sheet for medication instructions. * Take your medications at the time your doctor ordered. * Do not skip a dose of your medicines. * If you miss a dose of medicine, take it as soon as possible, but DO NOT DOUBLE A DOSE. * Read your medicine information when you get home. * Know all of the side effects of your medicine. If in doubt, ask your pharmacist * Call your Primary Care doctor's office if you have any side effects. * Be sure all of your doctors know what medicine and herbs you take (including cold, flu, and herbal medicine). Take the following with you to your follow-up doctor appointments: * Weight Chart * Medication List * List of questions Do not drink excessive alcohol, beer or wine. Laboratory Results Lipid Panel Test 07/11/17 03:22 Range/Units Triglycerides Level 183 H 0-150 mg/dl Cholesterol Level 89 0-200 mg/dl HDL Cholesterol 20 mg/dl Cholesterol/HDL Ratio 4.5 LDL Cholesterol, Calculated 32 mg/dl Medical Emergencies . Who to Call and When: Medical Emergencies: If at any time you feel your situation is an emergency, please call 911 immediately. . Non-Emergent Contact Non-Emergency issues call your: Primary Care Provider . . "Provider Documentation" section prepared by Narciso Cabezas. . Core Measure Problem Core Measures: None
--- NOTE | 2017-07-20 11:39 | Discharge Summary ---
Discharge Summary Date of Service Jul 20, 2017. Discharge Summary Admission Date: Jul 10, 2017 at 15:24 Discharge Date: Jul 20, 2017 Discharge Disposition: intermediate facility Principal Diagnosis: ACUTE PE ACUTE DVT PERICARDIAL EFFUSION LARGE BILATERAL PLEURAL EFFUSION S/P THORACOCENTESIS ON RIGHT SIDE AND CHEST TUBE ON LEFT SIDE Secondary Diagnoses/Problems: (1) Benign hypertension Status: Resolved (2) Chronic congestive heart failure Permanent Comment: echo 2009 moderate LVH, normal LVEF diastolic dysfunction Status: Chronic (3) Combative behavior Status: Chronic (4) Dementia with behavioral disturbance Status: Chronic (5) History of pancytopenia Status: Chronic (6) HLD (hyperlipidemia) Status: Chronic (7) Hyperlipidemia Status: Chronic (8) Hypertension Nos Status: Chronic (9) Hypothyroidism Status: Chronic (10) Lymphedema Status: Chronic (11) Parkinson disease Status: Chronic (12) Schizoaffective Disorder, Unspecified Status: Chronic (13) Seizure disorder Status: Chronic Procedures: HEAD CT: No significant change compared to the prior study. No acute intracranial abnormality. CTA CHEST: 1. Streak and motion degraded examination. 2. Segmental pulmonary emboli are seen within the right middle lobe and lingular branches. 3. There is a moderate to large volume of pericardial fluid. There is associated pericardial thickening and enhancement. This appears complex and may represent a complex pericardial effusion versus hemopericardium. Clinical correlation will be essential. 4. Moderate to large pleural effusions with associated atelectasis. CT ABD/PELVIS: 1. Moderate to large pericardial effusion with pericardial enhancement. This is better depicted on the chest CT. Please see that report for further description. This favors an infectious or inflammatory process with pericarditis. 2. Bilateral pleural effusion with right larger than left. 3. Findings suggestive of recent cholecystectomy with a 4.3 x 2.7 cm gas and fluid containing cholecystectomy bed fluid collection and adjacent fluid-filled tract/rim-enhancing collections extending anteriorly from the cholecystectomy bed. These fluid collections are nonspecific in the early postoperative setting and may reflect normal postoperative change. However, superimposed infection or biloma cannot be excluded by CT. Correlation with timing of surgery would be of benefit. 4. Findings suggestive of recent anterior abdominal wall hernia repair. 4. Stable moderate splenomegaly. VENOUS DOPPLER: Deep venous thrombus within the left posterior tibial vein. CXR: Interval removal of the left-sided pigtail drainage catheter. Stable bilateral pleural effusions. ECHO 07/10/17: There is a large circumferential pericardial effusion. * The most significant amount of fluid collection is adjacent to the right atrium with maximum dimension of 3.8 cm. * Tamponade physiology is absent, however there is some degree of diastolic collapse of the right atrium, and on 2D appearance there is evidence of early impairment of right ventricular filling which can be early signs of developing tamponade. * The appearance of the pericardial effusion is organized with stranding, and echogenic solid components noted adjacent to the apical portions of the heart in the right ventricular free wall. * Due to the organized appearance, the effusion does not appear to be amenable to pericardiocentesis. * Compared to the report of the prior study performed at [facility] on , the pericardial effusion is new Has no pericardial effusion was reported at the time of that study. Compared to the prior study performed at [facility] 02/07/17, no pericardial effusion was noted at that time. ECHO 07/11/17: A focused study was performed to reassess the pericardial effusion. Procedure Details * Limited views were obtained. Pericardium/Pleural * There is a large circumferential pericardial effusion. Tamponade is absent. Compared to the prior study dated 07/10/17, there has been a sublte improvement in the amount of pericardial fluid adjacent to the right atrium , with no apparent right atrial diastolic collapse. The most significant amount of fluid is adjaceent to the inferior and posterior LV hughes. * Large left pleural effusion. Great Vessels * Normal inferior vena cava size and collapsability with sniff indicates a normal right atrial pressure of 3 mmHg ECHO 07/13/17: Small to moderate circumferential pericardial effusion with the majority of fluid remaining adjacent to the posterior wall. No tamponade. Procedure Details * Limited views were obtained. * Limited study follow up for Pericardial Effusion S/P RIGHT THORACOCENTESIS S/P LEFT CHEST TUBE PLACEMENT Consultations: CARDIOLOGY PULMONARY Medication Reconciliation New Medications: Prednisone (Prednisone) 5 Mg Tab 35 MG PO UD, #56 TAB PREDNISONE 35MG PO DAILY X 2 DAYS THEN PREDNISONE 30MG PO DAILY X 2 DAYS THEN PREDNISONE 25MG PO DAILY X 2 DAYS THEN PREDNISONE 20MG PO DAILY X 2 DAYS THEN PREDNISONE 15MG PO DAILY X 2 DAYS THEN PREDNISONE 10MG PO DAILY X 2 DAYS THEN PREDNISONE 5MG PO DAILY X 2 DAYS THEN STOP. Colchicine (Colcrys) 0.6 Mg Tab 0.6 MG PO BID for 30 Days, #60 TAB 2 Refills Enteral Nutrition Formula (Ensure Plus Vanilla) 1 Can Liqd 1 CAN PO BID@1000,1900 for 30 Days, 1 Refill Warfarin Sod (Coumadin) 2.5 Mg Tab 2.5 MG PO DAILY@16, #30 TAB 2 Refills Continued Medications: Acetaminophen (Tylenol) 325 Mg Tab 650 MG PO Q6 PRN for Pain DO NOT EXCEED 3GM/24HR Aspirin (Aspirin 81) 81 Mg Tab 81 MG PO DAILY Atorvastatin (Lipitor) 40 Mg Tab 40 MG PO HS, TAB B-Complex W/ C & Folic Acid (Triphrocaps) 1 Cap Cap 1 CAP PO DAILY Carbidopa/Levodopa (Sinemet 25MG/100MG) Tab 1 TAB PO TID, TAB Cholecalciferol (Vitamin D3) 2,000 Unit Tab 2000 UNIT PO DAILY Cyanocobalamin (Vitamin B-12) 1,000 Mcg Sub 1000 MCG PO DAILY Docusate Sodium (Colace) 100 Mg Cap 100 MG PO BID Furosemide (Lasix) 40 Mg Tab 40 MG PO BID, TAB Ipratropium-Albuterol (Duoneb) 3 Ml Nebu 1 TREATMENT INH Q6 PRN for Wheezing, INHA Levothyroxine Sodium (Synthroid) 100 Mcg Tab 100 MCG PO DAILY, TAB Metolazone (Zaroxolyn) 2.5 Mg Tab 2.5 MG PO DAILY, TAB Multivitamins/Minerals (Mvi With Minerals) Tab 1 TAB PO DAILY, TAB Nutritional Supplements (Promod) 1 Pow Pow 1 DOSE PO BID Omeprazole (Prilosec) 20 Mg Capcr 20 MG PO DAILY Oxcarbazepine (Trileptal) 150 Mg Tab 150 MG PO TID Oxycodone HCl (Oxycodone HCl) 5 Mg Tab 5 MG PO TID Phenytoin Sodium (Dilantin) 100 Mg Cap 200 MG PO TID Polyethylene Glycol 3350 (Miralax) 1 Pow Pow 17 GM PO DAILY Potassium Chloride (Potassium Chloride) 20 Meq Soln 50 MEQ PO 5XD Senna (Senokot) 8.6 Mg Tab 8.6 MG PO BID, TAB Tamsulosin Hcl (Flomax) 0.4 Mg Cap 0.4 MG PO DAILY, CAP Valproic Acid Syrup (Depakene) 250 Mg/5 Ml Syrp 1500 MG PO QAM Valproic Acid Syrup (Depakene) 250 Mg/5 Ml Syrp 1750 MG PO HS Discontinued Medications: Levofloxacin (Levaquin) 500 Mg Tab 500 MG PO DAILY for 7 Days, TAB Rivaroxaban (Xarelto) 20 Mg Tab 20 MG PO DAILY, TAB Admission Information HPI (per Admitting provider): This is a 61yo M from [facility] with a PMH of HTN, CKD III (L kidney absent), h /o DVTs (on Xarelto), chronic diastolic HF, Parkinson's disease, hereditary lymphedema, seizure disorder, impulse disorder, dementia, mild intellectual disabilities and other medical problems listed below who presents with cough and confusion over the past few days. Patient underwent ventral hernia repair and cholecystectomy at [facility] over 3 weeks ago and returned to [facility] on 07/06. Patient is a poor historian due and does not know why he is in the hospital today. Is unable to describe his current symptoms. Per discussion with RN at [facility], patient has not been at his baseline since return from surgery. He has been refusing to wear his oxygen and refusing some of his medications. Has had a decreased appetite as well. After noting a persistent cough and worsening confusion, patient was brought to ED for further evaluation. ROS is limited but patient does endorse non-productive cough, generalized pain, nausea and fatigue. BLE swelling is chronic but slightly worse than baseline. Denies chest pain or vomiting. Does not have pain at surgical site. In the ED, patient was found to by hypoxic on room air in the 70s. CT chest/ thorax and CXR showed bilateral pleural effusion and pericardial effusion as well as small segmental pulmonary emboli are seen within the right middle lobe and lingular branches. Dr. Lacey was consulted and a thoracentesis was performed at bedside on the R side with 1 L of fluid removal. Physical Exam (per Admitting): General Appearance: WD/WN, no apparent distress, + pertinent finding ( Patient resting in bed, breathing comfortably on NC O2 ) Head: normocephalic, atraumatic Eyes: normal inspection, PERRL, sclerae normal ENT: normal ENT inspection, hearing grossly normal, pharynx normal Neck: supple, thyroid normal, no JVD, trachea midline Respiratory/Chest: chest non-tender, lungs clear, normal breath sounds, no respiratory distress, no accessory muscle use Cardiovascular: regular rate, rhythm, no murmur, normal peripheral pulses Abdomen/GI: non tender, soft, + pertinent finding (Vertical incision at midline with healing incision. No surrounding erythema or drainage ) Back: normal inspection Extremities/Musculoskelatal: no calf tenderness, + pertinent finding (3+ BLE edema. Prolonged cap refill in fingers, toes. ) Neurologic/Psych: no motor/sensory deficits, alert, oriented x 3, + pertinent finding (Flattened affect, impaired memory. ) Skin: normal color, warm/dry Hospital Course Per H and P:61-year-old M with history of seizure disorder, Parkinson's, schizoaffective disorder, HTN, CKD III (L kidney absent), hereditary lymphedema , diastolic heart failure, recently was diagnosed with PE and was started on Xarelto, recently underwent abdominal hernia repair with cholecystectomy over 3 weeks ago, the patient was discharged to the snf where he was noted for the past 24 hours to have persistent cough, with chest x-ray which showed bilateral volume loss and started empirically on Levaquin and transferred to the ER, was given Zosyn empirically, CAT scan of the chest and chest x-ray were reviewed which showed bilateral pleural effusion and pericardial effusion and pulmonary embolism" Pericardial effusion presented with large pericardial effusion without tamponade repeat echo shows moderate pericardial effusion Xarelto has been held for now as cardiology service recommended this to avoid hemorrhagic component complications There was consideration for possible pericardiocentesis on 07/13/17 but this did not take place as patient as been asymptomatic and hemodynamically stable. Cardiology recommends oral Coumadin because of readily available reversal agent if patient has bleeding Started on po prednisone with plan for long taper with reduce 5mg every 2 days colchicine for 3months as per cardiology still has some chest pain f/u with cardiology will reduce prednisone to 35mg daily at discharge and slow taper as above Acute PE Left lower extremity DVT on iv heparin started on Coumadin inr 1.7today. low dose iv heparin bridge on Coumadin to 2.5 mg daily and f/u inr inr 2.2 at discharge followup with Coumadin clinic Right sided pleural effusion Thoracentesis on 07/10/17: due to the enlarged pleural effusion on the right side with 1 L of blood-tinged fluid was removed As per pulmonary/critical care fluid is exudative but not likely infectious. blood cultures/thoracentesis cultures no growth to date not on antibiotics-stable f/u with pcp Left Pleural effusion CXR 07/11/17 AM: no pneumothorax. Interstitial thickening suggests pulmonary edema. Bibasilar opacities persist. Cardiomediastinal silhouette is stable. Small right pleural effusion is noted. A small to moderate left pleural effusion is noted. -left chest tube placed on 07/11/17- s/p removal of chest tube on 07/15/17. pulmonary signed off will monitor stable f/u with pcp seizure disorder, Parkinson's, schizoaffective disorder To continue home medications Valproic acid, Trilepta, Phenytoin Thyroid On Synthroid Diarrhea will check for c diff-negative DVT ppx: Coumadin Disposition: plan for [facility] today Total time spent on discharge = 40MINUTES This includes examination of the patient, discharge planning, medication reconciliation, and communication with other providers. Discharge Instructions Please take this sheet to every appointment for the next month Discharge Instructions Date of Service Jul 20, 2017. Admission Reason for Admission: Pericardial Effusion, Pleural Effusion Discharge Discharge Diagnosis / Problem: ACUTE PE, DVT, PERICARDIAL EFFUSION, B/L PLEURAL EFFUSION Discharge Goals Goal(s): Decrease discomfort, Improve function Activity Recommendations Activity Level: Assistance Required Therapies: Physical Therapy, Occupational Therapy, Speech Therapy . Additional Information Patient informed of condition: Yes Advance Directives: Yes DNR: No Level of Care: Skilled Communicable Disease: No Prognosis: Stable Maldonado Catheter: No Instructions / Follow-Up Instructions / Follow-Up FOLLOWUP WITH FAMILY DOCTOR IN ONE WEEK FOLLOWUP WITH CARDIOLOGY IN 2-3 WEEKS FOLLOWUP WITH PULMONARY IN 2-3 WEEKS. LAB: BMP IN ONE WEEK AND FOLLOW RESULTS WITH FAMILY DOCTOR LAB: DAILY PT/INR AND ADJUST COUMADIN DOSING. NEW MEDICATIONS: COLCHICINE 0.6MG PO BID X 3MONTHS SLOW PREDNISONE TAPER Current Hospital Diet Patient's current hospital diet: Regular Diet Discharge Diet Recommended Diet: AHA Diet (Heart Healthy) Pending Studies Studies pending at discharge: no Physician Orders On Transfer Special Precautions: FALL AND ASPIRATION PRECAUTIONS Vital Signs: EVERY 8HRS Additional Orders: Call your Primary Care doctor if any of the following symptoms or problems start or get worse: * Shortness of breath or difficulty breathing * Wake up at night short of breath * Chest pain * Cough * Swelling of your hands, feet, or legs * More fatigued or tired with your normal activity * Palpitations - sudden fast heart beats WEIGHT * Weigh yourself every morning after using the bathroom. * Use the same scale. * Wear the same amount of clothing. * Write your weight down on a chart. * Call your Primary Care doctor if you gain more than 2-3 pounds in 1-2 days. MEDICATIONS * Use this discharge instruction sheet for medication instructions. * Take your medications at the time your doctor ordered. * Do not skip a dose of your medicines. * If you miss a dose of medicine, take it as soon as possible, but DO NOT DOUBLE A DOSE. * Read your medicine information when you get home. * Know all of the side effects of your medicine. If in doubt, ask your pharmacist * Call your Primary Care doctor's office if you have any side effects. * Be sure all of your doctors know what medicine and herbs you take (including cold, flu, and herbal medicine). Take the following with you to your follow-up doctor appointments: * Weight Chart * Medication List * List of questions Do not drink excessive alcohol, beer or wine. Laboratory Results Lipid Panel Test 07/11/17 03:22 Range/Units Triglycerides Level 183 H 0-150 mg/dl Cholesterol Level 89 0-200 mg/dl HDL Cholesterol 20 mg/dl Cholesterol/HDL Ratio 4.5 LDL Cholesterol, Calculated 32 mg/dl Medical Emergencies . Who to Call and When: Medical Emergencies: If at any time you feel your situation is an emergency, please call 911 immediately. . Non-Emergent Contact Non-Emergency issues call your: Primary Care Provider . . "Provider Documentation" section prepared by Narciso Cabezas. . Core Measure Problem Core Measures: None
[2017-07-20 12:00] VITALS: BP 114/70; PULSE 90; TEMP 36.7; O2SAT 93; O2SAT 98
[2017-07-20] MEDS ORDERED: WARFARIN SOD 2.5 MG TAB PO SCH (16:00)
== END 2017-07-20 14:00 | DRG 314 ==
LOC: EDBD 11:06 → C.EDC 11:07 → C.2E 15:24 → ENRESERV 16:18
PROVIDERS: ADMIT Hospitalist; ATTEND Internal Medicine
PROC: 0W9B3ZX Drainage of Left Pleural Cavity, Percutaneous Approach, Diagnostic (ICD-10-PCS; principal; 2017-07-10)
PROC: 0W9B30Z Drainage of Left Pleural Cavity with Drainage Device, Percutaneous Approach (ICD-10-PCS; 2017-07-11)
DX: I31.3 Pericardial effusion (noninflammatory) (principal); J96.01 Acute respiratory failure with hypoxia; I26.99 Other pulmonary embolism without acute cor pulmonale; I13.0 Hypertensive heart and chronic kidney disease with heart failure and stage 1 through stage 4 chronic kidney disease, or unspecified chronic kidney disease; I50.32 Chronic diastolic (congestive) heart failure; J90 Pleural effusion, not elsewhere classified; Q60.0 Renal agenesis, unilateral; I82.442 Acute embolism and thrombosis of left tibial vein; F02.81 Dementia in other diseases classified elsewhere, unspecified severity, with behavioral disturbance; I47.1 Supraventricular tachycardia; N18.3 Chronic kidney disease, stage 3 (moderate); G31.83 Neurocognitive disorder with Lewy bodies; F70 Mild intellectual disabilities; E78.5 Hyperlipidemia, unspecified; E03.9 Hypothyroidism, unspecified; R19.7 Diarrhea, unspecified; G40.909 Epilepsy, unspecified, not intractable, without status epilepticus; F25.9 Schizoaffective disorder, unspecified; Z79.01 Long term (current) use of anticoagulants; Z79.82 Long term (current) use of aspirin; Z79.899 Other long term (current) drug therapy; Z86.718 Personal history of other venous thrombosis and embolism; Z98.890 Other specified postprocedural states; Z99.81 Dependence on supplemental oxygen

== ENCOUNTER → 2017-07-10 | Outpatient (CLI) | payer OTHER ==
[~2017-07-10] MED LIST changes: -CLC6 PO; -CMD25 PO; -NUTR-977 PO; -PRED-301 PO
[2017-07-10 08:35] LABS: BASO % 0.6 %; BASO ABS # 0.04 K/uL (0-0.2); EOS % 1.5 %; HEMATOCRIT 28.7 % (42-52); HEMOGLOBIN 8.8 g/dL (14.0-18.0); LYMPH ABS # 0.81 K/uL (1.2-3.4); MEAN CORPUSCULAR HEMOGLOBIN 30.7 pg (25-34); MEAN CORPUSCULAR HGB CONC 30.7 g/dl (32-36); MEAN PLATELET VOLUME 9.4 fL (7.4-10.4); MONO ABS # 0.61 K/uL (0.11-0.59); NEUT % 75.4 %; NEUT ABS # 5.09 K/uL (1.4-6.5); PLATELET COUNT 141 K/uL (130-400); RED CELL DISTRIBUTION WIDTH CV 16.3 % (11.5-14.5); RED CELL DISTRIBUTION WIDTH SD 58.5 fL (36.4-46.3); WHITE BLOOD COUNT 6.75 K/uL (4.8-10.8)
[2017-07-10 08:59] LABS: BLOOD UREA NITROGEN 21 mg/dl (7-18); CARBON DIOXIDE 28 mmol/L (21-32); CREATININE 1.01 mg/dl (0.60-1.40); GLUCOSE 99 mg/dl (70-99); POTASSIUM 5.1 mmol/L (3.5-5.1); SODIUM 137 mmol/L (136-145)
== END ==
LOC: C.LABUPHEI 08:14
PROVIDERS: ATTEND Nurse Practitioner Family
DX: J18.8 Other pneumonia, unspecified organism (principal)

== ENCOUNTER → 2017-07-21 | Outpatient (CLI) | payer OTHER ==
[~2017-07-21] MED LIST changes: -B-COCAP2 PO; +B-COCAP28 PO; +CLC6 PO; +CMD25 PO; -DXY100 PO; +FRS/40 PO; +IPRASOL4 INH; +KCLI20/100 PO; +MULT-513 PO; +NUTR-977 PO; +OXYC-609 PO; -POTA1POW PO; +PRED-301 PO; -RIVA1TAB4 PO; +[UNRECOGNIZED DRUG - CODE] PO
[2017-07-21 08:52] LABS: INR 2.8 (0.9-1.1)
== END ==
LOC: C.LABUPHEI 08:24
PROVIDERS: ATTEND Nurse Practitioner Family
DX: I82.729 Chronic embolism and thrombosis of deep veins of unspecified upper extremity (principal)

== ENCOUNTER → 2017-07-22 | Outpatient (CLI) | payer OTHER ==
[2017-07-22 08:21] LABS: INR 3.8 (0.9-1.1)
== END ==
LOC: C.LABUPHEI 07:42
PROVIDERS: ATTEND Nurse Practitioner Family
DX: I82.729 Chronic embolism and thrombosis of deep veins of unspecified upper extremity (principal)

== ENCOUNTER → 2017-07-24 | Outpatient (CLI) | payer OTHER ==
[2017-07-24 08:55] LABS: INR 3.1 (0.9-1.1)
[2017-07-24 09:01] LABS: BLOOD UREA NITROGEN 26 mg/dl (7-18); CALCIUM 9.1 mg/dl (8.5-10.1); CARBON DIOXIDE 31 mmol/L (21-32); GLUCOSE 112 mg/dl (70-99); POTASSIUM 4.9 mmol/L (3.5-5.1); SODIUM 136 mmol/L (136-145)
== END ==
LOC: C.LABUPHEI 08:36
PROVIDERS: ATTEND Nurse Practitioner Family
DX: I82.729 Chronic embolism and thrombosis of deep veins of unspecified upper extremity (principal); R60.9 Edema, unspecified

== ENCOUNTER → 2017-07-27 | Outpatient (CLI) | payer SELFPAY ==
[2017-07-27 08:45] LABS: BLOOD UREA NITROGEN 23 mg/dl (7-18); CALCIUM 9.2 mg/dl (8.5-10.1); CARBON DIOXIDE 32 mmol/L (21-32); CREATININE 0.93 mg/dl (0.60-1.40); GLUCOSE 94 mg/dl (70-99); POTASSIUM 3.5 mmol/L (3.5-5.1); SODIUM 138 mmol/L (136-145)
== END ==
LOC: C.LABUPHEI 08:08
PROVIDERS: ATTEND Nurse Practitioner Family
DX: D51.9 Vitamin B12 deficiency anemia, unspecified (principal)

== ENCOUNTER → 2017-07-31 | Outpatient (CLI) | payer OTHER ==
[2017-07-31 08:49] LABS: INR 1.6 (0.9-1.1)
== END | disposition home or self-care (01) ==
LOC: C.LABUPHEI 08:27
PROVIDERS: ATTEND Nurse Practitioner Family
DX: I82.7 Chronic embolism and thrombosis of veins of upper extremity (principal)

== ENCOUNTER → 2017-08-07 | Outpatient (CLI) | payer OTHER ==
[2017-08-07 08:37] LABS: INR 3.3 (0.9-1.1)
[2017-08-07 08:40] LABS: BLOOD UREA NITROGEN 23 mg/dl (7-18); CALCIUM 9.2 mg/dl (8.5-10.1); CARBON DIOXIDE 35 mmol/L (21-32); CREATININE 1.21 mg/dl (0.60-1.40); GLUCOSE 124 mg/dl (70-99); POTASSIUM 3.1 mmol/L (3.5-5.1); SODIUM 136 mmol/L (136-145)
== END ==
LOC: C.LABUPHEI 07:49
PROVIDERS: ATTEND Nurse Practitioner Family
DX: I82.729 Chronic embolism and thrombosis of deep veins of unspecified upper extremity (principal)

== ENCOUNTER → 2017-08-13 | Outpatient (CLI) | payer OTHER ==
[2017-08-13 09:57] LABS: INR 1.5 (0.9-1.1)
== END ==
LOC: C.LABUPHEI 09:13
PROVIDERS: ATTEND Nurse Practitioner Family
DX: I48.91 Unspecified atrial fibrillation (principal)

== ENCOUNTER → 2017-08-17 | Outpatient (CLI) | payer OTHER ==
[2017-08-17 11:53] LABS: INR 1.2 (0.9-1.1)
== END ==
LOC: C.LABUPHEI 08:47
PROVIDERS: ATTEND Nurse Practitioner Family
DX: I82.729 Chronic embolism and thrombosis of deep veins of unspecified upper extremity (principal)

== ENCOUNTER → 2017-08-19 | Outpatient (CLI) | payer OTHER ==
[2017-08-19 10:08] LABS: INR 1.1 (0.9-1.1)
== END ==
LOC: C.LABUPHEI 09:03
PROVIDERS: ATTEND Nurse Practitioner Family
DX: I82.729 Chronic embolism and thrombosis of deep veins of unspecified upper extremity (principal)

== ENCOUNTER → 2017-08-26 | Outpatient (CLI) | payer OTHER ==
[2017-08-26 08:47] LABS: INR 1.5 (0.9-1.1)
== END ==
LOC: C.LABUPHEI 08:11
PROVIDERS: ATTEND Nurse Practitioner Family
DX: I27.82 Chronic pulmonary embolism (principal)

== ENCOUNTER → 2017-08-28 | Outpatient (CLI) | payer OTHER ==
[2017-08-28 09:10] LABS: INR 1.1 (0.9-1.1)
== END ==
LOC: C.LABUPHEI 08:38
PROVIDERS: ATTEND Nurse Practitioner Family
DX: I27.82 Chronic pulmonary embolism (principal)

== ENCOUNTER → 2017-08-31 | Outpatient (CLI) | payer OTHER ==
[2017-08-31 09:15] LABS: INR 1.4 (0.9-1.1)
== END ==
LOC: C.LABUPHEI 08:46
PROVIDERS: ATTEND Nurse Practitioner Family
DX: I27.82 Chronic pulmonary embolism (principal)

== ENCOUNTER → 2017-09-03 | Outpatient (CLI) | payer OTHER ==
[2017-09-03 10:25] LABS: INR 1.1 (0.9-1.1)
== END | disposition home or self-care (01) ==
LOC: C.LABUPHEI 09:43
PROVIDERS: ATTEND Nurse Practitioner Family
DX: I27.82 Chronic pulmonary embolism (principal)

== ENCOUNTER → 2017-09-05 | Outpatient (CLI) | payer OTHER ==
[2017-09-05 10:17] LABS: INR 1.1 (0.9-1.1)
== END ==
LOC: C.LABUPHEI 10:25
PROVIDERS: ATTEND Nurse Practitioner Family
DX: I27.82 Chronic pulmonary embolism (principal)

== ENCOUNTER → 2017-09-07 | Outpatient (CLI) | payer OTHER ==
[2017-09-07 09:34] LABS: INR 1.3 (0.9-1.1)
== END | disposition home or self-care (01) ==
LOC: C.LABUPHEI 08:56
PROVIDERS: ATTEND Nurse Practitioner Family
DX: I27.82 Chronic pulmonary embolism (principal)

== ENCOUNTER → 2017-09-09 | Outpatient (CLI) | payer OTHER ==
[2017-09-09 08:42] LABS: INR 2.1 (0.9-1.1)
== END ==
LOC: C.LABUPHEI 08:12
PROVIDERS: ATTEND Nurse Practitioner Family
DX: I27.82 Chronic pulmonary embolism (principal)

== ENCOUNTER → 2017-09-11 | Outpatient (CLI) | payer OTHER ==
[2017-09-11 10:30] LABS: INR 1.3 (0.9-1.1)
== END ==
LOC: C.LABUPHEI 08:50
PROVIDERS: ATTEND Nurse Practitioner Family
DX: I82.729 Chronic embolism and thrombosis of deep veins of unspecified upper extremity (principal)

== ENCOUNTER → 2017-12-10 | Outpatient (CLI) | payer OTHER ==
[~2017-12-10] MED LIST changes: +IPRA-64 INH; -IPRASOL4 INH
[2017-12-10 10:27] LABS: BLOOD UREA NITROGEN 34 mg/dl (7-18); CARBON DIOXIDE 34 mmol/L (21-32); CREATININE 1.39 mg/dl (0.60-1.40); GLUCOSE 96 mg/dl (70-99); POTASSIUM 3.8 mmol/L (3.5-5.1); SODIUM 137 mmol/L (136-145)
== END | disposition home or self-care (01) ==
LOC: C.LABUPHEI 09:40
PROVIDERS: ATTEND Nurse Practitioner Family
DX: N18.3 Chronic kidney disease, stage 3 (moderate) (principal)

== ENCOUNTER → 2017-12-16 | Outpatient (CLI) | payer OTHER ==
[2017-12-16 09:56] LABS: BASO % 0.2 %; BASO ABS # 0.01 K/uL (0-0.2); EOS % 0.7 %; EOS ABS # 0.03 K/uL (0-0.5); HEMATOCRIT 42.1 % (42-52); HEMOGLOBIN 13.5 g/dL (14.0-18.0); IG# 0.01 K/uL (0.00-0.02); LYMPH % 26.8 %; LYMPH ABS # 1.22 K/uL (1.2-3.4); MEAN CORPUSCULAR HEMOGLOBIN 30.5 pg (25-34); MEAN CORPUSCULAR HGB CONC 32.1 g/dl (32-36); MEAN PLATELET VOLUME 10.3 fL (7.4-10.4); MONO ABS # 0.41 K/uL (0.11-0.59); NEUT % 63.1 %; NEUT ABS # 2.88 K/uL (1.4-6.5); PLATELET COUNT 118 K/uL (130-400); RED CELL DISTRIBUTION WIDTH CV 16.1 % (11.5-14.5); RED CELL DISTRIBUTION WIDTH SD 56.3 fL (36.4-46.3); WHITE BLOOD COUNT 4.56 K/uL (4.8-10.8)
[2017-12-16 10:07] LABS: ALBUMIN 3.8 gm/dl (3.4-5.0); ALKALINE PHOSPHATASE 128 U/L (45-117); ALT/SGPT 24 U/L (12-78); AST/SGOT 27 U/L (15-37); BLOOD UREA NITROGEN 31 mg/dl (7-18); CALCIUM 9.3 mg/dl (8.5-10.1); CARBON DIOXIDE 38 mmol/L (21-32); CREATININE 1.44 mg/dl (0.60-1.40); GLUCOSE 89 mg/dl (70-99); POTASSIUM 3.2 mmol/L (3.5-5.1); SODIUM 140 mmol/L (136-145); TOTAL PROTEIN 7.7 gm/dl (6.4-8.2)
== END ==
LOC: C.LABUPHEI 09:07
PROVIDERS: ATTEND Nurse Practitioner Family
DX: R60.9 Edema, unspecified (principal); G40.909 Epilepsy, unspecified, not intractable, without status epilepticus

== ENCOUNTER → 2017-12-19 | Outpatient (CLI) | payer OTHER | LOC: C.LABUPHEI 13:04 | PROVIDERS: ATTEND Nurse Practitioner Family | DX: E87.6 Hypokalemia (principal) ==